=== PATIENT | male | born 1980 | race African-American/Black ===

== ENCOUNTER 2016-08-06 20:59 | Emergency (ER) | payer MEDICARE, MEDICAID ==
[2016-08-06] MEDS ORDERED: Al Hydrox/Mg Hydrox/Simet LIQ* 30 ML UDC PO ONE (22:16)
[2016-08-06] MEDS ORDERED: Omeprazole CAP* 20 MG PO ONE (22:16)
[2016-08-06 22:48] LABS: Hematocrit 42 % (42-52); Hemoglobin 13.5 g/dl (14.0-18.0); Mean Corpuscular HGB Conc 32 g/dl (31-36); Mean Corpuscular Hemoglobin 27 pg (27-31); Mean Corpuscular Volume 85 fL (80-94); Mean Platelet Volume 8 um3 (7.4-10.4); Red Blood Count 4.97 10^6/ul (4.0-5.4); Red Cell Distribution Width 13 % (10.5-15); White Blood Count 5.5 10^3/ul (3.5-10.8)
--- NOTE | 2016-08-06 22:54 | RAD ---
INDICATION: Cough. COMPARISON: Comparison is made with a prior study from May 31, 2016. TECHNIQUE: Dual-energy PA and lateral views of the chest were obtained. FINDINGS: The heart is within normal limits in size. Mediastinal and hilar contours appear within normal limits. The lungs are clear. No pleural effusion is present. IMPRESSION: NO EVIDENCE FOR ACTIVE CARDIOPULMONARY DISEASE.
[2016-08-06 23:03] LABS: Albumin 4.1 g/dL (3.2-5.2); BUN/Creatinine Ratio 9.1 (8-20); C Reactive Protein 2.21 mg/L (< 5.00); Calcium 10.1 mg/dL (8.6-10.3); EGFR African American 96.9 (>60); EGFR Non-African American 75.3 (>60); Globulin 3.4 g/dL (2-4); Total Bilirubin 0.3 mg/dL (0.2-1.0); Total Protein 7.5 g/dL (6.4-8.9)
--- NOTE | 2016-08-06 23:43 | ED ---
Bethany Anderson Erika, scribed for Rocael Seals MD on 08/06/16 at 2212 . Respiratory - HPI Summary HPI Summary: Patient is a 36-year-old male presenting to the ED with a CC of hemoptysis. He reports that he has had cold-like symptoms for 4 days, including chills and a cough. Symptoms have been improving, but a few days ago, pt started producing a yellow sputum with red blood when he coughs. Associated symptoms include feeling generally weak and chest congestion. He also reports that he has had epigastric pain and has been vomiting. Pt denies decreased appetite. He does report loose stools with some specks of blood in them, and reports a Dx of IBS a few months ago. He had a BM today. - History of Current Complaint Chief Complaint: EDGeneral Stated Complaint: COUGHING BLOOD Time Seen by Provider: 08/06/16 21:56 Hx Obtained From: Patient Onset/Duration: Gradual Onset, Lasting Days, Still Present Timing: Constant Current Severity: Moderate Pain Intensity: 2 Character: Cough (Productive) Sputum Color: Yellow, Red (Blood) Aggravating Factor(s): Nothing Alleviating Factor(s): Nothing Associated Signs and Symptoms: URI, Chills - Allergy/Home Medications Allergies/Adverse Reactions: Allergies Allergy/AdvReac Type Severity Reaction Status Date / Time Clozapine Allergy Intermediate See Comment Verified 02/14/16 13:33 Ephedrine [From Respirol] Allergy Intermediate Blurred Verified 02/14/16 13:33 Vision Phenobarbital [From Respirol] Allergy Intermediate Blurred Verified 02/14/16 13: 33 Vision Theophylline [From Respirol] Allergy Intermediate Blurred Verified 02/14/16 13: 33 Vision Fluphenazine Allergy Mild Shakes Verified 02/14/16 13:33 [From Prolixin Decanoate] Paliperidone Allergy Mild Shakes Verified 02/14/16 13:33 [From Invega Sustenna] Polyethylene Glycol Allergy Mild Shakes Verified 02/14/16 13:33 [From Invega Sustenna] Haloperidol [From Haldol] Allergy Unknown See Comment Verified 02/14/16 13:33 Ziprasidone [From Geodon] Allergy Unknown See Comment Verified 02/14/16 13:33 PMH/Surg Hx/FS Hx/Imm Hx Endocrine/Hematology History: Reports: Hx Diabetes, Hx Anemia, Other Endocrine/ Hematological Disorders - leukopenia Denies: Hx Anticoagulant Therapy, Hx Thyroid Disease, Hx Unexplained Bleeding Cardiovascular History: Reports: Hx Hypertension Denies: Hx Aneurysm, Hx Angina, Hx Angioplasty, Hx Auto Implanted Cardiovert Defib, Hx Cardiac Arrest, Hx Cardiomegaly, Hx Congenital Heart Disease, Hx Congestive Heart Failure, Hx Coronary Artery Disease, Hx Deep Vein Thrombosis, Hx Hypercholesterolemia, Hx Hypotension, Hx Pacemaker/ICD, Hx Peripheral Vascular Disease, Hx Rheumatic Fever, Hx Syncope, Hx Valvular Heart Disease Respiratory History: Denies: Hx Asthma, Hx Chronic Bronchitis, Hx Chronic Obstructive Pulmonary Disease (COPD), Hx Cystic Fibrosis, Hx Lung Cancer, Hx Pleural Effusion, Hx Pneumonia, Hx Pulmonary Edema, Hx Pulmonary Embolism, Hx Seasonal Allergies, Hx Sleep Apnea, Other Respiratory Problems/Disorders GI History: Reports: Hx Gastroesophageal Reflux Disease, Hx Gastrointestinal Bleed, Hx Hiatal Hernia, Other GI Disorders - Constipation Denies: Hx Ulcer History: Denies: Hx Renal Disease, Other Problems/Disorders Musculoskeletal History: Reports: Hx Orthopedic Injury - Left Leg Fracture Denies: Other Musculoskeletal History Sensory History: Reports: Hx Contacts or Glasses Denies: Other Sensory Impairments Opthamlomology History: Reports: Hx Contacts or Glasses Denies: Other Sensory Impairments Neurological History: Reports: 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 Denies: Hx Dementia, Hx Developmental Delay, Hx Headaches, Hx Migraine, Hx Nerve Disease, Hx Spinal Cord Injury, Hx Transient Ischemic Attacks (TIA), Other Neuro Impairments/Disorders Psychiatric History: Reports: Hx Anxiety, Hx Oppositional [place] Disorder, Hx Depression, Hx Panic Disorder, Hx Post Traumatic Stress Disorder, Hx Inpatient Treatment, Hx Community Mental Health Tx, Hx Schizophrenia, Hx Bipolar Disorder , Hx Suicide Attempt, Hx Substance Abuse, Other Psychiatric Issues/Disorders - Hx Psychosis Denies: Hx Attention Deficit Hyperactivity Disorder, Hx Eating Disorder, Hx of Violent Episodes Against Others - Surgical History Surgery Procedure, Year, and Place: LEFT INGUINAL HERNIA Hx Anesthesia Reactions: No - Immunization History Date of Tetanus Vaccine: Up to Date Date of Influenza Vaccine: None Infectious Disease History: No Infectious Disease History: Reports: Hx Clostridium Difficile Denies: Hx Hepatitis, Hx Human Immunodeficiency Virus (HIV), Hx of Known/ Suspected MRSA, Hx Shingles, Hx Tuberculosis, Hx Known/Suspected VRE, History Other Infectious Disease, Traveled Outside the [place] in Last 30 Days - Family History Known Family History: Positive: Other - Schizophrenia, ASTHMA, CANCER - Social History Alcohol Use: None Alcohol Amount: some beers, none in the past 2 days Hx Substance Use: No Substance Use Type: Reports: None Hx Tobacco Use: No Smoking Status (MU): Never Smoked Tobacco Review of Systems Positive: Chills, Fatigue Positive: Other - chest congestion Positive: Cough - with blood Positive: Abdominal Pain - epigastric, Vomiting, Nausea, Other - loose stools - IBS - with slight blood Positive: Weakness - generalized All Other Systems Reviewed And Are Negative: Yes Physical Exam Triage Information Reviewed: Yes Vital Signs On Initial Exam: Initial Vitals Temp Pulse Resp BP Pulse Ox 98.7 F 65 20 142/89 100 08/06/16 21:07 08/06/16 21:07 08/06/16 21:07 08/06/16 21:07 08/06/16 21:07 Vital Signs Reviewed: Yes Appearance: Positive: Well-Appearing, No Pain Distress Skin: Positive: Warm, Skin Color Reflects Adequate Perfusion, Dry Head/Face: Positive: Normal Head/Face Inspection Eyes: Positive: EOMI, BHAVIK ENT: Positive: Normal ENT inspection Neck: Positive: Supple, Nontender Respiratory/Lung Sounds: Positive: Clear to Auscultation, Breath Sounds Present Cardiovascular: Positive: RRR Abdomen Description: Positive: Soft, Other: - mild epigastric tenderness Bowel Sounds: Positive: Present Musculoskeletal: Positive: Normal, Strength/ROM Intact Neurological: Positive: Normal, Sensory/Motor Intact, Alert, Oriented to Person Place, Time Psychiatric: Positive: Affect/Mood Appropriate Diagnostics - Vital Signs Vital Signs Temp Pulse Resp BP Pulse Ox 08/06/16 21:07 98.7 F 65 20 142/89 100 - Laboratory Lab Results: Lab Results 08/06/16 08/06/16 08/06/16 Range/Units 22:40 22:40 22:40 WBC 5.5 (3.5-10.8) 10^3/ul RBC 4.97 (4.0-5.4) 10^6/ul Hgb 13.5 L (14.0-18.0) g/dl Hct 42 (42-52) % MCV 85 (80-94) fL MCH 27 (27-31) pg MCHC 32 (31-36) g/dl RDW 13 (10.5-15) % Plt Count 266 (150-450) 10^3/ul MPV 8 (7.4-10.4) um3 Neut % (Auto) 58.6 (38-83) % Lymph % (Auto) 30.3 (25-47) % Lawrence % (Auto) 6.4 (1-9) % Eos % (Auto) 4.4 (0-6) % Baso % (Auto) 0.3 (0-2) % Absolute Neuts (auto) 3.2 (1.5-7.7) 10^3/ul Absolute Lymphs (auto) 1.7 (1.0-4.8) 10^3/ul Absolute Monos (auto) 0.4 (0-0.8) 10^3/ul Absolute Eos (auto) 0.2 (0-0.6) 10^3/ul Absolute Basos (auto) 0 (0-0.2) 10^3/ul Absolute Nucleated RBC 0.01 10^3/ul Nucleated RBC % 0.1 INR (Anticoag Therapy) 1.01 (0.89-1.11) APTT 22.4 L (26.0-36.3) seconds Sodium 137 (133-145) mmol/L Potassium 4.0 (3.5-5.0) mmol/L Chloride 105 (101-111) mmol/L Carbon Dioxide 28 (22-32) mmol/L Anion Gap 4 (2-11) mmol/L BUN 10 (6-24) mg/dL Creatinine 1.10 (0.67-1.17) mg/dL Est GFR ( Amer) 96.9 (>60) Est GFR (Non-Af Amer) 75.3 (>60) BUN/Creatinine Ratio 9.1 (8-20) Glucose 90 (70-100) mg/dL Calcium 10.1 (8.6-10.3) mg/dL Total Bilirubin 0.30 (0.2-1.0) mg/dL AST 16 (13-39) U/L ALT 8 (7-52) U/L Alkaline Phosphatase 34 (34-104) U/L C-Reactive Protein 2.21 (< 5.00) mg/L Total Protein 7.5 (6.4-8.9) g/dL Albumin 4.1 (3.2-5.2) g/dL Globulin 3.4 (2-4) g/dL Albumin/Globulin Ratio 1.2 (1-3) Lipase 25 (11.0-82.0) U/L Result Diagrams: 08/06/16 22:40 08/06/16 22:40 Lab Statement: Any lab studies that have been ordered have been reviewed, and results considered in the medical decision making process. - Radiology CXR Radiology Interpretation Completed By: Radiologist - IMPRESSION: NO EVIDENCE FOR ACTIVE CARDIOPULMONARY DISEASE. Re-Evaluation - Re-Evaluation First Eval Re-Evaluation Time: 23:35 Change: Improved Comment: Discussed imaging and lab results with patient. Pt states improved after Maalox. Will discharge at this time Disposition - Course Assessment/Plan: PATIENT WELL IN ED. UPPER ABD PAIN IMPROVED S/P MAALOX AND OMEPRAZOLE. NO COUGH OR EVIDENCE OF URI/HEMOPTYSIS IN ED. DISCHARGE HOME STABLE. - Diagnoses Provider Diagnoses: GERD (gastroesophageal reflux disease), Abdominal pain Discharge - Discharge Plan Condition: Stable Disposition: HOME Prescriptions: Omeprazole CAP* [Prilosec CAP* 20 MG] 20 mg PO BID #30 cap.dr Patient Education Materials: Gastroesophageal Reflux Disease (ED), Abdominal Pain (ED) Referrals: Nicki Olmstead MD [Medical Doctor] - Additional Instructions: FOLLOW UP WITH YOUR DOCTOR. START OMEPRAZOLE (ANTACID) DIRECTED. RETURN TO THE EMERGENCY DEPARTMENT FOR ANY WORSENING OF YOUR CONDITION OR QUESTIONS OR CONCERNS. The documentation as recorded by the Bethany peralta Erika accurately reflects the service I personally performed and the decisions made by me, Rocael Seals MD.
[2016-08-07 00:03] VITALS: BP 129/88
== END 2016-08-07 00:04 | disposition home or self-care (01) ==
LOC: ED 20:59
DX: K21.9 Gastro-esophageal reflux disease without esophagitis (principal); J06.9 Acute upper respiratory infection, unspecified; R10.13 Epigastric pain; R04.2 Hemoptysis; R05 Cough; R11.2 Nausea with vomiting, unspecified
CPT/HCPCS: 36415; 71020; 80053; 83690; 85025; 85610; 85730; 86140; 99283; A9270-GY

== ENCOUNTER 2016-09-06 08:28 | Emergency (ER) | payer MEDICARE, MEDICAID ==
[2016-09-06 08:54] VITALS: BP 125/85
--- NOTE | 2016-09-06 09:23 | UC ---
Cardiac HPI - HPI Summary HPI Summary: The patient comes in today for: 1. Chest pain: Onset: Last night. Palliative/provocative: Nothing makes the chest pain better. Drinking fluids makes it worse and it is worse "when I job or walking fast." Quality: Ache Region: Left anterior chest. No radiation. Severity: 8/10 but he looks more like 4/10 Time: Constant. Associated symptoms: Nausea: He states he has nausea. Dyspnea: He confesses to this. CAD risk factors: Smoke: (-), DM: (+), HTN: (+), Fm Hx: (-), Cholesterol: (? ), Cocaine: (-), Previous disease: (-) "Not walking good": He states that he may have seen a medical provider for his "poor walking" but "they may not have believed it." * - History of Current Complaint Stated Complaint: SHAKEY CHEST PAIN BS UP Hx Obtained From: Patient - Allergy/Home Medications Allergies/Adverse Reactions: Allergies Allergy/AdvReac Type Severity Reaction Status Date / Time Clozapine Allergy Intermediate See Comment Verified 02/14/16 13:33 Ephedrine [From Respirol] Allergy Intermediate Blurred Verified 02/14/16 13:33 Vision Phenobarbital [From Respirol] Allergy Intermediate Blurred Verified 02/14/16 13: 33 Vision Theophylline [From Respirol] Allergy Intermediate Blurred Verified 02/14/16 13: 33 Vision Fluphenazine Allergy Mild Shakes Verified 02/14/16 13:33 [From Prolixin Decanoate] Paliperidone Allergy Mild Shakes Verified 02/14/16 13:33 [From Invega Sustenna] Polyethylene Glycol Allergy Mild Shakes Verified 02/14/16 13:33 [From Invega Sustenna] Haloperidol [From Haldol] Allergy Unknown See Comment Verified 02/14/16 13:33 Ziprasidone [From Geodon] Allergy Unknown See Comment Verified 02/14/16 13:33 PMH/Surg Hx/FS Hx/Imm Hx Previously Healthy: No - Irritable bowel syndrome. Endocrine History Of: Reports: Diabetes Denies: Thyroid Disease, Hyperthyroidism, Hypothyroidism, Dyslipidemia Cardiovascular History Of: Reports: Hypertension Denies: Cardiac Disorders, Pacemaker/ICD, Myocardial Infarction, Congestive Heart Failure, Atrial Fibrillation, Deep Vein Thrombosis, Bleeding Disorders Respiratory History Of: Denies: COPD, Asthma, Bronchitis, Pneumonia, Pulmonary Embolism GI/ History Of: Reports: Gastroesophageal Reflux Denies: Ulcer, Gastrointestinal Bleed, Gall Bladder Disease, Kidney Stones, Diverticulitis, Renal Disease, Urosepsis Neurological History Of: Reports: 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 Denies: TIA, CVA, Dementia, Migraine Psychological History Of: Reports: Anxiety, Depression, Bipolar Disorder, Schizophrenia Denies: Post Traumatic Stress Disorder Cancer History Of: Denies: Lung Cancer, Colorectal Cancer, Breast Cancer, Prostate Cancer, Cervical Cancer Other History Of: Negative For: HIV, Hepatitis B, Hepatitis C, Anticoagulant Therapy - Surgical History Surgical History: Yes Surgery Procedure, Year, and Place: LEFT INGUINAL HERNIA - Family History Known Family History: Positive: Cardiac Disease, Hypertension, Diabetes - When asked about family HTN, DM, CAD, he states, "Yeah, something like, Other - Schizophrenia, ASTHMA, CANCER - Social History Occupation: Unemployed Alcohol Use: None Alcohol Amount: some beers, none in the past 2 days Substance Use Type: None Smoking Status (MU): Former Smoker Household Exposure Type: Cigars - Immunization History Most Recent Influenza Vaccination: Never Most Recent Tetanus Shot: Unsure Most Recent Pneumonia Vaccination: Never Review of Systems Constitutional: Negative Skin: Negative Eyes: Negative ENT: Negative Respiratory: Shortness Of Breath Cardiovascular: Chest Pain Gastrointestinal: Negative Genitourinary: Negative Motor: Negative All Other Systems Reviewed And Are Negative: Yes Physical Exam Triage Information Reviewed: Yes Completion Of Physical Exam Limited Due To: Other - Patient has history of mental health disorders, but logic seems intact. Appearance: Well-Appearing, No Pain Distress, Well-Nourished Vital Signs: Initial Vital Signs Temp 98.4 F 09/06/16 08:45 Pulse 85 09/06/16 08:45 Resp 18 09/06/16 08:45 BP 125/85 09/06/16 08:45 Pulse Ox 100 09/06/16 08:45 Vital Signs Reviewed: Yes Eyes: Positive: Conjunctiva Clear. Negative: Discharge ENT: Positive: Hearing grossly normal. Negative: Pharyngeal erythema, Nasal congestion, Nasal drainage, TM bulging, TM dull, TM red, Tonsillar swelling, Tonsillar exudate Dental: Negative: Gross Decay/Caries @, Dental Fracture @ Neck: Positive: Supple, Nontender, No Lymphadenopathy. Negative: Nuchal Rigidity Respiratory: Positive: Chest non-tender, Lungs clear, No respiratory distress, No accessory muscle use. Negative: Crackles, Wheezing Cardiovascular: Positive: RRR, No Murmur Abdomen Description: Positive: Nontender, No Organomegaly, Soft. Negative: Distended, Guarding Musculoskeletal: Positive: Strength Intact, ROM Intact, No Edema Neurological: Positive: Alert, Muscle Tone Normal Psychological: Positive: Age Appropriate Behavior, Consolable Skin: Negative: rashes, breakdown Diagnostics - Laboratory Diagnostic Studies Completed/Ordered: EKG: Rate: 74. Rhythm: sinus. Ectopy: None. Acute changes: None. - Clinical Impression Provider Diagnoses: Chest pain. HIstory of bipolar, schizophrenia. - Physician Notifications Discussed Patient Care With: Ms. Nicky Colón (physician providers all were running a code.) Time Discussed With Above Provider: 09:39 Discharge - Discharge Plan Condition: Stable Disposition: HOME Additional Instructions: Patient is going to [facility] via ambulance.
[2016-09-06] MEDS ORDERED: Aspirin Low Dose CHEW TAB* 81 MG PO ONE (09:33)
[2016-09-06] MEDS ORDERED: Nitroglycerin TAB 0.4 MG* 0.4 MG TAB SL ONE (09:33)
== END 2016-09-06 10:00 | disposition short-term general hospital (02) ==
LOC: UCEAST 08:28
DX: R07.9 Chest pain, unspecified (principal); F31.9 Bipolar disorder, unspecified; F20.9 Schizophrenia, unspecified; R94.31 Abnormal electrocardiogram [ECG] [EKG]; Z88.8 Allergy status to other drugs, medicaments and biological substances; F41.9 Anxiety disorder, unspecified; Z87.891 Personal history of nicotine dependence
CPT/HCPCS: 93005; 99213; A9270-GY; G0463

== ENCOUNTER 2016-09-06 10:15 | Emergency (ER) | payer MEDICARE, MEDICAID ==
[2016-09-06] MEDS ORDERED: Aspirin Low Dose CHEW TAB* 81 MG PO ONE (10:54)
[2016-09-06 11:07] LABS: Hematocrit 45 % (42-52); Hemoglobin 14.4 g/dl (14.0-18.0); Mean Corpuscular HGB Conc 32 g/dl (31-36); Mean Corpuscular Hemoglobin 27 pg (27-31); Mean Corpuscular Volume 86 fL (80-94); Mean Platelet Volume 9 um3 (7.4-10.4); Red Blood Count 5.26 10^6/ul (4.0-5.4); Red Cell Distribution Width 14 % (10.5-15); White Blood Count 5.5 10^3/ul (3.5-10.8)
[2016-09-06 11:15] LABS: Albumin 4.3 g/dL (3.2-5.2); BUN/Creatinine Ratio 10.1 (8-20); Calcium 9.3 mg/dL (8.6-10.3); EGFR African American 109.4 (>60); EGFR Non-African American 85.1 (>60); Globulin 3.5 g/dL (2-4); Potassium 4.4 mmol/L (3.5-5.0); Total Bilirubin 0.3 mg/dL (0.2-1.0); Total Protein 7.8 g/dL (6.4-8.9)
--- NOTE | 2016-09-06 11:39 | RAD ---
HISTORY: Chest pain COMPARISONS: August 06, 2016 VIEWS:1: Single frontal portable view of the chest at 11:10 AM FINDINGS: LINES AND TUBES: None. CARDIOMEDIASTINAL SILHOUETTE: The cardiomediastinal silhouette is normal for portable technique. PLEURA: The costophrenic angles are sharp. No pleural abnormalities are noted. LUNG PARENCHYMA: The lungs are clear. ABDOMEN: The upper abdomen is clear. There is no subphrenic gas. BONES AND SOFT TISSUES: No bone or soft tissue abnormalities are noted. IMPRESSION: NO ACTIVE CARDIOPULMONARY DISEASE.
--- NOTE | 2016-09-06 13:13 | ED ---
Jerry Anderson Benjamin, scribed for Samantha Dinero MD on 09/06/16 at 1221 . HPI Chest Pain - HPI Summary HPI Summary: 36yo male c/o chest pain and shakiness since all throughout yesterday and also today. Hx of HTN, DM, schizoaffective. No fhx of CAD. Pt also reports slight ALLISON on the left side. - History of Current Complaint Chief Complaint: EDChestPainROMI Time Seen by Provider: 09/06/16 11:21 Hx Obtained From: Patient Onset/Duration: Started Days Ago - 1 day ago Timing: Constant Initial Severity: Moderate Current Severity: Moderate Pain Intensity: 5 Pain Scale Used: 0-10 Numeric Chest Pain Location: Diffuse Chest Pain Radiates: No Character: Other: - ALLISON; shakiness - Additional Pertinent History Primary Care Physician: JN - Allergy/Home Medications Allergies/Adverse Reactions: Allergies Allergy/AdvReac Type Severity Reaction Status Date / Time Clozapine Allergy Intermediate See Comment Verified 02/14/16 13:33 Ephedrine [From Respirol] Allergy Intermediate Blurred Verified 02/14/16 13:33 Vision Phenobarbital [From Respirol] Allergy Intermediate Blurred Verified 02/14/16 13: 33 Vision Theophylline [From Respirol] Allergy Intermediate Blurred Verified 02/14/16 13: 33 Vision Fluphenazine Allergy Mild Shakes Verified 02/14/16 13:33 [From Prolixin Decanoate] Paliperidone Allergy Mild Shakes Verified 02/14/16 13:33 [From Invega Sustenna] Polyethylene Glycol Allergy Mild Shakes Verified 02/14/16 13:33 [From Invega Sustenna] Haloperidol [From Haldol] Allergy Unknown See Comment Verified 02/14/16 13:33 Ziprasidone [From Geodon] Allergy Unknown See Comment Verified 02/14/16 13:33 PMH/Surg Hx/FS Hx/Imm Hx Endocrine/Hematology History: Reports: Hx Diabetes, Hx Anemia, Other Endocrine/ Hematological Disorders - leukopenia Denies: Hx Anticoagulant Therapy, Hx Thyroid Disease, Hx Unexplained Bleeding Cardiovascular History: Reports: Hx Hypertension Denies: Hx Aneurysm, Hx Angina, Hx Angioplasty, Hx Auto Implanted Cardiovert Defib, Hx Cardiac Arrest, Hx Cardiomegaly, Hx Congenital Heart Disease, Hx Congestive Heart Failure, Hx Coronary Artery Disease, Hx Deep Vein Thrombosis, Hx Hypercholesterolemia, Hx Hypotension, Hx Myocardial Infarction, Hx Pacemaker/ ICD, Hx Peripheral Vascular Disease, Hx Rheumatic Fever, Hx Syncope, Hx Valvular Heart Disease Respiratory History: Denies: Hx Asthma, Hx Chronic Bronchitis, Hx Chronic Obstructive Pulmonary Disease (COPD), Hx Cystic Fibrosis, Hx Lung Cancer, Hx Pleural Effusion, Hx Pneumonia, Hx Pulmonary Edema, Hx Pulmonary Embolism, Hx Seasonal Allergies, Hx Sleep Apnea, Other Respiratory Problems/Disorders GI History: Reports: Hx Gastroesophageal Reflux Disease, Hx Hiatal Hernia, Other GI Disorders - Constipation Denies: Hx Gall Bladder Disease, Hx Gastrointestinal Bleed, Hx Ulcer, Hx Urosepsis History: Denies: Hx Kidney Stones, Hx Renal Disease, Other Problems/Disorders Musculoskeletal History: Reports: Hx Orthopedic Injury - Left Leg Fracture Denies: Other Musculoskeletal History Sensory History: Reports: Hx Contacts or Glasses Denies: Other Sensory Impairments Opthamlomology History: Reports: Hx Contacts or Glasses Denies: Other Sensory Impairments Neurological History: Reports: 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 Denies: Hx Dementia, Hx Developmental Delay, Hx Headaches, Hx Migraine, Hx Nerve Disease, Hx Spinal Cord Injury, Hx Transient Ischemic Attacks (TIA), Other Neuro Impairments/Disorders Psychiatric History: Reports: Hx Anxiety, Hx Oppositional [place] Disorder, Hx Depression, Hx Panic Disorder, Hx Post Traumatic Stress Disorder, Hx Inpatient Treatment, Hx Community Mental Health Tx, Hx Schizophrenia, Hx Bipolar Disorder , Hx Suicide Attempt, Hx Substance Abuse, Other Psychiatric Issues/Disorders - Hx Psychosis Denies: Hx Attention Deficit Hyperactivity Disorder, Hx Eating Disorder, Hx of Violent Episodes Against Others - Surgical History Surgery Procedure, Year, and Place: LEFT INGUINAL HERNIA Hx Anesthesia Reactions: No - Immunization History Date of Tetanus Vaccine: Up to Date Date of Influenza Vaccine: None Infectious Disease History: No Infectious Disease History: Reports: Hx Clostridium Difficile Denies: Hx Hepatitis, Hx Human Immunodeficiency Virus (HIV), Hx of Known/ Suspected MRSA, Hx Shingles, Hx Tuberculosis, Hx Known/Suspected VRE, History Other Infectious Disease, Traveled Outside the [place] in Last 30 Days - Family History Known Family History: Positive: Cardiac Disease, Hypertension, Diabetes - When asked about family HTN, DM, CAD, he states, "Yeah, something like, Other - Schizophrenia, ASTHMA, CANCER - Social History Alcohol Use: None Alcohol Amount: some beers, none in the past 2 days Hx Substance Use: No Substance Use Type: Reports: None Hx Tobacco Use: No Smoking Status (MU): Former Smoker Review of Systems ENT: Negative Negative: Dental Pain, Sore Throat, Ear Ache Cardiovascular: Negative Negative: Palpitations, Chest Pain Respiratory: Negative Negative: Shortness Of Breath, Cough Gastrointestinal: Negative Negative: Abdominal Pain, Vomiting, Diarrhea Genitourinary: Negative Negative: see HPI, burning, dysuria, incontinence Musculoskeletal: Negative Negative: Arthralgia, Myalgia, Decreased ROM Skin: Negative Negative: Rash, Bruising Neurological: Negative Negative: Headache, Weakness, Paresthesia Psychological: Normal Negative: Anxious, Depressed All Other Systems Reviewed And Are Negative: Yes Physical Exam Triage Information Reviewed: Yes Vital Signs On Initial Exam: Initial Vitals Temp Pulse Resp BP Pulse Ox 97.6 F 66 16 120/83 97 09/06/16 10:34 09/06/16 10:34 09/06/16 10:34 09/06/16 10:34 09/06/16 10:34 Vital Signs Reviewed: Yes Appearance: Positive: Well-Appearing, No Pain Distress, Well-Nourished Skin: Positive: Warm, Skin Color Reflects Adequate Perfusion, Dry Head/Face: Positive: Normal Head/Face Inspection Eyes: Positive: EOMI, BHAVIK ENT: Positive: Hearing grossly normal, Pharynx normal, TMs normal Neck: Positive: Supple, Nontender Respiratory/Lung Sounds: Positive: Clear to Auscultation, Breath Sounds Present Cardiovascular: Positive: RRR Abdomen Description: Positive: Nontender, No Organomegaly, Soft Bowel Sounds: Positive: Present Musculoskeletal: Positive: Normal, Strength/ROM Intact. Negative: Pain @ Neurological: Positive: Sensory/Motor Intact, Alert, Oriented to Person Place, Time, CN Intact II-III Psychiatric: Positive: Affect/Mood Appropriate - Yue Coma Scale Coma Scale Total: 15 Diagnostics - Vital Signs Vital Signs Temp Pulse Resp BP Pulse Ox 09/06/16 10:34 97.6 F 66 16 120/83 97 - Laboratory Lab Results: Lab Results 09/06/16 09/06/16 Range/Units 09:43 09:43 WBC 5.5 (3.5-10.8) 10^3/ul RBC 5.26 (4.0-5.4) 10^6/ul Hgb 14.4 (14.0-18.0) g/dl Hct 45 (42-52) % MCV 86 (80-94) fL MCH 27 (27-31) pg MCHC 32 (31-36) g/dl RDW 14 (10.5-15) % Plt Count 206 (150-450) 10^3/ul MPV 9 (7.4-10.4) um3 Neut % (Auto) 45.9 (38-83) % Lymph % (Auto) 37.4 (25-47) % Sharp % (Auto) 6.9 (1-9) % Eos % (Auto) 9.1 H (0-6) % Baso % (Auto) 0.7 (0-2) % Absolute Neuts (auto) 2.5 (1.5-7.7) 10^3/ul Absolute Lymphs (auto) 2.0 (1.0-4.8) 10^3/ul Absolute Monos (auto) 0.4 (0-0.8) 10^3/ul Absolute Eos (auto) 0.5 (0-0.6) 10^3/ul Absolute Basos (auto) 0 (0-0.2) 10^3/ul Absolute Nucleated RBC 0 10^3/ul Nucleated RBC % 0.1 Sodium 136 (133-145) mmol/L Potassium 4.4 (3.5-5.0) mmol/L Chloride 103 (101-111) mmol/L Carbon Dioxide 27 (22-32) mmol/L Anion Gap 6 (2-11) mmol/L BUN 10 (6-24) mg/dL Creatinine 0.99 (0.67-1.17) mg/dL Est GFR ( Amer) 109.4 (>60) Est GFR (Non-Af Amer) 85.1 (>60) BUN/Creatinine Ratio 10.1 (8-20) Glucose 107 H (70-100) mg/dL Calcium 9.3 (8.6-10.3) mg/dL Total Bilirubin 0.30 (0.2-1.0) mg/dL AST 19 (13-39) U/L ALT 9 (7-52) U/L Alkaline Phosphatase 40 (34-104) U/L Troponin I Pending Total Protein 7.8 (6.4-8.9) g/dL Albumin 4.3 (3.2-5.2) g/dL Globulin 3.5 (2-4) g/dL Albumin/Globulin Ratio 1.2 (1-3) Result Diagrams: 09/06/16 09:43 09/06/16 09:43 Lab Statement: Any lab studies that have been ordered have been reviewed, and results considered in the medical decision making process. Chest Pain Course/Dx - Course Course Of Treatment: 36 yo male who comes in with complaint of stuffed up nose and chest pain since yesterday. labs, cxr and trop ekg normal - Diagnoses Provider Diagnoses: Chest pain, atypical Discharge - Discharge Plan Condition: Stable Disposition: HOME The documentation as recorded by the Jerry peralta Benjamin accurately reflects the service I personally performed and the decisions made by me, Samantha Dinero MD.
[2016-09-06 13:34] VITALS: BP 128/78
[2016-09-06] MEDS ORDERED: Ibuprofen TAB* 600 MG PO ONE (13:55)
== END 2016-09-06 13:33 | disposition home or self-care (01) ==
LOC: ED 10:15
DX: R07.89 Other chest pain (principal); Z86.79 Personal history of other diseases of the circulatory system; Z87.891 Personal history of nicotine dependence; F31.9 Bipolar disorder, unspecified; F20.9 Schizophrenia, unspecified; R94.31 Abnormal electrocardiogram [ECG] [EKG]; Z88.8 Allergy status to other drugs, medicaments and biological substances; F41.9 Anxiety disorder, unspecified
CPT/HCPCS: 36415; 71010; 80053; 84484; 85025; 93005; 99213; 99284; A9270-GY; G0463

== ENCOUNTER 2016-09-29 12:12 | Emergency (ER) | payer MEDICARE, MEDICAID ==
[2016-09-29 13:10] VITALS: BP 122/78
--- NOTE | 2016-09-29 14:56 | UC ---
UC General HPI - HPI Summary HPI Summary: PT FEELS OVERALL WEAK AND FATIGUED FOR OVER A MONTH. REPORTS HE GOES TO BED ABOUT 5AM BECAUSE HE IS UP WATCHING TV. ONLY SLEEPS FOR A FEW HOURS A NIGHT. DOES NOT EAT MEALS REGULARLY AND DOES NOT FOLLOW ANY KIND OF DIABETIC DIET. IS CONCERNED ABOUT HIS OVERALL MALAISE. NO FEVER. NO NAUSEA. ATE FRUIT LOOPS THIS MORNING FOR BREAKFAST. POC GLUCOSE TODAY 75. - History of Current Complaint Chief Complaint: UCGeneralIllness Stated Complaint: WEAKNESS Time Seen by Provider: 09/29/16 14:45 Hx Obtained From: Patient Onset/Duration: Gradual Onset, Lasting Weeks, Still Present Timing: Constant Onset Severity: Moderate Current Severity: Moderate Pain Intensity: 0 Associated Signs & Symptoms: Positive: Recent Medication Changes - STARTED ZYPREXA A FEW WEEKS AGO, Weakness. Negative: Abdominal Pain, Cough, Chest Pain , Fever, Headache, Nausea, Palpitations, SOB - Allergy/Home Medications Allergies/Adverse Reactions: Allergies Allergy/AdvReac Type Severity Reaction Status Date / Time Clozapine Allergy Intermediate See Comment Verified 02/14/16 13:33 Ephedrine [From Respirol] Allergy Intermediate Blurred Verified 02/14/16 13:33 Vision Phenobarbital [From Respirol] Allergy Intermediate Blurred Verified 02/14/16 13: 33 Vision Theophylline [From Respirol] Allergy Intermediate Blurred Verified 02/14/16 13: 33 Vision Fluphenazine Allergy Mild Shakes Verified 02/14/16 13:33 [From Prolixin Decanoate] Paliperidone Allergy Mild Shakes Verified 02/14/16 13:33 [From Invega Sustenna] Polyethylene Glycol Allergy Mild Shakes Verified 02/14/16 13:33 [From Invega Sustenna] Haloperidol [From Haldol] Allergy Unknown See Comment Verified 02/14/16 13:33 Ziprasidone [From Geodon] Allergy Unknown See Comment Verified 02/14/16 13:33 PMH/Surg Hx/FS Hx/Imm Hx Endocrine History Of: Reports: Diabetes Denies: Thyroid Disease, Hyperthyroidism, Hypothyroidism, Dyslipidemia Cardiovascular History Of: Reports: Hypertension Denies: Cardiac Disorders, Pacemaker/ICD, Myocardial Infarction, Congestive Heart Failure, Atrial Fibrillation, Deep Vein Thrombosis, Bleeding Disorders Respiratory History Of: Denies: COPD, Asthma, Bronchitis, Pneumonia, Pulmonary Embolism GI/ History Of: Reports: Gastroesophageal Reflux Denies: Ulcer, Gastrointestinal Bleed, Gall Bladder Disease, Kidney Stones, Diverticulitis, Renal Disease, Urosepsis Neurological History Of: Reports: 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 Denies: TIA, CVA, Dementia, Migraine Psychological History Of: Reports: Anxiety, Depression, Bipolar Disorder, Schizophrenia Denies: Post Traumatic Stress Disorder Cancer History Of: Denies: Lung Cancer, Colorectal Cancer, Breast Cancer, Prostate Cancer, Cervical Cancer Other History Of: Negative For: HIV, Hepatitis B, Hepatitis C, Anticoagulant Therapy - Surgical History Surgical History: Yes Surgery Procedure, Year, and Place: LEFT INGUINAL HERNIA - Family History Known Family History: Positive: Cardiac Disease, Hypertension, Diabetes - When asked about family HTN, DM, CAD, he states, "Yeah, something like, Other - Schizophrenia, ASTHMA, CANCER - Social History Alcohol Use: None Alcohol Amount: some beers, none in the past 2 days Substance Use Type: None Smoking Status (MU): Former Smoker Household Exposure Type: Cigars - Immunization History Most Recent Influenza Vaccination: Never Most Recent Tetanus Shot: Unsure Most Recent Pneumonia Vaccination: Never Review of Systems Constitutional: Fatigue, Other - MALAISE, WEKNESS ENT: Negative Respiratory: Negative Cardiovascular: Negative Gastrointestinal: Negative Neurological: Weakness All Other Systems Reviewed And Are Negative: Yes Physical Exam Triage Information Reviewed: Yes Appearance: Well-Appearing, No Pain Distress, Well-Nourished Vital Signs: Initial Vital Signs Temp 98.2 F 09/29/16 13:06 Pulse 64 09/29/16 13:06 Resp 16 09/29/16 13:06 BP 122/78 09/29/16 13:06 Pulse Ox 100 09/29/16 13:06 Vital Signs Reviewed: Yes Eyes: Positive: Conjunctiva Clear ENT: Positive: Hearing grossly normal Neck: Positive: Supple Respiratory Exam: Normal Cardiovascular Exam: Normal Abdomen Description: Positive: Nontender, Soft Musculoskeletal: Positive: No Edema Neurological: Positive: Alert Psychological: Positive: Age Appropriate Behavior Skin: Negative: rashes Diagnostics - Laboratory Diagnostic Studies Completed/Ordered: POC GLUCOSE 75 Course/Dx - Differential Dx - Multi-Symptom Provider Diagnoses: OVERALL MALAISE - Physician Notifications Discussed Patient Care With: DR. WEAVER Time Discussed With Above Provider: 15:15 Instructed by Provider To: MD Will See In ED - [place] [facility] [facility] [place] Discharge - Discharge Plan Condition: Stable Disposition: [facility] Referrals: Nicki Olmstead MD [Primary Care Provider] -
== END 2016-09-29 15:43 | disposition short-term general hospital (02) ==
LOC: UCEAST 12:12
DX: R53.81 Other malaise (principal); Z88.8 Allergy status to other drugs, medicaments and biological substances; E11.9 Type 2 diabetes mellitus without complications; Z87.891 Personal history of nicotine dependence
CPT/HCPCS: 99213; G0463

== ENCOUNTER 2016-09-29 16:01 | Emergency (ER) | payer MEDICARE, MEDICAID ==
[2016-09-29] MEDS ORDERED: NS 0.9% 1000 ML* 1,000 ML IV SCH (16:30)
[2016-09-29] MEDS: NS 0.9% 1000 ML* 2,000 ML IV ONE ×2 (17:23→18:30)
[2016-09-29 17:52] LABS: Hematocrit 42 % (42-52); Hemoglobin 13.5 g/dl (14.0-18.0); Mean Corpuscular HGB Conc 32 g/dl (31-36); Mean Corpuscular Hemoglobin 27 pg (27-31); Mean Corpuscular Volume 85 fL (80-94); Mean Platelet Volume 8 um3 (7.4-10.4); Red Blood Count 4.95 10^6/ul (4.0-5.4); Red Cell Distribution Width 14 % (10.5-15); White Blood Count 4.9 10^3/ul (3.5-10.8)
[2016-09-29 18:07] LABS: BUN/Creatinine Ratio 9.3 (8-20); C Reactive Protein 1.47 mg/L (< 5.00); Calcium 9.4 mg/dL (8.6-10.3); EGFR African American 98.9 (>60); EGFR Non-African American 76.9 (>60); Globulin 3.5 g/dL (2-4); Magnesium 1.9 mg/dL (1.9-2.7); Potassium 3.6 mmol/L (3.5-5.0); Total Bilirubin 0.7 mg/dL (0.2-1.0); Total Protein 7.5 g/dL (6.4-8.9)
[2016-09-29 18:25] LABS: Lithium 0.9 mmol/L (0.6-1.2)
[2016-09-29 18:35] LABS: TSH (Thyroid Stimulating Horm) 1.29 mcIU/mL (0.34-5.60)
--- NOTE | 2016-09-29 19:38 | ED ---
Cosme Anderson Billy, scribed for Rocael Seals MD on 09/29/16 at 1652 . Complex/Multi-Sys Presentation - HPI Summary HPI Summary: Patient is a 36 year-old male coming to [facility] from [facility] [place] of feelings that his heart is "squeezing, like it's working overtime" since yesterday. Nothing makes his symptoms better or worse. Denies any recent changes in medication. - History Of Current Complaint Chief Complaint: EDGeneral Time Seen by Provider: 09/29/16 16:22 Hx Obtained From: Patient Onset/Duration: Gradual Onset, Lasting Days, Still Present Timing: Intermittent, Lasting: Severity Currently: Moderate Severity Initially: Moderate Aggravating Factor(s): none Alleviating Factor(s): none - Allergies/Home Medications Allergies/Adverse Reactions: Allergies Allergy/AdvReac Type Severity Reaction Status Date / Time Clozapine Allergy Intermediate See Comment Verified 02/14/16 13:33 Ephedrine [From Respirol] Allergy Intermediate Blurred Verified 02/14/16 13:33 Vision Phenobarbital [From Respirol] Allergy Intermediate Blurred Verified 02/14/16 13: 33 Vision Theophylline [From Respirol] Allergy Intermediate Blurred Verified 02/14/16 13: 33 Vision Fluphenazine Allergy Mild Shakes Verified 02/14/16 13:33 [From Prolixin Decanoate] Paliperidone Allergy Mild Shakes Verified 02/14/16 13:33 [From Invega Sustenna] Polyethylene Glycol Allergy Mild Shakes Verified 02/14/16 13:33 [From Invega Sustenna] Haloperidol [From Haldol] Allergy Unknown See Comment Verified 02/14/16 13:33 Ziprasidone [From Geodon] Allergy Unknown See Comment Verified 02/14/16 13:33 PMH/Surg Hx/FS Hx/Imm Hx Endocrine/Hematology History: Reports: Hx Diabetes, Hx Anemia, Other Endocrine/ Hematological Disorders - leukopenia Denies: Hx Anticoagulant Therapy, Hx Thyroid Disease, Hx Unexplained Bleeding Cardiovascular History: Reports: Hx Hypertension Denies: Hx Aneurysm, Hx Angina, Hx Angioplasty, Hx Auto Implanted Cardiovert Defib, Hx Cardiac Arrest, Hx Cardiomegaly, Hx Congenital Heart Disease, Hx Congestive Heart Failure, Hx Coronary Artery Disease, Hx Deep Vein Thrombosis, Hx Hypercholesterolemia, Hx Hypotension, Hx Myocardial Infarction, Hx Pacemaker/ ICD, Hx Peripheral Vascular Disease, Hx Rheumatic Fever, Hx Syncope, Hx Valvular Heart Disease Respiratory History: Denies: Hx Asthma, Hx Chronic Bronchitis, Hx Chronic Obstructive Pulmonary Disease (COPD), Hx Cystic Fibrosis, Hx Lung Cancer, Hx Pleural Effusion, Hx Pneumonia, Hx Pulmonary Edema, Hx Pulmonary Embolism, Hx Seasonal Allergies, Hx Sleep Apnea, Other Respiratory Problems/Disorders GI History: Reports: Hx Gastroesophageal Reflux Disease, Hx Hiatal Hernia, Other GI Disorders - Constipation Denies: Hx Gall Bladder Disease, Hx Gastrointestinal Bleed, Hx Ulcer, Hx Urosepsis History: Denies: Hx Kidney Stones, Hx Renal Disease, Other Problems/Disorders Musculoskeletal History: Reports: Hx Orthopedic Injury - Left Leg Fracture Denies: Other Musculoskeletal History Sensory History: Reports: Hx Contacts or Glasses Denies: Other Sensory Impairments Opthamlomology History: Reports: Hx Contacts or Glasses Denies: Other Sensory Impairments Neurological History: Reports: 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 Denies: Hx Dementia, Hx Developmental Delay, Hx Headaches, Hx Migraine, Hx Nerve Disease, Hx Spinal Cord Injury, Hx Transient Ischemic Attacks (TIA), Other Neuro Impairments/Disorders Psychiatric History: Reports: Hx Anxiety, Hx Oppositional [place] Disorder, Hx Depression, Hx Panic Disorder, Hx Post Traumatic Stress Disorder, Hx Inpatient Treatment, Hx Community Mental Health Tx, Hx Schizophrenia, Hx Bipolar Disorder , Hx Suicide Attempt, Hx Substance Abuse, Other Psychiatric Issues/Disorders - Hx Psychosis Denies: Hx Attention Deficit Hyperactivity Disorder, Hx Eating Disorder, Hx of Violent Episodes Against Others - Surgical History Surgery Procedure, Year, and Place: LEFT INGUINAL HERNIA Hx Anesthesia Reactions: No - Immunization History Date of Tetanus Vaccine: Up to Date Date of Influenza Vaccine: None Infectious Disease History: Reports: Hx Clostridium Difficile Denies: Hx Hepatitis, Hx Human Immunodeficiency Virus (HIV), Hx of Known/ Suspected MRSA, Hx Shingles, Hx Tuberculosis, Hx Known/Suspected VRE, History Other Infectious Disease, Traveled Outside the [place] in Last 30 Days - Family History Known Family History: Positive: Cardiac Disease, Hypertension, Diabetes - When asked about family HTN, DM, CAD, he states, "Yeah, something like, Other - Schizophrenia, ASTHMA, CANCER - Social History Alcohol Use: None Alcohol Amount: some beers, none in the past 2 days Hx Substance Use: No Substance Use Type: Reports: None Hx Tobacco Use: No Smoking Status (MU): Former Smoker Review of Systems Negative: Fever Positive: Other - "heart squeezing" All Other Systems Reviewed And Are Negative: Yes Physical Exam Triage Information Reviewed: Yes Vital Signs On Initial Exam: Initial Vital Signs Temp 98.2 F 09/29/16 16:31 Pulse 64 09/29/16 16:31 Resp 18 09/29/16 16:31 BP 130/75 09/29/16 16:31 Pulse Ox 100 09/29/16 16:31 Vital Signs Reviewed: Yes Appearance: Positive: Well-Appearing, No Pain Distress Skin: Positive: Warm, Skin Color Reflects Adequate Perfusion, Dry Head/Face: Positive: Normal Head/Face Inspection Eyes: Positive: EOMI, BHAVIK Neck: Positive: Supple, Nontender Respiratory/Lung Sounds: Positive: Clear to Auscultation, Breath Sounds Present Cardiovascular: Positive: RRR Abdomen Description: Positive: Nontender, Soft Bowel Sounds: Positive: Present Musculoskeletal: Positive: Normal, Strength/ROM Intact Neurological: Positive: Normal, Sensory/Motor Intact, Alert, Oriented to Person Place, Time Psychiatric: Positive: Affect/Mood Appropriate Diagnostics - Vital Signs Vital Signs Temp Pulse Resp BP Pulse Ox 09/29/16 17:59 64 16 124/76 100 09/29/16 16:31 98.2 F 64 18 130/75 100 - Laboratory Lab Results: Lab Results 09/29/16 09/29/16 09/29/16 Range/Units 17:35 17:35 17:35 WBC 4.9 (3.5-10.8) 10^3/ul RBC 4.95 (4.0-5.4) 10^6/ul Hgb 13.5 L (14.0-18.0) g/dl Hct 42 (42-52) % MCV 85 (80-94) fL MCH 27 (27-31) pg MCHC 32 (31-36) g/dl RDW 14 (10.5-15) % Plt Count 249 (150-450) 10^3/ul MPV 8 (7.4-10.4) um3 Neut % (Auto) 58.4 (38-83) % Lymph % (Auto) 28.1 (25-47) % [place] % (Auto) 7.0 (1-9) % Eos % (Auto) 6.1 H (0-6) % Baso % (Auto) 0.4 (0-2) % Absolute Neuts (auto) 2.8 (1.5-7.7) 10^3/ul Absolute Lymphs (auto) 1.4 (1.0-4.8) 10^3/ul Absolute Monos (auto) 0.3 (0-0.8) 10^3/ul Absolute Eos (auto) 0.3 (0-0.6) 10^3/ul Absolute Basos (auto) 0 (0-0.2) 10^3/ul Absolute Nucleated RBC 0.02 10^3/ul Nucleated RBC % 0.4 INR (Anticoag Therapy) 1.11 (0.89-1.11) APTT 32.3 (26.0-36.3) seconds Sodium 135 (133-145) mmol/L Potassium 3.6 (3.5-5.0) mmol/L Chloride 105 (101-111) mmol/L Carbon Dioxide 27 (22-32) mmol/L Anion Gap 3 (2-11) mmol/L BUN 10 (6-24) mg/dL Creatinine 1.08 (0.67-1.17) mg/dL Est GFR ( Amer) 98.9 (>60) Est GFR (Non-Af Amer) 76.9 (>60) BUN/Creatinine Ratio 9.3 (8-20) Glucose 101 H (70-100) mg/dL Calcium 9.4 (8.6-10.3) mg/dL Magnesium 1.9 (1.9-2.7) mg/dL Total Bilirubin 0.70 (0.2-1.0) mg/dL AST 17 (13-39) U/L ALT 10 (7-52) U/L Alkaline Phosphatase 41 (34-104) U/L Troponin I 0.00 (<0.04) ng/mL C-Reactive Protein 1.47 (< 5.00) mg/L Total Protein 7.5 (6.4-8.9) g/dL Albumin 4.0 (3.2-5.2) g/dL Globulin 3.5 (2-4) g/dL Albumin/Globulin Ratio 1.1 (1-3) Lipase 19 (11.0-82.0) U/L TSH 1.29 (0.34-5.60) mcIU/mL Valproic Acid 47.0 L (50-100) mcg/mL [place] 0.90 (0.6-1.2) mmol/L Result Diagrams: 09/29/16 17:35 09/29/16 17:35 Lab Statement: Any lab studies that have been ordered have been reviewed, and results considered in the medical decision making process. - EKG 1925 EKG Interpretation: sinus bradycardia 59 bpm, normal ST segment, no ectopy EKG Comparison: No Significant Change - Compared to 09/06/16 Complex Multi-Symp Course/Dx Assessment/Plan: WELL IN ED. DISCHARGE HOME STABLE. - Diagnoses Provider Diagnoses: Chest pain Discharge - Discharge Plan Condition: Stable Disposition: HOME Patient Education Materials: Chest Pain (ED) Referrals: Nicki Olmstead MD [Primary Care Provider] - Additional Instructions: FOLLOW UP WITH YOUR DOCTOR. RETURN TO THE EMERGENCY DEPARTMENT FOR ANY WORSENING OF YOUR CONDITION OR QUESTIONS OR CONCERNS. The documentation as recorded by the Cosme peralta Billy accurately reflects the service I personally performed and the decisions made by me, Rocael Seals MD.
[2016-09-29 19:53] VITALS: BP 132/69
== END 2016-09-29 19:52 | disposition home or self-care (01) ==
LOC: ED 16:01
DX: R07.9 Chest pain, unspecified (principal); I10 Essential (primary) hypertension; K21.9 Gastro-esophageal reflux disease without esophagitis; F31.9 Bipolar disorder, unspecified; F20.9 Schizophrenia, unspecified; Z87.891 Personal history of nicotine dependence
CPT/HCPCS: 36415; 80053; 80164; 80178; 83690; 83735; 84443; 84484; 85025; 85610; 85730; 86140; 93005; 96360; 99282

== ENCOUNTER 2016-10-25 10:59 | Emergency (ER) | payer MEDICARE, MEDICAID ==
[2016-10-25 11:34] LABS: Hematocrit 42 % (42-52); Hemoglobin 13.6 g/dl (14.0-18.0); Mean Corpuscular HGB Conc 32 g/dl (31-36); Mean Corpuscular Hemoglobin 27 pg (27-31); Mean Corpuscular Volume 85 fL (80-94); Mean Platelet Volume 8 um3 (7.4-10.4); Red Blood Count 4.97 10^6/ul (4.0-5.4); Red Cell Distribution Width 14 % (10.5-15); White Blood Count 4.9 10^3/ul (3.5-10.8)
[2016-10-25 11:51] LABS: ALT 8 U/L (7-52); AST 17 U/L (13-39); Albumin 4.2 g/dL (3.2-5.2); Alkaline Phosphatase 48 U/L (34-104); Anion Gap 5 mmol/L (2-11); BUN/Creatinine Ratio 10.2 (8-20); Blood Urea Nitrogen 13 mg/dL (6-24); CO2 Carbon Dioxide 26 mmol/L (22-32); Calcium 9.6 mg/dL (8.6-10.3); Chloride 105 mmol/L (101-111); EGFR African American 81.3 (>60); EGFR Non-African American 63.2 (>60); Globulin 3.4 g/dL (2-4); Glucose 84 mg/dL (70-100); Potassium 3.7 mmol/L (3.5-5.0); Sodium 136 mmol/L (133-145); Total Protein 7.6 g/dL (6.4-8.9)
[2016-10-25 12:06] LABS: Acetaminophen < 15 mcg/mL; Alcohol < 10 mg/dL (<10); Salicylate < 2.50 mg/dL (<30)
[2016-10-25 12:15] LABS: TSH (Thyroid Stimulating Horm) 1.56 mcIU/mL (0.34-5.60)
[2016-10-25 12:17] LABS: Urine Bacteria Absent (Absent); Urine Bilirubin Negative (Negative); Urine Glucose Negative (Negative); Urine Nitrite Negative (Negative)
[2016-10-25 12:29] LABS: Benzodiazepine Urine Screen None Detected (None Detect)
[2016-10-25 13:25] VITALS: BP 113/74
--- NOTE | 2016-10-25 18:58 | ED ---
Malinda Anderson Matthew, scribed for Pato Azar MD on 10/25/16 at 1159 . Altered Mental Status - HPI Summary HPI Summary: A 36 y/o male presents to the ED with hallucinations. The patient states that he 's unable to walk, because "[he] can only walk on one side of the floor and not the other." No SI or depression. - History Of Current Complaint Chief Complaint: EDMentalHealth Stated Complaint: WEAKNESS Time Seen by Provider: 10/25/16 11:22 Hx Obtained From: Patient Onset/Duration: Still Present Timing: Constant Severity Initially: Mild Severity Currently: Mild Aggravating Factor(s): Unknown Alleviating Factor(s): Unknown Associated Signs And Symptoms: Positive: Negative - Allergies/Home Medications Allergies/Adverse Reactions: Allergies Allergy/AdvReac Type Severity Reaction Status Date / Time Clozapine Allergy Intermediate See Comment Verified 02/14/16 13:33 Ephedrine [From Respirol] Allergy Intermediate Blurred Verified 02/14/16 13:33 Vision Phenobarbital [From Respirol] Allergy Intermediate Blurred Verified 02/14/16 13: 33 Vision Theophylline [From Respirol] Allergy Intermediate Blurred Verified 02/14/16 13: 33 Vision Fluphenazine Allergy Mild Shakes Verified 02/14/16 13:33 [From Prolixin Decanoate] Paliperidone Allergy Mild Shakes Verified 02/14/16 13:33 [From Invega Sustenna] Polyethylene Glycol Allergy Mild Shakes Verified 02/14/16 13:33 [From Invega Sustenna] Haloperidol [From Haldol] Allergy Unknown See Comment Verified 02/14/16 13:33 Ziprasidone [From Geodon] Allergy Unknown See Comment Verified 02/14/16 13:33 PMH/Surg Hx/FS Hx/Imm Hx Endocrine/Hematology History: Reports: Hx Diabetes, Hx Anemia, Other Endocrine/ Hematological Disorders - leukopenia Denies: Hx Anticoagulant Therapy, Hx Thyroid Disease, Hx Unexplained Bleeding Cardiovascular History: Reports: Hx Hypertension Denies: Hx Aneurysm, Hx Angina, Hx Angioplasty, Hx Auto Implanted Cardiovert Defib, Hx Cardiac Arrest, Hx Cardiomegaly, Hx Congenital Heart Disease, Hx Congestive Heart Failure, Hx Coronary Artery Disease, Hx Deep Vein Thrombosis, Hx Hypercholesterolemia, Hx Hypotension, Hx Myocardial Infarction, Hx Pacemaker/ ICD, Hx Peripheral Vascular Disease, Hx Rheumatic Fever, Hx Syncope, Hx Valvular Heart Disease Respiratory History: Denies: Hx Asthma, Hx Chronic Bronchitis, Hx Chronic Obstructive Pulmonary Disease (COPD), Hx Cystic Fibrosis, Hx Lung Cancer, Hx Pleural Effusion, Hx Pneumonia, Hx Pulmonary Edema, Hx Pulmonary Embolism, Hx Seasonal Allergies, Hx Sleep Apnea, Other Respiratory Problems/Disorders GI History: Reports: Hx Gastroesophageal Reflux Disease, Hx Hiatal Hernia, Other GI Disorders - Constipation Denies: Hx Gall Bladder Disease, Hx Gastrointestinal Bleed, Hx Ulcer, Hx Urosepsis History: Denies: Hx Kidney Stones, Hx Renal Disease, Other Problems/Disorders Musculoskeletal History: Reports: Hx Orthopedic Injury - Left Leg Fracture Denies: Other Musculoskeletal History Sensory History: Reports: Hx Contacts or Glasses Denies: Other Sensory Impairments Opthamlomology History: Reports: Hx Contacts or Glasses Denies: Other Sensory Impairments Neurological History: Reports: 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 Denies: Hx Dementia, Hx Developmental Delay, Hx Headaches, Hx Migraine, Hx Nerve Disease, Hx Spinal Cord Injury, Hx Transient Ischemic Attacks (TIA), Other Neuro Impairments/Disorders Psychiatric History: Reports: Hx Anxiety, Hx Oppositional [place] Disorder, Hx Depression, Hx Panic Disorder, Hx Post Traumatic Stress Disorder, Hx Inpatient Treatment, Hx Community Mental Health Tx, Hx Schizophrenia, Hx Bipolar Disorder , Hx Suicide Attempt, Hx Substance Abuse, Other Psychiatric Issues/Disorders - Hx Psychosis Denies: Hx Attention Deficit Hyperactivity Disorder, Hx Eating Disorder, Hx of Violent Episodes Against Others - Surgical History Surgery Procedure, Year, and Place: LEFT INGUINAL HERNIA Hx Anesthesia Reactions: No - Immunization History Date of Tetanus Vaccine: Up to Date Date of Influenza Vaccine: None Infectious Disease History: No Infectious Disease History: Reports: Hx Clostridium Difficile Denies: Hx Hepatitis, Hx Human Immunodeficiency Virus (HIV), Hx of Known/ Suspected MRSA, Hx Shingles, Hx Tuberculosis, Hx Known/Suspected VRE, History Other Infectious Disease, Traveled Outside the [place] in Last 30 Days - Family History Known Family History: Positive: Cardiac Disease, Hypertension, Diabetes - When asked about family HTN, DM, CAD, he states, "Yeah, something like, Other - Schizophrenia, ASTHMA, CANCER - Social History Alcohol Use: None Alcohol Amount: some beers, none in the past 2 days Hx Substance Use: No Substance Use Type: Reports: None Hx Tobacco Use: No Smoking Status (MU): Former Smoker Review of Systems Constitutional: Negative Eyes: Negative ENT: Negative Cardiovascular: Negative Respiratory: Negative Gastrointestinal: Negative Genitourinary: Negative Musculoskeletal: Negative Skin: Negative Neurological: Negative Psychological: Other - Hallucinations All Other Systems Reviewed And Are Negative: Yes Physical Exam - Summary Physical Exam Summary: VITAL SIGNS: Reviewed. GENERAL: Patient is a well developed and nourished male who is lying comfortable in the stretcher. Patient is not in any acute respiratory distress. HEAD AND FACE: No signs of trauma. No ecchymosis, hematomas or skull depressions. No sinus tenderness. EYES: PERRLA, EOMI x 2, No injected conjunctiva, no nystagmus. EARS: Hearing grossly intact. Ear canals and tympanic membranes are within normal limits. MOUTH: Oropharynx within normal limits. NECK: Supple, trachea is midline, no adenopathy, no JVD, no carotid bruit, no c- spine tenderness, neck with full ROM. CHEST: Symmetric, no tenderness at palpation LUNGS: Clear to auscultation bilaterally. No wheezing or crackles. CVS: Regular rate and rhythm, S1 and S2 present, no murmurs or gallops appreciated. ABDOMEN: Soft, non-tender. No signs of distention. No rebound no guarding, and no masses palpated. Bowel sounds are normal. EXTREMITIES: FROM in all major joints, no edema, no cyanosis or clubbing. NEURO: Alert and oriented x 3. No acute neurological deficits. Speech is normal and follows commands. SKIN: Dry and warm PSYCH: denies any suicidal thoughts or plan. No homicidal thoughts or plan. No signs of psychosis or pressure speech. No tangential speech. Positive visual hallucinations. Triage Information Reviewed: Yes Vital Signs On Initial Exam: Initial Vitals Temp Pulse Resp BP Pulse Ox 98.1 F 81 18 120/77 98 10/25/16 11:17 10/25/16 11:17 10/25/16 11:17 10/25/16 11:17 10/25/16 11:17 Vital Signs Reviewed: Yes - [place] Coma Scale Coma Scale Total: 15 Diagnostics - Vital Signs Vital Signs Temp Pulse Resp BP Pulse Ox 10/25/16 11:17 98.1 F 81 18 120/77 98 - Laboratory Lab Results: Lab Results 10/25/16 10/25/16 10/25/16 Range/Units 11:25 11:25 12:00 WBC 4.9 (3.5-10.8) 10^3/ul RBC 4.97 (4.0-5.4) 10^6/ul Hgb 13.6 L (14.0-18.0) g/dl Hct 42 (42-52) % MCV 85 (80-94) fL MCH 27 (27-31) pg MCHC 32 (31-36) g/dl RDW 14 (10.5-15) % Plt Count 243 (150-450) 10^3/ul MPV 8 (7.4-10.4) um3 Neut % (Auto) 56.7 (38-83) % Lymph % (Auto) 32.6 (25-47) % [place] % (Auto) 5.5 (1-9) % Eos % (Auto) 4.6 (0-6) % Baso % (Auto) 0.6 (0-2) % Absolute Neuts (auto) 2.8 (1.5-7.7) 10^3/ul Absolute Lymphs (auto) 1.6 (1.0-4.8) 10^3/ul Absolute Monos (auto) 0.3 (0-0.8) 10^3/ul Absolute Eos (auto) 0.2 (0-0.6) 10^3/ul Absolute Basos (auto) 0 (0-0.2) 10^3/ul Absolute Nucleated RBC 0.01 10^3/ul Nucleated RBC % 0.2 Sodium 136 (133-145) mmol/L Potassium 3.7 (3.5-5.0) mmol/L Chloride 105 (101-111) mmol/L Carbon Dioxide 26 (22-32) mmol/L Anion Gap 5 (2-11) mmol/L BUN 13 (6-24) mg/dL Creatinine 1.28 H (0.67-1.17) mg/dL Est GFR ( Amer) 81.3 (>60) Est GFR (Non-Af Amer) 63.2 (>60) BUN/Creatinine Ratio 10.2 (8-20) Glucose 84 (70-100) mg/dL Calcium 9.6 (8.6-10.3) mg/dL Total Bilirubin 0.40 (0.2-1.0) mg/dL AST 17 (13-39) U/L ALT 8 (7-52) U/L Alkaline Phosphatase 48 (34-104) U/L Total Protein 7.6 (6.4-8.9) g/dL Albumin 4.2 (3.2-5.2) g/dL Globulin 3.4 (2-4) g/dL Albumin/Globulin Ratio 1.2 (1-3) TSH 1.56 (0.34-5.60) mcIU/mL Urine Color Yellow Urine Appearance Cloudy Urine pH 8.0 (5-9) Ur Specific [place] 1.029 (1.010-1.030) Urine Protein 1+(30 mg/dl) H (Negative) Urine Ketones Trace H (Negative) Urine Blood Negative (Negative) Urine Nitrate Negative (Negative) Urine Bilirubin Negative (Negative) Urine Urobilinogen Negative (Negative) Ur Leukocyte Esterase Trace H (Negative) Urine WBC (Auto) Trace(0-5/hpf) (Absent) Urine RBC (Auto) Absent (Absent) Ur Squamous Epith Cells Present H (Absent) Urine Bacteria Absent (Absent) Urine Glucose Negative (Negative) Urine Ascorbic Acid * H (Negative) Salicylates < 2.50 (<30) mg/dL Urine Opiates Screen (None Detect) Acetaminophen < 15 mcg/mL Ur Barbiturates Screen (None Detect) Ur Phencyclidine Scrn (None Detect) Ur Amphetamines Screen (None Detect) U Benzodiazepines Scrn (None Detect) Urine Cocaine Screen (None Detect) U Cannabinoids Screen (None Detect) Serum Alcohol < 10 (<10) mg/dL 10/25/16 Range/Units 12:00 WBC (3.5-10.8) 10^3/ul RBC (4.0-5.4) 10^6/ul Hgb (14.0-18.0) g/dl Hct (42-52) % MCV (80-94) fL MCH (27-31) pg MCHC (31-36) g/dl RDW (10.5-15) % Plt Count (150-450) 10^3/ul MPV (7.4-10.4) um3 Neut % (Auto) (38-83) % Lymph % (Auto) (25-47) % [place] % (Auto) (1-9) % Eos % (Auto) (0-6) % Baso % (Auto) (0-2) % Absolute Neuts (auto) (1.5-7.7) 10^3/ul Absolute Lymphs (auto) (1.0-4.8) 10^3/ul Absolute Monos (auto) (0-0.8) 10^3/ul Absolute Eos (auto) (0-0.6) 10^3/ul Absolute Basos (auto) (0-0.2) 10^3/ul Absolute Nucleated RBC 10^3/ul Nucleated RBC % Sodium (133-145) mmol/L Potassium (3.5-5.0) mmol/L Chloride (101-111) mmol/L Carbon Dioxide (22-32) mmol/L Anion Gap (2-11) mmol/L BUN (6-24) mg/dL Creatinine (0.67-1.17) mg/dL Est GFR ( Amer) (>60) Est GFR (Non-Af Amer) (>60) BUN/Creatinine Ratio (8-20) Glucose (70-100) mg/dL Calcium (8.6-10.3) mg/dL Total Bilirubin (0.2-1.0) mg/dL AST (13-39) U/L ALT (7-52) U/L Alkaline Phosphatase (34-104) U/L Total Protein (6.4-8.9) g/dL Albumin (3.2-5.2) g/dL Globulin (2-4) g/dL Albumin/Globulin Ratio (1-3) TSH (0.34-5.60) mcIU/mL Urine Color Urine Appearance Urine pH (5-9) Ur Specific [place] (1.010-1.030) Urine Protein (Negative) Urine Ketones (Negative) Urine Blood (Negative) Urine Nitrate (Negative) Urine Bilirubin (Negative) Urine Urobilinogen (Negative) Ur Leukocyte Esterase (Negative) Urine WBC (Auto) (Absent) Urine RBC (Auto) (Absent) Ur Squamous Epith Cells (Absent) Urine Bacteria (Absent) Urine Glucose (Negative) Urine Ascorbic Acid (Negative) Salicylates (<30) mg/dL Urine Opiates Screen None detected (None Detect) Acetaminophen mcg/mL Ur Barbiturates Screen None detected (None Detect) Ur Phencyclidine Scrn None detected (None Detect) Ur Amphetamines Screen None detected (None Detect) U Benzodiazepines Scrn None detected (None Detect) Urine Cocaine Screen None detected (None Detect) U Cannabinoids Screen None detected (None Detect) Serum Alcohol (<10) mg/dL Result Diagrams: 10/25/16 11:25 10/25/16 11:25 Lab Statement: Any lab studies that have been ordered have been reviewed, and results considered in the medical decision making process. Altered Mental Statu Course/Dx - Course Assessment/Plan: A 36 y/o male presents to the ED with hallucinations. The patient states that he's unable to walk, because "[he] can only walk on one side of the floor and not the other." No SI or depression. All blood work WNL. He is medically cleared. He is awaiting for a MHE. Patient is hemodynamically stable and A+O x 3. Dr. Barriga evaluated the patient and he recommends to discharge the patient with f/u with MH as an outpatient. - Diagnoses Differential Diagnosis/HQI/PQRI: Other - Depression, Hallucinations, anxiety Discharge Diagnoses: Psychosis Discharge - Discharge Plan Condition: Stable Disposition: HOME Referrals: Nicki Olmstead MD [Primary Care Provider] - The documentation as recorded by the Malinda peralta Matthew accurately reflects the service I personally performed and the decisions made by , Pato Azar MD.
== END 2016-10-25 17:14 | disposition home or self-care (01) ==
LOC: ED 10:59
DX: F29 Unspecified psychosis not due to a substance or known physiological condition (principal); Z87.891 Personal history of nicotine dependence; E11.9 Type 2 diabetes mellitus without complications; F41.9 Anxiety disorder, unspecified; F32.9 Major depressive disorder, single episode, unspecified
CPT/HCPCS: 36415; 80053; 80307; 80320; 80329; 81003; 81015; 84443; 85025; 87086; 99283; G0480

== ENCOUNTER → 2016-11-10 01:05 | Emergency (ER) | payer MEDICARE, MEDICAID ==
[~2016-11-10 01:05] MED LIST: Aspirin Low Dose CHEW TAB* 81 MG PO ONE
[2016-11-10 02:44] LABS: Hematocrit 41 % (42-52); Hemoglobin 13.2 g/dl (14.0-18.0); Mean Corpuscular HGB Conc 32 g/dl (31-36); Mean Corpuscular Hemoglobin 27 pg (27-31); Mean Corpuscular Volume 86 fL (80-94); Mean Platelet Volume 8 um3 (7.4-10.4); Red Blood Count 4.84 10^6/ul (4.0-5.4); Red Cell Distribution Width 14 % (10.5-15); White Blood Count 6.6 10^3/ul (3.5-10.8)
[2016-11-10 02:58] LABS: Albumin 4.1 g/dL (3.2-5.2); Calcium 9.5 mg/dL (8.6-10.3); EGFR African American 108.1 (>60); EGFR Non-African American 84.1 (>60); Globulin 3.3 g/dL (2-4); Potassium 3.5 mmol/L (3.5-5.0); Total Bilirubin 0.8 mg/dL (0.2-1.0); Total Protein 7.4 g/dL (6.4-8.9)
--- NOTE | 2016-11-10 03:12 | ED ---
Jefferson Anderson Michael, scribed for Samantha Dinero MD on 11/10/16 at 0150 . Complex/Multi-Sys Presentation - HPI Summary HPI Summary: 36 y/o male was BIBA to the ED complaining of a blood glucose of over 400 starting today. At the ED, the pt's blood glucose level was nml. He also presents with CP that started today. The pt describes the pain as cramping and rates the pain a 9 out of 10. The PMHx is significant for sz, schizophrenia, and DM. - History Of Current Complaint Chief Complaint: EDGeneral Time Seen by Provider: 11/10/16 01:07 Hx Obtained From: Patient, EMS, Medical Records Onset/Duration: Sudden Onset, Lasting Hours Timing: Constant Severity Currently: Mild Severity Initially: Mild Location: Pain At: - cramping chest pain Associated Signs And Symptoms: Positive: Chest Pain, Other - elevated blood glucose - Allergies/Home Medications Allergies/Adverse Reactions: Allergies Allergy/AdvReac Type Severity Reaction Status Date / Time Clozapine Allergy Intermediate See Comment Verified 11/10/16 01:21 Ephedrine [From Respirol] Allergy Intermediate Blurred Verified 11/10/16 01:21 Vision Phenobarbital [From Respirol] Allergy Intermediate Blurred Verified 11/10/16 01: 21 Vision Theophylline [From Respirol] Allergy Intermediate Blurred Verified 11/10/16 01: 21 Vision Fluphenazine Allergy Mild Shakes Verified 11/10/16 01:21 [From Prolixin Decanoate] Paliperidone Allergy Mild Shakes Verified 11/10/16 01:21 [From Invega Sustenna] Polyethylene Glycol Allergy Mild Shakes Verified 11/10/16 01:21 [From Invega Sustenna] Haloperidol [From Haldol] Allergy Unknown See Comment Verified 11/10/16 01:21 Ziprasidone [From Geodon] Allergy Unknown See Comment Verified 11/10/16 01:21 PMH/Surg Hx/FS Hx/Imm Hx Endocrine/Hematology History: Reports: Hx Diabetes, Hx Anemia, Other Endocrine/ Hematological Disorders - leukopenia Denies: Hx Anticoagulant Therapy, Hx Thyroid Disease, Hx Unexplained Bleeding Cardiovascular History: Reports: Hx Hypertension Denies: Hx Aneurysm, Hx Angina, Hx Angioplasty, Hx Auto Implanted Cardiovert Defib, Hx Cardiac Arrest, Hx Cardiomegaly, Hx Congenital Heart Disease, Hx Congestive Heart Failure, Hx Coronary Artery Disease, Hx Deep Vein Thrombosis, Hx Hypercholesterolemia, Hx Hypotension, Hx Myocardial Infarction, Hx Pacemaker/ ICD, Hx Peripheral Vascular Disease, Hx Rheumatic Fever, Hx Syncope, Hx Valvular Heart Disease Respiratory History: Denies: Hx Asthma, Hx Chronic Bronchitis, Hx Chronic Obstructive Pulmonary Disease (COPD), Hx Cystic Fibrosis, Hx Lung Cancer, Hx Pleural Effusion, Hx Pneumonia, Hx Pulmonary Edema, Hx Pulmonary Embolism, Hx Seasonal Allergies, Hx Sleep Apnea, Other Respiratory Problems/Disorders GI History: Reports: Hx Gastroesophageal Reflux Disease, Hx Hiatal Hernia, Other GI Disorders - Constipation Denies: Hx Gall Bladder Disease, Hx Gastrointestinal Bleed, Hx Ulcer, Hx Urosepsis History: Denies: Hx Kidney Stones, Hx Renal Disease, Other Problems/Disorders Musculoskeletal History: Reports: Hx Orthopedic Injury - Left Leg Fracture Denies: Other Musculoskeletal History Sensory History: Reports: Hx Contacts or Glasses Denies: Other Sensory Impairments Opthamlomology History: Reports: Hx Contacts or Glasses Denies: Other Sensory Impairments Neurological History: Reports: 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 Denies: Hx Dementia, Hx Developmental Delay, Hx Headaches, Hx Migraine, Hx Nerve Disease, Hx Spinal Cord Injury, Hx Transient Ischemic Attacks (TIA), Other Neuro Impairments/Disorders Psychiatric History: Reports: Hx Anxiety, Hx Oppositional [place] Disorder, Hx Depression, Hx Panic Disorder, Hx Post Traumatic Stress Disorder, Hx Inpatient Treatment, Hx Community Mental Health Tx, Hx Schizophrenia, Hx Bipolar Disorder , Hx Suicide Attempt, Hx Substance Abuse, Other Psychiatric Issues/Disorders - Hx Psychosis Denies: Hx Attention Deficit Hyperactivity Disorder, Hx Eating Disorder, Hx of Violent Episodes Against Others - Surgical History Surgery Procedure, Year, and Place: LEFT INGUINAL HERNIA Hx Anesthesia Reactions: No - Immunization History Date of Tetanus Vaccine: Up to Date Date of Influenza Vaccine: None Infectious Disease History: No Infectious Disease History: Reports: Hx Clostridium Difficile Denies: Hx Hepatitis, Hx Human Immunodeficiency Virus (HIV), Hx of Known/ Suspected MRSA, Hx Shingles, Hx Tuberculosis, Hx Known/Suspected VRE, History Other Infectious Disease, Traveled Outside the [place] in Last 30 Days - Family History Known Family History: Positive: Cardiac Disease, Hypertension, Diabetes - When asked about family HTN, DM, CAD, he states, "Yeah, something like, Other - Schizophrenia, ASTHMA, CANCER - Social History Occupation: Disabled Lives: Long Term Alcohol Use: None Alcohol Amount: some beers, none in the past 2 days Hx Substance Use: No Substance Use Type: Reports: None Hx Tobacco Use: No Smoking Status (MU): Former Smoker Review of Systems Negative: Fever Positive: Chest Pain All Other Systems Reviewed And Are Negative: Yes Physical Exam Vital Signs On Initial Exam: Initial Vitals Temp Pulse Resp BP Pulse Ox 99.1 F 61 14 124/77 100 11/10/16 01:16 11/10/16 01:16 11/10/16 01:16 11/10/16 01:16 11/10/16 01:16 - [place] Coma Scale Coma Scale Total: 15 Diagnostics - Vital Signs Vital Signs Temp Pulse Resp BP Pulse Ox 11/10/16 01:16 99.1 F 61 14 124/77 100 - Laboratory Result Diagrams: 11/10/16 02:30 11/10/16 02:30 Lab Statement: Any lab studies that have been ordered have been reviewed, and results considered in the medical decision making process. - Radiology CXR Xray Interpretation: No Acute Changes Radiology Interpretation Completed By: ED Physician - EKG EK EKG Rhythm: Sinus Rhythm - [address] Segment: Normal Ectopy: None Complex Multi-Symp Course/Dx - Diagnoses Provider Diagnoses: Chest pain Discharge - Discharge Plan Condition: Stable Disposition: HOME Patient Education Materials: Chest Pain (ED) Referrals: Nicki Olmstead MD [Primary Care Provider] - Additional Instructions: Please follow up with Dr. Olmstead within the next 2-3 days. Please return to the ED if your symptoms worsen. The documentation as recorded by the Jefferson peralta Michael accurately reflects the service I personally performed and the decisions made by me, Samantha Dinero MD.
[2016-11-10 07:27] VITALS: BP 119/74
--- NOTE | 2016-11-10 08:16 | RAD ---
INDICATION: Chest pain COMPARISON: September 06, 2016 TECHNIQUE: An AP portable view obtained at 0205 hours is submitted. FINDINGS: Bones/Soft Tissues: There are no acute bony findings. Cardiomediastinal: The cardiomediastinal silhouette is normal. Lungs: There are no infiltrates. Pleura: There are no pleural effusions. Other: None IMPRESSION: NEGATIVE EXAMINATION.
== END | disposition home or self-care (01) ==
LOC: ED 01:05
DX: R07.9 Chest pain, unspecified (principal); Z87.891 Personal history of nicotine dependence
CPT/HCPCS: 36415; 71010; 80053; 84484; 85025; 93005; 99283; A9270-GY

== ENCOUNTER 2016-11-24 18:08 | Emergency (ER) | payer MEDICARE, MEDICAID ==
[2016-11-24 19:27] LABS: Hematocrit 42 % (42-52); Hemoglobin 13.3 g/dl (14.0-18.0); Mean Corpuscular HGB Conc 32 g/dl (31-36); Mean Corpuscular Hemoglobin 27 pg (27-31); Mean Corpuscular Volume 86 fL (80-94); Mean Platelet Volume 8 um3 (7.4-10.4); Red Cell Distribution Width 14 % (10.5-15); White Blood Count 6.9 10^3/ul (3.5-10.8)
[2016-11-24 19:30] LABS: Urine Bilirubin Negative (Negative); Urine Glucose Negative (Negative); Urine Nitrite Negative (Negative)
[2016-11-24 19:40] LABS: ALT 9 U/L (7-52); AST 14 U/L (13-39); Albumin 4.2 g/dL (3.2-5.2); Alkaline Phosphatase 46 U/L (34-104); Anion Gap 6 mmol/L (2-11); BUN/Creatinine Ratio 13.9 (8-20); Blood Urea Nitrogen 14 mg/dL (6-24); CO2 Carbon Dioxide 26 mmol/L (22-32); Calcium 9.5 mg/dL (8.6-10.3); Chloride 103 mmol/L (101-111); EGFR African American 106.9 (>60); EGFR Non-African American 83.1 (>60); Globulin 3.5 g/dL (2-4); Glucose 102 mg/dL (70-100); Sodium 135 mmol/L (133-145); Total Protein 7.7 g/dL (6.4-8.9)
[2016-11-24 19:49] LABS: Benzodiazepine Urine Screen None Detected (None Detect)
[2016-11-24 19:56] LABS: Acetaminophen < 15 mcg/mL; Alcohol < 10 mg/dL (<10); Salicylate < 2.50 mg/dL (<30)
[2016-11-25 03:00] VITALS: BP 121/77
--- NOTE | 2016-11-25 14:45 | ED ---
Kilo Anderson Rebecca, scribed for Jose Antonio James MD on 11/24/16 at 1857 . Psychiatric Complaint - HPI Summary HPI Summary: Pt is a 36 y/o M who presents to ED c/o moderate, worsening stress and depression. Sx have been gradually worsening for 1 week and have constant since onset. States that he "said some things, but I didn't mean it, I was just upset and frustrated." Sx aggravated by recent stress and alleviated by nothing. Denies any other symptoms including fever. Reports that he no longer wants to reside at his Mental Health residence, that other residents make him feel more stressed. - History Of Current Complaint Chief Complaint: EDMentalHealth Time Seen by Provider: 11/24/16 18:49 Hx Obtained From: Patient Onset/Duration: Gradual Onset, Lasting Weeks - 1 week, Still Present Timing: Constant Severity Initially: Moderate Severity Currently: Moderate Character: Depressed Aggravating Factor(s): Recent Stress Alleviating Factor(s): Nothing Associated Signs And Symptoms: Positive: Negative Related History: Positive For: Prior Psychiatric Issues - Allergies/Home Medications Allergies/Adverse Reactions: Allergies Allergy/AdvReac Type Severity Reaction Status Date / Time Clozapine Allergy Intermediate See Comment Verified 11/24/16 18:21 Ephedrine [From Respirol] Allergy Intermediate Blurred Verified 11/24/16 18:21 Vision Phenobarbital [From Respirol] Allergy Intermediate Blurred Verified 11/24/16 18: 21 Vision Theophylline [From Respirol] Allergy Intermediate Blurred Verified 11/24/16 18: 21 Vision Fluphenazine Allergy Mild Shakes Verified 11/24/16 18:21 [From Prolixin Decanoate] Paliperidone Allergy Mild Shakes Verified 11/24/16 18:21 [From Invega Sustenna] Polyethylene Glycol Allergy Mild Shakes Verified 11/24/16 18:21 [From Invega Sustenna] Haloperidol [From Haldol] Allergy Unknown See Comment Verified 11/24/16 18:21 Ziprasidone [From Geodon] Allergy Unknown See Comment Verified 11/24/16 18:21 PMH/Surg Hx/FS Hx/Imm Hx Endocrine/Hematology History: Reports: Hx Diabetes, Hx Anemia, Other Endocrine/ Hematological Disorders - leukopenia Denies: Hx Anticoagulant Therapy, Hx Thyroid Disease, Hx Unexplained Bleeding Cardiovascular History: Reports: Hx Hypertension, Other Cardiovascular Problems/ Disorders - IDDM/LEUOKOPENIA Denies: Hx Aneurysm, Hx Angina, Hx Angioplasty, Hx Auto Implanted Cardiovert Defib, Hx Cardiac Arrest, Hx Cardiomegaly, Hx Congenital Heart Disease, Hx Congestive Heart Failure, Hx Coronary Artery Disease, Hx Deep Vein Thrombosis, Hx Hypercholesterolemia, Hx Hypotension, Hx Myocardial Infarction, Hx Pacemaker/ ICD, Hx Peripheral Vascular Disease, Hx Rheumatic Fever, Hx Syncope, Hx Valvular Heart Disease Respiratory History: Denies: Hx Asthma, Hx Chronic Bronchitis, Hx Chronic Obstructive Pulmonary Disease (COPD), Hx Cystic Fibrosis, Hx Lung Cancer, Hx Pleural Effusion, Hx Pneumonia, Hx Pulmonary Edema, Hx Pulmonary Embolism, Hx Seasonal Allergies, Hx Sleep Apnea, Other Respiratory Problems/Disorders GI History: Reports: Hx Gastroesophageal Reflux Disease, Hx Hiatal Hernia, Other GI Disorders - Constipation Denies: Hx Gall Bladder Disease, Hx Gastrointestinal Bleed, Hx Ulcer, Hx Urosepsis History: Denies: Hx Kidney Stones, Hx Renal Disease, Other Problems/Disorders Musculoskeletal History: Reports: Hx Orthopedic Injury - Left Leg Fracture Denies: Other Musculoskeletal History Sensory History: Reports: Hx Contacts or Glasses Denies: Other Sensory Impairments Opthamlomology History: Reports: Hx Contacts or Glasses Denies: Other Sensory Impairments Neurological History: Reports: 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 Denies: Hx Dementia, Hx Developmental Delay, Hx Headaches, Hx Migraine, Hx Nerve Disease, Hx Spinal Cord Injury, Hx Transient Ischemic Attacks (TIA), Other Neuro Impairments/Disorders Psychiatric History: Reports: Hx Anxiety, Hx Oppositional [place] Disorder, Hx Depression, Hx Panic Disorder, Hx Post Traumatic Stress Disorder, Hx Inpatient Treatment, Hx Community Mental Health Tx, Hx Schizophrenia, Hx Bipolar Disorder , Hx Suicide Attempt, Hx Substance Abuse, Other Psychiatric Issues/Disorders - Hx Psychosis Denies: Hx Attention Deficit Hyperactivity Disorder, Hx Eating Disorder, Hx of Violent Episodes Against Others - Surgical History Surgery Procedure, Year, and Place: LEFT INGUINAL HERNIA Hx Anesthesia Reactions: No - Immunization History Date of Tetanus Vaccine: Up to Date Date of Influenza Vaccine: None Infectious Disease History: No Infectious Disease History: Reports: Hx Clostridium Difficile Denies: Hx Hepatitis, Hx Human Immunodeficiency Virus (HIV), Hx of Known/ Suspected MRSA, Hx Shingles, Hx Tuberculosis, Hx Known/Suspected VRE, History Other Infectious Disease, Traveled Outside the [place] in Last 30 Days - Family History Known Family History: Positive: Cardiac Disease, Hypertension, Diabetes - When asked about family HTN, DM, CAD, he states, "Yeah, something like, Other - Schizophrenia, ASTHMA, CANCER - Social History Alcohol Use: None Alcohol Amount: some beers, none in the past 2 days Hx Substance Use: No Substance Use Type: Reports: None Hx Tobacco Use: No Smoking Status (MU): Former Smoker Review of Systems Negative: Fever Positive: Depressed, Other - Stressed All Other Systems Reviewed And Are Negative: Yes Physical Exam Triage Information Reviewed: Yes Vital Signs On Initial Exam: Initial Vitals Temp Pulse Resp BP Pulse Ox 97.7 F 75 20 127/77 100 11/24/16 18:14 11/24/16 18:14 11/24/16 18:14 11/24/16 18:14 11/24/16 18:14 Vital Signs Reviewed: Yes Appearance: Positive: Well-Appearing, No Pain Distress Skin: Positive: Warm, Skin Color Reflects Adequate Perfusion, Dry Eyes: Positive: Normal ENT: Positive: Normal ENT inspection Neck: Positive: Supple, Nontender Respiratory/Lung Sounds: Positive: Clear to Auscultation, Breath Sounds Present Cardiovascular: Positive: RRR Abdomen Description: Positive: Nontender, Soft Bowel Sounds: Positive: Present Musculoskeletal: Positive: Normal Neurological: Positive: Normal Diagnostics - Vital Signs Vital Signs Temp Pulse Resp BP Pulse Ox 11/24/16 18:14 97.7 F 75 20 127/77 100 - Laboratory Lab Results: Lab Results 11/24/16 11/24/16 11/24/16 Range/Units 19:15 19:15 19:19 WBC 6.9 (3.5-10.8) 10^3/ul RBC 4.90 (4.0-5.4) 10^6/ul Hgb 13.3 L (14.0-18.0) g/dl Hct 42 (42-52) % MCV 86 (80-94) fL MCH 27 (27-31) pg MCHC 32 (31-36) g/dl RDW 14 (10.5-15) % Plt Count 217 (150-450) 10^3/ul MPV 8 (7.4-10.4) um3 Neut % (Auto) 66.7 (38-83) % Lymph % (Auto) 24.7 L (25-47) % [place] % (Auto) 4.2 (1-9) % Eos % (Auto) 3.7 (0-6) % Baso % (Auto) 0.7 (0-2) % Absolute Neuts (auto) 4.6 (1.5-7.7) 10^3/ul Absolute Lymphs (auto) 1.7 (1.0-4.8) 10^3/ul Absolute Monos (auto) 0.3 (0-0.8) 10^3/ul Absolute Eos (auto) 0.3 (0-0.6) 10^3/ul Absolute Basos (auto) 0 (0-0.2) 10^3/ul Absolute Nucleated RBC 0.02 10^3/ul Nucleated RBC % 0.2 Sodium 135 (133-145) mmol/L Potassium 4.0 (3.5-5.0) mmol/L Chloride 103 (101-111) mmol/L Carbon Dioxide 26 (22-32) mmol/L Anion Gap 6 (2-11) mmol/L BUN 14 (6-24) mg/dL Creatinine 1.01 (0.67-1.17) mg/dL Est GFR ( Amer) 106.9 (>60) Est GFR (Non-Af Amer) 83.1 (>60) BUN/Creatinine Ratio 13.9 (8-20) Glucose 102 H (70-100) mg/dL Calcium 9.5 (8.6-10.3) mg/dL Total Bilirubin 0.40 (0.2-1.0) mg/dL AST 14 (13-39) U/L ALT 9 (7-52) U/L Alkaline Phosphatase 46 (34-104) U/L Total Protein 7.7 (6.4-8.9) g/dL Albumin 4.2 (3.2-5.2) g/dL Globulin 3.5 (2-4) g/dL Albumin/Globulin Ratio 1.2 (1-3) TSH 2.00 (0.34-5.60) mcIU/mL Urine Color Yellow Urine Appearance Clear Urine pH 6.0 (5-9) Ur Specific [place] 1.021 (1.010-1.030) Urine Protein Negative (Negative) Urine Ketones Negative (Negative) Urine Blood Negative (Negative) Urine Nitrate Negative (Negative) Urine Bilirubin Negative (Negative) Urine Urobilinogen Negative (Negative) Ur Leukocyte Esterase Negative (Negative) Urine Glucose Negative (Negative) Urine Ascorbic Acid * H (Negative) Salicylates < 2.50 (<30) mg/dL Urine Opiates Screen (None Detect) Acetaminophen < 15 mcg/mL Ur Barbiturates Screen (None Detect) Ur Phencyclidine Scrn (None Detect) Ur Amphetamines Screen (None Detect) U Benzodiazepines Scrn (None Detect) Urine Cocaine Screen (None Detect) U Cannabinoids Screen (None Detect) Serum Alcohol < 10 (<10) mg/dL 11/24/16 Range/Units 19:19 WBC (3.5-10.8) 10^3/ul RBC (4.0-5.4) 10^6/ul Hgb (14.0-18.0) g/dl Hct (42-52) % MCV (80-94) fL MCH (27-31) pg MCHC (31-36) g/dl RDW (10.5-15) % Plt Count (150-450) 10^3/ul MPV (7.4-10.4) um3 Neut % (Auto) (38-83) % Lymph % (Auto) (25-47) % [place] % (Auto) (1-9) % Eos % (Auto) (0-6) % Baso % (Auto) (0-2) % Absolute Neuts (auto) (1.5-7.7) 10^3/ul Absolute Lymphs (auto) (1.0-4.8) 10^3/ul Absolute Monos (auto) (0-0.8) 10^3/ul Absolute Eos (auto) (0-0.6) 10^3/ul Absolute Basos (auto) (0-0.2) 10^3/ul Absolute Nucleated RBC 10^3/ul Nucleated RBC % Sodium (133-145) mmol/L Potassium (3.5-5.0) mmol/L Chloride (101-111) mmol/L Carbon Dioxide (22-32) mmol/L Anion Gap (2-11) mmol/L BUN (6-24) mg/dL Creatinine (0.67-1.17) mg/dL Est GFR ( Amer) (>60) Est GFR (Non-Af Amer) (>60) BUN/Creatinine Ratio (8-20) Glucose (70-100) mg/dL Calcium (8.6-10.3) mg/dL Total Bilirubin (0.2-1.0) mg/dL AST (13-39) U/L ALT (7-52) U/L Alkaline Phosphatase (34-104) U/L Total Protein (6.4-8.9) g/dL Albumin (3.2-5.2) g/dL Globulin (2-4) g/dL Albumin/Globulin Ratio (1-3) TSH (0.34-5.60) mcIU/mL Urine Color Urine Appearance Urine pH (5-9) Ur Specific [place] (1.010-1.030) Urine Protein (Negative) Urine Ketones (Negative) Urine Blood (Negative) Urine Nitrate (Negative) Urine Bilirubin (Negative) Urine Urobilinogen (Negative) Ur Leukocyte Esterase (Negative) Urine Glucose (Negative) Urine Ascorbic Acid (Negative) Salicylates (<30) mg/dL Urine Opiates Screen None detected (None Detect) Acetaminophen mcg/mL Ur Barbiturates Screen None detected (None Detect) Ur Phencyclidine Scrn None detected (None Detect) Ur Amphetamines Screen Presumptive positive H (None Detect) U Benzodiazepines Scrn None detected (None Detect) Urine Cocaine Screen None detected (None Detect) U Cannabinoids Screen None detected (None Detect) Serum Alcohol (<10) mg/dL Result Diagrams: 11/24/16 19:15 11/24/16 19:15 Lab Statement: Any lab studies that have been ordered have been reviewed, and results considered in the medical decision making process. Course/Dx - Course Assessment/Plan: Pt is a 36 y/o M who presents to ED c/o worsening depression and stress for 1 week, reporting he no longer wants to reside at his mental Health inpatient facility. Pt will be signed out, pending dispo, awaiting MHE results. - Differential Dx/Clinical Impression Provider Diagnosis: Psychosis - Physician Notifications Discussed Care Of Patient With: Dr. Sanchez at change of shift Discharge - Discharge Plan Condition: Good Disposition: OTHER Discharge Disposition Comment: Signed out, pending dispo, awaiting MHE Referrals: Nicki Olmstead MD [Primary Care Provider] - Additional Instructions: Per completion of a mental health evaluation, you are cleared for release and do not require inpatient psychiatric hospitalization at this time. Please go to nearest emergency room or call 911 if safety concerns arise or condition worsens. Important Phone Numbers: [facility] ph:[phone] Suicide Prevention and Crisis Services ph:[phone] [place] [facility]eline ph:[phone] ([phone]) [facility] ph:[phone] Alcoholics Anonymous ph:[phone] [facility] ph: ph:[phone] [facility] Police ph:[phone] The documentation as recorded by the Kilo peralta Rebecca accurately reflects the service I personally performed and the decisions made by me, Jose Antonio James MD.
== END 2016-11-25 03:08 ==
LOC: ED 18:08
DX: F32.9 Major depressive disorder, single episode, unspecified (principal); Z87.891 Personal history of nicotine dependence; F29 Unspecified psychosis not due to a substance or known physiological condition
CPT/HCPCS: 36415; 80053; 80307; 80320; 80329; 81003; 84443; 85025; 99284; G0480

== ENCOUNTER 2016-12-09 18:07 | Emergency (ER) | payer MEDICARE, MEDICAID ==
[2016-12-09 20:04] LABS: Hematocrit 44 % (42-52); Mean Corpuscular HGB Conc 32 g/dl (31-36); Mean Corpuscular Hemoglobin 27 pg (27-31); Mean Corpuscular Volume 86 fL (80-94); Mean Platelet Volume 8 um3 (7.4-10.4); Red Blood Count 5.14 10^6/ul (4.0-5.4); Red Cell Distribution Width 14 % (10.5-15); White Blood Count 6.3 10^3/ul (3.5-10.8)
--- NOTE | 2016-12-09 20:07 | ED ---
Cierra Anderson SooYoung, scribed for Manoj Sanchez MD on 12/09/16 at 1942 . Neurological HPI - HPI Summary HPI Summary: A 36 y/o M presents to ED with c/o experiencing a strong bodily "jerk" at approx 1700. Pert PMHx: sz. Pt states this felt unlike when he typically has a sz which usually causes him to pass out and fall. In ED, pt says he still feels uneasy. - History of Current Complaint Chief Complaint: EDGeneral Stated Complaint: SYNCOPE Time Seen by Provider: 12/09/16 19:33 Hx Obtained From: Patient Onset/Duration: Sudden Onset, Resolved Pain Intensity: 0 Pain Scale Used: 0-10 Numeric - Additional Pertinent History Primary Care Physician: JN - Allergy/Home Medications Allergies/Adverse Reactions: Allergies Allergy/AdvReac Type Severity Reaction Status Date / Time Clozapine Allergy Intermediate See Comment Verified 12/09/16 18:14 Ephedrine [From Respirol] Allergy Intermediate Blurred Verified 12/09/16 18:14 Vision Phenobarbital [From Respirol] Allergy Intermediate Blurred Verified 12/09/16 18: 14 Vision Theophylline [From Respirol] Allergy Intermediate Blurred Verified 12/09/16 18: 14 Vision Fluphenazine Allergy Mild Shakes Verified 12/09/16 18:14 [From Prolixin Decanoate] Paliperidone Allergy Mild Shakes Verified 12/09/16 18:14 [From Invega Sustenna] Polyethylene Glycol Allergy Mild Shakes Verified 12/09/16 18:14 [From Invega Sustenna] Haloperidol [From Haldol] Allergy Unknown See Comment Verified 12/09/16 18:14 Ziprasidone [From Geodon] Allergy Unknown See Comment Verified 12/09/16 18:14 PMH/Surg Hx/FS Hx/Imm Hx Previously Healthy: No Endocrine/Hematology History: Reports: Hx Diabetes, Hx Anemia, Other Endocrine/ Hematological Disorders - leukopenia Denies: Hx Anticoagulant Therapy, Hx Thyroid Disease, Hx Unexplained Bleeding Cardiovascular History: Reports: Hx Hypertension, Other Cardiovascular Problems/ Disorders - IDDM/LEUOKOPENIA Denies: Hx Aneurysm, Hx Angina, Hx Angioplasty, Hx Auto Implanted Cardiovert Defib, Hx Cardiac Arrest, Hx Cardiomegaly, Hx Congenital Heart Disease, Hx Congestive Heart Failure, Hx Coronary Artery Disease, Hx Deep Vein Thrombosis, Hx Hypercholesterolemia, Hx Hypotension, Hx Myocardial Infarction, Hx Pacemaker/ ICD, Hx Peripheral Vascular Disease, Hx Rheumatic Fever, Hx Syncope, Hx Valvular Heart Disease Respiratory History: Denies: Hx Asthma, Hx Chronic Bronchitis, Hx Chronic Obstructive Pulmonary Disease (COPD), Hx Cystic Fibrosis, Hx Lung Cancer, Hx Pleural Effusion, Hx Pneumonia, Hx Pulmonary Edema, Hx Pulmonary Embolism, Hx Seasonal Allergies, Hx Sleep Apnea, Other Respiratory Problems/Disorders GI History: Reports: Hx Gastroesophageal Reflux Disease, Hx Hiatal Hernia, Other GI Disorders - Constipation Denies: Hx Gall Bladder Disease, Hx Gastrointestinal Bleed, Hx Ulcer, Hx Urosepsis History: Denies: Hx Kidney Stones, Hx Renal Disease, Other Problems/Disorders Musculoskeletal History: Reports: Hx Orthopedic Injury - Left Leg Fracture Denies: Other Musculoskeletal History Sensory History: Reports: Hx Contacts or Glasses Denies: Other Sensory Impairments Opthamlomology History: Reports: Hx Contacts or Glasses Denies: Other Sensory Impairments Neurological History: Reports: 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 Denies: Hx Dementia, Hx Developmental Delay, Hx Headaches, Hx Migraine, Hx Nerve Disease, Hx Spinal Cord Injury, Hx Transient Ischemic Attacks (TIA), Other Neuro Impairments/Disorders Psychiatric History: Reports: Hx Anxiety, Hx Oppositional Person Disorder, Hx Depression, Hx Panic Disorder, Hx Post Traumatic Stress Disorder, Hx Inpatient Treatment, Hx Community Mental Health Tx, Hx Schizophrenia, Hx Bipolar Disorder , Hx Suicide Attempt, Hx Substance Abuse, Other Psychiatric Issues/Disorders - Hx Psychosis Denies: Hx Attention Deficit Hyperactivity Disorder, Hx Eating Disorder, Hx of Violent Episodes Against Others - Surgical History Surgery Procedure, Year, and Place: LEFT INGUINAL HERNIA Hx Anesthesia Reactions: No - Immunization History Date of Tetanus Vaccine: Up to Date Date of Influenza Vaccine: None Infectious Disease History: No Infectious Disease History: Reports: Hx Clostridium Difficile Denies: Hx Hepatitis, Hx Human Immunodeficiency Virus (HIV), Hx of Known/ Suspected MRSA, Hx Shingles, Hx Tuberculosis, Hx Known/Suspected VRE, History Other Infectious Disease, Traveled Outside the [place] in Last 30 Days - Family History Known Family History: Positive: Cardiac Disease, Hypertension, Diabetes - When asked about family HTN, DM, CAD, he states, "Yeah, something like, Other - Schizophrenia, ASTHMA, CANCER - Social History Occupation: Disabled Lives: With Family Alcohol Use: Rare Alcohol Amount: some beers, none in the past 2 days Hx Substance Use: No Substance Use Type: Reports: None Hx Tobacco Use: Yes Smoking Status (MU): Former Smoker Review of Systems Negative: Fever Neurological: Other - pos: body "jerk" All Other Systems Reviewed And Are Negative: Yes Physical Exam Triage Information Reviewed: Yes Vital Signs On Initial Exam: Initial Vitals Temp Pulse Resp BP Pulse Ox 97.4 F 74 18 127/74 100 12/09/16 18:14 12/09/16 18:14 12/09/16 18:14 12/09/16 18:14 12/09/16 18:14 Vital Signs Reviewed: Yes Appearance: Positive: Well-Appearing, No Pain Distress Skin: Positive: Warm Head/Face: Positive: Normal Head/Face Inspection Eyes: Positive: BHAVIK ENT: Positive: Hearing grossly normal Neck: Positive: Supple Respiratory/Lung Sounds: Positive: Breath Sounds Present Cardiovascular: Positive: RRR Abdomen Description: Positive: Nontender, Soft Bowel Sounds: Positive: Present Musculoskeletal: Positive: Strength/ROM Intact Neurological: Positive: Sensory/Motor Intact, Alert, Oriented to Person Place, Time, Normal Gait Psychiatric: Positive: Affect/Mood Appropriate - Yue Coma Scale Coma Scale Total: 15 Diagnostics - Vital Signs Vital Signs Temp Pulse Resp BP Pulse Ox 12/09/16 18:14 97.4 F 74 18 127/74 100 - Laboratory Lab Results: Lab Results 12/09/16 Range/Units 19:55 WBC 6.3 (3.5-10.8) 10^3/ul RBC 5.14 (4.0-5.4) 10^6/ul Hgb 14.0 (14.0-18.0) g/dl Hct 44 (42-52) % MCV 86 (80-94) fL MCH 27 (27-31) pg MCHC 32 (31-36) g/dl RDW 14 (10.5-15) % Plt Count 246 (150-450) 10^3/ul MPV 8 (7.4-10.4) um3 Neut % (Auto) 60.4 (38-83) % Lymph % (Auto) 30.0 (25-47) % [place] % (Auto) 4.7 (1-9) % Eos % (Auto) 4.4 (0-6) % Baso % (Auto) 0.5 (0-2) % Absolute Neuts (auto) 3.8 (1.5-7.7) 10^3/ul Absolute Lymphs (auto) 1.9 (1.0-4.8) 10^3/ul Absolute Monos (auto) 0.3 (0-0.8) 10^3/ul Absolute Eos (auto) 0.3 (0-0.6) 10^3/ul Absolute Basos (auto) 0 (0-0.2) 10^3/ul Absolute Nucleated RBC 0.03 10^3/ul Nucleated RBC % 0.4 Result Diagrams: 12/09/16 19:55 12/09/16 19:55 Lab Statement: Any lab studies that have been ordered have been reviewed, and results considered in the medical decision making process. Re-Evaluation - Re-Evaluation First Eval Change: Improved - results d/w pt Course/Dx - Diagnoses Provider Diagnoses: Muscle spasm Discharge - Discharge Plan Condition: Stable Disposition: HOME Patient Education Materials: Muscle Spasm (ED) Referrals: Nicki Olmstead MD [Primary Care Provider] - 7 Days Additional Instructions: Continue your current medications as prescribed. Follow up with your primary care physician this week. The documentation as recorded by the Cierra peralta SooYoung accurately reflects the service I personally performed and the decisions made by , Manoj Sanchez MD.
[2016-12-09 20:18] LABS: Albumin 4.2 g/dL (3.2-5.2); BUN/Creatinine Ratio 7.5 (8-20); Calcium 9.7 mg/dL (8.6-10.3); EGFR African American 101.1 (>60); EGFR Non-African American 78.6 (>60); Globulin 3.6 g/dL (2-4); Potassium 3.6 mmol/L (3.5-5.0); Total Bilirubin 0.8 mg/dL (0.2-1.0); Total Protein 7.8 g/dL (6.4-8.9)
[2016-12-09 20:41] VITALS: BP 119/76
== END 2016-12-09 20:37 | disposition home or self-care (01) ==
LOC: ED 18:07
DX: M62.838 Other muscle spasm (principal); G40.909 Epilepsy, unspecified, not intractable, without status epilepticus; Z87.891 Personal history of nicotine dependence; E11.9 Type 2 diabetes mellitus without complications; I10 Essential (primary) hypertension; D72.819 Decreased white blood cell count, unspecified; Z88.8 Allergy status to other drugs, medicaments and biological substances
CPT/HCPCS: 36415; 80053; 85025; 99282

== ENCOUNTER → 2017-01-10 16:42 | Emergency (ER) | payer MEDICARE, MEDICAID ==
[2017-01-10 17:49] LABS: Hematocrit 42 % (42-52); Hemoglobin 13.8 g/dl (14.0-18.0); Mean Corpuscular HGB Conc 33 g/dl (31-36); Mean Corpuscular Hemoglobin 28 pg (27-31); Mean Corpuscular Volume 85 fL (80-94); Mean Platelet Volume 8 um3 (7.4-10.4); Red Blood Count 4.94 10^6/ul (4.0-5.4); Red Cell Distribution Width 13 % (10.5-15); White Blood Count 6.1 10^3/ul (3.5-10.8)
[2017-01-10 18:01] LABS: ALT 12 U/L (7-52); AST 16 U/L (13-39); Albumin 4.2 g/dL (3.2-5.2); Alkaline Phosphatase 47 U/L (34-104); Anion Gap 6 mmol/L (2-11); BUN/Creatinine Ratio 8.6 (8-20); Blood Urea Nitrogen 8 mg/dL (6-24); CO2 Carbon Dioxide 25 mmol/L (22-32); Calcium 9.4 mg/dL (8.6-10.3); Chloride 103 mmol/L (101-111); EGFR African American 117.6 (>60); EGFR Non-African American 91.4 (>60); Globulin 3.2 g/dL (2-4); Glucose 89 mg/dL (70-100); Potassium 3.6 mmol/L (3.5-5.0); Sodium 134 mmol/L (133-145); Total Protein 7.4 g/dL (6.4-8.9)
[2017-01-10 18:02] LABS: Benzodiazepine Urine Screen None Detected (None Detect)
[2017-01-10 18:05] LABS: Urine Bilirubin Negative (Negative); Urine Glucose Negative (Negative); Urine Nitrite Negative (Negative)
[2017-01-10 18:22] LABS: Acetaminophen < 15 mcg/mL; Alcohol < 10 mg/dL (<10); Salicylate < 2.50 mg/dL (<30)
[2017-01-10 18:32] LABS: TSH (Thyroid Stimulating Horm) 1.16 mcIU/mL (0.34-5.60)
[2017-01-10 19:26] VITALS: BP 135/87
--- NOTE | 2017-01-10 21:51 | ED ---
Haley Anderson Alfonso, scribed for Jose Antonio James MD on 01/10/17 at 1750 . Psychiatric Complaint - HPI Summary HPI Summary: This patient is a 36 year old male BIBA from [place] for paranoid thoughts and manic behavior since this morning. He states [place] is "not taking situation seriously enough because they dont care." He also states if they did not have the psych drugs I dont know what I would do, I was taking a lot of cold showers earlier," "I am worried about what people are thinking about me," "they are targeting me," and "new medications are not going to solve the problems." Sx aggravated and alleviated by nothing. He denies insomnia. - History Of Current Complaint Chief Complaint: [facility] Time Seen by Provider: 01/10/17 17:08 Hx Obtained From: Patient Onset/Duration: Sudden Onset, Lasting Hours - This morning, Still Present Timing: Constant Severity Initially: Moderate Severity Currently: Moderate Character: Manic - Mildly Aggravating Factor(s): Nothing Alleviating Factor(s): Nothing Associated Signs And Symptoms: Positive: Paranoid Behavior. Negative: Sleep Disturbance - Negative insomnia Related History: Positive For: Prior Psychiatric Issues - Allergies/Home Medications Allergies/Adverse Reactions: Allergies Allergy/AdvReac Type Severity Reaction Status Date / Time Clozapine Allergy Intermediate See Comment Verified 12/09/16 18:14 Ephedrine [From Respirol] Allergy Intermediate Blurred Verified 12/09/16 18:14 Vision Phenobarbital [From Respirol] Allergy Intermediate Blurred Verified 12/09/16 18: 14 Vision Theophylline [From Respirol] Allergy Intermediate Blurred Verified 12/09/16 18: 14 Vision Fluphenazine Allergy Mild Shakes Verified 12/09/16 18:14 [From Prolixin Decanoate] Paliperidone Allergy Mild Shakes Verified 12/09/16 18:14 [From Invega Sustenna] Polyethylene Glycol Allergy Mild Shakes Verified 12/09/16 18:14 [From Invega Sustenna] Haloperidol [From Haldol] Allergy Unknown See Comment Verified 12/09/16 18:14 Ziprasidone [From Geodon] Allergy Unknown See Comment Verified 12/09/16 18:14 Home Medications: Home Medications Cariprazine HCl [Vraylar] 1.5 mg PO DAILY 01/10/17 [History Confirmed 01/10/17] Cariprazine HCl [Vraylar] 3 mg PO DAILY 01/10/17 [History Confirmed 01/10/17] Divalproex ER TAB(*) [Depakote ER TAB(*)] 500 mg PO DAILY 01/10/17 [History Confirmed 01/10/17] Metformin ER (NF) [Glucophage ER 750 MG TAB (NF)] 750 mg PO BID 01/10/17 [ History Confirmed 01/10/17] PMH/Surg Hx/FS Hx/Imm Hx Endocrine/Hematology History: Reports: Hx Diabetes, Hx Anemia, Other Endocrine/ Hematological Disorders - leukopenia Denies: Hx Anticoagulant Therapy, Hx Thyroid Disease, Hx Unexplained Bleeding Cardiovascular History: Reports: Hx Hypertension, Other Cardiovascular Problems/ Disorders - IDDM/LEUOKOPENIA Denies: Hx Aneurysm, Hx Angina, Hx Angioplasty, Hx Auto Implanted Cardiovert Defib, Hx Cardiac Arrest, Hx Cardiomegaly, Hx Congenital Heart Disease, Hx Congestive Heart Failure, Hx Coronary Artery Disease, Hx Deep Vein Thrombosis, Hx Hypercholesterolemia, Hx Hypotension, Hx Myocardial Infarction, Hx Pacemaker/ ICD, Hx Peripheral Vascular Disease, Hx Rheumatic Fever, Hx Syncope, Hx Valvular Heart Disease Respiratory History: Denies: Hx Asthma, Hx Chronic Bronchitis, Hx Chronic Obstructive Pulmonary Disease (COPD), Hx Cystic Fibrosis, Hx Lung Cancer, Hx Pleural Effusion, Hx Pneumonia, Hx Pulmonary Edema, Hx Pulmonary Embolism, Hx Seasonal Allergies, Hx Sleep Apnea, Other Respiratory Problems/Disorders GI History: Reports: Hx Gastroesophageal Reflux Disease, Hx Hiatal Hernia, Other GI Disorders - Constipation Denies: Hx Gall Bladder Disease, Hx Gastrointestinal Bleed, Hx Ulcer, Hx Urosepsis History: Denies: Hx Kidney Stones, Hx Renal Disease, Other Problems/Disorders Musculoskeletal History: Reports: Hx Orthopedic Injury - Left Leg Fracture Denies: Other Musculoskeletal History Sensory History: Reports: Hx Contacts or Glasses Denies: Other Sensory Impairments Opthamlomology History: Reports: Hx Contacts or Glasses Denies: Other Sensory Impairments Neurological History: Reports: 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 Denies: Hx Dementia, Hx Developmental Delay, Hx Headaches, Hx Migraine, Hx Nerve Disease, Hx Spinal Cord Injury, Hx Transient Ischemic Attacks (TIA), Other Neuro Impairments/Disorders Psychiatric History: Reports: Hx Anxiety, Hx Oppositional [place] Disorder, Hx Depression, Hx Panic Disorder, Hx Post Traumatic Stress Disorder, Hx Inpatient Treatment, Hx [facility] Tx, Hx Schizophrenia, Hx Bipolar Disorder , Hx Suicide Attempt, Hx Substance Abuse, Other Psychiatric Issues/Disorders - Hx Psychosis Denies: Hx Attention Deficit Hyperactivity Disorder, Hx Eating Disorder, Hx of Violent Episodes Against Others - Surgical History Surgery Procedure, Year, and Place: LEFT INGUINAL HERNIA Hx Anesthesia Reactions: No - Immunization History Date of Tetanus Vaccine: Up to Date Date of Influenza Vaccine: None Infectious Disease History: No Infectious Disease History: Reports: Hx Clostridium Difficile Denies: Hx Hepatitis, Hx Human Immunodeficiency Virus (HIV), Hx of Known/ Suspected MRSA, Hx Shingles, Hx Tuberculosis, Hx Known/Suspected VRE, History Other Infectious Disease, Traveled Outside the [place] in Last 30 Days - Family History Known Family History: Positive: Cardiac Disease, Hypertension, Diabetes - When asked about family HTN, DM, CAD, he states, "Yeah, something like, Other - Schizophrenia, ASTHMA, CANCER - Social History Alcohol Use: Rare Alcohol Amount: some beers, none in the past 2 days Hx Substance Use: No Substance Use Type: Reports: None Hx Tobacco Use: Yes Smoking Status (MU): Former Smoker Review of Systems Negative: Fever Neurological: Other - Negative insomnia Psychological: Other - Positive paranoid thoughts and manic behavior All Other Systems Reviewed And Are Negative: Yes Physical Exam Triage Information Reviewed: Yes Vital Signs On Initial Exam: Initial Vitals Temp Pulse Resp BP Pulse Ox 98.0 F 64 18 124/89 100 01/10/17 16:52 01/10/17 16:52 01/10/17 16:52 01/10/17 16:52 01/10/17 16:52 Vital Signs Reviewed: Yes Appearance: Positive: Well-Appearing, No Pain Distress Skin: Positive: Warm, Skin Color Reflects Adequate Perfusion, Dry Head/Face: Positive: Normal Head/Face Inspection Eyes: Positive: Normal ENT: Positive: Normal ENT inspection Neck: Positive: Supple, Nontender Respiratory/Lung Sounds: Positive: Clear to Auscultation, Breath Sounds Present Cardiovascular: Positive: RRR Abdomen Description: Positive: Nontender, Soft Bowel Sounds: Positive: Present Musculoskeletal: Positive: Normal Neurological: Positive: Normal, Sensory/Motor Intact, Alert, Oriented to Person Place, Time, CN Intact II-III Psychiatric: Positive: Other - Mildly manic Diagnostics - Vital Signs Vital Signs Temp Pulse Resp BP Pulse Ox 01/10/17 16:57 97.8 F 72 18 124/89 100 01/10/17 16:52 98.0 F 64 18 124/89 100 - Laboratory Lab Results: Lab Results 01/10/17 01/10/17 01/10/17 Range/Units 17:23 17:23 17:23 WBC 6.1 (3.5-10.8) 10^3/ul RBC 4.94 (4.0-5.4) 10^6/ul Hgb 13.8 L (14.0-18.0) g/dl Hct 42 (42-52) % MCV 85 (80-94) fL MCH 28 (27-31) pg MCHC 33 (31-36) g/dl RDW 13 (10.5-15) % Plt Count 244 (150-450) 10^3/ul MPV 8 (7.4-10.4) um3 Neut % (Auto) 66.8 (38-83) % Lymph % (Auto) 26.5 (25-47) % [place] % (Auto) 3.8 (1-9) % Eos % (Auto) 2.4 (0-6) % Baso % (Auto) 0.5 (0-2) % Absolute Neuts (auto) 4.1 (1.5-7.7) 10^3/ul Absolute Lymphs (auto) 1.6 (1.0-4.8) 10^3/ul Absolute Monos (auto) 0.2 (0-0.8) 10^3/ul Absolute Eos (auto) 0.1 (0-0.6) 10^3/ul Absolute Basos (auto) 0 (0-0.2) 10^3/ul Absolute Nucleated RBC 0.01 10^3/ul Nucleated RBC % 0.1 Sodium 134 (133-145) mmol/L Potassium 3.6 (3.5-5.0) mmol/L Chloride 103 (101-111) mmol/L Carbon Dioxide 25 (22-32) mmol/L Anion Gap 6 (2-11) mmol/L BUN 8 (6-24) mg/dL Creatinine 0.93 (0.67-1.17) mg/dL Est GFR ( Amer) 117.6 (>60) Est GFR (Non-Af Amer) 91.4 (>60) BUN/Creatinine Ratio 8.6 (8-20) Glucose 89 (70-100) mg/dL Calcium 9.4 (8.6-10.3) mg/dL Total Bilirubin 0.80 (0.2-1.0) mg/dL AST 16 (13-39) U/L ALT 12 (7-52) U/L Alkaline Phosphatase 47 (34-104) U/L Total Protein 7.4 (6.4-8.9) g/dL Albumin 4.2 (3.2-5.2) g/dL Globulin 3.2 (2-4) g/dL Albumin/Globulin Ratio 1.3 (1-3) TSH 1.16 (0.34-5.60) mcIU/mL Urine Color Straw Urine Appearance Clear Urine pH 5.0 (5-9) Ur Specific [place] 1.006 L (1.010-1.030) Urine Protein Negative (Negative) Urine Ketones Trace H (Negative) Urine Blood Negative (Negative) Urine Nitrate Negative (Negative) Urine Bilirubin Negative (Negative) Urine Urobilinogen Negative (Negative) Ur Leukocyte Esterase Negative (Negative) Urine Glucose Negative (Negative) Salicylates < 2.50 (<30) mg/dL Urine Opiates Screen (None Detect) Acetaminophen < 15 mcg/mL Ur Barbiturates Screen (None Detect) Ur Phencyclidine Scrn (None Detect) Ur Amphetamines Screen (None Detect) U Benzodiazepines Scrn (None Detect) Urine Cocaine Screen (None Detect) U Cannabinoids Screen (None Detect) Serum Alcohol < 10 (<10) mg/dL 01/10/17 Range/Units 17:23 WBC (3.5-10.8) 10^3/ul RBC (4.0-5.4) 10^6/ul Hgb (14.0-18.0) g/dl Hct (42-52) % MCV (80-94) fL MCH (27-31) pg MCHC (31-36) g/dl RDW (10.5-15) % Plt Count (150-450) 10^3/ul MPV (7.4-10.4) um3 Neut % (Auto) (38-83) % Lymph % (Auto) (25-47) % [place] % (Auto) (1-9) % Eos % (Auto) (0-6) % Baso % (Auto) (0-2) % Absolute Neuts (auto) (1.5-7.7) 10^3/ul Absolute Lymphs (auto) (1.0-4.8) 10^3/ul Absolute Monos (auto) (0-0.8) 10^3/ul Absolute Eos (auto) (0-0.6) 10^3/ul Absolute Basos (auto) (0-0.2) 10^3/ul Absolute Nucleated RBC 10^3/ul Nucleated RBC % Sodium (133-145) mmol/L Potassium (3.5-5.0) mmol/L Chloride (101-111) mmol/L Carbon Dioxide (22-32) mmol/L Anion Gap (2-11) mmol/L BUN (6-24) mg/dL Creatinine (0.67-1.17) mg/dL Est GFR ( Amer) (>60) Est GFR (Non-Af Amer) (>60) BUN/Creatinine Ratio (8-20) Glucose (70-100) mg/dL Calcium (8.6-10.3) mg/dL Total Bilirubin (0.2-1.0) mg/dL AST (13-39) U/L ALT (7-52) U/L Alkaline Phosphatase (34-104) U/L Total Protein (6.4-8.9) g/dL Albumin (3.2-5.2) g/dL Globulin (2-4) g/dL Albumin/Globulin Ratio (1-3) TSH (0.34-5.60) mcIU/mL Urine Color Urine Appearance Urine pH (5-9) Ur Specific [place] (1.010-1.030) Urine Protein (Negative) Urine Ketones (Negative) Urine Blood (Negative) Urine Nitrate (Negative) Urine Bilirubin (Negative) Urine Urobilinogen (Negative) Ur Leukocyte Esterase (Negative) Urine Glucose (Negative) Salicylates (<30) mg/dL Urine Opiates Screen None detected (None Detect) Acetaminophen mcg/mL Ur Barbiturates Screen None detected (None Detect) Ur Phencyclidine Scrn None detected (None Detect) Ur Amphetamines Screen None detected (None Detect) U Benzodiazepines Scrn None detected (None Detect) Urine Cocaine Screen None detected (None Detect) U Cannabinoids Screen None detected (None Detect) Serum Alcohol (<10) mg/dL Result Diagrams: 01/10/17 17:23 01/10/17 17:23 Lab Statement: Any lab studies that have been ordered have been reviewed, and results considered in the medical decision making process. Course/Dx - Course Course Of Treatment: Rickey came in a bit more mainc than usual and delusional but certainly not abnormal for him. He is not far off his baseline and underwent MHE and they felt he was safe to be D/C'd. - Differential Dx/Clinical Impression Provider Diagnosis: Psychosis Discharge - Discharge Plan Condition: Stable Disposition: HOME Patient Education Materials: Mood Disorders (ED) Referrals: Nicki Olmstead MD [Primary Care Provider] - The documentation as recorded by the Haley peralta Alfonso accurately reflects the service I personally performed and the decisions made by me, Jose Antonio James MD.
== END | disposition home or self-care (01) ==
LOC: ED 16:42
DX: F29 Unspecified psychosis not due to a substance or known physiological condition (principal)
CPT/HCPCS: 36415; 80053; 80307; 80320; 80329; 81003; 84443; 85025; 99283; G0480

== ENCOUNTER 2017-01-22 20:39 | Emergency (ER) | payer MEDICARE, MEDICAID ==
[2017-01-22 21:10] LABS: Hematocrit 41 % (42-52); Hemoglobin 13.1 g/dl (14.0-18.0); Mean Corpuscular HGB Conc 32 g/dl (31-36); Mean Corpuscular Hemoglobin 28 pg (27-31); Mean Corpuscular Volume 86 fL (80-94); Mean Platelet Volume 8 um3 (7.4-10.4); Red Blood Count 4.73 10^6/ul (4.0-5.4); Red Cell Distribution Width 13 % (10.5-15); White Blood Count 6.3 10^3/ul (3.5-10.8)
[2017-01-22 21:21] LABS: BUN/Creatinine Ratio 5.2 (8-20); Calcium 9.4 mg/dL (8.6-10.3); EGFR African American 111.4 (>60); EGFR Non-African American 86.6 (>60)
[2017-01-22] MEDS ORDERED: Potassium Chlor TAB* 20 MEQ TAB.ER PO ONE (21:23)
[2017-01-22 21:40] VITALS: BP 99/64
--- NOTE | 2017-02-06 06:46 | ED ---
Lizy Anderson Thomas, scribed for Manoj Sanchez MD on 01/22/17 at 2120 . HPI Cardiac - HPI Summary HPI Summary: This patient is a 37 y/o M BIBA c/o palpitations that began this AM. He additionally c/o shaking. 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 The pt states that he "tried to take meds earlier, but it didn't work". Per EMS, the pt has had similar visits by ambulance in the past and they are quite familiar with him. The pt was [place] [facility] two weeks ago, when he was "a bit more manic than usual, but evaluated and discharged" by Dr. Jose Antonio James. PMHx: anxiety, GERD, NIDDM, schizoaffective disorder, depression. PSHx: hernia surgery, leg surgery. - History of Current Complaint Stated Complaint: RACING HEART Time Seen by Provider: 01/22/17 20:46 Hx Obtained From: Patient, EMS Onset/Duration: Started Hours Ago - this AM, Still Present Timing: Constant Associated Signs and Symptoms: Positive: Weakness - per EMS, resolved in the ED , Palpitations - onset this AM, Other: - POS: tachycardia (per EMS, resolved in the ED), shaking. - Additional Pertinent History Primary Care Physician: [id number] - Allergy/Home Medications Allergies/Adverse Reactions: Allergies Allergy/AdvReac Type Severity Reaction Status Date / Time Clozapine Allergy Intermediate See Comment Verified 01/22/17 20:52 Ephedrine [From Respirol] Allergy Intermediate Blurred Verified 01/22/17 20:52 Vision Phenobarbital [From Respirol] Allergy Intermediate Blurred Verified 01/22/17 20: 52 Vision Theophylline [From Respirol] Allergy Intermediate Blurred Verified 01/22/17 20: 52 Vision Fluphenazine Allergy Mild Shakes Verified 01/22/17 20:52 [From Prolixin Decanoate] Paliperidone Allergy Mild Shakes Verified 01/22/17 20:52 [From Invega Sustenna] Polyethylene Glycol Allergy Mild Shakes Verified 01/22/17 20:52 [From Invega Sustenna] Haloperidol [From Haldol] Allergy Unknown See Comment Verified 01/22/17 20:52 Ziprasidone [From Geodon] Allergy Unknown See Comment Verified 01/22/17 20:52 PMH/Surg Hx/FS Hx/Imm Hx Previously Healthy: No Endocrine/Hematology History: Reports: Hx Diabetes, Hx Anemia, Other Endocrine/ Hematological Disorders - leukopenia Denies: Hx Anticoagulant Therapy, Hx Thyroid Disease, Hx Unexplained Bleeding Cardiovascular History: Reports: Hx Hypertension, Other Cardiovascular Problems/ Disorders - IDDM/LEUOKOPENIA Denies: Hx Aneurysm, Hx Angina, Hx Angioplasty, Hx Auto Implanted Cardiovert Defib, Hx Cardiac Arrest, Hx Cardiomegaly, Hx Congenital Heart Disease, Hx Congestive Heart Failure, Hx Coronary Artery Disease, Hx Deep Vein Thrombosis, Hx Hypercholesterolemia, Hx Hypotension, Hx Myocardial Infarction, Hx Pacemaker/ ICD, Hx Peripheral Vascular Disease, Hx Rheumatic Fever, Hx Syncope, Hx Valvular Heart Disease Respiratory History: Denies: Hx Asthma, Hx Chronic Bronchitis, Hx Chronic Obstructive Pulmonary Disease (COPD), Hx Cystic Fibrosis, Hx Lung Cancer, Hx Pleural Effusion, Hx Pneumonia, Hx Pulmonary Edema, Hx Pulmonary Embolism, Hx Seasonal Allergies, Hx Sleep Apnea, Other Respiratory Problems/Disorders GI History: Reports: Hx Gastroesophageal Reflux Disease, Hx Hiatal Hernia, Other GI Disorders - Constipation Denies: Hx Gall Bladder Disease, Hx Gastrointestinal Bleed, Hx Ulcer, Hx Urosepsis History: Denies: Hx Kidney Stones, Hx Renal Disease, Other Problems/Disorders Musculoskeletal History: Reports: Hx Orthopedic Injury - Left Leg Fracture Denies: Other Musculoskeletal History Sensory History: Reports: Hx Contacts or Glasses Denies: Other Sensory Impairments Opthamlomology History: Reports: Hx Contacts or Glasses Denies: Other Sensory Impairments Neurological History: Reports: 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 Denies: Hx Dementia, Hx Developmental Delay, Hx Headaches, Hx Migraine, Hx Nerve Disease, Hx Spinal Cord Injury, Hx Transient Ischemic Attacks (TIA), Other Neuro Impairments/Disorders Psychiatric History: Reports: Hx Anxiety, Hx Oppositional [place] Disorder, Hx Depression, Hx Panic Disorder, Hx Post Traumatic Stress Disorder, Hx Inpatient Treatment, Hx [facility] Tx, Hx Schizophrenia, Hx Bipolar Disorder , Hx Suicide Attempt, Hx Substance Abuse, Other Psychiatric Issues/Disorders - Hx Psychosis Denies: Hx Attention Deficit Hyperactivity Disorder, Hx Eating Disorder, Hx of Violent Episodes Against Others - Surgical History Surgery Procedure, Year, and Place: LEFT INGUINAL HERNIA Hx Anesthesia Reactions: No - Immunization History Date of Tetanus Vaccine: Up to Date Date of Influenza Vaccine: None Infectious Disease History: Reports: Hx Clostridium Difficile Denies: Hx Hepatitis, Hx Human Immunodeficiency Virus (HIV), Hx of Known/ Suspected MRSA, Hx Shingles, Hx Tuberculosis, Hx Known/Suspected VRE, History Other Infectious Disease - Family History Known Family History: Positive: Cardiac Disease, Hypertension, Diabetes - When asked about family HTN, DM, CAD, he states, "Yeah, something like, Other - Schizophrenia, ASTHMA, CANCER - Social History Alcohol Use: Rare Alcohol Amount: some beers, none in the past 2 days Hx Substance Use: No Substance Use Type: Reports: None Hx Tobacco Use: Yes Smoking Status (MU): Former Smoker Review of Systems Constitutional: Negative Negative: Fever Eyes: Negative ENT: Negative Positive: Palpitations - onset this AM, Other - POS: tachycardia BENEFITS COORDINATOR per EMS, resolved in the ED Respiratory: Negative Gastrointestinal: Negative Genitourinary: Negative Musculoskeletal: Negative Skin: Negative Neurological: Other - POS: "shaking" Positive: Weakness - BENEFITS COORDINATOR, resolved in the ED Psychological: Normal All Other Systems Reviewed And Are Negative: Yes Physical Exam Triage Information Reviewed: Yes Vital Signs On Initial Exam: Initial Vitals Temp Pulse Resp BP Pulse Ox 99.3 F 93 18 137/90 98 01/22/17 20:48 01/22/17 20:48 01/22/17 20:48 01/22/17 20:48 01/22/17 20:48 Vital Signs Reviewed: Yes Appearance: Positive: Well-Appearing, No Pain Distress Skin: Positive: Warm Head/Face: Positive: Normal Head/Face Inspection Eyes: Positive: BHAVIK ENT: Positive: Hearing grossly normal Neck: Positive: Supple, Nontender Respiratory/Lung Sounds: Positive: Breath Sounds Present Cardiovascular: Positive: RRR Abdomen Description: Positive: Nontender, Soft Bowel Sounds: Positive: Present Musculoskeletal: Positive: Strength/ROM Intact Neurological: Positive: Alert, Oriented to Person Place, Time Diagnostics - Vital Signs Vital Signs Temp Pulse Resp BP Pulse Ox 01/22/17 21:30 81 21 99/64 96 01/22/17 21:00 86 22 123/76 95 01/22/17 20:50 89 98 01/22/17 20:49 137/90 01/22/17 20:48 99.3 F 93 18 137/90 98 - Laboratory Lab Results: Lab Results 01/22/17 01/22/17 Range/Units 21:00 21:00 WBC 6.3 (3.5-10.8) 10^3/ul RBC 4.73 (4.0-5.4) 10^6/ul Hgb 13.1 L (14.0-18.0) g/dl Hct 41 L (42-52) % MCV 86 (80-94) fL MCH 28 (27-31) pg MCHC 32 (31-36) g/dl RDW 13 (10.5-15) % Plt Count 241 (150-450) 10^3/ul MPV 8 (7.4-10.4) um3 Neut % (Auto) 57.2 (38-83) % Lymph % (Auto) 31.2 (25-47) % [place] % (Auto) 5.0 (1-9) % Eos % (Auto) 6.2 H (0-6) % Baso % (Auto) 0.4 (0-2) % Absolute Neuts (auto) 3.6 (1.5-7.7) 10^3/ul Absolute Lymphs (auto) 2.0 (1.0-4.8) 10^3/ul Absolute Monos (auto) 0.3 (0-0.8) 10^3/ul Absolute Eos (auto) 0.4 (0-0.6) 10^3/ul Absolute Basos (auto) 0 (0-0.2) 10^3/ul Absolute Nucleated RBC 0.01 10^3/ul Nucleated RBC % 0.1 Sodium 134 (133-145) mmol/L Potassium 3.0 L (3.5-5.0) mmol/L Chloride 104 (101-111) mmol/L Carbon Dioxide 25 (22-32) mmol/L Anion Gap 5 (2-11) mmol/L BUN 5 L (6-24) mg/dL Creatinine 0.97 (0.67-1.17) mg/dL Est GFR ( Amer) 111.4 (>60) Est GFR (Non-Af Amer) 86.6 (>60) BUN/Creatinine Ratio 5.2 L (8-20) Glucose 104 H (70-100) mg/dL Calcium 9.4 (8.6-10.3) mg/dL Result Diagrams: 01/22/17 21:00 01/22/17 21:00 Lab Statement: Any lab studies that have been ordered have been reviewed, and results considered in the medical decision making process. - EKG 20:51 Cardiac Rate: NL - 87 BPM EKG Interpretation: Sinus Rhythm. Non-specific T-wave abnormalities. Re-Evaluation - Re-Evaluation First Eval Re-Evaluation Time: 21:30 Change: Improved Disposition - Diagnoses Provider Diagnoses: Palpitations Discharge - Discharge Plan Condition: Stable Disposition: HOME Patient Education Materials: Palpitations (ED) Referrals: Nicki Olmstead MD [Primary Care Provider] - 3 Days The documentation as recorded by the Lizy peralta Thomas accurately reflects the service I personally performed and the decisions made by Daniel peterson David, MD.
== END 2017-01-22 21:39 | disposition home or self-care (01) ==
LOC: ED 20:39
DX: R00.2 Palpitations (principal); R53.1 Weakness; E11.9 Type 2 diabetes mellitus without complications; I10 Essential (primary) hypertension; K21.9 Gastro-esophageal reflux disease without esophagitis; R56.9 Unspecified convulsions; F41.9 Anxiety disorder, unspecified; F32.9 Major depressive disorder, single episode, unspecified; Z88.8 Allergy status to other drugs, medicaments and biological substances; Z87.891 Personal history of nicotine dependence
CPT/HCPCS: 36415; 80048; 85025; 93005; 99283; A9270-GY

== ENCOUNTER 2017-01-26 11:31 | Emergency (ER) | payer MEDICARE, MEDICAID ==
[2017-01-26 13:49] LABS: Hematocrit 43 % (42-52); Hemoglobin 13.5 g/dl (14.0-18.0); Mean Corpuscular HGB Conc 31 g/dl (31-36); Mean Corpuscular Hemoglobin 27 pg (27-31); Mean Corpuscular Volume 87 fL (80-94); Mean Platelet Volume 8 um3 (7.4-10.4); Red Blood Count 4.95 10^6/ul (4.0-5.4); Red Cell Distribution Width 13 % (10.5-15)
[2017-01-26 14:09] LABS: Albumin 4.5 g/dL (3.2-5.2); BUN/Creatinine Ratio 6.1 (8-20); EGFR African American 92.5 (>60); EGFR Non-African American 71.9 (>60); Globulin 3.4 g/dL (2-4); Potassium 3.7 mmol/L (3.5-5.0); Total Bilirubin 0.6 mg/dL (0.2-1.0); Total Protein 7.9 g/dL (6.4-8.9)
[2017-01-26 15:51] VITALS: BP 118/70
[2017-01-26] MEDS ORDERED: Divalproex ER TAB(*) 500 MG ONE (16:08)
--- NOTE | 2017-02-18 09:32 | ED ---
Seizure - HPI Summary HPI Summary: pt had a seizure last night, here for lac on tongue, fell at PMD office today. He denies any other symptoms. He has a psych history. He states nothing he knows of had triggered his seizure. Tongue laceration is not bleeding. He states he was confused after the seizure, but this is his baseline. He is seen often for similar complaints. He was seen at his primary office today. He denies ALLISON, dizziness, chest pain or SOB. - History Of Current Complaint Chief Complaint: EDLacSutureRecheck Time Seen by Provider: 01/26/17 11:49 Hx Obtained From: Patient Onset/Duration: Sudden Onset Severity Of Seizure: Self-Limited Location Of Seizure: All Extremities Character: Partial (Specify) Aggravating Factor(s): Nothing Alleviating Factor(s): Spontaneous Resolution Associated Signs And Symptoms: Negative - Risk Factors SAH Risk Factors: Negative Meningitis Risk Factors: Negative SDH Risk Factor: Negative - Allergies/Home Medications Allergies/Adverse Reactions: Allergies Allergy/AdvReac Type Severity Reaction Status Date / Time Clozapine Allergy Intermediate See Comment Verified 01/22/17 20:52 Ephedrine [From Respirol] Allergy Intermediate Blurred Verified 01/22/17 20:52 Vision Phenobarbital [From Respirol] Allergy Intermediate Blurred Verified 01/22/17 20: 52 Vision Theophylline [From Respirol] Allergy Intermediate Blurred Verified 01/22/17 20: 52 Vision Fluphenazine Allergy Mild Shakes Verified 01/22/17 20:52 [From Prolixin Decanoate] Paliperidone Allergy Mild Shakes Verified 01/22/17 20:52 [From Invega Sustenna] Polyethylene Glycol Allergy Mild Shakes Verified 01/22/17 20:52 [From Invega Sustenna] Haloperidol [From Haldol] Allergy Unknown See Comment Verified 01/22/17 20:52 Ziprasidone [From Geodon] Allergy Unknown See Comment Verified 01/22/17 20:52 Home Medications: Home Medications Saccharomyces Boulardii(NF) [Florastor(NF)] 250 mg PO BID 01/26/17 [History Confirmed 02/14/17] PMH/Surg Hx/FS Hx/Imm Hx Previously Healthy: No Endocrine/Hematology History: Reports: Hx Diabetes, Hx Anemia, Other Endocrine/ Hematological Disorders - leukopenia Denies: Hx Anticoagulant Therapy, Hx Thyroid Disease, Hx Unexplained Bleeding Cardiovascular History: Reports: Hx Hypertension, Other Cardiovascular Problems/ Disorders - IDDM/LEUOKOPENIA Denies: Hx Aneurysm, Hx Angina, Hx Angioplasty, Hx Auto Implanted Cardiovert Defib, Hx Cardiac Arrest, Hx Cardiomegaly, Hx Congenital Heart Disease, Hx Congestive Heart Failure, Hx Coronary Artery Disease, Hx Deep Vein Thrombosis, Hx Hypercholesterolemia, Hx Hypotension, Hx Myocardial Infarction, Hx Pacemaker/ ICD, Hx Peripheral Vascular Disease, Hx Rheumatic Fever, Hx Syncope, Hx Valvular Heart Disease Respiratory History: Denies: Hx Asthma, Hx Chronic Bronchitis, Hx Chronic Obstructive Pulmonary Disease (COPD), Hx Cystic Fibrosis, Hx Lung Cancer, Hx Pleural Effusion, Hx Pneumonia, Hx Pulmonary Edema, Hx Pulmonary Embolism, Hx Seasonal Allergies, Hx Sleep Apnea, Other Respiratory Problems/Disorders GI History: Reports: Hx Gastroesophageal Reflux Disease, Hx Hiatal Hernia, Other GI Disorders - Constipation Denies: Hx Gall Bladder Disease, Hx Gastrointestinal Bleed, Hx Ulcer, Hx Urosepsis History: Denies: Hx Kidney Stones, Hx Renal Disease, Other Problems/Disorders Musculoskeletal History: Reports: Hx Orthopedic Injury - Left Leg Fracture Denies: Other Musculoskeletal History Sensory History: Reports: Hx Contacts or Glasses Denies: Other Sensory Impairments Opthamlomology History: Reports: Hx Contacts or Glasses Denies: Other Sensory Impairments Neurological History: Reports: 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 Denies: Hx Dementia, Hx Developmental Delay, Hx Headaches, Hx Migraine, Hx Nerve Disease, Hx Spinal Cord Injury, Hx Transient Ischemic Attacks (TIA), Other Neuro Impairments/Disorders Psychiatric History: Reports: Hx Anxiety, Hx Oppositional [place] Disorder, Hx Depression, Hx Panic Disorder, Hx Post Traumatic Stress Disorder, Hx Inpatient Treatment, Hx Community Mental Health Tx, Hx Schizophrenia, Hx Bipolar Disorder , Hx Suicide Attempt, Hx Substance Abuse, Other Psychiatric Issues/Disorders - Hx Psychosis Denies: Hx Attention Deficit Hyperactivity Disorder, Hx Eating Disorder, Hx of Violent Episodes Against Others - Surgical History Surgery Procedure, Year, and Place: LEFT INGUINAL HERNIA Hx Anesthesia Reactions: No - Immunization History Date of Tetanus Vaccine: Up to Date Date of Influenza Vaccine: None Hx Pertussis Vaccination: No Immunizations Up to Date: Unable to Obtain/Confirm Infectious Disease History: No Infectious Disease History: Reports: Hx Clostridium Difficile Denies: Hx Hepatitis, Hx Human Immunodeficiency Virus (HIV), Hx of Known/ Suspected MRSA, Hx Shingles, Hx Tuberculosis, Hx Known/Suspected VRE, History Other Infectious Disease, Traveled Outside the [place] in Last 30 Days - Family History Known Family History: Positive: Cardiac Disease, Hypertension, Diabetes - When asked about family HTN, DM, CAD, he states, "Yeah, something like, Other - Schizophrenia, ASTHMA, CANCER - Social History Occupation: Unemployed Lives: With Family Alcohol Use: Rare Alcohol Amount: some beers, none in the past 2 days Hx Substance Use: No Substance Use Type: Reports: None Hx Tobacco Use: Yes Smoking Status (MU): Former Smoker Review of Systems Constitutional: Negative Eyes: Negative Cardiovascular: Negative Respiratory: Negative Positive: no symptoms reported, see HPI Musculoskeletal: Negative Positive: Other - .5cm laceration to the tongue without bleeding All Other Systems Reviewed And Are Negative: Yes Physical Exam Triage Information Reviewed: Yes Vital Signs On Initial Exam: Initial Vitals Temp Pulse Resp BP Pulse Ox 98.6 F 88 20 121/81 99 01/26/17 11:33 01/26/17 11:33 01/26/17 11:33 01/26/17 11:33 01/26/17 11:33 Vital Signs Reviewed: Yes Appearance: Positive: Well-Appearing, Well-Nourished Skin: Positive: Warm, Skin Color Reflects Adequate Perfusion Head/Face: Positive: Normal Head/Face Inspection Eyes: Positive: EOMI, BHAVIK, Conjunctiva Clear Neck: Positive: Supple, No Lymphadenopathy Respiratory/Lung Sounds: Positive: Clear to Auscultation, Breath Sounds Present Cardiovascular: Positive: Normal, RRR Musculoskeletal: Positive: Normal, Strength/ROM Intact Neurological: Positive: Sensory/Motor Intact, Alert, Oriented to Person Place, Time, Speech Normal Psychiatric: Positive: Normal - Yue Coma Scale Coma Scale Total: 15 Diagnostics - Vital Signs Vital Signs Temp Pulse Resp BP Pulse Ox 01/26/17 15:00 72 19 118/70 98 01/26/17 14:30 71 20 120/61 99 01/26/17 14:00 67 18 116/63 99 01/26/17 13:30 19 113/68 01/26/17 13:00 75 23 120/73 97 01/26/17 12:30 76 18 103/59 100 01/26/17 12:02 115/73 01/26/17 12:00 75 17 99 01/26/17 11:59 97.9 F 80 20 115/73 95 01/26/17 11:33 98.6 F 88 20 121/81 99 - Laboratory Lab Results: Lab Results 01/26/17 01/26/17 Range/Units 13:35 13:35 WBC 8.0 (3.5-10.8) 10^3/ul RBC 4.95 (4.0-5.4) 10^6/ul Hgb 13.5 L (14.0-18.0) g/dl Hct 43 (42-52) % MCV 87 (80-94) fL MCH 27 (27-31) pg MCHC 31 (31-36) g/dl RDW 13 (10.5-15) % Plt Count 261 (150-450) 10^3/ul MPV 8 (7.4-10.4) um3 Neut % (Auto) 78.1 (38-83) % Lymph % (Auto) 14.3 L (25-47) % [place] % (Auto) 4.3 (1-9) % Eos % (Auto) 2.8 (0-6) % Baso % (Auto) 0.5 (0-2) % Absolute Neuts (auto) 6.2 (1.5-7.7) 10^3/ul Absolute Lymphs (auto) 1.1 (1.0-4.8) 10^3/ul Absolute Monos (auto) 0.3 (0-0.8) 10^3/ul Absolute Eos (auto) 0.2 (0-0.6) 10^3/ul Absolute Basos (auto) 0 (0-0.2) 10^3/ul Absolute Nucleated RBC 0.02 10^3/ul Nucleated RBC % 0.3 Sodium 135 (133-145) mmol/L Potassium 3.7 (3.5-5.0) mmol/L Chloride 102 (101-111) mmol/L Carbon Dioxide 28 (22-32) mmol/L Anion Gap 5 (2-11) mmol/L BUN 7 (6-24) mg/dL Creatinine 1.14 (0.67-1.17) mg/dL Est GFR ( Amer) 92.5 (>60) Est GFR (Non-Af Amer) 71.9 (>60) BUN/Creatinine Ratio 6.1 L (8-20) Glucose 98 (70-100) mg/dL Calcium 10.0 (8.6-10.3) mg/dL Magnesium 2.0 (1.9-2.7) mg/dL Total Bilirubin 0.60 (0.2-1.0) mg/dL AST 16 (13-39) U/L ALT 11 (7-52) U/L Alkaline Phosphatase 52 (34-104) U/L Total Protein 7.9 (6.4-8.9) g/dL Albumin 4.5 (3.2-5.2) g/dL Globulin 3.4 (2-4) g/dL Albumin/Globulin Ratio 1.3 (1-3) Valproic Acid 29.0 L (50-100) mcg/mL Result Diagrams: 01/26/17 13:35 01/26/17 13:35 Lab Statement: Any lab studies that have been ordered have been reviewed, and results considered in the medical decision making process. Course/Dx - Course Course Of Treatment: Labs drawn. Depakote level is low. Patient made aware. He continues to state he feels like a seizure is about to happen, so he would like to stay. staff forester state this his is baseline and what he will normally say to try to stay in the hospital. He is encouraged to return if he feels any worsening symptoms, but is stable to be discharge. laceration does not need repair d/t size. - Diagnoses Differential Diagnosis/HQI/PQRI: Positive: Metabolic Disorder, Known Seizure Disorder Provider Diagnoses: Seizure Discharge - Discharge Plan Condition: Stable Disposition: HOME Referrals: Nicki Olmstead MD [Primary Care Provider] - Additional Instructions: Return to the ED for any worsening symptoms Your depakote is low, follow up with your PCP
== END 2017-01-26 15:51 | disposition home or self-care (01) ==
LOC: ED 11:31
DX: R56.9 Unspecified convulsions (principal); E11.9 Type 2 diabetes mellitus without complications; Z86.79 Personal history of other diseases of the circulatory system; Z87.891 Personal history of nicotine dependence
CPT/HCPCS: 36415; 80053; 80164; 83735; 85025; 99282; A9270-GY

== ENCOUNTER 2017-02-14 14:04 | Emergency (ER) | payer MEDICARE, MEDICAID ==
[2017-02-14 15:00] VITALS: BP 120/70
--- NOTE | 2017-02-14 15:00 | ED ---
Complex/Multi-Sys Presentation - HPI Summary HPI Summary: Pt sent here by team for leg weakness. He denies SI/HI and report does not indicate that he has any SI/HI. He reports leg weakness today unusual from any other leg weakness he's ever had. Also reports he feels a tick jumping on the tip of his tongue - reports as he's talking, "I can't even talk normal". He feels these are side effects from his medications which were changed about a week ago. Requesting daily ativan to reduce drug side effects. Reports his psychiatrist retired and he follows with Ailyn (?) at this time. Denies nausea, vomiting, diarrhea, fever, chills. He does feel he's been "sick" this past week (possibly URI from his descriptions). Denies ALLISON, chest pain, difficulty breathing, ab pain at this time. Charge nurse confirms pt reports same story to her. - History Of Current Complaint Chief Complaint: EDMentalHealth Time Seen by Provider: 02/14/17 14:25 Hx Obtained From: Patient - Allergies/Home Medications Allergies/Adverse Reactions: Allergies Allergy/AdvReac Type Severity Reaction Status Date / Time Clozapine Allergy Intermediate See Comment Verified 01/22/17 20:52 Ephedrine [From Respirol] Allergy Intermediate Blurred Verified 01/22/17 20:52 Vision Phenobarbital [From Respirol] Allergy Intermediate Blurred Verified 01/22/17 20: 52 Vision Theophylline [From Respirol] Allergy Intermediate Blurred Verified 01/22/17 20: 52 Vision Fluphenazine Allergy Mild Shakes Verified 01/22/17 20:52 [From Prolixin Decanoate] Paliperidone Allergy Mild Shakes Verified 01/22/17 20:52 [From Invega Sustenna] Polyethylene Glycol Allergy Mild Shakes Verified 01/22/17 20:52 [From Invega Sustenna] Haloperidol [From Haldol] Allergy Unknown See Comment Verified 01/22/17 20:52 Ziprasidone [From Geodon] Allergy Unknown See Comment Verified 01/22/17 20:52 PMH/Surg Hx/FS Hx/Imm Hx Previously Healthy: Yes Endocrine/Hematology History: Reports: Hx Diabetes, Hx Anemia, Other Endocrine/ Hematological Disorders - leukopenia Denies: Hx Anticoagulant Therapy, Hx Thyroid Disease, Hx Unexplained Bleeding Cardiovascular History: Reports: Hx Hypertension, Other Cardiovascular Problems/ Disorders - IDDM/LEUOKOPENIA Denies: Hx Aneurysm, Hx Angina, Hx Angioplasty, Hx Auto Implanted Cardiovert Defib, Hx Cardiac Arrest, Hx Cardiomegaly, Hx Congenital Heart Disease, Hx Congestive Heart Failure, Hx Coronary Artery Disease, Hx Deep Vein Thrombosis, Hx Hypercholesterolemia, Hx Hypotension, Hx Myocardial Infarction, Hx Pacemaker/ ICD, Hx Peripheral Vascular Disease, Hx Rheumatic Fever, Hx Syncope, Hx Valvular Heart Disease Respiratory History: Denies: Hx Asthma, Hx Chronic Bronchitis, Hx Chronic Obstructive Pulmonary Disease (COPD), Hx Cystic Fibrosis, Hx Lung Cancer, Hx Pleural Effusion, Hx Pneumonia, Hx Pulmonary Edema, Hx Pulmonary Embolism, Hx Seasonal Allergies, Hx Sleep Apnea, Other Respiratory Problems/Disorders GI History: Reports: Hx Gastroesophageal Reflux Disease, Hx Hiatal Hernia, Other GI Disorders - Constipation Denies: Hx Gall Bladder Disease, Hx Gastrointestinal Bleed, Hx Ulcer, Hx Urosepsis History: Denies: Hx Kidney Stones, Hx Renal Disease, Other Problems/Disorders Musculoskeletal History: Reports: Hx Orthopedic Injury - Left Leg Fracture Denies: Other Musculoskeletal History Sensory History: Reports: Hx Contacts or Glasses Denies: Other Sensory Impairments Opthamlomology History: Reports: Hx Contacts or Glasses Denies: Other Sensory Impairments Neurological History: Reports: 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 Denies: Hx Dementia, Hx Developmental Delay, Hx Headaches, Hx Migraine, Hx Nerve Disease, Hx Spinal Cord Injury, Hx Transient Ischemic Attacks (TIA), Other Neuro Impairments/Disorders Psychiatric History: Reports: Hx Anxiety, Hx Oppositional [place] Disorder, Hx Depression, Hx Panic Disorder, Hx Post Traumatic Stress Disorder, Hx Inpatient Treatment, Hx Community Mental Health Tx, Hx Schizophrenia, Hx Bipolar Disorder , Hx Suicide Attempt, Hx Substance Abuse, Other Psychiatric Issues/Disorders - Hx Psychosis Denies: Hx Attention Deficit Hyperactivity Disorder, Hx Eating Disorder, Hx of Violent Episodes Against Others - Surgical History Surgery Procedure, Year, and Place: LEFT INGUINAL HERNIA Hx Anesthesia Reactions: No - Immunization History Date of Tetanus Vaccine: Up to Date Date of Influenza Vaccine: None Infectious Disease History: Reports: Hx Clostridium Difficile Denies: Hx Hepatitis, Hx Human Immunodeficiency Virus (HIV), Hx of Known/ Suspected MRSA, Hx Shingles, Hx Tuberculosis, Hx Known/Suspected VRE, History Other Infectious Disease, Traveled Outside the [place] in Last 30 Days - Family History Known Family History: Positive: Cardiac Disease, Hypertension, Diabetes - When asked about family HTN, DM, CAD, he states, "Yeah, something like, Other - Schizophrenia, ASTHMA, CANCER - Social History Lives: Assisted Living Alcohol Use: Rare Alcohol Amount: some beers, none in the past 2 days Hx Substance Use: No Substance Use Type: Reports: None Hx Tobacco Use: Yes Smoking Status (MU): Former Smoker Review of Systems Constitutional: Negative Negative: Fever, Chills Negative: Chest Pain Negative: Shortness Of Breath Negative: Abdominal Pain, Vomiting, Diarrhea, Nausea Positive: no symptoms reported. Negative: dysuria, discharge, frequency Musculoskeletal: Other - see HPI Skin: Negative Negative: Rash, Bruising Neurological: Other - see HPI Positive: Weakness - see HPI. Negative: Paresthesia, Numbness Psychological: Other - see HPI - denies SI/HI All Other Systems Reviewed And Are Negative: Yes Physical Exam Triage Information Reviewed: Yes Vital Signs Reviewed: Yes Appearance: Positive: Well-Appearing, No Pain Distress, Well-Nourished Skin: Positive: Warm, Dry Eyes: Positive: Normal, EOMI, BHAVIK, Conjunctiva Clear. Negative: Conjunctiva Inflammed, Discharge ENT: Positive: Hearing grossly normal, Pharynx normal. Negative: Nasal congestion, Nasal drainage Neck: Positive: Supple, Nontender, No Lymphadenopathy Respiratory/Lung Sounds: Positive: Clear to Auscultation, Breath Sounds Present. Negative: Rales, Rhonchi, Wheezes Cardiovascular: Positive: Normal, RRR Abdomen Description: Positive: Nontender, No Organomegaly, Soft Bowel Sounds: Positive: Present Musculoskeletal: Positive: Strength/ROM Intact - pt presents w/ weakness when focused exam is performed however when he is asked to move into different positions w/ intention of listenting to chest, etc he moves well and with full strength Neurological: Positive: Sensory/Motor Intact, Alert, Oriented to Person Place, Time, CN Intact II-III Psychiatric: Positive: Anxious - verbally expresses concern about medication side effects but physically he is resting on stretcher, speaking well and denies SI/HI Diagnostics - Laboratory Result Diagrams: 02/14/17 15:18 02/14/17 15:18 Lab Statement: Any lab studies that have been ordered have been reviewed, and results considered in the medical decision making process. Complex Multi-Symp Course/Dx Course Of Treatment: Called Ailyn Sow for info about current medications. Pt's CMP reveals mildly lowered potassium and sodium. Pt ate which most likely replaced these however mag is low - will replace with PO supplement as this could contribute to leg sx (if they are true vs. anxiety induced). [place] is WNL. Still waiting to hear from Ailyn Sow, [employer], re: pt's meds as he's still requesting ativan. Depakote level is low - he is taking this for mood, not seizues, so okay that he's low. UPDATE: Spoke w/ Ailyn Sow NP. Feels pt may be triggered recently by loss of psychiatrist and recen URI. Does not feel ativan is a good medication for this pt however he's done well in the past with thorazine - ordered and pt is agreeable to taking this - would like standing order - will relay in d/c summary. Explained ativan is not healthy for him and he agrees. Encouraged him that he will be seeing Dr. Boston soon (per Ailyn). He is also free to see SANJUANA Sosa, tomorrow for f/u from today (per Ailyn) . Explained his electrolytes were a little low and commended him on eating which he hadn't done all day. Also validated that his URI can be exacerbating feelings of weakness - advised to try supportive care such as fluids, rest, hot tea with honey, cough drops if he has throat irritation, cough. Pt agrees w/ plan. Discussed w/ team who will complete evaluation and provide mental health d/c instructions as well. - Diagnoses Provider Diagnoses: Anxiety, URI, acute - Physician Notifications Discussed Care Of Patient With: MARY LOU Discharge - Discharge Plan Condition: Stable Disposition: HOME Patient Education Materials: Upper Respiratory Infection (ED), Anxiety (ED) Referrals: Nicki Olmstead MD [Primary Care Provider] - Additional Instructions: Your URI is viral in nature - you may try the following to aid in comfort and healing: Saline nasal spray Throat gargle 2 x day with 8 ounces of warm water + 1/4 teaspoon of salt Drink 60+ ounces of water daily but not too much water Sleep 8+ hours per night Avoid Dairy and sugar Hot herbal/decaf tea with lemon & honey for cough and sore throat Chicken broth May try Vicks vapor rub for chest congestion Cough drops as needed for cough Consider taking Vitamin C 1,000mg every day during illness You were given thorazine for anxiety and medication side effects today. You may discuss if this medication is appropriate as standing order or if something else would be more appropriate. You may follow-up with nurse Ian, tomorrow. You will also be seeing Dr. Boston soon. Please follow-up as directed by Mental Health.
[2017-02-14 15:14] LABS: Benzodiazepine Urine Screen None Detected (None Detect)
[2017-02-14 15:30] LABS: Hematocrit 41 % (42-52); Hemoglobin 13.3 g/dl (14.0-18.0); Mean Corpuscular HGB Conc 32 g/dl (31-36); Mean Corpuscular Hemoglobin 28 pg (27-31); Mean Corpuscular Volume 86 fL (80-94); Mean Platelet Volume 8 um3 (7.4-10.4); Red Cell Distribution Width 13 % (10.5-15); White Blood Count 6.7 10^3/ul (3.5-10.8)
[2017-02-14 15:45] LABS: ALT 7 U/L (7-52); AST 14 U/L (13-39); Albumin 4.1 g/dL (3.2-5.2); Alkaline Phosphatase 47 U/L (34-104); Anion Gap 6 mmol/L (2-11); BUN/Creatinine Ratio 9.2 (8-20); Blood Urea Nitrogen 9 mg/dL (6-24); CO2 Carbon Dioxide 25 mmol/L (22-32); Calcium 9.3 mg/dL (8.6-10.3); Chloride 101 mmol/L (101-111); EGFR African American 110.1 (>60); EGFR Non-African American 85.6 (>60); Globulin 3.2 g/dL (2-4); Glucose 76 mg/dL (70-100); Magnesium 1.7 mg/dL (1.9-2.7); Potassium 3.4 mmol/L (3.5-5.0); Sodium 132 mmol/L (133-145); Total Protein 7.3 g/dL (6.4-8.9)
[2017-02-14 16:03] LABS: Acetaminophen < 15 mcg/mL; Alcohol < 10 mg/dL (<10); Salicylate < 2.50 mg/dL (<30)
[2017-02-14] MEDS ORDERED: chlorproMAZINE TAB* 50 MG PO ONE (17:26)
[2017-02-14 17:43] LABS: Lithium 1.01 mmol/L (0.6-1.2)
[2017-02-15] MEDS ORDERED: Magnesium Oxide TAB* 400 MG PO ONE (16:53)
== END 2017-02-14 19:20 | disposition home or self-care (01) ==
LOC: ED 14:04
DX: J06.9 Acute upper respiratory infection, unspecified (principal); F41.9 Anxiety disorder, unspecified; R53.1 Weakness; Z87.891 Personal history of nicotine dependence
CPT/HCPCS: 36415; 80053; 80164; 80178; 80307; 80320; 80329; 83735; 84443; 85025; 99283; A9270-GY; G0480

== ENCOUNTER 2017-02-24 10:36 | Emergency (ER) | payer MEDICARE, MEDICAID ==
[2017-02-24] MEDS ORDERED: NS 0.9% 1000 ML* 1,000 ML IV ONE (10:50)
[2017-02-24 11:33] LABS: Hematocrit 41 % (42-52); Hemoglobin 13.1 g/dl (14.0-18.0); Mean Corpuscular HGB Conc 32 g/dl (31-36); Mean Corpuscular Hemoglobin 28 pg (27-31); Mean Corpuscular Volume 88 fL (80-94); Mean Platelet Volume 8 um3 (7.4-10.4); Red Blood Count 4.71 10^6/ul (4.0-5.4); Red Cell Distribution Width 14 % (10.5-15); White Blood Count 5.2 10^3/ul (3.5-10.8)
[2017-02-24 11:50] LABS: ALT 8 U/L (7-52); AST 14 U/L (13-39); Albumin 4.3 g/dL (3.2-5.2); Alkaline Phosphatase 50 U/L (34-104); Anion Gap 5 mmol/L (2-11); BUN/Creatinine Ratio 7.8 (8-20); Blood Urea Nitrogen 8 mg/dL (6-24); C Reactive Protein 1.62 mg/L (< 5.00); CO2 Carbon Dioxide 28 mmol/L (22-32); Calcium 9.7 mg/dL (8.6-10.3); Chloride 102 mmol/L (101-111); EGFR African American 105.1 (>60); EGFR Non-African American 81.7 (>60); Globulin 3.3 g/dL (2-4); Glucose 103 mg/dL (70-100); Magnesium 1.8 mg/dL (1.9-2.7); Potassium 3.6 mmol/L (3.5-5.0); Sodium 135 mmol/L (133-145); Total Protein 7.6 g/dL (6.4-8.9)
[2017-02-24 12:03] LABS: Lithium 1.05 mmol/L (0.6-1.2)
[2017-02-24 12:12] LABS: TSH (Thyroid Stimulating Horm) 1.24 mcIU/mL (0.34-5.60)
[2017-02-24] MEDS ORDERED: Magnesium Oxide TAB* 400 MG PO ONE (12:12)
[2017-02-24 12:36] LABS: Urine Bilirubin Negative (Negative); Urine Glucose Negative (Negative); Urine Nitrite Negative (Negative)
[2017-02-24 12:50] LABS: Benzodiazepine Urine Screen None Detected (None Detect)
--- NOTE | 2017-02-24 12:57 | RAD ---
Indication: Dizziness. Single frontal view of the chest performed at 1135 hours was reviewed. Comparison is made with previous exam dated November 10, 2016. No mediastinal shift is noted. Heart is of normal size and configuration. Lung rob appear clear. IMPRESSION: NO ACTIVE CARDIOPULMONARY DISEASE IS NOTED.
[2017-02-24 13:01] LABS: Alcohol < 10 mg/dL (<10)
[2017-02-24 13:14] VITALS: BP 118/83
--- NOTE | 2017-02-24 17:33 | ED ---
I, Silvano Medel, scribed for Pato Azar MD on 02/24/17 at 1050 . Throat Pain/Nasal Congestion - HPI Summary HPI Summary: The pt is a 37 y/o M presenting to the ED c/o a nonspecific tongue complaint ( there is something on my tongue) with unclear onset. He is an inpatient at [facility] and he states that he is on [place] and Zyprexa. The patient states that he was a patient at [facility] two weeks ago with low magnesium and low electrolytes, but they never gave me anything for that. He also states that the staff at [facility] is concerned that I cant stand up in the dining room. Pt additionally c/o dizziness. I do not observe any tremors, weakness, confusion, dysarthria, ataxia, myoclonus, or seizures. PMHx: DM, anemia, HTN, seizures, anxiety, depression, panic disorder, PTSD, inpatient psychiatric treatment, schizophrenia, bipolar disorder, suicide attempts, substance abuse. PSHx: L inguinal hernia. SHx: rare alcohol, no illicit drugs, former smoker. - History of Current Complaint Chief Complaint: EDGeneral Hx Obtained From: Patient, Medical Records Associated Signs And Symptoms: Negative: Hoarseness Cough: None Related History: Other (Noted In Comments) - Patient has an unspecified complaint about this tonuge with unclear onset - Allergies/Home Medications Allergies/Adverse Reactions: Allergies Allergy/AdvReac Type Severity Reaction Status Date / Time Clozapine Allergy Intermediate See Comment Verified 01/22/17 20:52 Ephedrine [From Respirol] Allergy Intermediate Blurred Verified 01/22/17 20:52 Vision Phenobarbital [From Respirol] Allergy Intermediate Blurred Verified 01/22/17 20: 52 Vision Theophylline [From Respirol] Allergy Intermediate Blurred Verified 01/22/17 20: 52 Vision Fluphenazine Allergy Mild Shakes Verified 01/22/17 20:52 [From Prolixin Decanoate] Paliperidone Allergy Mild Shakes Verified 01/22/17 20:52 [From Invega Sustenna] Polyethylene Glycol Allergy Mild Shakes Verified 01/22/17 20:52 [From Invega Sustenna] Haloperidol [From Haldol] Allergy Unknown See Comment Verified 01/22/17 20:52 Ziprasidone [From Geodon] Allergy Unknown See Comment Verified 07/10/17 20:52 PMH/Surg Hx/FS Hx/Imm Hx Previously Healthy: No Endocrine/Hematology History: Reports: Hx Diabetes, Hx Anemia, Other Endocrine/ Hematological Disorders - leukopenia Denies: Hx Anticoagulant Therapy, Hx Thyroid Disease, Hx Unexplained Bleeding Cardiovascular History: Reports: Hx Hypertension, Other Cardiovascular Problems/ Disorders - IDDM/LEUOKOPENIA Denies: Hx Aneurysm, Hx Angina, Hx Angioplasty, Hx Auto Implanted Cardiovert Defib, Hx Cardiac Arrest, Hx Cardiomegaly, Hx Congenital Heart Disease, Hx Congestive Heart Failure, Hx Coronary Artery Disease, Hx Deep Vein Thrombosis, Hx Hypercholesterolemia, Hx Hypotension, Hx Myocardial Infarction, Hx Pacemaker/ ICD, Hx Peripheral Vascular Disease, Hx Rheumatic Fever, Hx Syncope, Hx Valvular Heart Disease Respiratory History: Denies: Hx Asthma, Hx Chronic Bronchitis, Hx Chronic Obstructive Pulmonary Disease (COPD), Hx Cystic Fibrosis, Hx Lung Cancer, Hx Pleural Effusion, Hx Pneumonia, Hx Pulmonary Edema, Hx Pulmonary Embolism, Hx Seasonal Allergies, Hx Sleep Apnea, Other Respiratory Problems/Disorders GI History: Reports: Hx Gastroesophageal Reflux Disease, Hx Hiatal Hernia, Other GI Disorders - Constipation Denies: Hx Gall Bladder Disease, Hx Gastrointestinal Bleed, Hx Ulcer, Hx Urosepsis History: Denies: Hx Kidney Stones, Hx Renal Disease, Other Problems/Disorders Musculoskeletal History: Reports: Hx Orthopedic Injury - Left Leg Fracture Denies: Other Musculoskeletal History Sensory History: Reports: Hx Contacts or Glasses Denies: Other Sensory Impairments Opthamlomology History: Reports: Hx Contacts or Glasses Denies: Other Sensory Impairments Neurological History: Reports: 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 Denies: Hx Dementia, Hx Developmental Delay, Hx Headaches, Hx Migraine, Hx Nerve Disease, Hx Spinal Cord Injury, Hx Transient Ischemic Attacks (TIA), Other Neuro Impairments/Disorders Psychiatric History: Reports: Hx Anxiety, Hx Oppositional [place] Disorder, Hx Depression, Hx Panic Disorder, Hx Post Traumatic Stress Disorder, Hx Inpatient Treatment, Hx Community Mental Health Tx, Hx Schizophrenia, Hx Bipolar Disorder , Hx Suicide Attempt, Hx Substance Abuse, Other Psychiatric Issues/Disorders - Hx Psychosis Denies: Hx Attention Deficit Hyperactivity Disorder, Hx Eating Disorder, Hx of Violent Episodes Against Others - Surgical History Surgery Procedure, Year, and Place: LEFT INGUINAL HERNIA Hx Anesthesia Reactions: No - Immunization History Date of Tetanus Vaccine: Up to Date Date of Influenza Vaccine: None Infectious Disease History: Reports: Hx Clostridium Difficile Denies: Hx Hepatitis, Hx Human Immunodeficiency Virus (HIV), Hx of Known/ Suspected MRSA, Hx Shingles, Hx Tuberculosis, Hx Known/Suspected VRE, History Other Infectious Disease - Family History Known Family History: Positive: Cardiac Disease, Hypertension, Diabetes - When asked about family HTN, DM, CAD, he states, "Yeah, something like, Other - Schizophrenia, ASTHMA, CANCER - Social History Alcohol Use: Rare Alcohol Amount: some beers, none in the past 2 days Hx Substance Use: No Substance Use Type: Reports: None Hx Tobacco Use: Yes Smoking Status (MU): Former Smoker Review of Systems Constitutional: Negative Negative: Fever Positive: Other - POS: unspecified tongue complaint ("there is something on my tongue) with unclear onset Neurological: Other - POS: dizziness All Other Systems Reviewed And Are Negative: Yes Physical Exam - Summary Physical Exam Summary: VITAL SIGNS: Reviewed. GENERAL: ~Patient is a well-developed and nourished male who is lying comfortable in the stretcher. ~Patient is not in any acute respiratory distress. HEAD AND FACE: No signs of trauma. ~No ecchymosis, hematomas or skull depressions. No sinus tenderness. EYES: PERRLA, EOMI x 2, No injected conjunctiva, no nystagmus. EARS: Hearing grossly intact. Ear canals and tympanic membranes are within normal limits. MOUTH: Oropharynx within normal limits. NECK: Supple, trachea is midline, no adenopathy, no JVD, no carotid bruit, no c- spine tenderness, neck with full ROM. CHEST: Symmetric, no tenderness at palpation LUNGS: Clear to auscultation bilaterally. No wheezing or crackles. CVS: Regular rate and rhythm, S1 and S2 present, no murmurs or gallops appreciated. ABDOMEN: Soft, non-tender. No signs of distention. No rebound no guarding, and no masses palpated. Bowel sounds are normal. EXTREMITIES: FROM in all major joints, no edema, no cyanosis or clubbing. NEURO: Alert and oriented x 3. No acute neurological deficits. Speech is normal and follows commands. SKIN: Dry and warm Triage Information Reviewed: Yes Vital Signs On Initial Exam: Initial Vitals BP 122/72 02/24/17 10:42 Vital Signs Reviewed: Yes Diagnostics - Vital Signs Vital Signs Temp Pulse Resp BP Pulse Ox 02/24/17 13:14 98.8 F 69 16 118/83 08/12/17 12:30 57 20 118/83 100 02/24/17 12:00 51 18 120/76 97 02/24/17 11:30 57 13 120/81 100 02/24/17 11:00 58 12 121/77 99 02/24/17 10:45 97.8 F 66 16 122/72 100 02/24/17 10:43 62 14 100 02/24/17 10:42 122/72 - Laboratory Lab Results: Lab Results 02/24/17 02/24/17 02/24/17 Range/Units 11:20 11:20 11:20 WBC 5.2 (3.5-10.8) 10^3/ul RBC 4.71 (4.0-5.4) 10^6/ul Hgb 13.1 L (14.0-18.0) g/dl Hct 41 L (42-52) % MCV 88 (80-94) fL MCH 28 (27-31) pg MCHC 32 (31-36) g/dl RDW 14 (10.5-15) % Plt Count 228 (150-450) 10^3/ul MPV 8 (7.4-10.4) um3 Neut % (Auto) 62.3 (38-83) % Lymph % (Auto) 26.0 (25-47) % [place] % (Auto) 5.1 (1-9) % Eos % (Auto) 6.1 H (0-6) % Baso % (Auto) 0.5 (0-2) % Absolute Neuts (auto) 3.2 (1.5-7.7) 10^3/ul Absolute Lymphs (auto) 1.4 (1.0-4.8) 10^3/ul Absolute Monos (auto) 0.3 (0-0.8) 10^3/ul Absolute Eos (auto) 0.3 (0-0.6) 10^3/ul Absolute Basos (auto) 0 (0-0.2) 10^3/ul Absolute Nucleated RBC 0.01 10^3/ul Nucleated RBC % 0.2 Sodium 135 (133-145) mmol/L Potassium 3.6 (3.5-5.0) mmol/L Chloride 102 (101-111) mmol/L Carbon Dioxide 28 (22-32) mmol/L Anion Gap 5 (2-11) mmol/L BUN 8 (6-24) mg/dL Creatinine 1.02 (0.67-1.17) mg/dL Est GFR ( Amer) 105.1 (>60) Est GFR (Non-Af Amer) 81.7 (>60) BUN/Creatinine Ratio 7.8 L (8-20) Glucose 103 H (70-100) mg/dL Lactic Acid 0.8 (0.5-2.0) mmol/L Calcium 9.7 (8.6-10.3) mg/dL Magnesium 1.8 L (1.9-2.7) mg/dL Total Bilirubin 0.70 (0.2-1.0) mg/dL AST 14 (13-39) U/L ALT 8 (7-52) U/L Alkaline Phosphatase 50 (34-104) U/L Troponin I 0.00 (<0.04) ng/mL C-Reactive Protein 1.62 (< 5.00) mg/L B-Natriuretic Peptide ( - 100) pg/mL Total Protein 7.6 (6.4-8.9) g/dL Albumin 4.3 (3.2-5.2) g/dL Globulin 3.3 (2-4) g/dL Albumin/Globulin Ratio 1.3 (1-3) TSH 1.24 (0.34-5.60) mcIU/mL Urine Color Urine Appearance Urine pH (5-9) Ur Specific [place] (1.010-1.030) Urine Protein (Negative) Urine Ketones (Negative) Urine Blood (Negative) Urine Nitrate (Negative) Urine Bilirubin (Negative) Urine Urobilinogen (Negative) Ur Leukocyte Esterase (Negative) Urine Glucose (Negative) Urine Opiates Screen (None Detect) Ur Barbiturates Screen (None Detect) Ur Phencyclidine Scrn (None Detect) Ur Amphetamines Screen (None Detect) U Benzodiazepines Scrn (None Detect) [place] 1.05 (0.6-1.2) mmol/L Urine Cocaine Screen (None Detect) U Cannabinoids Screen (None Detect) Serum Alcohol < 10 (<10) mg/dL 02/24/17 02/24/17 02/24/17 Range/Units 11:20 12:20 12:20 WBC (3.5-10.8) 10^3/ul RBC (4.0-5.4) 10^6/ul Hgb (14.0-18.0) g/dl Hct (42-52) % MCV (80-94) fL MCH (27-31) pg MCHC (31-36) g/dl RDW (10.5-15) % Plt Count (150-450) 10^3/ul MPV (7.4-10.4) um3 Neut % (Auto) (38-83) % Lymph % (Auto) (25-47) % [place] % (Auto) (1-9) % Eos % (Auto) (0-6) % Baso % (Auto) (0-2) % Absolute Neuts (auto) (1.5-7.7) 10^3/ul Absolute Lymphs (auto) (1.0-4.8) 10^3/ul Absolute Monos (auto) (0-0.8) 10^3/ul Absolute Eos (auto) (0-0.6) 10^3/ul Absolute Basos (auto) (0-0.2) 10^3/ul Absolute Nucleated RBC 10^3/ul Nucleated RBC % Sodium (133-145) mmol/L Potassium (3.5-5.0) mmol/L Chloride (101-111) mmol/L Carbon Dioxide (22-32) mmol/L Anion Gap (2-11) mmol/L BUN (6-24) mg/dL Creatinine (0.67-1.17) mg/dL Est GFR ( Amer) (>60) Est GFR (Non-Af Amer) (>60) BUN/Creatinine Ratio (8-20) Glucose (70-100) mg/dL Lactic Acid (0.5-2.0) mmol/L Calcium (8.6-10.3) mg/dL Magnesium (1.9-2.7) mg/dL Total Bilirubin (0.2-1.0) mg/dL AST (13-39) U/L ALT (7-52) U/L Alkaline Phosphatase (34-104) U/L Troponin I (<0.04) ng/mL C-Reactive Protein (< 5.00) mg/L B-Natriuretic Peptide 18 ( - 100) pg/mL Total Protein (6.4-8.9) g/dL Albumin (3.2-5.2) g/dL Globulin (2-4) g/dL Albumin/Globulin Ratio (1-3) TSH (0.34-5.60) mcIU/mL Urine Color Straw Urine Appearance Clear Urine pH 6.0 (5-9) Ur Specific [place] 1.002 L (1.010-1.030) Urine Protein Negative (Negative) Urine Ketones Negative (Negative) Urine Blood Negative (Negative) Urine Nitrate Negative (Negative) Urine Bilirubin Negative (Negative) Urine Urobilinogen Negative (Negative) Ur Leukocyte Esterase Negative (Negative) Urine Glucose Negative (Negative) Urine Opiates Screen None detected (None Detect) Ur Barbiturates Screen None detected (None Detect) Ur Phencyclidine Scrn None detected (None Detect) Ur Amphetamines Screen None detected (None Detect) U Benzodiazepines Scrn None detected (None Detect) [place] (0.6-1.2) mmol/L Urine Cocaine Screen None detected (None Detect) U Cannabinoids Screen None detected (None Detect) Serum Alcohol (<10) mg/dL Result Diagrams: 02/24/17 11:20 02/24/17 11:20 Lab Statement: Any lab studies that have been ordered have been reviewed, and results considered in the medical decision making process. - EKG 10:54 Cardiac Rate: Bradycardia - 56 BPM EKG Interpretation: Sinus bradycardia with no ST elevations. EENT Course/Dx - Course Assessment/Plan: The pt is a 37 y/o M presenting to the ED c/o a nonspecific tongue complaint (there is something on my tongue) with unclear onset. He is an inpatient at [facility] and he states that he is on [place] and Zyprexa. The patient states that he was a patient at [facility] two weeks ago with low magnesium and low electrolytes, but they never gave me anything for that. He also states that the staff at [facility] is concerned that I cant stand up in the dining room. Pt additionally c/o dizziness. I do not observe any tremors , weakness, confusion, dysarthria, ataxia, myoclonus, or seizures. PMHx: DM, anemia, HTN, seizures, anxiety, depression, panic disorder, PTSD, inpatient psychiatric treatment, schizophrenia, bipolar disorder, suicide attempts, substance abuse. PSHx: L inguinal hernia. SHx: rare alcohol, no illicit drugs, former smoker. Test results are without significant abnormality except a slight chronic anemia, Glucose 103, magnesium 1.8, [place] 1.05. UA is negative for UTI and urine toxicology is negative. The patient was hydrated and his symptoms resolved. He is alert and oriented x3 and hemodynamically stable. - Diagnoses Provider Diagnoses: Dizziness, Hypomagnesemia Discharge - Discharge Plan Condition: Stable Disposition: HOME Patient Education Materials: Dizziness (ED) Referrals: Nicki Olmstead MD [Primary Care Provider] - 3 Days The documentation as recorded by the Lizy peralta Thomas accurately reflects the service I personally performed and the decisions made by , Pato Azar MD.
== END 2017-02-24 13:14 | disposition home or self-care (01) ==
LOC: ED 10:36
DX: R42 Dizziness and giddiness (principal); E83.42 Hypomagnesemia; E11.9 Type 2 diabetes mellitus without complications; I10 Essential (primary) hypertension; D72.819 Decreased white blood cell count, unspecified; J44.9 Chronic obstructive pulmonary disease, unspecified; K21.9 Gastro-esophageal reflux disease without esophagitis; Z88.8 Allergy status to other drugs, medicaments and biological substances; R00.1 Bradycardia, unspecified; F43.10 Post-traumatic stress disorder, unspecified; F20.9 Schizophrenia, unspecified; Z87.891 Personal history of nicotine dependence
CPT/HCPCS: 36415; 71010; 80053; 80178; 80307; 80320; 81003; 83605; 83735; 83880; 84443; 84484; 85025; 86140; 93005; 99282; G0480

== ENCOUNTER 2017-03-06 10:12 | Observation (INO) | payer MEDICARE, MEDICAID ==
[2017-03-06] MEDS ORDERED: NS 0.9% 1000 ML* 1,000 ML IV ONE (11:11)
[2017-03-06 12:50] LABS: Hematocrit 44 % (42-52); Hemoglobin 14.1 g/dl (14.0-18.0); Mean Corpuscular HGB Conc 32 g/dl (31-36); Mean Corpuscular Hemoglobin 28 pg (27-31); Mean Corpuscular Volume 86 fL (80-94); Mean Platelet Volume 8 um3 (7.4-10.4); Red Blood Count 5.06 10^6/ul (4.0-5.4); Red Cell Distribution Width 15 % (10.5-15); White Blood Count 5.2 10^3/ul (3.5-10.8)
[2017-03-06 13:13] LABS: ALT 9 U/L (7-52); AST 14 U/L (13-39); Albumin 4.7 g/dL (3.2-5.2); Alkaline Phosphatase 52 U/L (34-104); Anion Gap 4 mmol/L (2-11); BUN/Creatinine Ratio 5.3 (8-20); Blood Urea Nitrogen 6 mg/dL (6-24); CO2 Carbon Dioxide 28 mmol/L (22-32); Calcium 10.2 mg/dL (8.6-10.3); Chloride 106 mmol/L (101-111); EGFR African American 93.4 (>60); EGFR Non-African American 72.6 (>60); Globulin 3.6 g/dL (2-4); Potassium 3.6 mmol/L (3.5-5.0); Sodium 138 mmol/L (133-145); Total Protein 8.3 g/dL (6.4-8.9)
[2017-03-06 13:16] LABS: Glucose 28 mg/dL (70-100)
[2017-03-06] MEDS ORDERED: Dextrose 50% Syringe 50 ML* 25 GM/50 ML SYRINGE IV PUSH ONE (13:16)
[2017-03-06] MEDS ORDERED: Dextrose 50% Syringe 50 ML* 25 GM/50 ML SYRINGE ONE (13:17)
[2017-03-06 13:25] LABS: Acetaminophen < 15 mcg/mL; Alcohol < 10 mg/dL (<10); Lithium 1.19 mmol/L (0.6-1.2); Salicylate < 2.50 mg/dL (<30)
[2017-03-06 13:32] LABS: TSH (Thyroid Stimulating Horm) 1.49 mcIU/mL (0.34-5.60)
--- NOTE | 2017-03-06 13:44 | ED ---
Kilo Anderson Rebecca, scribed for Pato Hopkins MD on 03/06/17 at 1111 . Complex/Multi-Sys Presentation - HPI Summary HPI Summary: Pt is a 37 y/o M BIBA from [facility] who presents to ED c /o generalized weakness. This morning, he was trying to go downstairs but was unable to due to bilateral LE weakness. Pt additionally reports his BG was elevated this morning. Sx aggravated and and alleviated by nothing. Denies sore throat, cough, rhinorrhea, abd pain, N/V and any urinary symptoms. Pt reports that he has not been eating recently. PMHx seizures, schizoaffective disorder and DM. Confirms medication compliance. - History Of Current Complaint Chief Complaint: EDWeakness Time Seen by Provider: 03/06/17 10:47 Hx Obtained From: Patient Onset/Duration: Still Present Severity Currently: None Location: Negative Aggravating Factor(s): Nothing Alleviating Factor(s): Nothing Associated Signs And Symptoms: Positive: Weakness - Generalized. Negative: Cough, Nausea, Vomiting, Abdominal Pain - Allergies/Home Medications Allergies/Adverse Reactions: Allergies Allergy/AdvReac Type Severity Reaction Status Date / Time Clozapine Allergy Intermediate See Comment Verified 01/22/17 20:52 Ephedrine [From Respirol] Allergy Intermediate Blurred Verified 01/22/17 20:52 Vision Phenobarbital [From Respirol] Allergy Intermediate Blurred Verified 01/22/17 20: 52 Vision Theophylline [From Respirol] Allergy Intermediate Blurred Verified 01/22/17 20: 52 Vision Fluphenazine Allergy Mild Shakes Verified 01/22/17 20:52 [From Prolixin Decanoate] Paliperidone Allergy Mild Shakes Verified 01/22/17 20:52 [From Invega Sustenna] Polyethylene Glycol Allergy Mild Shakes Verified 01/22/17 20:52 [From Invega Sustenna] Haloperidol [From Haldol] Allergy Unknown See Comment Verified 01/22/17 20:52 Ziprasidone [From Geodon] Allergy Unknown See Comment Verified 01/22/17 20:52 PMH/Surg Hx/FS Hx/Imm Hx Endocrine/Hematology History: Reports: Hx Diabetes, Hx Anemia, Other Endocrine/ Hematological Disorders - leukopenia Denies: Hx Anticoagulant Therapy, Hx Thyroid Disease, Hx Unexplained Bleeding Cardiovascular History: Reports: Hx Hypertension, Other Cardiovascular Problems/ Disorders - IDDM/LEUOKOPENIA Denies: Hx Aneurysm, Hx Angina, Hx Angioplasty, Hx Auto Implanted Cardiovert Defib, Hx Cardiac Arrest, Hx Cardiomegaly, Hx Congenital Heart Disease, Hx Congestive Heart Failure, Hx Coronary Artery Disease, Hx Deep Vein Thrombosis, Hx Hypercholesterolemia, Hx Hypotension, Hx Myocardial Infarction, Hx Pacemaker/ ICD, Hx Peripheral Vascular Disease, Hx Rheumatic Fever, Hx Syncope, Hx Valvular Heart Disease Respiratory History: Denies: Hx Asthma, Hx Chronic Bronchitis, Hx Chronic Obstructive Pulmonary Disease (COPD), Hx Cystic Fibrosis, Hx Lung Cancer, Hx Pleural Effusion, Hx Pneumonia, Hx Pulmonary Edema, Hx Pulmonary Embolism, Hx Seasonal Allergies, Hx Sleep Apnea, Other Respiratory Problems/Disorders GI History: Reports: Hx Gastroesophageal Reflux Disease, Hx Hiatal Hernia, Other GI Disorders - Constipation Denies: Hx Gall Bladder Disease, Hx Gastrointestinal Bleed, Hx Ulcer, Hx Urosepsis History: Denies: Hx Kidney Stones, Hx Renal Disease, Other Problems/Disorders Musculoskeletal History: Reports: Hx Orthopedic Injury - Left Leg Fracture Denies: Other Musculoskeletal History Sensory History: Reports: Hx Contacts or Glasses Denies: Other Sensory Impairments Opthamlomology History: Reports: Hx Contacts or Glasses Denies: Other Sensory Impairments Neurological History: Reports: 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 Denies: Hx Dementia, Hx Developmental Delay, Hx Headaches, Hx Migraine, Hx Nerve Disease, Hx Spinal Cord Injury, Hx Transient Ischemic Attacks (TIA), Other Neuro Impairments/Disorders Psychiatric History: Reports: Hx Anxiety, Hx Oppositional [place] Disorder, Hx Depression, Hx Panic Disorder, Hx Post Traumatic Stress Disorder, Hx Inpatient Treatment, Hx Community Mental Health Tx, Hx Schizophrenia, Hx Bipolar Disorder , Hx Suicide Attempt, Hx Substance Abuse, Other Psychiatric Issues/Disorders - Hx Psychosis Denies: Hx Attention Deficit Hyperactivity Disorder, Hx Eating Disorder, Hx of Violent Episodes Against Others - Surgical History Surgery Procedure, Year, and Place: LEFT INGUINAL HERNIA Hx Anesthesia Reactions: No - Immunization History Date of Tetanus Vaccine: Up to Date Date of Influenza Vaccine: None Infectious Disease History: No Infectious Disease History: Reports: Hx Clostridium Difficile Denies: Hx Hepatitis, Hx Human Immunodeficiency Virus (HIV), Hx of Known/ Suspected MRSA, Hx Shingles, Hx Tuberculosis, Hx Known/Suspected VRE, History Other Infectious Disease, Traveled Outside the [place] in Last 30 Days - Family History Known Family History: Positive: Cardiac Disease, Hypertension, Diabetes - When asked about family HTN, DM, CAD, he states, "Yeah, something like, Other - Schizophrenia, ASTHMA, CANCER - Social History Alcohol Use: Rare Alcohol Amount: some beers, none in the past 2 days Hx Substance Use: No Substance Use Type: Reports: None Hx Tobacco Use: Yes Smoking Status (MU): Former Smoker Review of Systems Positive: Other - Elevated BG this morning Negative: Sore Throat, Nasal Discharge Negative: Cough Negative: Abdominal Pain, Vomiting, Nausea Positive: Weakness - Generalizes weakness All Other Systems Reviewed And Are Negative: Yes Physical Exam Triage Information Reviewed: Yes Vital Signs On Initial Exam: Initial Vitals Temp Pulse Resp BP Pulse Ox 98.1 F 72 18 104/63 97 03/06/17 10:41 03/06/17 10:41 03/06/17 10:41 03/06/17 10:41 03/06/17 10:41 Vital Signs Reviewed: Yes Appearance: Positive: Well-Appearing, No Pain Distress Skin: Positive: Warm Head/Face: Positive: Normal Head/Face Inspection ENT: Positive: Normal ENT inspection Neck: Positive: Supple, Nontender Respiratory/Lung Sounds: Positive: Clear to Auscultation, Breath Sounds Present Cardiovascular: Positive: RRR. Negative: Murmur Abdomen Description: Positive: Nontender Musculoskeletal: Positive: Strength/ROM Intact. Negative: Edema Left, Edema Right Neurological: Positive: Sensory/Motor Intact, Alert, Oriented to Person Place, Time, CN Intact II-III Psychiatric: Positive: Normal Diagnostics - Vital Signs Vital Signs Temp Pulse Resp BP Pulse Ox 03/06/17 10:41 98.1 F 72 18 104/63 97 - Laboratory Result Diagrams: 03/06/17 12:30 03/06/17 12:30 Lab Statement: Any lab studies that have been ordered have been reviewed, and results considered in the medical decision making process. - EKG 1116 Cardiac Rate: NL - 65 bpm EKG Rhythm: Sinus Rhythm EKG Interpretation: No STEMI Complex Multi-Symp Course/Dx Course Of Treatment: 37 yr old male with underlying mental health issue. he is on Metformin ER. His BS reportedly was high earlier and here it is very low. he will stay OBV with hospitalists. - Diagnoses Provider Diagnoses: Hypoglycemia, Weakness - Physician Notifications Discussed Care Of Patient With: Delmis Dos Santos Time Discussed With Above Provider: 13:38 Instructed by Provider To: Other - Accepts pt for admission. Discharge - Discharge Plan Condition: Good Disposition: ADMITTED TO [facility] The documentation as recorded by the Kilo peralta Rebecca accurately reflects the service I personally performed and the decisions made by me, Pato Hopkins MD.
[2017-03-06] MEDS ORDERED: Ondansetron INJ* 2 MG/ML VIAL IV PRN (14:38)
[2017-03-06] MEDS ORDERED: Dextrose 50% Syringe 50 ML* 25 GM/50 ML SYRINGE IV PUSH PRN (14:38)
[2017-03-06] MEDS ORDERED: Acetaminophen TAB* 325 MG PO PRN (14:38)
[2017-03-06] MEDS: Insulin LISPRO* 1 UNITS UNIT SUBCUT SCH (17:10)
[2017-03-06] MEDS: Metoprolol Tartrate TAB* 25 MG PO SCH (20:40)
[2017-03-06] MEDS: Amantadine CAP* 100 MG PO SCH (20:40)
[2017-03-06] MEDS ORDERED: CARIPRAZINE HCL 3 MG PO SCH (21:00)
[2017-03-06] MEDS ORDERED: Lithium Carbonate TAB* 300 MG PO SCH (21:00)
[2017-03-06] MEDS ORDERED: OLANzapine TAB* 10 MG PO SCH (21:00)
--- NOTE | 2017-03-06 21:58 | HP ---
CC: Dr. Olmstead * HISTORY AND PHYSICAL: DATE OF ADMISSION: 03/06/17 PRIMARY CARE PROVIDER: Dr. Olmstead. ATTENDING PHYSICIAN WHILE IN THE HOSPITAL: Delmis Perez MD * (report dictated by Kye Barber NP). CHIEF COMPLAINT: Weakness. HISTORY OF PRESENT ILLNESS: Mr. Mcbride is a 37-year-old male patient who has a history of seizures, history of psychotic disorder, PE, anemia, diabetes, and schizophrenia who comes into the ER today stating that yesterday, he did not really eat much and then today he felt weak, did not want to get up, he was just tired. He was at [facility] and he requested he come to the hospital to be evaluated him. He denies any suicidal thoughts. He says he has been taking his meds as prescribed. He took his metformin yesterday. He says he has not been having any chest pain or shortness of breath. He denied having any abdominal pain. He said that he has been feeling well with the exception of today and yesterday, just was really weak and tired. He denied feeling sweaty, denied feeling nauseous. He denied any confusion. He came in to the ER, was evaluated. It was found that his blood pressure via the lab was 28. This was corrected. He is eating and his sugar is now at 140; but because of the hypoglycemia, we were asked to evaluate for admission. PAST MEDICAL HISTORY: Significant for: 1. Seizures. 2. Chronic psychotic disorder. 3. Schizophrenia. 4. Diabetes. 5. History of PE. 6. Anemia. PAST SURGICAL HISTORY: 1. He has had a hernia repair. 2. Left lower extremity surgery. HOME MEDICATIONS: According to the list that was provided include: 1. Florastor 250 mg p.o. b.i.d. 2. Protonix 40 mg daily. 3. Zyprexa 10 mg in the morning, 20 mg at bedtime. 4. Multivitamin 1 tablet daily. 5. Lopressor 25 mg p.o. b.i.d. 6. Metformin 750 mg p.o. b.i.d. 7. [place] 900 mg at bedtime. 8. Depakote 500 mg p.o. q.p.m. 9. Vraylar 3 mg p.o. daily. 10. Amantadine 100 mg p.o. b.i.d. ALLERGIES TO MEDICATIONS: Include GEODON, HALDOL, INVEGA, PROLIXIN, RISPERDAL, THEOPHYLLINE, PHENOBARBITAL, CLOZAPINE. FAMILY HISTORY: Father had a history of AIDS. Mother's history was reviewed. The patient states she is healthy. To his knowledge, there are no medical problems. SOCIAL HISTORY: He does not smoke. He does not drink. His surrogate decision maker is his mother. He lives at care home at [facility]. REVIEW OF SYSTEMS: There is no documented fever. He denied having any significant weight changes. There was no double vision. He denies having any ear discharge. There is no rhinorrhea. No sore throat. No thyroid enlargement. Denied having any chest pain. There was no orthopnea. No nocturnal dyspnea. There is no abdominal pain. There is no nausea. No vomiting. No dysuria. No frequency. There was no seizure. He denied any loss of consciousness. No pruritus and no skin ulcerations. Review of 14 systems completed, all others negative. PHYSICAL EXAMINATION GENERAL: At this time, Mr. Mcbride is a 37-year-old male patient. He is sitting in the ER stretcher. He does not appear to be in any acute distress. VITAL SIGNS: Blood pressure 125/75 with a pulse of 72, respirations 18, O2 sat 98%, and his temperature was 98.1. HEENT: Head is atraumatic and normocephalic. Eyes: EOMs are intact. Sclerae anicteric and not pale. Throat: Oral mucosa appears to be moist. No oropharyngeal erythema. NECK: Supple. LUNGS: Clear to auscultation. No wheezes, rales, or rhonchi. HEART: Sounds S1, S2. Regular rate and rhythm. No murmurs, rubs, or gallops. ABDOMEN: Soft, flat, nontender. Bowel sounds present. EXTREMITIES: Pulses were 2+ throughout. He is able to move all 4 extremities with 5/5 strength. NEUROLOGIC: He is awake. He is alert. He is oriented x3. Tongue midline. Storage Worker were equal. No gross focal deficits. SKIN: Intact. LABORATORY DATA/DIAGNOSTIC STUDIES: Labs revealed a WBC of 5.2, RBC of 5.06, hemoglobin 14.1, hematocrit of 44, and platelet count of 264. The sodium was 128, potassium 3.6, chloride of 106, bicarb 28, BUN 6, creatinine 1.13, glucose of 28, repeat glucose was 144. Calcium 10.2, total bili of 0.6, AST 14, ALT 9, alk phos 52. Albumin 4.7. TSH of 1.49. Toxicology was negative. He did have a EKG obtained today as well, which revealed a normal sinus rhythm, rate of 65, normal axis. No ST elevations or T-wave inversions. It was reviewed to the previous EKG, appears to be similar. Old medical records reviewed. ASSESSMENT AND PLAN: Mr. Mcbride is a 37-year-old male patient with multiple psychiatric problems coming in to the ER today with complaints of weakness and just not feeling well. After further evaluation, it was noted that his sugars here in the ED was 28. We were asked to evaluate and consult for admission. He will be admitted under observation status for: 1. Hypoglycemia. Etiology is unclear. Metformin has a low chance of causing this, 1% to 5%. I did look at his other meds. I do not see any active culprits. My plan is just checking insulin level and C-peptide type, keep him overnight. We will allow him to eat. We will check his fingersticks a.c. We will give him insulin as needed. Then, I would consider discharge perhaps on a lower dose of metformin on 500 mg b.i.d. or continue his home dose. He does state that he did not eat yesterday, which certainly may have contributed to his hypoglycemia and we will continue to follow. 2. Seizures. Continue his meds as prescribed and seizure precautions. 3. History of psychiatric disorder with his schizophrenia. Continue meds as prescribed. 4. History of pulmonary embolism. I did order subcu heparin for prophylactic prevention. 5. History of anemia. H and H, stable, follow. 6. Diabetes. Again, lispro sliding scale. We will follow his blood glucose levels closely. 7. DVT prophylaxis, placed on heparin subcu. 8. Code status, he is a full code. 9. Fluids, electrolytes, nutrition. Again, consistent carb diet. TIME SPENT: Time spent on the admission 60 minutes with greater than half the time spent [id number] with the patient obtaining my history and physical, other half time spent going over the plan of care with the patient and implementing the plan of care. I did discuss the plan of care with my attending, Dr. Perez; she is in agreement. KYE BARBER NP [id number]/[facility] #: [id number] MIREYA
[2017-03-06] MEDS: Heparin VIAL(*) 5000 UNITS/ML VIAL (FIVE THOUSAND) SUBCUT SCH (22:23)
[2017-03-07] MEDS: Heparin VIAL(*) 5000 UNITS/ML VIAL (FIVE THOUSAND) SUBCUT SCH ×2 (05:36→15:04)
[2017-03-07 05:43] LABS: Hematocrit 43 % (42-52); Hemoglobin 13.7 g/dl (14.0-18.0); Mean Corpuscular HGB Conc 32 g/dl (31-36); Mean Corpuscular Hemoglobin 27 pg (27-31); Mean Corpuscular Volume 86 fL (80-94); Mean Platelet Volume 8 um3 (7.4-10.4); Red Blood Count 4.99 10^6/ul (4.0-5.4); Red Cell Distribution Width 14 % (10.5-15); White Blood Count 6.2 10^3/ul (3.5-10.8)
[2017-03-07 05:57] LABS: BUN/Creatinine Ratio 6.3 (8-20); Calcium 9.6 mg/dL (8.6-10.3); EGFR African American 114.1 (>60); EGFR Non-African American 88.7 (>60); Potassium 4.2 mmol/L (3.5-5.0)
[2017-03-07] MEDS: Insulin LISPRO* 1 UNITS UNIT SUBCUT SCH ×2 (07:33→11:47)
[2017-03-07 08:58] VITALS: BP 114/76
[2017-03-07] MEDS ORDERED: OLANzapine TAB* 5 MG PO SCH (09:00)
[2017-03-07] MEDS ORDERED: Divalproex ER TAB(*) 500 MG PO SCH (09:00)
[2017-03-07] MEDS ORDERED: Omeprazole CAP* 20 MG PO SCH (09:00)
[2017-03-07] MEDS: Amantadine CAP* 100 MG PO SCH (10:11)
[2017-03-07] MEDS: Metoprolol Tartrate TAB* 25 MG PO SCH (10:12)
--- NOTE | 2017-03-07 12:09 | DCNOTE ---
Patient seen this morning, feeling better. Ambulated around the unit with nurse. Says he has had no changes in his Metformin dosing for years. Complaints about the facility he is in. On exam, RRR, s1 and s2 present, no m/g/r, CTA B/L, no w/r/r, abd soft, NTND, no LE edema Unclear cause of hypoglycemia, can be caused by Metformin but rare. Will decrease Metformin dose from BID to daily. Patient instructed to check sugars BID for the next week and to drink juice if he has hypoglycemia.
--- NOTE | 2017-03-08 06:32 | DS ---
DISCHARGE SUMMARY: DATE OF ADMISSION: 03/06/17 DATE OF DISCHARGE: 03/07/17 PRIMARY CARE PHYSICIAN: Dr. Olmstead. PRIMARY DISCHARGE DIAGNOSIS: Hypoglycemia. SECONDARY DIAGNOSES: 1. Seizure disorder. 2. Chronic psychotic disorder. 3. Schizophrenia. 4. Diabetes. 5. History of pulmonary embolism. 6. Anemia. STUDIES DURING HOSPITALIZATION: No imaging. DISCHARGE MEDICATION REGIMEN: 1. Metformin 750 mg by mouth daily. 2. Multivitamin 1 tablet by mouth daily. 3. [place] 900 mg by mouth at bedtime. 4. Metoprolol tartrate 25 mg by mouth 2 times daily. 5. Protonix 40 mg by mouth daily. 6. Saccharomyces 250 mg by mouth 2 times daily. 7. Amantadine 100 mg by mouth 2 times daily. 8. Olanzapine 10 mg by mouth every morning, 20 mg by mouth at bedtime. 9. Cariprazine 3 mg by mouth at bedtime. 10. Depakote 500 mg by mouth daily. HISTORY OF PRESENT ILLNESS AND HOSPITAL SUMMARY: Please see the full history and physical by Kye Barber NP for full details. Briefly, Mr. Mcbride is a 37- year- old male with a past medical history as above, who presented to the hospital with fatigue, weakness, decreased p.o. intake. In the emergency room, the patient was found to have a low blood glucose of 28. This responded to p.o. intake and increased to 144. The patient was monitored throughout the rest of the day and the following day with no further episodes of hypoglycemia. The etiology of the hypoglycemia is unclear as the patient is only on metformin as an outpatient. There are some rare cases of metformin causing hypoglycemia. A C- peptide and insulin level were ordered, are pending at the time of discharge. The patient had no recurrent symptoms throughout the hospitalization and he will be discharged on a lower dose of metformin 750 mg daily instead of twice daily. He was instructed to check his blood sugars twice a day for the next week and if he feels any fatigue or recurrent symptoms as he did before to urgently check his sugar and drink some juice if his sugar is low. He should follow up with Dr. Olmstead as an outpatient. TIME SPENT: Total time spent on this discharge 35 minutes. This is a summary of the the hospitalization. Please see the full medical record for further details. [id number]/[facility] #: [id number] [facility]
[2017-03-08 11:54] LABS: C-Peptide ng/ml 1.4 ng/mL (1.1 - 4.4)
== END 2017-03-07 15:40 | disposition home or self-care (01) ==
LOC: ED 10:12 → MED 14:28
PROVIDERS: ADMIT Internal Medicine; ATTEND Hospitalist
DX: E11.649 Type 2 diabetes mellitus with hypoglycemia without coma (principal); Z79.84 Long term (current) use of oral hypoglycemic drugs; G40.909 Epilepsy, unspecified, not intractable, without status epilepticus; F29 Unspecified psychosis not due to a substance or known physiological condition; F20.9 Schizophrenia, unspecified; Z86.711 Personal history of pulmonary embolism; D64.9 Anemia, unspecified; Z79.899 Other long term (current) drug therapy; Z88.1 Allergy status to other antibiotic agents; Z88.8 Allergy status to other drugs, medicaments and biological substances; R53.1 Weakness; Z87.891 Personal history of nicotine dependence
CPT/HCPCS: 36415; 80048; 80053; 80164; 80178; 80320; 80329; 83525; 84443; 84681; 85025; 93005; 96372; 96374; 99283; A9270-GY; G0378; G0480; J1644

== ENCOUNTER 2017-03-19 16:24 | Emergency (ER) | payer MEDICARE, MEDICAID ==
[2017-03-19 17:07] LABS: Hematocrit 40 % (42-52); Hemoglobin 12.8 g/dl (14.0-18.0); Mean Corpuscular HGB Conc 32 g/dl (31-36); Mean Corpuscular Hemoglobin 28 pg (27-31); Mean Corpuscular Volume 86 fL (80-94); Mean Platelet Volume 8 um3 (7.4-10.4); Red Blood Count 4.62 10^6/ul (4.0-5.4); Red Cell Distribution Width 14 % (10.5-15); White Blood Count 6.4 10^3/ul (3.5-10.8)
[2017-03-19 17:24] LABS: ALT 9 U/L (7-52); AST 12 U/L (13-39); Albumin 3.9 g/dL (3.2-5.2); Alkaline Phosphatase 47 U/L (34-104); Anion Gap 5 mmol/L (2-11); BUN/Creatinine Ratio 10.3 (8-20); Blood Urea Nitrogen 10 mg/dL (6-24); CO2 Carbon Dioxide 28 mmol/L (22-32); Chloride 104 mmol/L (101-111); EGFR African American 111.4 (>60); EGFR Non-African American 86.6 (>60); Glucose 90 mg/dL (70-100); Potassium 3.8 mmol/L (3.5-5.0); Sodium 137 mmol/L (133-145); Total Protein 6.9 g/dL (6.4-8.9)
[2017-03-19 18:06] LABS: Acetaminophen < 15 mcg/mL; Alcohol < 10 mg/dL (<10); Lithium 0.61 mmol/L (0.6-1.2); Salicylate < 2.50 mg/dL (<30)
[2017-03-19 18:16] LABS: TSH (Thyroid Stimulating Horm) 1.13 mcIU/mL (0.34-5.60)
[2017-03-19 19:49] LABS: Urine Bacteria Absent (Absent); Urine Bilirubin Negative (Negative); Urine Glucose Negative (Negative); Urine Nitrite Negative (Negative)
[2017-03-19 20:09] LABS: Benzodiazepine Urine Screen None Detected (None Detect)
[2017-03-19 20:28] VITALS: BP 96/60
--- NOTE | 2017-03-19 21:20 | ED ---
Alicia Anderson Emily, scribed for Jose Antonio James MD on 03/19/17 at 1704 . Psychiatric Complaint - HPI Summary HPI Summary: This patient is a 37 year old M BIBA to [facility] with a chief complaint of weakness since yesterday. Patient states that he feels like hes going to fall down. The patient rates the pain 0/10 in severity. Symptoms aggravated by nothing. Symptoms alleviated by nothing. Patient reports fluctuating blood sugar , and eerie feeling in all extremities (mostly upper LE). Patient denies changes in appetite and thirst. PMHx of schizophrenia. Patient medically cleared for [facility] at 1920. - History Of Current Complaint Time Seen by Provider: 03/19/17 16:30 Hx Obtained From: Patient Onset/Duration: Sudden Onset, Lasting Days, Still Present Timing: Constant Severity Initially: Mild Severity Currently: Mild Aggravating Factor(s): Nothing Alleviating Factor(s): Nothing - Allergies/Home Medications Allergies/Adverse Reactions: Allergies Allergy/AdvReac Type Severity Reaction Status Date / Time Clozapine Allergy Intermediate See Comment Verified 01/22/17 20:52 Ephedrine [From Respirol] Allergy Intermediate Blurred Verified 01/22/17 20:52 Vision Phenobarbital [From Respirol] Allergy Intermediate Blurred Verified 01/22/17 20: 52 Vision Theophylline [From Respirol] Allergy Intermediate Blurred Verified 01/22/17 20: 52 Vision Fluphenazine Allergy Mild Shakes Verified 01/22/17 20:52 [From Prolixin Decanoate] Paliperidone Allergy Mild Shakes Verified 01/22/17 20:52 [From Invega Sustenna] Polyethylene Glycol Allergy Mild Shakes Verified 01/22/17 20:52 [From Invega Sustenna] Haloperidol [From Haldol] Allergy Unknown See Comment Verified 01/22/17 20:52 Ziprasidone [From Geodon] Allergy Unknown See Comment Verified 01/22/17 20:52 PMH/Surg Hx/FS Hx/Imm Hx Endocrine/Hematology History: Reports: Hx Diabetes, Hx Anemia, Other Endocrine/ Hematological Disorders - leukopenia Denies: Hx Anticoagulant Therapy, Hx Thyroid Disease, Hx Unexplained Bleeding Cardiovascular History: Reports: Hx Hypertension, Other Cardiovascular Problems/ Disorders - IDDM/LEUOKOPENIA Denies: Hx Aneurysm, Hx Angina, Hx Angioplasty, Hx Auto Implanted Cardiovert Defib, Hx Cardiac Arrest, Hx Cardiomegaly, Hx Congenital Heart Disease, Hx Congestive Heart Failure, Hx Coronary Artery Disease, Hx Deep Vein Thrombosis, Hx Hypercholesterolemia, Hx Hypotension, Hx Myocardial Infarction, Hx Pacemaker/ ICD, Hx Peripheral Vascular Disease, Hx Rheumatic Fever, Hx Syncope, Hx Valvular Heart Disease Respiratory History: Denies: Hx Asthma, Hx Chronic Bronchitis, Hx Chronic Obstructive Pulmonary Disease (COPD), Hx Cystic Fibrosis, Hx Lung Cancer, Hx Pleural Effusion, Hx Pneumonia, Hx Pulmonary Edema, Hx Pulmonary Embolism, Hx Seasonal Allergies, Hx Sleep Apnea, Other Respiratory Problems/Disorders GI History: Reports: Hx Gastroesophageal Reflux Disease, Hx Hiatal Hernia, Other GI Disorders - Constipation Denies: Hx Gall Bladder Disease, Hx Gastrointestinal Bleed, Hx Ulcer, Hx Urosepsis History: Denies: Hx Kidney Stones, Hx Renal Disease, Other Problems/Disorders Musculoskeletal History: Reports: Hx Orthopedic Injury - Left Leg Fracture Denies: Other Musculoskeletal History Sensory History: Denies: Hx Contacts or Glasses, Hx Hearing Aid, Other Sensory Impairments Opthamlomology History: Denies: Hx Contacts or Glasses, Other Sensory Impairments Neurological History: Reports: 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 Denies: Hx Dementia, Hx Developmental Delay, Hx Headaches, Hx Migraine, Hx Nerve Disease, Hx Spinal Cord Injury, Hx Transient Ischemic Attacks (TIA), Other Neuro Impairments/Disorders Psychiatric History: Reports: Hx Anxiety, Hx Oppositional [place] Disorder, Hx Depression, Hx Panic Disorder, Hx Post Traumatic Stress Disorder, Hx Inpatient Treatment, Hx Community Mental Health Tx, Hx Schizophrenia, Hx Bipolar Disorder , Hx Suicide Attempt, Hx Substance Abuse, Other Psychiatric Issues/Disorders - Hx Psychosis Denies: Hx Attention Deficit Hyperactivity Disorder, Hx Eating Disorder, Hx of Violent Episodes Against Others - Surgical History Surgery Procedure, Year, and Place: LEFT INGUINAL HERNIA Hx Anesthesia Reactions: No - Immunization History Date of Tetanus Vaccine: Up to Date Date of Influenza Vaccine: None Infectious Disease History: Reports: Hx Clostridium Difficile Denies: Hx Hepatitis, Hx Human Immunodeficiency Virus (HIV), Hx of Known/ Suspected MRSA, Hx Shingles, Hx Tuberculosis, Hx Known/Suspected VRE, History Other Infectious Disease - Family History Known Family History: Positive: Cardiac Disease, Hypertension, Diabetes - When asked about family HTN, DM, CAD, he states, "Yeah, something like, Other - Schizophrenia, ASTHMA, CANCER - Social History Alcohol Use: None Alcohol Amount: some beers, none in the past 2 days Hx Substance Use: No Substance Use Type: Reports: None Hx Tobacco Use: Yes Smoking Status (MU): Former Smoker Review of Systems Positive: Other - Fluctuating blood sugar Positive: Other - Negative changes in appetite or thirst. Positive: Other - "Eerie feeling" in all extremities (mostly upper LE) Positive: Weakness All Other Systems Reviewed And Are Negative: Yes Physical Exam Triage Information Reviewed: Yes Vital Signs On Initial Exam: Initial Vitals Temp Pulse Resp BP Pulse Ox 98.4 F 62 14 121/85 100 03/19/17 16:49 03/19/17 16:49 03/19/17 16:49 03/19/17 16:49 03/19/17 16:49 Vital Signs Reviewed: Yes Appearance: Positive: Well-Appearing, No Pain Distress Skin: Positive: Warm, Skin Color Reflects Adequate Perfusion, Dry Head/Face: Positive: Normal Head/Face Inspection Eyes: Positive: Normal ENT: Positive: Normal ENT inspection Neck: Positive: Supple, Nontender Respiratory/Lung Sounds: Positive: Clear to Auscultation, Breath Sounds Present Cardiovascular: Positive: RRR Abdomen Description: Positive: Nontender, Soft Bowel Sounds: Positive: Present Musculoskeletal: Positive: Normal Neurological: Positive: Normal, Sensory/Motor Intact, Alert, Oriented to Person Place, Time, CN Intact II-III Psychiatric: Positive: Affect/Mood Appropriate Diagnostics - Vital Signs Vital Signs Temp Pulse Resp BP Pulse Ox 03/19/17 20:00 73 96/60 99 03/19/17 19:30 68 118/84 100 03/19/17 19:00 119/77 03/19/17 18:30 123/80 03/19/17 18:01 87 100 03/19/17 18:00 84 152/129 98 03/19/17 17:30 62 148/122 99 03/19/17 17:00 72 100 03/19/17 16:51 63 100 03/19/17 16:50 121/85 03/19/17 16:49 98.4 F 62 14 121/85 100 - Laboratory Lab Results: Lab Results 03/19/17 03/19/17 03/19/17 Range/Units 16:57 16:57 19:31 WBC 6.4 (3.5-10.8) 10^3/ul RBC 4.62 (4.0-5.4) 10^6/ul Hgb 12.8 L (14.0-18.0) g/dl Hct 40 L (42-52) % MCV 86 (80-94) fL MCH 28 (27-31) pg MCHC 32 (31-36) g/dl RDW 14 (10.5-15) % Plt Count 282 (150-450) 10^3/ul MPV 8 (7.4-10.4) um3 Neut % (Auto) 55.6 (38-83) % Lymph % (Auto) 33.7 (25-47) % [place] % (Auto) 6.1 (1-9) % Eos % (Auto) 3.9 (0-6) % Baso % (Auto) 0.7 (0-2) % Absolute Neuts (auto) 3.6 (1.5-7.7) 10^3/ul Absolute Lymphs (auto) 2.2 (1.0-4.8) 10^3/ul Absolute Monos (auto) 0.4 (0-0.8) 10^3/ul Absolute Eos (auto) 0.2 (0-0.6) 10^3/ul Absolute Basos (auto) 0 (0-0.2) 10^3/ul Absolute Nucleated RBC 0.01 10^3/ul Nucleated RBC % 0.2 Sodium 137 (133-145) mmol/L Potassium 3.8 (3.5-5.0) mmol/L Chloride 104 (101-111) mmol/L Carbon Dioxide 28 (22-32) mmol/L Anion Gap 5 (2-11) mmol/L BUN 10 (6-24) mg/dL Creatinine 0.97 (0.67-1.17) mg/dL Est GFR ( Amer) 111.4 (>60) Est GFR (Non-Af Amer) 86.6 (>60) BUN/Creatinine Ratio 10.3 (8-20) Glucose 90 (70-100) mg/dL Calcium 9.0 (8.6-10.3) mg/dL Total Bilirubin 0.50 (0.2-1.0) mg/dL AST 12 L (13-39) U/L ALT 9 (7-52) U/L Alkaline Phosphatase 47 (34-104) U/L Total Protein 6.9 (6.4-8.9) g/dL Albumin 3.9 (3.2-5.2) g/dL Globulin 3.0 (2-4) g/dL Albumin/Globulin Ratio 1.3 (1-3) TSH 1.13 (0.34-5.60) mcIU/mL Urine Color Urine Appearance Urine pH (5-9) Ur Specific [place] (1.010-1.030) Urine Protein (Negative) Urine Ketones (Negative) Urine Blood (Negative) Urine Nitrate (Negative) Urine Bilirubin (Negative) Urine Urobilinogen (Negative) Ur Leukocyte Esterase (Negative) Urine WBC (Auto) (Absent) Urine RBC (Auto) (Absent) Ur Squamous Epith Cells (Absent) Urine Bacteria (Absent) Urine Glucose (Negative) Urine Ascorbic Acid (Negative) Salicylates < 2.50 (<30) mg/dL Urine Opiates Screen None detected (None Detect) Acetaminophen < 15 mcg/mL Ur Barbiturates Screen None detected (None Detect) Ur Phencyclidine Scrn None detected (None Detect) Ur Amphetamines Screen None detected (None Detect) U Benzodiazepines Scrn None detected (None Detect) [place] 0.61 (0.6-1.2) mmol/L Urine Cocaine Screen None detected (None Detect) U Cannabinoids Screen None detected (None Detect) Serum Alcohol < 10 (<10) mg/dL 03/19/17 Range/Units 19:31 WBC (3.5-10.8) 10^3/ul RBC (4.0-5.4) 10^6/ul Hgb (14.0-18.0) g/dl Hct (42-52) % MCV (80-94) fL MCH (27-31) pg MCHC (31-36) g/dl RDW (10.5-15) % Plt Count (150-450) 10^3/ul MPV (7.4-10.4) um3 Neut % (Auto) (38-83) % Lymph % (Auto) (25-47) % [place] % (Auto) (1-9) % Eos % (Auto) (0-6) % Baso % (Auto) (0-2) % Absolute Neuts (auto) (1.5-7.7) 10^3/ul Absolute Lymphs (auto) (1.0-4.8) 10^3/ul Absolute Monos (auto) (0-0.8) 10^3/ul Absolute Eos (auto) (0-0.6) 10^3/ul Absolute Basos (auto) (0-0.2) 10^3/ul Absolute Nucleated RBC 10^3/ul Nucleated RBC % Sodium (133-145) mmol/L Potassium (3.5-5.0) mmol/L Chloride (101-111) mmol/L Carbon Dioxide (22-32) mmol/L Anion Gap (2-11) mmol/L BUN (6-24) mg/dL Creatinine (0.67-1.17) mg/dL Est GFR ( Amer) (>60) Est GFR (Non-Af Amer) (>60) BUN/Creatinine Ratio (8-20) Glucose (70-100) mg/dL Calcium (8.6-10.3) mg/dL Total Bilirubin (0.2-1.0) mg/dL AST (13-39) U/L ALT (7-52) U/L Alkaline Phosphatase (34-104) U/L Total Protein (6.4-8.9) g/dL Albumin (3.2-5.2) g/dL Globulin (2-4) g/dL Albumin/Globulin Ratio (1-3) TSH (0.34-5.60) mcIU/mL Urine Color Yellow Urine Appearance Clear Urine pH 7.0 (5-9) Ur Specific [place] 1.015 (1.010-1.030) Urine Protein Negative (Negative) Urine Ketones Negative (Negative) Urine Blood Negative (Negative) Urine Nitrate Negative (Negative) Urine Bilirubin Negative (Negative) Urine Urobilinogen Negative (Negative) Ur Leukocyte Esterase Trace H (Negative) Urine WBC (Auto) Trace(0-5/hpf) (Absent) Urine RBC (Auto) Absent (Absent) Ur Squamous Epith Cells Present H (Absent) Urine Bacteria Absent (Absent) Urine Glucose Negative (Negative) Urine Ascorbic Acid * H (Negative) Salicylates (<30) mg/dL Urine Opiates Screen (None Detect) Acetaminophen mcg/mL Ur Barbiturates Screen (None Detect) Ur Phencyclidine Scrn (None Detect) Ur Amphetamines Screen (None Detect) U Benzodiazepines Scrn (None Detect) [place] (0.6-1.2) mmol/L Urine Cocaine Screen (None Detect) U Cannabinoids Screen (None Detect) Serum Alcohol (<10) mg/dL Result Diagrams: 03/19/17 16:57 03/19/17 16:57 Lab Statement: Any lab studies that have been ordered have been reviewed, and results considered in the medical decision making process. Course/Dx - Course Course Of Treatment: Rickey was medically cleared and seen by the [facility]. They felt that he was safe to go home and he was D/C'd. - Differential Dx/Clinical Impression Provider Diagnosis: Chronic psychosis Discharge - Discharge Plan Condition: Stable Disposition: HOME Referrals: [facility] [Outside] - As Soon As Possible (Please schedule an appointment as soon as possible with your therapist to talk about what is bothering you. Please schedule an appointment with your psychiatrist.) Nicki Olmstead MD [Primary Care Provider] - () The documentation as recorded by the Alicia peralta Emily accurately reflects the service I personally performed and the decisions made by me, Jose Antonio James MD.
== END 2017-03-19 20:33 | disposition home or self-care (01) ==
LOC: ED 16:24
DX: R53.1 Weakness (principal); F29 Unspecified psychosis not due to a substance or known physiological condition; Z87.891 Personal history of nicotine dependence
CPT/HCPCS: 36415; 80053; 80178; 80307; 80320; 80329; 81003; 81015; 84443; 85025; 87077; 87086; 87186; 99284; G0480

== ENCOUNTER 2017-03-26 16:03 | Emergency (ER) | payer MEDICARE, MEDICAID ==
[2017-03-26 16:33] LABS: Hematocrit 41 % (42-52); Hemoglobin 13.1 g/dl (14.0-18.0); Mean Corpuscular HGB Conc 32 g/dl (31-36); Mean Corpuscular Hemoglobin 28 pg (27-31); Mean Corpuscular Volume 86 fL (80-94); Mean Platelet Volume 7 um3 (7.4-10.4); Red Blood Count 4.76 10^6/ul (4.0-5.4); Red Cell Distribution Width 14 % (10.5-15); White Blood Count 7.6 10^3/ul (3.5-10.8)
[2017-03-26 16:54] LABS: ALT 9 U/L (7-52); AST 14 U/L (13-39); Albumin 4.2 g/dL (3.2-5.2); Alkaline Phosphatase 44 U/L (34-104); Anion Gap 8 mmol/L (2-11); BUN/Creatinine Ratio 8.6 (8-20); Blood Urea Nitrogen 10 mg/dL (6-24); CO2 Carbon Dioxide 22 mmol/L (22-32); Chloride 104 mmol/L (101-111); EGFR African American 90.6 (>60); EGFR Non-African American 70.5 (>60); Globulin 3.2 g/dL (2-4); Glucose 89 mg/dL (70-100); Sodium 134 mmol/L (133-145); Total Protein 7.4 g/dL (6.4-8.9)
--- NOTE | 2017-03-26 17:07 | ED ---
Complex/Multi-Sys Presentation - HPI Summary HPI Summary: Pt here w/ multiple complaints. Concerned about blurred vision, "jumping tongue " and LE weakness - has had this for a while now. New complaint of diarrhea since taking anbx - has not been tested for c. diff. He's unsure of why he's taking anbx but knows his PCP rx'd it. Admits to auditory and visual hallucinations but reports he's had these for years - unchanged as of late. Denies SI/HI. Mostly concerned with leg sx. He takes zyprexa, depakote, lithium , vraylar, symmetrel 100mg BID - levels checked 03/06 and WNL or low. Also reports he's lost weight and has a reduced appetite - no weight recorded for comparison. - History Of Current Complaint Chief Complaint: EDGeneral Time Seen by Provider: 03/26/17 16:14 Hx Obtained From: Patient - Allergies/Home Medications Allergies/Adverse Reactions: Allergies Allergy/AdvReac Type Severity Reaction Status Date / Time Clozapine Allergy Intermediate See Comment Verified 01/22/17 20:52 Ephedrine [From Respirol] Allergy Intermediate Blurred Verified 01/22/17 20:52 Vision Phenobarbital [From Respirol] Allergy Intermediate Blurred Verified 01/22/17 20: 52 Vision Theophylline [From Respirol] Allergy Intermediate Blurred Verified 01/22/17 20: 52 Vision Fluphenazine Allergy Mild Shakes Verified 01/22/17 20:52 [From Prolixin Decanoate] Paliperidone Allergy Mild Shakes Verified 01/22/17 20:52 [From Invega Sustenna] Polyethylene Glycol Allergy Mild Shakes Verified 01/22/17 20:52 [From Invega Sustenna] Haloperidol [From Haldol] Allergy Unknown See Comment Verified 01/22/17 20:52 Ziprasidone [From Geodon] Allergy Unknown See Comment Verified 01/22/17 20:52 Home Medications: Home Medications Magnesium Oxide TAB* [MagOx 400 TAB*] 400 mg PO QAM 03/26/17 [History Confirmed 03/26/17] PMH/Surg Hx/FS Hx/Imm Hx Previously Healthy: Yes Endocrine/Hematology History: Reports: Hx Diabetes, Hx Anemia, Other Endocrine/ Hematological Disorders - leukopenia Denies: Hx Anticoagulant Therapy, Hx Thyroid Disease, Hx Unexplained Bleeding Cardiovascular History: Reports: Hx Hypertension, Other Cardiovascular Problems/ Disorders - IDDM/LEUOKOPENIA Denies: Hx Aneurysm, Hx Angina, Hx Angioplasty, Hx Auto Implanted Cardiovert Defib, Hx Cardiac Arrest, Hx Cardiomegaly, Hx Congenital Heart Disease, Hx Congestive Heart Failure, Hx Coronary Artery Disease, Hx Deep Vein Thrombosis, Hx Hypercholesterolemia, Hx Hypotension, Hx Myocardial Infarction, Hx Pacemaker/ ICD, Hx Peripheral Vascular Disease, Hx Rheumatic Fever, Hx Syncope, Hx Valvular Heart Disease Respiratory History: Denies: Hx Asthma, Hx Chronic Bronchitis, Hx Chronic Obstructive Pulmonary Disease (COPD), Hx Cystic Fibrosis, Hx Lung Cancer, Hx Pleural Effusion, Hx Pneumonia, Hx Pulmonary Edema, Hx Pulmonary Embolism, Hx Seasonal Allergies, Hx Sleep Apnea, Other Respiratory Problems/Disorders GI History: Reports: Hx Gastroesophageal Reflux Disease, Hx Hiatal Hernia, Other GI Disorders - Constipation Denies: Hx Gall Bladder Disease, Hx Gastrointestinal Bleed, Hx Ulcer, Hx Urosepsis History: Denies: Hx Kidney Stones, Hx Renal Disease, Other Problems/Disorders Musculoskeletal History: Reports: Hx Orthopedic Injury - Left Leg Fracture Denies: Other Musculoskeletal History Sensory History: Denies: Hx Contacts or Glasses, Hx Hearing Aid, Other Sensory Impairments Opthamlomology History: Denies: Hx Contacts or Glasses, Other Sensory Impairments Neurological History: Reports: 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 Denies: Hx Dementia, Hx Developmental Delay, Hx Headaches, Hx Migraine, Hx Nerve Disease, Hx Spinal Cord Injury, Hx Transient Ischemic Attacks (TIA), Other Neuro Impairments/Disorders Psychiatric History: Reports: Hx Anxiety, Hx Oppositional [place] Disorder, Hx Depression, Hx Panic Disorder, Hx Post Traumatic Stress Disorder, Hx Inpatient Treatment, Hx Community Mental Health Tx, Hx Schizophrenia, Hx Bipolar Disorder , Hx Suicide Attempt, Hx Substance Abuse, Other Psychiatric Issues/Disorders - Hx Psychosis Denies: Hx Attention Deficit Hyperactivity Disorder, Hx Eating Disorder, Hx of Violent Episodes Against Others - Surgical History Surgery Procedure, Year, and Place: LEFT INGUINAL HERNIA Hx Anesthesia Reactions: No - Immunization History Date of Tetanus Vaccine: Up to Date Date of Influenza Vaccine: None Infectious Disease History: No Infectious Disease History: Reports: Hx Clostridium Difficile Denies: Hx Hepatitis, Hx Human Immunodeficiency Virus (HIV), Hx of Known/ Suspected MRSA, Hx Shingles, Hx Tuberculosis, Hx Known/Suspected VRE, History Other Infectious Disease, Traveled Outside the [place] in Last 30 Days - Family History Known Family History: Positive: Cardiac Disease, Hypertension, Diabetes - When asked about family HTN, DM, CAD, he states, "Yeah, something like, Other - Schizophrenia, ASTHMA, CANCER - Social History Lives: [place] Alcohol Use: None Alcohol Amount: last ETOH 4 years ago Hx Substance Use: No Substance Use Type: Reports: None Hx Tobacco Use: Yes Smoking Status (MU): Never Smoked Tobacco Review of Systems Constitutional: Negative Negative: Fever, Chills, Fatigue Positive: Blurred Vision - see HPI. Negative: Photophobia, Diplopia, Drainage, Erythema ENT: Negative Negative: Dental Pain, Sore Throat, Ear Ache, Nasal Discharge Cardiovascular: Negative Negative: Palpitations, Chest Pain Respiratory: Negative Negative: Shortness Of Breath, Cough Gastrointestinal: Other - see HPI Positive: Diarrhea. Negative: Abdominal Pain, Vomiting, Nausea Negative: burning, dysuria, discharge, frequency, flank pain Musculoskeletal: Other - see HPI Negative: Arthralgia, Myalgia Skin: Negative Positive: Weakness - LE's, Paresthesia - LE's. Negative: Headache, Numbness, Syncope, Slurred Speech Psychological: Other - see HPI All Other Systems Reviewed And Are Negative: Yes Physical Exam Triage Information Reviewed: Yes Vital Signs On Initial Exam: Initial Vitals Temp Pulse Resp BP Pulse Ox 98.6 F 68 18 122/80 99 03/26/17 16:12 03/26/17 16:12 03/26/17 16:12 03/26/17 16:12 03/26/17 16:12 Vital Signs Reviewed: Yes Appearance: Positive: Well-Appearing, No Pain Distress, Well-Nourished - pleasant, cooperative, answers questions Skin: Positive: Warm, Dry - no signs of wounds Head/Face: Positive: Normal Head/Face Inspection Eyes: Positive: Normal, EOMI, BHAVIK, Conjunctiva Clear ENT: Positive: Normal ENT inspection, Hearing grossly normal, Pharynx normal Neck: Positive: Supple Respiratory/Lung Sounds: Positive: Clear to Auscultation, Breath Sounds Present Cardiovascular: Positive: Normal, RRR, Pulses are Symmetrical in both Upper and Lower Extremities Abdomen Description: Positive: Nontender, No Organomegaly, Soft Bowel Sounds: Positive: Present Musculoskeletal: Positive: Normal, Strength/ROM Intact. Negative: Pain @ Neurological: Positive: Normal, Sensory/Motor Intact - LE's w/ active FROM and strength 5/5 w/ all movements of joints; reflexes presents and equal B/L; admits to feeling sensation of gross touch and equal B/L; spinous pp and paraspinal mm are NTTP; he is able to stand, Alert, Oriented to Person Place, Time, CN Intact II-III Psychiatric: Positive: Other - pleasant, appears present although laughs at times, no kulwinder visual hallucinations observed; denies SI/HI - Yue Coma Scale Coma Scale Total: 15 Diagnostics - Vital Signs Vital Signs Temp Pulse Resp BP Pulse Ox 03/26/17 16:12 98.6 F 68 18 122/80 99 - Laboratory Lab Results: Lab Results 03/26/17 03/26/17 Range/Units 16:21 16:21 WBC 7.6 (3.5-10.8) 10^3/ul RBC 4.76 (4.0-5.4) 10^6/ul Hgb 13.1 L (14.0-18.0) g/dl Hct 41 L (42-52) % MCV 86 (80-94) fL MCH 28 (27-31) pg MCHC 32 (31-36) g/dl RDW 14 (10.5-15) % Plt Count 280 (150-450) 10^3/ul MPV 7 L (7.4-10.4) um3 Neut % (Auto) 70.6 (38-83) % Lymph % (Auto) 21.6 L (25-47) % [place] % (Auto) 4.5 (1-9) % Eos % (Auto) 2.6 (0-6) % Baso % (Auto) 0.7 (0-2) % Absolute Neuts (auto) 5.4 (1.5-7.7) 10^3/ul Absolute Lymphs (auto) 1.6 (1.0-4.8) 10^3/ul Absolute Monos (auto) 0.3 (0-0.8) 10^3/ul Absolute Eos (auto) 0.2 (0-0.6) 10^3/ul Absolute Basos (auto) 0.1 (0-0.2) 10^3/ul Absolute Nucleated RBC 0 10^3/ul Nucleated RBC % 0 Sodium 134 (133-145) mmol/L Potassium 4.0 (3.5-5.0) mmol/L Chloride 104 (101-111) mmol/L Carbon Dioxide 22 (22-32) mmol/L Anion Gap 8 (2-11) mmol/L BUN 10 (6-24) mg/dL Creatinine 1.16 (0.67-1.17) mg/dL Est GFR ( Amer) 90.6 (>60) Est GFR (Non-Af Amer) 70.5 (>60) BUN/Creatinine Ratio 8.6 (8-20) Glucose 89 (70-100) mg/dL Calcium 10.0 (8.6-10.3) mg/dL Magnesium Pending Total Bilirubin 0.70 (0.2-1.0) mg/dL AST 14 (13-39) U/L ALT 9 (7-52) U/L Alkaline Phosphatase 44 (34-104) U/L Total Protein 7.4 (6.4-8.9) g/dL Albumin 4.2 (3.2-5.2) g/dL Globulin 3.2 (2-4) g/dL Albumin/Globulin Ratio 1.3 (1-3) TSH Pending Salicylates Pending Acetaminophen Pending [place] Pending Serum Alcohol Pending Result Diagrams: 03/26/17 16:21 03/26/17 16:21 Lab Statement: Any lab studies that have been ordered have been reviewed, and results considered in the medical decision making process. Complex Multi-Symp Course/Dx Course Of Treatment: Pt presents w/ repeat complaints - LE weakness, "jumping tongue" and blurred vision. Suspect these may be side effects from medications or part of his baseline psychosis. He may benefit from an increase in symmetrel - will defer to rx'er to see if this is safe and/or warranted. He may also benefit from an eye exam as he has diabetes, vision appears to be grossly intact here today. C. Diff test for stool was ordered as he reports anbx use as of late. If unable to perform here today, will recommend outpt testing. No mental health eval necessary as he has baseline psychiatric issues w/o change and no SI/HI. Will also recommend weight with each visit as he's complaining of weight loss however no previous for comparison. He does not have lab values to indicate poor nutrution but recommend f/u w/ PCP as he does have diabetes. - Diagnoses Provider Diagnoses: Diarrhea, Complaints of weakness of lower extremity, Change in vision Discharge - Discharge Plan Condition: Stable Disposition: HOME Patient Education Materials: Weakness (ED), Blurred Vision (ED), Acute Diarrhea (ED) Referrals: Nicki Olmstead MD [Primary Care Provider] - Additional Instructions: Suspect your lower extremity weakness, jumping tongue and blurred vision may be side effects from medications or part of your baseline psychosis. You may benefit from an increase in symmetrel - will defer to rx'er to see if this is safe and/or warranted. You may also benefit from an eye exam as you have diabetes. Will also check for C. Diff intestinal infection through your stool as you have been taking antibiotics which can trigger this. If you are unable to perform here today, you may provide sample and have testing done through your PCP's office. In regards to your reported weight loss, we have no previous weights for comparison however took a baseline weight today. Please follow-up with your PCP for better assessment of this issue. It is important that you continue to stay hydrated with water, gatorade, broth, etc and try to eat what you can - this may be easier in the form of smoothies, etc until your appetite returns. *if you develop fever, chills, chest pain, shortness of breath, abdominal pain, prolonged weakness, return to ED
[2017-03-26 17:17] LABS: Acetaminophen < 15 mcg/mL; Alcohol < 10 mg/dL (<10); Salicylate < 2.50 mg/dL (<30)
[2017-03-26 17:18] LABS: TSH (Thyroid Stimulating Horm) 1.31 mcIU/mL (0.34-5.60)
[2017-03-26 17:21] LABS: Magnesium 1.7 mg/dL (1.9-2.7)
[2017-03-26 18:17] LABS: Lithium 0.77 mmol/L (0.6-1.2)
[2017-03-26 19:06] LABS: Urine Bacteria Absent (Absent); Urine Bilirubin Negative (Negative); Urine Glucose Negative (Negative); Urine Nitrite Negative (Negative)
[2017-03-26 19:23] LABS: Benzodiazepine Urine Screen None Detected (None Detect)
--- NOTE | 2017-03-26 19:54 | RAD ---
INDICATION: Chronic intermittent back pain. Reported lower extremity weakness. COMPARISON: CT abdomen pelvis August 31, 2014 TECHNIQUE: Noncontrast axial source images was performed from the thoracolumbar junction to the sacrum. Coronal and and sagittal reformatted images were generated. FINDINGS: Vertebrae: There is no fracture or acute focal bony lesion. Alignment: The lumbar vertebrae are normally aligned. Central Canal: There are no significant CT abnormalities of the central canal or foramina. MR imaging is a more sensitive method to evaluate the canal and foramina. Intervertebral disc spaces: The disc spaces are maintained. Soft tissues: The paravertebral soft tissues are normal. Other: None IMPRESSION: NEGATIVE EXAMINATION.
[2017-03-26 21:49] VITALS: BP 124/79
== END 2017-03-26 22:04 | disposition home or self-care (01) ==
LOC: ED 16:03
DX: R19.7 Diarrhea, unspecified (principal); H53.8 Other visual disturbances; R53.1 Weakness; E11.9 Type 2 diabetes mellitus without complications
CPT/HCPCS: 36415; 72131; 80053; 80164; 80178; 80307; 80320; 80329; 81003; 81015; 83735; 84443; 85025; 86703; 99283; G0480

== ENCOUNTER 2017-05-03 02:49 | Emergency (ER) | payer MEDICARE, MEDICAID ==
[2017-05-03 05:11] LABS: Hematocrit 41 % (42-52); Hemoglobin 13.1 g/dl (14.0-18.0); Mean Corpuscular HGB Conc 33 g/dl (31-36); Mean Corpuscular Hemoglobin 28 pg (27-31); Mean Corpuscular Volume 85 fL (80-94); Mean Platelet Volume 7 um3 (7.4-10.4); Red Blood Count 4.77 10^6/ul (4.0-5.4); Red Cell Distribution Width 13 % (10.5-15); White Blood Count 4.6 10^3/ul (3.5-10.8)
[2017-05-03 05:12] LABS: Albumin 4.2 g/dL (3.2-5.2); BUN/Creatinine Ratio 12.6 (8-20); Calcium 9.1 mg/dL (8.6-10.3); EGFR African American 114.1 (>60); EGFR Non-African American 88.7 (>60); Globulin 3.1 g/dL (2-4); Magnesium 1.7 mg/dL (1.9-2.7); Potassium 3.7 mmol/L (3.5-5.0); Total Bilirubin 0.3 mg/dL (0.2-1.0); Total Protein 7.3 g/dL (6.4-8.9)
[2017-05-03] MEDS ORDERED: Diazepam TAB(*) 5 MG PO ONE (07:08)
[2017-05-03] MEDS ORDERED: Methocarbamol TAB* 500 MG PO ONE (07:08)
--- NOTE | 2017-05-03 08:04 | ED ---
Lizy Anderson Thomas, scribed for Mejia Felix MD on 05/03/17 at 0658 . HPI Chest Pain - HPI Summary HPI Summary: The pt is a 37 y/o M presenting to the ED c/o L-sided CP that began yesterday. The pain has improved since he came in to the ED. The pain is constant. The pain is aggravated by nothing and is alleviated by nothing. The patient has treated the pain with nothing [employer]. His current pain is similar to previous episodes of chest pain that had negative workups. Pt denies any other symptoms at this time. His CP has been evaluated by Dr. Moore and Dr. Olmstead, who attributed his chronic chest pains to his potassium and magnesium levels. He is a diabetic. - History of Current Complaint Chief Complaint: EDChestWallPain Hx Obtained From: Patient Onset/Duration: Started Days Ago - onset of pain yesterday, Still Present Timing: Constant Initial Severity: Moderate Current Severity: Moderate Chest Pain Location: Discrete at: - L-sided Chest Pain Radiates: No Aggravating Factor(s): Nothing Alleviating Factor(s): Nothing Associated Signs and Symptoms: Positive: Chest Pain Related History: Similar Episode/Dx as: - previous episodes of chest pain - Additional Pertinent History Primary Care Physician: [id number] - Allergy/Home Medications Allergies/Adverse Reactions: Allergies Allergy/AdvReac Type Severity Reaction Status Date / Time Clozapine Allergy Intermediate See Comment Verified 01/22/17 20:52 Ephedrine [From Respirol] Allergy Intermediate Blurred Verified 01/22/17 20:52 Vision Phenobarbital [From Respirol] Allergy Intermediate Blurred Verified 01/22/17 20: 52 Vision Theophylline [From Respirol] Allergy Intermediate Blurred Verified 01/22/17 20: 52 Vision Fluphenazine Allergy Mild Shakes Verified 01/22/17 20:52 [From Prolixin Decanoate] Paliperidone Allergy Mild Shakes Verified 01/22/17 20:52 [From Invega Sustenna] Polyethylene Glycol Allergy Mild Shakes Verified 01/22/17 20:52 [From Invega Sustenna] Haloperidol [From Haldol] Allergy Unknown See Comment Verified 01/22/17 20:52 Ziprasidone [From Geodon] Allergy Unknown See Comment Verified 01/22/17 20:52 PMH/Surg Hx/FS Hx/Imm Hx Previously Healthy: No Endocrine/Hematology History: Reports: Hx Diabetes, Hx Anemia, Other Endocrine/ Hematological Disorders - leukopenia Denies: Hx Anticoagulant Therapy, Hx Thyroid Disease, Hx Unexplained Bleeding Cardiovascular History: Reports: Hx Hypertension, Other Cardiovascular Problems/ Disorders - IDDM/LEUOKOPENIA Denies: Hx Aneurysm, Hx Angina, Hx Angioplasty, Hx Auto Implanted Cardiovert Defib, Hx Cardiac Arrest, Hx Cardiomegaly, Hx Congenital Heart Disease, Hx Congestive Heart Failure, Hx Coronary Artery Disease, Hx Deep Vein Thrombosis, Hx Hypercholesterolemia, Hx Hypotension, Hx Myocardial Infarction, Hx Pacemaker/ ICD, Hx Peripheral Vascular Disease, Hx Rheumatic Fever, Hx Syncope, Hx Valvular Heart Disease Respiratory History: Denies: Hx Asthma, Hx Chronic Bronchitis, Hx Chronic Obstructive Pulmonary Disease (COPD), Hx Cystic Fibrosis, Hx Lung Cancer, Hx Pleural Effusion, Hx Pneumonia, Hx Pulmonary Edema, Hx Pulmonary Embolism, Hx Seasonal Allergies, Hx Sleep Apnea, Other Respiratory Problems/Disorders GI History: Reports: Hx Gastroesophageal Reflux Disease, Hx Hiatal Hernia, Other GI Disorders - Constipation Denies: Hx Gall Bladder Disease, Hx Gastrointestinal Bleed, Hx Ulcer, Hx Urosepsis History: Denies: Hx Kidney Stones, Hx Renal Disease, Other Problems/Disorders Musculoskeletal History: Reports: Hx Orthopedic Injury - Left Leg Fracture Denies: Other Musculoskeletal History Sensory History: Denies: Hx Contacts or Glasses, Hx Hearing Aid, Other Sensory Impairments Opthamlomology History: Denies: Hx Contacts or Glasses, Other Sensory Impairments Neurological History: Reports: 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 Denies: Hx Dementia, Hx Developmental Delay, Hx Headaches, Hx Migraine, Hx Nerve Disease, Hx Spinal Cord Injury, Hx Transient Ischemic Attacks (TIA), Other Neuro Impairments/Disorders Psychiatric History: Reports: Hx Anxiety, Hx Oppositional [place] Disorder, Hx Depression, Hx Panic Disorder, Hx Post Traumatic Stress Disorder, Hx Inpatient Treatment, Hx Community Mental Health Tx, Hx Schizophrenia, Hx Bipolar Disorder , Hx Suicide Attempt, Hx Substance Abuse, Other Psychiatric Issues/Disorders - Hx Psychosis Denies: Hx Attention Deficit Hyperactivity Disorder, Hx Eating Disorder, Hx of Violent Episodes Against Others - Surgical History Surgery Procedure, Year, and Place: LEFT INGUINAL HERNIA Hx Anesthesia Reactions: No - Immunization History Date of Tetanus Vaccine: Up to Date Date of Influenza Vaccine: None Infectious Disease History: Reports: Hx Clostridium Difficile Denies: Hx Hepatitis, Hx Human Immunodeficiency Virus (HIV), Hx of Known/ Suspected MRSA, Hx Shingles, Hx Tuberculosis, Hx Known/Suspected VRE, History Other Infectious Disease, Traveled Outside the [place] in Last 30 Days - Family History Known Family History: Positive: Cardiac Disease, Hypertension, Diabetes - When asked about family HTN, DM, CAD, he states, "Yeah, something like, Other - Schizophrenia, ASTHMA, CANCER - Social History Alcohol Use: None Alcohol Amount: last ETOH 4 years ago Hx Substance Use: No Substance Use Type: Reports: None Hx Tobacco Use: Yes Smoking Status (MU): Never Smoked Tobacco Review of Systems Negative: Fever Positive: Chest Pain All Other Systems Reviewed And Are Negative: Yes Physical Exam - Summary Physical Exam Summary: Appearance: Well-appearing, Well-nourished Skin: Warm Eyes: Normal ENT: Normal Neck: Supple, nontender Respiratory: Clear to auscultation bilaterally. He has good dorsalis pedis and radial pulses bilaterally. Cardiovascular: RRR Abdomen: Soft, nontender Bowel: Present Musculoskeletal: Normal, Strength/ROM Intact Neurological: Normal, Alert, Oriented to Person Psychiatric: Normal Triage Information Reviewed: Yes Vital Signs On Initial Exam: Initial Vitals Pulse BP Pulse Ox 64 115/81 100 05/03/17 03:05 05/03/17 03:05 05/03/17 03:05 Vital Signs Reviewed: Yes Diagnostics - Vital Signs Vital Signs Pulse Resp BP Pulse Ox 05/03/17 06:30 65 22 104/72 100 05/03/17 06:08 56 15 100 05/03/17 06:07 105/69 05/03/17 06:00 57 105/74 100 05/03/17 05:00 59 109/81 100 05/03/17 04:30 61 117/75 100 05/03/17 04:00 65 106/71 100 05/03/17 03:30 64 110/76 100 05/03/17 03:05 64 115/81 100 - Laboratory Lab Statement: Any lab studies that have been ordered have been reviewed, and results considered in the medical decision making process. - EKG 03:05 Cardiac Rate: NL - 66 BPM EKG Rhythm: Sinus Rhythm Chest Pain Course/Dx - Course Course Of Treatment: feels better after meds, instructed to fu with pmd, agrees and understnads dc instructoins - Diagnoses Provider Diagnoses: Chest pain Discharge - Discharge Plan Condition: Improved Disposition: HOME Patient Education Materials: Chest Pain (ED) Additional Instructions: PLEASE MAKE AN APPOINTMENT FIRST THING IN THE MORNING TO BE SEEN BY YOUR PMD WITHIN 1 WEEK PLEASE RETURN TO THE EMERGENCY ROOM IF YOU HAVE ANY WORSENING OR CONCERNING SYMPTOMS The documentation as recorded by the Lizy peralta Thomas accurately reflects the service I personally performed and the decisions made by me, Mejia Felix MD.
[2017-05-03 08:48] VITALS: BP 105/75
== END 2017-05-03 08:25 | disposition home or self-care (01) ==
LOC: ED 02:49
DX: R05 Cough (principal); Z53.21 Procedure and treatment not carried out due to patient leaving prior to being seen by health care provider
CPT/HCPCS: 36415; 80053; 83605; 83735; 84484; 85025; 85610; 85730

== ENCOUNTER 2017-06-05 03:31 | Emergency (ER) | payer MEDICARE, MEDICAID ==
[2017-06-05] MEDS ORDERED: LORazepam INJ* 2 MG/ML 1 ML VIAL IV ONE (04:38)
[2017-06-05] MEDS ORDERED: NS 0.9% 1000 ML* 1,000 ML IV ONE (04:38)
[2017-06-05 05:16] LABS: Urine Bilirubin Negative (Negative); Urine Glucose Negative (Negative); Urine Nitrite Negative (Negative)
[2017-06-05 05:47] LABS: Hematocrit 37 % (42-52); Hemoglobin 11.9 g/dl (14.0-18.0); Mean Corpuscular HGB Conc 32 g/dl (31-36); Mean Corpuscular Hemoglobin 27 pg (27-31); Mean Corpuscular Volume 83 fL (80-94); Mean Platelet Volume 7 um3 (7.4-10.4); Red Blood Count 4.44 10^6/ul (4.0-5.4); Red Cell Distribution Width 13 % (10.5-15); White Blood Count 6.5 10^3/ul (3.5-10.8)
[2017-06-05 06:02] LABS: ALT 13 U/L (7-52); AST 28 U/L (13-39); Albumin 3.6 g/dL (3.2-5.2); Alkaline Phosphatase 49 U/L (34-104); BUN/Creatinine Ratio 15.5 (8-20); Blood Urea Nitrogen 11 mg/dL (6-24); CO2 Carbon Dioxide 24 mmol/L (22-32); Calcium 9.1 mg/dL (8.6-10.3); Creatine Kinase 1460 U/L (10-223); EGFR African American 159.7 (>60); EGFR Non-African American 124.2 (>60); Globulin 2.9 g/dL (2-4); Glucose 107 mg/dL (70-100); Lithium < 0.10 mmol/L (0.6-1.2); Magnesium 1.7 mg/dL (1.9-2.7); Potassium 4.1 mmol/L (3.5-5.0); Sodium 142 mmol/L (133-145); Total Protein 6.5 g/dL (6.4-8.9); Valproic Acid < 13.0 mcg/mL (50-100)
[2017-06-05] MEDS ORDERED: Divalproex DR TAB(*) 500 MG PO ONE (06:16)
--- NOTE | 2017-06-05 06:25 | ED ---
Lizy Anderson Thomas, scribed for Marianna Belle MD on 06/05/17 at 0512 . Upper Extremity Pain - HPI Summary HPI Summary: The pt is a 37 y/o M BIBA from [facility] with muscle spasms in his hands. These muscle spasms lasted until the ambulance dropped him off at [facility] ED, when they spontaneously relieved. Pt denies any pains. PSHx significant for anxiety. - History of Current Complaint Chief Complaint: EDGeneral Stated Complaint: MUSCLE TREMORS Time Seen by Provider: 06/05/17 04:23 Hx Obtained From: Patient Onset/Duration: Started Hours Ago, Resolved Timing: Constant Severity Initially: Moderate Severity Currently: None Pain Location: Other: - No pain Aggravating Factor(s): Nothing Alleviating Factor(s): Other - Sponteanous resolution Associated Signs & Symptoms: Positive: Other - "Muscle spasms" in hands; NEGATIVE: pain - Allergies/Home Medications Allergies/Adverse Reactions: Allergies Allergy/AdvReac Type Severity Reaction Status Date / Time Clozapine Allergy Intermediate See Comment Verified 01/22/17 20:52 Ephedrine [From Respirol] Allergy Intermediate Blurred Verified 01/22/17 20:52 Vision Phenobarbital [From Respirol] Allergy Intermediate Blurred Verified 01/22/17 20: 52 Vision Theophylline [From Respirol] Allergy Intermediate Blurred Verified 01/22/17 20: 52 Vision Fluphenazine Allergy Mild Shakes Verified 01/22/17 20:52 [From Prolixin Decanoate] Paliperidone Allergy Mild Shakes Verified 01/22/17 20:52 [From Invega Sustenna] Polyethylene Glycol Allergy Mild Shakes Verified 01/22/17 20:52 [From Invega Sustenna] Haloperidol [From Haldol] Allergy Unknown See Comment Verified 01/22/17 20:52 Ziprasidone [From Geodon] Allergy Unknown See Comment Verified 01/22/17 20:52 PMH/Surg Hx/FS Hx/Imm Hx Previously Healthy: No Endocrine/Hematology History: Reports: Hx Diabetes, Hx Anemia, Other Endocrine/ Hematological Disorders - leukopenia Denies: Hx Anticoagulant Therapy, Hx Thyroid Disease, Hx Unexplained Bleeding Cardiovascular History: Reports: Hx Hypertension, Other Cardiovascular Problems/ Disorders - IDDM/LEUOKOPENIA Denies: Hx Aneurysm, Hx Angina, Hx Angioplasty, Hx Auto Implanted Cardiovert Defib, Hx Cardiac Arrest, Hx Cardiomegaly, Hx Congenital Heart Disease, Hx Congestive Heart Failure, Hx Coronary Artery Disease, Hx Deep Vein Thrombosis, Hx Hypercholesterolemia, Hx Hypotension, Hx Myocardial Infarction, Hx Pacemaker/ ICD, Hx Peripheral Vascular Disease, Hx Rheumatic Fever, Hx Syncope, Hx Valvular Heart Disease Respiratory History: Denies: Hx Asthma, Hx Chronic Bronchitis, Hx Chronic Obstructive Pulmonary Disease (COPD), Hx Cystic Fibrosis, Hx Lung Cancer, Hx Pleural Effusion, Hx Pneumonia, Hx Pulmonary Edema, Hx Pulmonary Embolism, Hx Seasonal Allergies, Hx Sleep Apnea, Other Respiratory Problems/Disorders GI History: Reports: Hx Gastroesophageal Reflux Disease, Hx Hiatal Hernia, Other GI Disorders - Constipation Denies: Hx Gall Bladder Disease, Hx Gastrointestinal Bleed, Hx Ulcer, Hx Urosepsis History: Denies: Hx Kidney Stones, Hx Renal Disease, Other Problems/Disorders Musculoskeletal History: Reports: Hx Orthopedic Injury - Left Leg Fracture Denies: Other Musculoskeletal History Sensory History: Denies: Hx Contacts or Glasses, Hx Hearing Aid, Other Sensory Impairments Opthamlomology History: Denies: Hx Contacts or Glasses, Other Sensory Impairments Neurological History: Reports: 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 Denies: Hx Dementia, Hx Developmental Delay, Hx Headaches, Hx Migraine, Hx Nerve Disease, Hx Spinal Cord Injury, Hx Transient Ischemic Attacks (TIA), Other Neuro Impairments/Disorders Psychiatric History: Reports: Hx Anxiety, Hx Oppositional [place] Disorder, Hx Depression, Hx Panic Disorder, Hx Post Traumatic Stress Disorder, Hx Inpatient Treatment, Hx Community Mental Health Tx, Hx Schizophrenia, Hx Bipolar Disorder , Hx Suicide Attempt, Hx Substance Abuse, Other Psychiatric Issues/Disorders - Hx Psychosis Denies: Hx Attention Deficit Hyperactivity Disorder, Hx Eating Disorder, Hx of Violent Episodes Against Others - Surgical History Surgery Procedure, Year, and Place: LEFT INGUINAL HERNIA Hx Anesthesia Reactions: No - Immunization History Date of Tetanus Vaccine: Up to Date Date of Influenza Vaccine: None Infectious Disease History: No Infectious Disease History: Reports: Hx Clostridium Difficile Denies: Hx Hepatitis, Hx Human Immunodeficiency Virus (HIV), Hx of Known/ Suspected MRSA, Hx Shingles, Hx Tuberculosis, Hx Known/Suspected VRE, History Other Infectious Disease, Traveled Outside the [place] in Last 30 Days - Family History Known Family History: Positive: Cardiac Disease, Hypertension, Diabetes - When asked about family HTN, DM, CAD, he states, "Yeah, something like, Other - Schizophrenia, ASTHMA, CANCER - Social History Alcohol Use: None Alcohol Amount: last ETOH 4 years ago Hx Substance Use: No Substance Use Type: Reports: None Hx Tobacco Use: Yes Smoking Status (MU): Never Smoked Tobacco Review of Systems Negative: Fever Positive: Other - "Muscle spasms" in hands; NEGATIVE: any pain All Other Systems Reviewed And Are Negative: Yes Physical Exam - Summary Physical Exam Summary: VITAL SIGNS: Reviewed. GENERAL: Patient is a well-developed and nourished male who is lying comfortable in the stretcher. Patient is not in any acute respiratory distress. HEAD AND FACE: No signs of trauma. ~No ecchymosis, hematomas or skull depressions. No sinus tenderness. EYES: PERRLA, EOMI x 2, No injected conjunctiva, no nystagmus. EARS: Hearing grossly intact. Ear canals and tympanic membranes are within normal limits. MOUTH: Oropharynx within normal limits. NECK: Supple, trachea is midline, no adenopathy, no JVD, no carotid bruit, no c- spine tenderness, neck with full ROM. CHEST: Symmetric, no tenderness at palpation LUNGS: Clear to auscultation bilaterally. No wheezing or crackles. CVS: Regular rate and rhythm, S1 and S2 present, no murmurs or gallops appreciated. ABDOMEN: Soft, non-tender. No signs of distention. No rebound no guarding, and no masses palpated. Bowel sounds are normal. EXTREMITIES: FROM in all major joints, no edema, no cyanosis or clubbing. NEURO: Alert and oriented x 3. No acute neurological deficits. Speech is normal and follows commands. SKIN: Dry and warm Triage Information Reviewed: Yes Vital Signs On Initial Exam: Initial Vitals Temp Pulse Resp BP Pulse Ox 98.8 F 85 18 121/82 98 06/05/17 03:35 06/05/17 03:35 06/05/17 03:35 06/05/17 03:35 06/05/17 03:35 Vital Signs Reviewed: Yes - [place] Coma Scale Coma Scale Total: 15 Diagnostics - Vital Signs Vital Signs Temp Pulse Resp BP Pulse Ox 06/05/17 03:35 98.8 F 85 18 121/82 98 - Laboratory Result Diagrams: 06/05/17 05:35 06/05/17 05:35 Lab Statement: Any lab studies that have been ordered have been reviewed, and results considered in the medical decision making process. Course/Dx - Course Assessment/Plan: The pt is a 37 y/o M BIBA from [facility] with muscle spasms in his hands. These muscle spasms lasted until the ambulance dropped him off at [facility] ED, when they spontaneously relieved. Pt denies any pains. PSHx significant for anxiety. The patients CPK is mildly elevated. The patient was given a liter of IV fluid in the ED. The patients Depakote level was subtherapeutic. He was given a loading dose in the emergency department. The patient will be discharged. The patient was strongly advised to take his medication and follow up with his private medical doctor in two days to check his CPK levels. His Depakote was increased to 1000 mg per day from 500 mg per day. He was advised to increase his fluid intake. - Diagnoses Provider Diagnoses: Rhabdomyolysis, mild, Questionable seizues, Medication non-compliance Discharge - Discharge Plan Condition: Stable Disposition: HOME Patient Education Materials: Rhabdomyolysis (ED), Recurrent Seizures in Adults (ED) Referrals: Nicki Olmstead MD [Primary Care Provider] - 2 Days Additional Instructions: Follow up with your private medical doctor in two days. I strongly advise you to take your medication, especially Depakote, as directed. Increase your Depakote to 1000mg per day. Increase your fluid intake. The documentation as recorded by the Lizy peralta Thomas accurately reflects the service I personally performed and the decisions made by me, Marianna Belle MD.
[2017-06-05 06:47] VITALS: BP 137/89
[2017-06-05 07:01] LABS: Anion Gap 6 mmol/L (2-11); Chloride 112 mmol/L (101-111)
== END 2017-06-05 06:46 | disposition home or self-care (01) ==
LOC: ED 03:31
DX: M62.82 Rhabdomyolysis (principal); Z91.14 Patient's other noncompliance with medication regimen
CPT/HCPCS: 36415; 80053; 80164; 80178; 81003; 82550; 83605; 83735; 85025; A9270-GY; J2060

== ENCOUNTER 2017-06-13 15:36 | Emergency (ER) | payer MEDICARE, MEDICAID ==
[2017-06-13 16:31] LABS: Hematocrit 37 % (42-52); Hemoglobin 12.1 g/dl (14.0-18.0); Mean Corpuscular HGB Conc 33 g/dl (31-36); Mean Corpuscular Hemoglobin 27 pg (27-31); Mean Corpuscular Volume 83 fL (80-94); Mean Platelet Volume 7 um3 (7.4-10.4); Red Blood Count 4.45 10^6/ul (4.0-5.4); Red Cell Distribution Width 13 % (10.5-15); White Blood Count 4.6 10^3/ul (3.5-10.8)
--- NOTE | 2017-06-13 16:48 | RAD ---
INDICATION: Chest pain COMPARISON: February 24, 2017 TECHNIQUE: PA and lateral dual-energy views were obtained. FINDINGS: Bones/Soft Tissues: There are no acute bony findings. Cardiomediastinal: The cardiomediastinal silhouette is normal. Lungs: There are no infiltrates. Pleura: There are no pleural effusions. Other: None IMPRESSION: NO ACTIVE DISEASE.
[2017-06-13 16:55] LABS: Albumin 3.8 g/dL (3.2-5.2); BUN/Creatinine Ratio 14.6 (8-20); Calcium 8.6 mg/dL (8.6-10.3); EGFR African American 135.2 (>60); EGFR Non-African American 105.1 (>60); Potassium 4.5 mmol/L (3.5-5.0); Total Bilirubin 0.3 mg/dL (0.2-1.0); Total Protein 6.8 g/dL (6.4-8.9)
[2017-06-13 17:11] VITALS: BP 112/81
--- NOTE | 2017-06-13 17:20 | ED ---
Kirill Anderson Nilda, scribed for Samantha Dinero MD on 06/13/17 at 1708 . HPI Chest Pain - HPI Summary HPI Summary: This patient is a 37 year old M presenting to [facility] with a chief complaint of constant diffuse CP since yesterday noon that is still present. Symptoms aggravated and alleviated by nothing. Patient reports cough and nasal congestion. No PMHx ME. - History of Current Complaint Chief Complaint: EDChestPainROMI Time Seen by Provider: 06/13/17 15:40 Hx Obtained From: Patient Onset/Duration: Started Days Ago, Still Present Time of Onset: 12:00 - yesterday Timing: Constant Pain Intensity: 0 Pain Scale Used: 0-10 Numeric Chest Pain Location: Diffuse Chest Pain Radiates: No Aggravating Factor(s): Nothing Alleviating Factor(s): Nothing Associated Signs and Symptoms: Positive: Other: - cough and nasal congestion - Additional Pertinent History Primary Care Physician: JN - Allergy/Home Medications Allergies/Adverse Reactions: Allergies Allergy/AdvReac Type Severity Reaction Status Date / Time Clozapine Allergy Intermediate See Comment Verified 06/13/17 15:45 Ephedrine [From Respirol] Allergy Intermediate Blurred Verified 06/13/17 15:45 Vision Phenobarbital [From Respirol] Allergy Intermediate Blurred Verified 06/13/17 15: 45 Vision Theophylline [From Respirol] Allergy Intermediate Blurred Verified 06/13/17 15: 45 Vision Fluphenazine Allergy Mild Shakes Verified 06/13/17 15:45 [From Prolixin Decanoate] Paliperidone Allergy Mild Shakes Verified 06/13/17 15:45 [From Invega Sustenna] Polyethylene Glycol Allergy Mild Shakes Verified 06/13/17 15:45 [From Invega Sustenna] Haloperidol [From Haldol] Allergy Unknown See Comment Verified 06/13/17 15:45 Ziprasidone [From Geodon] Allergy Unknown See Comment Verified 06/13/17 15:45 PMH/Surg Hx/FS Hx/Imm Hx Endocrine/Hematology History: Reports: Hx Diabetes, Hx Anemia, Other Endocrine/ Hematological Disorders - leukopenia Denies: Hx Anticoagulant Therapy, Hx Thyroid Disease, Hx Unexplained Bleeding Cardiovascular History: Reports: Hx Hypertension, Other Cardiovascular Problems/ Disorders - IDDM/LEUOKOPENIA / SEIZURES Denies: Hx Aneurysm, Hx Angina, Hx Angioplasty, Hx Auto Implanted Cardiovert Defib, Hx Cardiac Arrest, Hx Cardiomegaly, Hx Congenital Heart Disease, Hx Congestive Heart Failure, Hx Coronary Artery Disease, Hx Deep Vein Thrombosis, Hx Hypercholesterolemia, Hx Hypotension, Hx Myocardial Infarction, Hx Pacemaker/ ICD, Hx Peripheral Vascular Disease, Hx Rheumatic Fever, Hx Syncope, Hx Valvular Heart Disease Respiratory History: Denies: Hx Asthma, Hx Chronic Bronchitis, Hx Chronic Obstructive Pulmonary Disease (COPD), Hx Cystic Fibrosis, Hx Lung Cancer, Hx Pleural Effusion, Hx Pneumonia, Hx Pulmonary Edema, Hx Pulmonary Embolism, Hx Seasonal Allergies, Hx Sleep Apnea, Other Respiratory Problems/Disorders GI History: Reports: Hx Gastroesophageal Reflux Disease, Hx Hiatal Hernia, Other GI Disorders - Constipation Denies: Hx Gall Bladder Disease, Hx Gastrointestinal Bleed, Hx Ulcer, Hx Urosepsis History: Denies: Hx Kidney Stones, Hx Renal Disease, Other Problems/Disorders Musculoskeletal History: Reports: Hx Orthopedic Injury - Left Leg Fracture Denies: Other Musculoskeletal History Sensory History: Denies: Hx Contacts or Glasses, Hx Hearing Aid, Other Sensory Impairments Opthamlomology History: Denies: Hx Contacts or Glasses, Other Sensory Impairments Neurological History: Reports: 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 Denies: Hx Dementia, Hx Developmental Delay, Hx Headaches, Hx Migraine, Hx Nerve Disease, Hx Spinal Cord Injury, Hx Transient Ischemic Attacks (TIA), Other Neuro Impairments/Disorders Psychiatric History: Reports: Hx Anxiety, Hx Oppositional [place] Disorder, Hx Depression, Hx Panic Disorder, Hx Post Traumatic Stress Disorder, Hx Inpatient Treatment, Hx Community Mental Health Tx, Hx Schizophrenia, Hx Bipolar Disorder , Hx Suicide Attempt, Hx Substance Abuse, Other Psychiatric Issues/Disorders - Hx Psychosis Denies: Hx Attention Deficit Hyperactivity Disorder, Hx Eating Disorder, Hx of Violent Episodes Against Others - Surgical History Surgery Procedure, Year, and Place: LEFT INGUINAL HERNIA Hx Anesthesia Reactions: No - Immunization History Date of Tetanus Vaccine: Up to Date Date of Influenza Vaccine: None Infectious Disease History: No Infectious Disease History: Reports: Hx Clostridium Difficile Denies: Hx Hepatitis, Hx Human Immunodeficiency Virus (HIV), Hx of Known/ Suspected MRSA, Hx Shingles, Hx Tuberculosis, Hx Known/Suspected VRE, History Other Infectious Disease, Traveled Outside the [place] in Last 30 Days - Family History Known Family History: Positive: Cardiac Disease, Hypertension, Diabetes - When asked about family HTN, DM, CAD, he states, "Yeah, something like, Other - Schizophrenia, ASTHMA, CANCER - Social History Lives: Assisted Living - [place] Alcohol Use: None Alcohol Amount: last ETOH 4 years ago Hx Substance Use: No Substance Use Type: Reports: None Hx Tobacco Use: Yes Smoking Status (MU): Never Smoked Tobacco Review of Systems Positive: Other - nasal congestion Positive: Chest Pain Positive: Cough All Other Systems Reviewed And Are Negative: Yes Physical Exam - Summary Physical Exam Summary: General: Well appearing, no pain distress Skin: Warm, Skin Color Reflects Adequate Perfusion, Dry Eyes: EOMI, BHAVIK ENT: Pharynx normal, TMs normal Neck: Supple, nontender Respiratory: CTA, breath sounds present, no rhonchi, no wheezes, no rales Cardiovascular: RRR, no murmur, no rub, no gallop Abdomen: Soft, nontender, Non-distended, no guarding, no rebound Bowel: Present Musculoskeletal: GONZALO, No edema Neuro: Sensory/motor intact, A&Ox3, CN intact 2-12 Psych: Affect/mood appropriate Triage Information Reviewed: Yes Vital Signs On Initial Exam: Initial Vitals Temp Pulse Resp BP Pulse Ox 98.6 F 75 18 115/67 99 06/13/17 15:38 06/13/17 15:38 06/13/17 15:38 06/13/17 15:38 06/13/17 15:38 Vital Signs Reviewed: Yes - [place] Coma Scale Coma Scale Total: 15 Diagnostics - Vital Signs Vital Signs Temp Pulse Resp BP Pulse Ox 06/13/17 16:35 74 15 99 06/13/17 16:34 118/77 06/13/17 15:48 76 06/13/17 15:38 98.6 F 75 18 115/67 99 - Laboratory Lab Results: Lab Results 06/13/17 06/13/17 Range/Units 16:19 16:19 WBC 4.6 (3.5-10.8) 10^3/ul RBC 4.45 (4.0-5.4) 10^6/ul Hgb 12.1 L (14.0-18.0) g/dl Hct 37 L (42-52) % MCV 83 (80-94) fL MCH 27 (27-31) pg MCHC 33 (31-36) g/dl RDW 13 (10.5-15) % Plt Count 221 (150-450) 10^3/ul MPV 7 L (7.4-10.4) um3 Neut % (Auto) 49.1 (38-83) % Lymph % (Auto) 34.5 (25-47) % Hardy % (Auto) 7.0 (1-9) % Eos % (Auto) 8.3 H (0-6) % Baso % (Auto) 1.1 (0-2) % Absolute Neuts (auto) 2.2 (1.5-7.7) 10^3/ul Absolute Lymphs (auto) 1.6 (1.0-4.8) 10^3/ul Absolute Monos (auto) 0.3 (0-0.8) 10^3/ul Absolute Eos (auto) 0.4 (0-0.6) 10^3/ul Absolute Basos (auto) 0.1 (0-0.2) 10^3/ul Absolute Nucleated RBC 0.01 10^3/ul Nucleated RBC % 0.3 Sodium 138 (133-145) mmol/L Potassium 4.5 (3.5-5.0) mmol/L Chloride 106 (101-111) mmol/L Carbon Dioxide 29 (22-32) mmol/L Anion Gap 3 (2-11) mmol/L BUN 12 (6-24) mg/dL Creatinine 0.82 (0.67-1.17) mg/dL Est GFR ( Amer) 135.2 (>60) Est GFR (Non-Af Amer) 105.1 (>60) BUN/Creatinine Ratio 14.6 (8-20) Glucose 79 (70-100) mg/dL Calcium 8.6 (8.6-10.3) mg/dL Total Bilirubin 0.30 (0.2-1.0) mg/dL AST 15 (13-39) U/L ALT 9 (7-52) U/L Alkaline Phosphatase 43 (34-104) U/L Troponin I 0.00 (<0.04) ng/mL Total Protein 6.8 (6.4-8.9) g/dL Albumin 3.8 (3.2-5.2) g/dL Globulin 3.0 (2-4) g/dL Albumin/Globulin Ratio 1.3 (1-3) Result Diagrams: 06/13/17 16:19 06/13/17 16:19 Lab Statement: Any lab studies that have been ordered have been reviewed, and results considered in the medical decision making process. - Radiology CXR Radiology Interpretation Completed By: Radiologist - CXR reveals NAD. ED physician has reviewed this radiology report and agrees. - EKG 1559 Cardiac Rate: NL EKG Rhythm: Sinus Rhythm - [address] Segment: Normal Ectopy: None EKG Interpretation: no STEMI Chest Pain Course/Dx - Course Assessment/Plan: An EKG reveals NSR, 76 bpm, no ectopy, nl ST, no STEMI. CXR reveals NAD. ED physician has reviewed this radiology report and agrees. No change in pain for pt since it started yesteday normal ekg, neg trop neg cxr ok to go home - Diagnoses Provider Diagnoses: Chest pain Discharge - Discharge Plan Condition: Stable Disposition: HOME Patient Education Materials: Chest Pain (ED) Referrals: Nicki Olmstead MD [Primary Care Provider] - 3 Days Additional Instructions: RETURN TO THE EMERGENCY DEPARTMENT FOR CHANGING OR WORSENING SYMPTOMS. The documentation as recorded by the Kirill peralta Nilda accurately reflects the service I personally performed and the decisions made by , Samantha Dinero MD.
== END 2017-06-13 17:30 | disposition home or self-care (01) ==
LOC: ED 15:36
DX: R05 Cough (principal); R07.9 Chest pain, unspecified; R09.81 Nasal congestion; Z86.79 Personal history of other diseases of the circulatory system; E11.9 Type 2 diabetes mellitus without complications
CPT/HCPCS: 36415; 71010; 80053; 84484; 85025; 93005; 99283

== ENCOUNTER 2017-08-07 08:15 | Emergency (ER) | payer MEDICARE, MEDICAID ==
[2017-08-07] MEDS ORDERED: NS 0.9% 1000 ML* 2,000 ML IV ONE (08:34)
[2017-08-07 08:51] LABS: ABS Basophils 0 10^3/ul (0-0.2); ABS Eosinophils 0.2 10^3/ul (0-0.6); ABS Lymphocytes 1.7 10^3/ul (1.0-4.8); ABS Monocytes 0.2 10^3/ul (0-0.8); ABS Neutrophils 2.1 10^3/ul (1.5-7.7); ABS Nucleated RBC 0 10^3/ul; Eosinophil % 4.6 % (0-6); Hematocrit 38 % (42-52); Hemoglobin 12.4 g/dl (14.0-18.0); Lymphocyte % 40.2 % (25-47); Mean Corpuscular HGB Conc 33 g/dl (31-36); Mean Corpuscular Hemoglobin 27 pg (27-31); Mean Corpuscular Volume 82 fL (80-94); Mean Platelet Volume 7 um3 (7.4-10.4); Nucleated Red Blood Cells % 0.2; Platelet Count 238 10^3/ul (150-450); Red Blood Count 4.59 10^6/ul (4.0-5.4); Red Cell Distribution Width 13 % (10.5-15); White Blood Count 4.3 10^3/ul (3.5-10.8)
[2017-08-07 09:07] LABS: EGFR Non-African American 89.8 (>60)
--- NOTE | 2017-08-07 09:19 | RAD ---
HISTORY: Weakness COMPARISONS: June 13, 2017 VIEWS: 4: Frontal dual-energy and lateral views of the chest. FINDINGS: CARDIOMEDIASTINAL SILHOUETTE: The cardiomediastinal silhouette is normal. TASHA: The tasha are normal. PLEURA: The costophrenic angles are sharp. No pleural abnormalities are noted. LUNG PARENCHYMA: The lungs are clear. ABDOMEN: The upper abdomen is clear. There is no subphrenic gas. BONES AND SOFT TISSUES: No bone or soft tissue abnormalities are noted. OTHER: None. IMPRESSION: NO ACTIVE CARDIOPULMONARY DISEASE.
[2017-08-07 09:22] LABS: Urine Appearance Clear; Urine Blood Negative (Negative); Urine Color Yellow; Urine Ketones Negative (Negative); Urine Protein Negative (Negative); Urine Specific Gravity 1.023 (1.010-1.030); Urine Urobilinogen Negative (Negative)
[2017-08-07] MEDS ORDERED: Potassium Chlor TAB* 20 MEQ TAB.ER PO ONE (09:34)
[2017-08-07] MEDS ORDERED: Magnesium Oxide TAB* 400 MG PO ONE (11:19)
[2017-08-07 11:56] VITALS: BP 132/80
--- NOTE | 2017-08-08 08:00 | ED ---
Edmund Anderson Angela, scribed for Pato Azar MD on 08/07/17 at 0849 . Neurological HPI - HPI Summary HPI Summary: This pt is a 37 y/o male presenting to [facility] c/o weakness and "twitching" upon waking up this morning. Pt reports that when he woke up he crawled to the floor as he was feeling weak. Pt additionally notes dry mouth and urinary frequency. Per EMS, pt's blood glucose was 117. PMHx: diabetes. Pt currently takes metformin. - History of Current Complaint Chief Complaint: EDSeizure Stated Complaint: POSSIBLE DIABETIC ISSUE Time Seen by Provider: 08/07/17 08:23 Hx Obtained From: Patient Onset/Duration: Started hours ago, Still Present Timing: Sudden Onset Onset Severity: Moderate Current Severity: Moderate Pain Intensity: 0 Character: Weak, Other: - "twitching," dry mouth, urinary frequency Aggravating: Nothing Alleviating: Other Associated Signs and Symptoms: Positive: Weakness - Additional Pertinent History Primary Care Physician: [id number] - Allergy/Home Medications Allergies/Adverse Reactions: Allergies Allergy/AdvReac Type Severity Reaction Status Date / Time Clozapine Allergy Intermediate See Comment Verified 06/13/17 15:45 Ephedrine [From Respirol] Allergy Intermediate Blurred Verified 06/13/17 15:45 Vision Phenobarbital [From Respirol] Allergy Intermediate Blurred Verified 06/13/17 15: 45 Vision Theophylline [From Respirol] Allergy Intermediate Blurred Verified 06/13/17 15: 45 Vision Fluphenazine Allergy Mild Shakes Verified 06/13/17 15:45 [From Prolixin Decanoate] Paliperidone Allergy Mild Shakes Verified 06/13/17 15:45 [From Invega Sustenna] Polyethylene Glycol Allergy Mild Shakes Verified 06/13/17 15:45 [From Invega Sustenna] Haloperidol [From Haldol] Allergy Unknown See Comment Verified 06/13/17 15:45 Ziprasidone [From Geodon] Allergy Unknown See Comment Verified 06/13/17 15:45 PMH/Surg Hx/FS Hx/Imm Hx Endocrine/Hematology History: Reports: Hx Diabetes, Hx Anemia, Other Endocrine/ Hematological Disorders - leukopenia Denies: Hx Anticoagulant Therapy, Hx Thyroid Disease, Hx Unexplained Bleeding Cardiovascular History: Reports: Hx Hypertension, Other Cardiovascular Problems/ Disorders - IDDM/LEUOKOPENIA / SEIZURES Denies: Hx Aneurysm, Hx Angina, Hx Angioplasty, Hx Auto Implanted Cardiovert Defib, Hx Cardiac Arrest, Hx Cardiomegaly, Hx Congenital Heart Disease, Hx Congestive Heart Failure, Hx Coronary Artery Disease, Hx Deep Vein Thrombosis, Hx Hypercholesterolemia, Hx Hypotension, Hx Myocardial Infarction, Hx Pacemaker/ ICD, Hx Peripheral Vascular Disease, Hx Rheumatic Fever, Hx Syncope, Hx Valvular Heart Disease Respiratory History: Denies: Hx Asthma, Hx Chronic Bronchitis, Hx Chronic Obstructive Pulmonary Disease (COPD), Hx Cystic Fibrosis, Hx Lung Cancer, Hx Pleural Effusion, Hx Pneumonia, Hx Pulmonary Edema, Hx Pulmonary Embolism, Hx Seasonal Allergies, Hx Sleep Apnea, Other Respiratory Problems/Disorders GI History: Reports: Hx Gastroesophageal Reflux Disease, Hx Hiatal Hernia, Other GI Disorders - Constipation Denies: Hx Gall Bladder Disease, Hx Gastrointestinal Bleed, Hx Ulcer, Hx Urosepsis History: Denies: Hx Kidney Stones, Hx Renal Disease, Other Problems/Disorders Musculoskeletal History: Reports: Hx Orthopedic Injury - Left Leg Fracture Denies: Other Musculoskeletal History Sensory History: Denies: Hx Contacts or Glasses, Hx Hearing Aid, Other Sensory Impairments Opthamlomology History: Denies: Hx Contacts or Glasses, Other Sensory Impairments Neurological History: Reports: 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, Other Neuro Impairments/Disorders - MENTAL ILLNESS/SCHIZOPHRENIA Denies: Hx Dementia, Hx Developmental Delay, Hx Headaches, Hx Migraine, Hx Nerve Disease, Hx Spinal Cord Injury, Hx Transient Ischemic Attacks (TIA) Psychiatric History: Reports: Hx Anxiety, Hx Oppositional [place] Disorder, Hx Depression, Hx Panic Disorder, Hx Post Traumatic Stress Disorder, Hx Inpatient Treatment, Hx Community Mental Health Tx, Hx Schizophrenia, Hx Bipolar Disorder , Hx Suicide Attempt, Hx Substance Abuse, Other Psychiatric Issues/Disorders - Hx Psychosis Denies: Hx Attention Deficit Hyperactivity Disorder, Hx Eating Disorder, Hx of Violent Episodes Against Others - Surgical History Surgery Procedure, Year, and Place: LEFT INGUINAL HERNIA Hx Anesthesia Reactions: No - Immunization History Date of Tetanus Vaccine: Up to Date Date of Influenza Vaccine: None Infectious Disease History: No Infectious Disease History: Reports: Hx Clostridium Difficile Denies: Hx Hepatitis, Hx Human Immunodeficiency Virus (HIV), Hx of Known/ Suspected MRSA, Hx Shingles, Hx Tuberculosis, Hx Known/Suspected VRE, History Other Infectious Disease, Traveled Outside the [place] in Last 30 Days - Family History Known Family History: Positive: Cardiac Disease, Hypertension, Diabetes - When asked about family HTN, DM, CAD, he states, "Yeah, something like, Other - Schizophrenia, ASTHMA, CANCER - Social History Alcohol Use: None Alcohol Amount: last ETOH 4 years ago Hx Substance Use: No Substance Use Type: Reports: None Hx Tobacco Use: Yes Smoking Status (MU): Never Smoked Tobacco Review of Systems Negative: Fever, Chills ENT: Other - dry mouth Positive: frequency - urinary Neurological: Other - "twitching" Positive: Weakness All Other Systems Reviewed And Are Negative: Yes Physical Exam - Summary Physical Exam Summary: VITAL SIGNS: Reviewed. GENERAL: Patient is a well-developed and nourished male who is lying comfortable in the stretcher. Patient is not in any acute respiratory distress. HEAD AND FACE: No signs of trauma. No ecchymosis, hematomas or skull depressions. No sinus tenderness. EYES: PERRLA, EOMI x 2, No injected conjunctiva, no nystagmus. EARS: Hearing grossly intact. Ear canals and tympanic membranes are within normal limits. MOUTH: Oropharynx within normal limits. Dry oral mucosa. NECK: Supple, trachea is midline, no adenopathy, no JVD, no carotid bruit, no c- spine tenderness, neck with full ROM. CHEST: Symmetric, no tenderness at palpation LUNGS: Clear to auscultation bilaterally. No wheezing or crackles. CVS: Regular rate and rhythm, S1 and S2 present, no murmurs or gallops appreciated. ABDOMEN: Soft, non-tender. No signs of distention. No rebound no guarding, and no masses palpated. Bowel sounds are normal. EXTREMITIES: FROM in all major joints, no edema, no cyanosis or clubbing. NEURO: Alert and oriented x 3. No acute neurological deficits. Speech is normal and follows commands. SKIN: Dry and warm Triage Information Reviewed: Yes Vital Signs On Initial Exam: Initial Vitals Temp Pulse Resp BP Pulse Ox 98.5 F 73 18 122/83 99 08/07/17 08:24 08/07/17 08:24 08/07/17 08:24 08/07/17 08:24 08/07/17 08:24 Vital Signs Reviewed: Yes Diagnostics - Vital Signs Vital Signs Temp Pulse Resp BP Pulse Ox 08/07/17 08:24 98.5 F 73 18 122/83 99 - Laboratory Lab Results: Lab Results 08/07/17 08/07/17 08/07/17 Range/Units 08:42 08:42 08:49 WBC 4.3 (3.5-10.8) 10^3/ul RBC 4.59 (4.0-5.4) 10^6/ul Hgb 12.4 L (14.0-18.0) g/dl Hct 38 L (42-52) % MCV 82 (80-94) fL MCH 27 (27-31) pg MCHC 33 (31-36) g/dl RDW 13 (10.5-15) % Plt Count 238 (150-450) 10^3/ul MPV 7 L (7.4-10.4) um3 Neut % (Auto) 49.0 (38-83) % Lymph % (Auto) 40.2 (25-47) % Phillips % (Auto) 5.5 (1-9) % Eos % (Auto) 4.6 (0-6) % Baso % (Auto) 0.7 (0-2) % Absolute Neuts (auto) 2.1 (1.5-7.7) 10^3/ul Absolute Lymphs (auto) 1.7 (1.0-4.8) 10^3/ul Absolute Monos (auto) 0.2 (0-0.8) 10^3/ul Absolute Eos (auto) 0.2 (0-0.6) 10^3/ul Absolute Basos (auto) 0 (0-0.2) 10^3/ul Absolute Nucleated RBC 0 10^3/ul Nucleated RBC % 0.2 VBG pH 7.46 H (7.33-7.43) VBG pCO2 37 L (41-51) mmHg VBG pO2 64 H (35-45) mmHg VBG HCO3 26.8 (24-28) mmol/L VBG O2 Saturation 95.7 H (70-80) % VBG Base Excess 2.5 (0-4) Sodium 143 (133-145) mmol/L Potassium 3.4 L (3.5-5.0) mmol/L Chloride 111 (101-111) mmol/L Carbon Dioxide 27 (22-32) mmol/L Anion Gap 5 (2-11) mmol/L BUN 10 (6-24) mg/dL Creatinine 0.94 (0.67-1.17) mg/dL Est GFR ( Amer) 115.5 (>60) Est GFR (Non-Af Amer) 89.8 (>60) BUN/Creatinine Ratio 10.6 (8-20) Glucose 124 H (70-100) mg/dL Calcium 9.6 (8.6-10.3) mg/dL Magnesium 1.8 L (1.9-2.7) mg/dL Total Bilirubin 0.40 (0.2-1.0) mg/dL AST 13 (13-39) U/L ALT 9 (7-52) U/L Alkaline Phosphatase 57 (34-104) U/L Total Creatine Kinase 234 H (10-223) U/L C-Reactive Protein 3.34 (< 5.00) mg/L Total Protein 7.1 (6.4-8.9) g/dL Albumin 4.0 (3.2-5.2) g/dL Globulin 3.1 (2-4) g/dL Albumin/Globulin Ratio 1.3 (1-3) Urine Color Urine Appearance Urine pH (5-9) Ur Specific [place] (1.010-1.030) Urine Protein (Negative) Urine Ketones (Negative) Urine Blood (Negative) Urine Nitrate (Negative) Urine Bilirubin (Negative) Urine Urobilinogen (Negative) Ur Leukocyte Esterase (Negative) Urine Glucose (Negative) Urine Ascorbic Acid (Negative) Serum Alcohol < 10 (<10) mg/dL 08/07/17 Range/Units 09:00 WBC (3.5-10.8) 10^3/ul RBC (4.0-5.4) 10^6/ul Hgb (14.0-18.0) g/dl Hct (42-52) % MCV (80-94) fL MCH (27-31) pg MCHC (31-36) g/dl RDW (10.5-15) % Plt Count (150-450) 10^3/ul MPV (7.4-10.4) um3 Neut % (Auto) (38-83) % Lymph % (Auto) (25-47) % Phillips % (Auto) (1-9) % Eos % (Auto) (0-6) % Baso % (Auto) (0-2) % Absolute Neuts (auto) (1.5-7.7) 10^3/ul Absolute Lymphs (auto) (1.0-4.8) 10^3/ul Absolute Monos (auto) (0-0.8) 10^3/ul Absolute Eos (auto) (0-0.6) 10^3/ul Absolute Basos (auto) (0-0.2) 10^3/ul Absolute Nucleated RBC 10^3/ul Nucleated RBC % VBG pH (7.33-7.43) VBG pCO2 (41-51) mmHg VBG pO2 (35-45) mmHg VBG HCO3 (24-28) mmol/L VBG O2 Saturation (70-80) % VBG Base Excess (0-4) Sodium (133-145) mmol/L Potassium (3.5-5.0) mmol/L Chloride (101-111) mmol/L Carbon Dioxide (22-32) mmol/L Anion Gap (2-11) mmol/L BUN (6-24) mg/dL Creatinine (0.67-1.17) mg/dL Est GFR ( Amer) (>60) Est GFR (Non-Af Amer) (>60) BUN/Creatinine Ratio (8-20) Glucose (70-100) mg/dL Calcium (8.6-10.3) mg/dL Magnesium (1.9-2.7) mg/dL Total Bilirubin (0.2-1.0) mg/dL AST (13-39) U/L ALT (7-52) U/L Alkaline Phosphatase (34-104) U/L Total Creatine Kinase (10-223) U/L C-Reactive Protein (< 5.00) mg/L Total Protein (6.4-8.9) g/dL Albumin (3.2-5.2) g/dL Globulin (2-4) g/dL Albumin/Globulin Ratio (1-3) Urine Color Yellow Urine Appearance Clear Urine pH 5.0 (5-9) Ur Specific [place] 1.023 (1.010-1.030) Urine Protein Negative (Negative) Urine Ketones Negative (Negative) Urine Blood Negative (Negative) Urine Nitrate Negative (Negative) Urine Bilirubin Negative (Negative) Urine Urobilinogen Negative (Negative) Ur Leukocyte Esterase Negative (Negative) Urine Glucose Negative (Negative) Urine Ascorbic Acid * H (Negative) Serum Alcohol (<10) mg/dL Result Diagrams: 08/07/17 08:42 08/07/17 08:42 Lab Statement: Any lab studies that have been ordered have been reviewed, and results considered in the medical decision making process. - Radiology Chest XR Xray Interpretation: No Acute Changes - IMPRESSION: No active cardiopulmonary disease. Dr. Azar has reviewed this radiology report. Radiology Interpretation Completed By: Radiologist - EKG 08:44 Cardiac Rate: NL EKG Rhythm: Sinus Rhythm - at 63 bpm EKG Interpretation: No ST elevation Re-Evaluation - Re-Evaluation First Eval Re-Evaluation Time: 11:34 Comment: I reviewed lab and XR results with the pt. Course/Dx - Course Course Of Treatment: This pt is a 37 y/o male presenting to [facility] c/o weakness and "twitching" upon waking up this morning. Pt reports that when he woke up he crawled to the floor as he was feeling weak. Pt additionally notes dry mouth and urinary frequency. Per EMS, pt's blood glucose was 117. PMHx: diabetes. Pt currently takes metformin. Test results without any significant abnormalities except for chronic anemia, potassium of 3.4, magnesium of 1.8. Urinalysis is negative. Serum alcohol is negative. The pt was hydrated and reports he is feeling better. At this point the pt is eating and drinking without any nausea or vomiting. He is ambulating in the ER without any difficulties. I do not believe the pt had a seizure today since he only had tremors in his hands. Therefore, since he is feeling better, pt will be discharged to home with follow up from his PCP. Pt is hemodynamically stable, alert and oriented x3. - Differential Dx Differential Diagnoses Neuro: Positive: Dysrhythmia, Hypoglycemia, Seizure Disorder - Diagnoses Provider Diagnoses: Weakness, Hypokalemia Discharge - Discharge Plan Condition: Stable Disposition: HOME Patient Education Materials: Weakness (ED) Referrals: Nicki Olmstead MD [Primary Care Provider] - Additional Instructions: Please follow up with your primary care provider. RETURN TO THE ED FOR ANY WORSENING SYMPTOMS. The documentation as recorded by the Edmund peralta Angela accurately reflects the service I personally performed and the decisions made by me, Pato Azar MD.
== END 2017-08-07 11:53 | disposition home or self-care (01) ==
LOC: ED 08:15
DX: R53.1 Weakness (principal); E87.6 Hypokalemia; Z86.79 Personal history of other diseases of the circulatory system
CPT/HCPCS: 36415; 71046; 80053; 80320; 81003; 82550; 82803; 83735; 85025; 86140; 87077; 87086; 87186; 93005; 96360; 99283; A9270-GY; G0480

== ENCOUNTER 2017-08-07 12:49 | Emergency (ER) | payer MEDICARE, MEDICAID ==
[2017-08-07] MEDS ORDERED: hydrOXYzine HCL TAB* 25 MG PO ONE (16:52)
--- NOTE | 2017-08-07 17:57 | ED ---
Psychiatric Complaint - HPI Summary HPI Summary: Pt presents today with palpitations and anxiety. Pt just discharged from this ED today. Pt states while in the waiting room to go home he became anxious and felt as if his heart was racing. - History Of Current Complaint Chief Complaint: EDPsychosocial Time Seen by Provider: 08/07/17 16:28 Hx Obtained From: Patient Onset/Duration: Sudden Onset Timing: Seconds Severity Initially: Moderate Severity Currently: None Character: Anxious Aggravating Factor(s): Nothing Alleviating Factor(s): Nothing Associated Signs And Symptoms: Positive: Negative Related History: Positive For: Prior Psychiatric Issues Has Suicidal: Denies: Thoughts Has Homicidal: Denies: Thoughts - Allergies/Home Medications Allergies/Adverse Reactions: Allergies Allergy/AdvReac Type Severity Reaction Status Date / Time Clozapine Allergy Intermediate See Comment Verified 06/13/17 15:45 Ephedrine [From Respirol] Allergy Intermediate Blurred Verified 06/13/17 15:45 Vision Phenobarbital [From Respirol] Allergy Intermediate Blurred Verified 06/13/17 15: 45 Vision Theophylline [From Respirol] Allergy Intermediate Blurred Verified 06/13/17 15: 45 Vision Fluphenazine Allergy Mild Shakes Verified 06/13/17 15:45 [From Prolixin Decanoate] Paliperidone Allergy Mild Shakes Verified 06/13/17 15:45 [From Invega Sustenna] Polyethylene Glycol Allergy Mild Shakes Verified 06/13/17 15:45 [From Invega Sustenna] Haloperidol [From Haldol] Allergy Unknown See Comment Verified 06/13/17 15:45 Ziprasidone [From Geodon] Allergy Unknown See Comment Verified 06/13/17 15:45 PMH/Surg Hx/FS Hx/Imm Hx Endocrine/Hematology History: Reports: Hx Diabetes, Hx Anemia, Other Endocrine/ Hematological Disorders - leukopenia Denies: Hx Anticoagulant Therapy, Hx Thyroid Disease, Hx Unexplained Bleeding Cardiovascular History: Reports: Hx Hypertension, Other Cardiovascular Problems/ Disorders - IDDM/LEUOKOPENIA / SEIZURES Denies: Hx Aneurysm, Hx Angina, Hx Angioplasty, Hx Auto Implanted Cardiovert Defib, Hx Cardiac Arrest, Hx Cardiomegaly, Hx Congenital Heart Disease, Hx Congestive Heart Failure, Hx Coronary Artery Disease, Hx Deep Vein Thrombosis, Hx Hypercholesterolemia, Hx Hypotension, Hx Myocardial Infarction, Hx Pacemaker/ ICD, Hx Peripheral Vascular Disease, Hx Rheumatic Fever, Hx Syncope, Hx Valvular Heart Disease Respiratory History: Denies: Hx Asthma, Hx Chronic Bronchitis, Hx Chronic Obstructive Pulmonary Disease (COPD), Hx Cystic Fibrosis, Hx Lung Cancer, Hx Pleural Effusion, Hx Pneumonia, Hx Pulmonary Edema, Hx Pulmonary Embolism, Hx Seasonal Allergies, Hx Sleep Apnea, Other Respiratory Problems/Disorders GI History: Reports: Hx Gastroesophageal Reflux Disease, Hx Hiatal Hernia, Other GI Disorders - Constipation Denies: Hx Gall Bladder Disease, Hx Gastrointestinal Bleed, Hx Ulcer, Hx Urosepsis History: Denies: Hx Kidney Stones, Hx Renal Disease, Other Problems/Disorders Musculoskeletal History: Reports: Hx Orthopedic Injury - Left Leg Fracture Denies: Other Musculoskeletal History Sensory History: Denies: Hx Contacts or Glasses, Hx Hearing Aid, Other Sensory Impairments Opthamlomology History: Denies: Hx Contacts or Glasses, Other Sensory Impairments Neurological History: Reports: 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, Other Neuro Impairments/Disorders - MENTAL ILLNESS/SCHIZOPHRENIA Denies: Hx Dementia, Hx Developmental Delay, Hx Headaches, Hx Migraine, Hx Nerve Disease, Hx Spinal Cord Injury, Hx Transient Ischemic Attacks (TIA) Psychiatric History: Reports: Hx Anxiety, Hx Oppositional [place] Disorder, Hx Depression, Hx Panic Disorder, Hx Post Traumatic Stress Disorder, Hx Inpatient Treatment, Hx Community Mental Health Tx, Hx Schizophrenia, Hx Bipolar Disorder , Hx Suicide Attempt, Hx Substance Abuse, Other Psychiatric Issues/Disorders - Hx Psychosis Denies: Hx Attention Deficit Hyperactivity Disorder, Hx Eating Disorder, Hx of Violent Episodes Against Others - Surgical History Surgery Procedure, Year, and Place: LEFT INGUINAL HERNIA Hx Anesthesia Reactions: No - Immunization History Date of Tetanus Vaccine: Up to Date Date of Influenza Vaccine: None Infectious Disease History: No Infectious Disease History: Reports: Hx Clostridium Difficile Denies: Hx Hepatitis, Hx Human Immunodeficiency Virus (HIV), Hx of Known/ Suspected MRSA, Hx Shingles, Hx Tuberculosis, Hx Known/Suspected VRE, History Other Infectious Disease, Traveled Outside the [place] in Last 30 Days - Family History Known Family History: Positive: Cardiac Disease, Hypertension, Diabetes - When asked about family HTN, DM, CAD, he states, "Yeah, something like, Other - Schizophrenia, ASTHMA, CANCER - Social History Alcohol Use: None Alcohol Amount: last ETOH 4 years ago Hx Substance Use: No Substance Use Type: Reports: Other Substance Use Comment - Amount & Last Used: in the past Amphetamine Barbituats Hx Tobacco Use: Yes Smoking Status (MU): Never Smoked Tobacco Review of Systems Constitutional: Negative Positive: Palpitations Respiratory: Negative Gastrointestinal: Negative Genitourinary: Negative Skin: Negative Positive: Anxious All Other Systems Reviewed And Are Negative: Yes Physical Exam Triage Information Reviewed: Yes Vital Signs On Initial Exam: Initial Vitals Temp Pulse Resp BP Pulse Ox 36.7 C 88 26 144/82 100 08/07/17 12:54 08/07/17 12:54 08/07/17 12:54 08/07/17 12:54 08/07/17 12:54 Vital Signs Reviewed: Yes Appearance: Positive: Well-Appearing Skin: Positive: Warm, Skin Color Reflects Adequate Perfusion, Dry Head/Face: Positive: Normal Head/Face Inspection Eyes: Positive: Normal ENT: Positive: Normal ENT inspection Neck: Positive: Supple, No Lymphadenopathy Respiratory/Lung Sounds: Positive: Clear to Auscultation, Breath Sounds Present Cardiovascular: Positive: Normal, RRR, Pulses are Symmetrical in both Upper and Lower Extremities Abdomen Description: Positive: Nontender Neurological: Positive: Normal, Sensory/Motor Intact, Alert, Oriented to Person Place, Time Psychiatric: Positive: Normal Diagnostics - Vital Signs Vital Signs Temp Pulse Resp BP Pulse Ox 08/07/17 14:50 36.3 C 69 18 129/81 100 08/07/17 12:54 36.7 C 88 26 144/82 100 - Laboratory Lab Statement: Any lab studies that have been ordered have been reviewed, and results considered in the medical decision making process. Re-Evaluation - Re-Evaluation t Re-Evaluation Time: 17:54 Comment: Pt resting comfortably in bed; pt with no acute distress. pt anxiety resolved. Course/Dx - Differential Dx/Clinical Impression Differential Diagnosis/HQI/PQRI: Positive: Anxiety, Bipolar Disorder, Depression , Schizophrenia Provider Diagnosis: Anxiety Discharge - Discharge Plan Condition: Improved Disposition: HOME Prescriptions: hydrOXYzine HCL TAB* [Atarax 25 MG TAB*] 25 mg PO QID PRN #7 tab PRN Reason: Anxiety Patient Education Materials: Anxiety (ED) Referrals: Nicki Olmstead MD [Primary Care Provider] - 2 Days Additional Instructions: Please take all of your medications as prescribed. Please return if symptoms worsen or return.
[2017-08-07 18:47] VITALS: BP 136/81
== END 2017-08-07 18:38 | disposition home or self-care (01) ==
LOC: ED 12:49
DX: F41.9 Anxiety disorder, unspecified (principal); R00.2 Palpitations
CPT/HCPCS: 99282; A9270-GY

== ENCOUNTER 2017-11-27 23:47 | Emergency (ER) | payer MEDICARE, MEDICAID ==
--- OUTSIDE RECORDS SUMMARY | 2017-11-28 00:16 | XMS REPORT ---
:1980 External Reference #:[id number] Author Organization [facility] Address [address] [place] [address] Phone [phone] Care Team Providers Name Role Phone Nicki Olmstead MD Primary Care Physician Unavailable Payers Type Date Identification Numbers Payment Provider Subscriber Medicare Primary Effective: Policy Number: Medicare Rickey Mcbride 2000 [id number] PayID: [id number] [address] [place] [address] [employer] Part B Effective: 2008 Policy Number: [id number] Medicaid Rickey Mcbride Group Name: 1 1 [address] PayID: [id number] [place] [address] Problems Date Description Provider Status Onset: 09/04/2017 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 Scott MD Active disorder Onset: 05/30/2017 Schizoaffective disorder Brenda Scott MD Active Onset: 05/30/2017 Epilepsy Brenda Scott MD Active Onset: 05/04/2017 Malaise and fatigue Brenda Scott MD Active Onset: 05/04/2017 Seizure Brenda Scott MD Active Family History Date Family Member(s) Problem(s) Comments General Cancer Father HIV Social History Type Date Description Comments ETOH Use Rarely Consumed Alcoholic Beverages Smoking Patient is a former smoker Allergies, Adverse Reactions, Alerts Date Description Reaction Status Severity Comments 04/30/2013 Clozaril active 04/30/2013 Geodon active Medications Medication Date Status Form Strength Qnty SIG Indications Ordering Provider Lamotrigine 10/30 Active Tablets 25mg 256ta 1 by mouth G40.909 bs every night MD Sonia x1 week then 1 twice a day x1 week then 1 in am and 2 in pm x1 week then as instructed to 4 2x/day Vimpat 05/30 Active Tablets 100mg 120ta 2 tabs by G40.909 bs mouth twice MD Sonia a day Metformin HCL ER Active Tablets ER 750mg 1 tab daily Unknown /0000 24HR Metoprolol Active Tablets 25mg 1 tab 2x Unknown Tartrate /0000 daily Risperdal Consta Active Suspension 50mg intramuscul Unknown / Rec ar q2 weeks Zyprexa Zydis Active Tablets 10mg po qam Unknown / Dispers Magnesium Active Tablets 400mg 1 by mouth Unknown /0000 every day Multi-Vitamin Active Tablets 1 by mouth Unknown /0000 every day Protonix Active Solution 40mg 1 by mouth Unknown / Rec every day Trihexyphenidyl Active Tablets 2mg 1 tab at Unknown HCL /0000 bedtime Risperdal Active Tablets 4mg one tablety Unknown 0000 at bedtime Melatonin Active Capsules 5mg 1 tablets Unknown /0000 at bed time Potassium Active Tablets ER 10Meq 1 by mouth Unknown Chloride ER /0000 every day Dicyclomine HCL Active Tablets 20mg 1-2 times Unknown /0000 daily as needed Hydroxyzine HCL Active Tablets 50mg 1-2 tablets Unknown /0000 4 times daily as needed for itching Omeprazole Hx Capsules DR 20mg Unknown / - 05/03 Zolpidem Hx Tablets 10mg Unknown Tartrate / - 05/03 Risperidone Hx Tablets 4mg Unknown / - 05/03 Benztropine Hx Tablets 1mg Unknown Mesylate / - 05/03 Divalproex Hx Tablets ER 500mg Unknown Sodium ER /0000 24HR - 05/03 Buspirone HCL Hx Tablets 30mg Unknown / - 05/03 Florastor Hx Capsules 250mg one capsule Unknown /0000 by mouth - morning and 09/03 KCL In Hx Solution 10-5-0.45 Unknown Dextrose-Nacl /0000 Meq/L-%-% - 09/03 Vistaril Hx Capsules 100mg one by Unknown /0000 mouth three - times a day 09/03 as needed /2018 anxiety Vital Signs Date Vital Result Comment 10/30/2017 Height 70.5 inches 5'10.50" Weight 216.50 lb Heart Rate 82 /min BP Systolic 150 mmHg BP Diastolic 90 mmHg BMI (Body Mass Index) 30.6 kg/m2 09/04/2017 Height 70.5 inches 5'10.50" Weight 214.25 lb BP Systolic 120 mmHg BP Diastolic 78 mmHg BMI (Body Mass Index) 30.3 kg/m2 05/30/2017 Height 70.5 inches 5'10.50" Heart Rate 80 /min BP Systolic Sitting 122 mmHg BP Diastolic Sitting 88 mmHg 05/04/2017 Height 70.5 inches 5'10.50" Weight 183.12 lb Heart Rate 78 /min BP Systolic 108 mmHg BP Diastolic 76 mmHg BMI (Body Mass Index) 25.9 kg/m2 04/30/2013 Heart Rate 80 /min BP Systolic Sitting 120 mmHg BP Diastolic Sitting 70 mmHg Respiratory Rate 18 /min Results Test Date Test Result H/L Range Note Laboratory test finding 05/08/2017 Creatine Kinase(CK) 208 U/L 10-223 Vitamin D 1,25 And 05/08/2017 Vitamin D Total 25(Oh) 30.5 ng/mL 20-50 Vitamin D,2 Vitamin D, 1,25 Dihydroxy 28 pg/mL 18-64 1 CBC Auto Diff 09/05/2013 White Blood Count 4.9 10^3/uL 4.8-10.8 Red Blood Count 4.69 10^6/uL 4.0-5.4 Hemoglobin 12.8 g/dL Low 14.0-18.0 Hematocrit 40 % Low 42-52 Mean Corpuscular Volume 85 fL 80-94 Mean Corpuscular Hemoglobin 27 pg 27-31 Mean Corpuscular HGB Conc 32 g/dL 31-36 Red Cell Distribution Width 14 % 10.5-15 Platelet Count 169 10^3/uL 150-450 Mean Platelet Volume 8 um3 7.4-10.4 Abs Neutrophils 2.5 10^3/uL 1.5-7.7 Abs Lymphocytes 1.8 10^3/uL 1.0-4.8 Abs Monocytes 0.3 10^3/uL 0-0.8 Abs Eosinophils 0.2 10^3/uL 0-0.6 Abs Basophils 0 10^3/uL 0-0.2 Abs Nucleated RBC 0.01 10^3/uL Granulocyte % 51.1 % 38-83 Lymphocyte % 37.8 % 25-47 Monocyte % 6.9 % 1-9 Eosinophil % 3.6 % 0-6 Basophil % 0.6 % 0-2 Nucleated Red Blood Cells % 0.2 Comp Metabolic Panel 09/05/2013 Sodium 137 mmol/L 133-145 Potassium 4.1 mmol/L 3.7-5.6 Chloride 104 mmol/L 101-111 Co2 Carbon Dioxide 27 mmol/L 22-32 Anion Gap 6 mmol/L 2-11 Glucose 118 mg/dL High 70-100 Blood Urea Nitrogen 11 mg/dL 6-24 Creatinine 1.23 mg/dL High 0.67-1.17 BUN/Creatinine Ratio 8.9 8-20 Calcium 9.3 mg/dL 8.6-10.3 Total Protein 7.2 g/dL 6.4-8.9 Albumin 4.0 g/dL 3.2-5.2 Globulin 3.2 g/dL 2-4 Albumin/Globulin Ratio 1.3 1-3 Total Bilirubin 0.30 mg/dL 0.2-1.0 Alkaline Phosphatase 35 U/L 34-104 Alt 48 U/L 7-52 Ast 37 U/L 13-39 Egfr Non- 67.4 >60 Egfr 86.6 >60 2 1 ADDITIONAL INFORMATION This test was developed and its performance characteristics determined by [facility] in a manner consistent with CLIA requirements. This test has not been cleared or approved by the U.S. Food and Drug Administration. Test Performed by: [facility] [address], [place] [address] 2 Because ethnic data is not always readily available, this report includes an eGFR for both -Americans and non- Americans. The National Kidney Disease Education Program (NKDEP) does not endorse the use of the MDRD equation for patients that are not between the ages of 18 and 70, are , have extremes of body size, muscle mass, or nutritional status, or are non- or non-. According to the National Kidney Foundation, irrespective of diagnosis, the stage of the disease is based on the level of kidney function: Stage Description GFR(mL/min/1.73 m(2)) 1 Kidney damage with normal or decreased GFR 90 2 Kidney damage with mild decrease in GFR 60-89 3 Moderate decrease in GFR 30-59 4 Severe decrease in GFR 15-29 5 Kidney failure <15 (or dialysis) Procedures Date CPT Code Description Status 05/08/2017 95724 EEG Recording Awake & Drowsy Completed 10/14/2015 15069 Holter Monitor Review (24 hr)dr banks & talat Completed only 10/31/2012 37913 EEG Recording Awake & Drowsy Completed 08/29/2012 10596 EEG Recording Awake & Drowsy Completed Encounters Type Date Location Provider CPT E/M Dx Office Visit 09/04/2017 [facility] [address] G40.909 2:00p F25.9 F51.05 Office Visit 05/30/2017 9:00a [facility] [address] G40.909 F25.9 Office Visit 05/04/2017 3:00p [facility] [address] R56.9 R53.1 Office Visit 03/07/2017 4:[facility]p [facility], [place] [address] E16.2 Hospitalists F20.9 E11.9 F29 Office Visit 03/06/2017 3:02p [facility], Corwin Barber 30837 E16.2 Hospitalists N.P. E11.8 F20.9 Office Visit 04/30/2013 1:45p [facility] Reed Campo, 81393 333.2 Services Of Isidro Bryant 790.5 Office Visit 08/30/2012 1:59p [facility], Dayne German 23161 345.10 Hospitalists Annette 780.97 Office Visit 08/29/2012 3:22p [facility] Teresa Hernandez, 77833 345.90 Services Of Shuttle Filler M.D. Office Visit 08/28/2012 12:28p [facility], [place] [address] 780.97 Hospitalists 345.10 Office Visit 08/28/2012 3:21p [facility] Reed Campo, 39082 345.90 Services Of Shuttle Filler M.D. Office Visit 10/19/2009 1:30a [facility],pc Real Arambula D.O. 55126 977.9 Hospitalists 415.19 285.9 296.80 Office Visit 10/18/2009 12:45a [facility],pc Real Arambula D.O. 22404 977.9 Hospitalists 415.19 285.9 296.80 Office Visit 10/17/2009 12:15a [facility],pc Real Arambula D.O. 65870 977.9 Hospitalists 780.97 785.0 285.9 Office Visit 10/16/2009 1:15a [facility],pc Real Arambula D.O. 94010 780.97 Hospitalists 780.09 785.0 276.1 Office Visit 10/16/2009 1:00a [facility],pc Delmis Dos Santos, 45910 977.9 Hospitalists M.D. Office Visit 10/15/2009 1:15a [facility],pc Dayne German, 16252 415.19 Hospitalists M.D. 285.9 Office Visit 10/14/2009 1:15a [facility],pc Dayne German 96852 415.19 Hospitalists M.D. 285.9 Office Visit 10/13/2009 1:15a [facility],pc Dayne German 94083 415.19 Hospitalists M.DWallace 298.9 280.9 Office Visit 10/12/2009 1:15a [facility] Dayne German 29136 415.19 Hospitalists M.D. 285.9 Office Visit 10/11/2009 1:00a [facility],pc Tao Sorto M.D. 82563 285.9 Hospitalists 415.19 280.9 Office Visit 10/10/2009 1:15a [facility], Dayne Abdieljohn paul, 15842 415.19 Hospitalists Annette 285.9 Office Visit 10/09/2009 12:45a [facility], Dayne Abdieljohn paul, 08691 415.19 Hospitalists Annette 285.9 Office Visit 10/08/2009 12:30a [facility] Lilibeth Nam, 27085 415.19 Ass, Hospitalists Annette 578.9 280.9 Plan of Care Future Appointment(s):12/17/2017 2:30 pm [facility] - Brenda Scott MDG40.909 Epilepsy, unsp, not intractable, without status epilepticusNew Medication:Lamotrigine 25 mgFollow up:: as scheduledRecommendations:Start lamotrigine as follows: Lamictal Dose Escalation Schedule (if NOT taking Depakote) Lamictal 25 mg tablets Lamictal 100 mg tablets Week AM PM AM PM 1 (10/31) 0 tab 1 tab 0 0 2 (11/07) 1 tab 1 tab 0 0 3 ( 11/14) 1 tab 2 tab 0 0 4 (11/21) 2 tab 2 tab 0 0 5 (11/28) 2 tab 3 tab 0 0 6 (12/05) 3 tab 3 tab 0 0 7 () 3 tab 4 tab0 0 8 (12/19) 4 tab 4 tab 0 0 9 (12/26) 0 0 1 tab 1.5 tab 10 (01/02) 0 0 1.5 tab 1.5 tab 11 (01/09) 0 0 1.5 tab 2 tab 12 () 0 0 2 tab 2 tab Call for any side effects or questions youhave about your medications. Serious side effects include: rash, fever, mouth sores, or swollen glands. Call your provider right away if you develop these symptoms. If you get a rash within the first 2months of staring lamotrigine (Lamictal), do not take any further doses of lamotrigine (Lamictal) until you have talked to your provider. Continue taking all of your other medications as directed. Do not suddenly stop taking your medications on your own. Call your provider to discuss all medication changes. Generic: lamotrigine Continue Vimpat until I see you next time. If you get a lot of side effects like blurred vision, unsteadiness on your feet, dizziness then call me and we can decrease the dose a little of Vimpat SCHEDULE YOUR MRI AND GO!!!F25.9 Schizoaffective disorder, unspecified
[2017-11-28] MEDS ORDERED: Benzonatate CAP* 100 MG PO ONE (00:20)
[2017-11-28 00:50] LABS: Hematocrit 29 % (42-52); Hemoglobin 9.7 g/dl (14.0-18.0); Mean Corpuscular HGB Conc 33 g/dl (31-36); Mean Corpuscular Hemoglobin 27 pg (27-31); Mean Corpuscular Volume 80 fL (80-94); Mean Platelet Volume 6.8 um3 (7.4-10.4); Platelet Count 308 10^3/ul (150-450); Red Blood Count 3.64 10^6/ul (4.0-5.4); Red Cell Distribution Width 14 % (10.5-15); White Blood Count 13.8 10^3/ul (3.5-10.8)
[2017-11-28 00:58] LABS: EGFR Non-African American 89.8 (>60)
[2017-11-28 01:22] LABS: Monocytes % 6 % (0-7)
[2017-11-28] MEDS ORDERED: A lbuterol Hfa (PREPAK) 1 MDI - ED TAKE HOME DISPENSING ONLY INHH ONE (01:27)
[2017-11-28] MEDS ORDERED: Azithromycin TAB* 250 MG PO ONE (01:27)
--- NOTE | 2017-11-28 01:27 | ED ---
Respiratory - HPI Summary HPI Summary: 37-year-old male presents with cough for the past 2 days. He is smoker. Denies any history of COPD or asthma. He states he has some chest pain when he coughs. He admits shortness breath and a cough. he denies any bowel pain. He has vomited a couple times due to cough. He denies any pain with urination. He denies any recent fevers. He denies any headache. He is a past medical history of seizures. He admits to occasional headache. He denies any neck stiffness. He has had a normal appetite. is requesting lab work due to history of low magnesium and potassium. - History of Current Complaint Chief Complaint: EDUpperRespComplaint Stated Complaint: COUGH Time Seen by Provider: 11/27/17 23:53 Pain Intensity: 1 - Allergy/Home Medications Allergies/Adverse Reactions: Allergies Allergy/AdvReac Type Severity Reaction Status Date / Time clozapine Allergy See Comment Verified 11/27/17 23:55 ephedrine Allergy Blurred Verified 11/27/17 23:54 Vision haloperidol [From Haldol] Allergy See Comment Verified 11/27/17 23:54 ziprasidone [From Geodon] Allergy See Comment Verified 11/27/17 23:54 PMH/Surg Hx/FS Hx/Imm Hx Endocrine/Hematology History: Reports: Hx Diabetes, Hx Anemia, Other Endocrine/ Hematological Disorders - leukopenia Denies: Hx Anticoagulant Therapy, Hx Thyroid Disease, Hx Unexplained Bleeding Cardiovascular History: Reports: Hx Hypertension, Other Cardiovascular Problems/ Disorders - IDDM/LEUOKOPENIA / SEIZURES Denies: Hx Aneurysm, Hx Angina, Hx Angioplasty, Hx Auto Implanted Cardiovert Defib, Hx Cardiac Arrest, Hx Cardiomegaly, Hx Congenital Heart Disease, Hx Congestive Heart Failure, Hx Coronary Artery Disease, Hx Deep Vein Thrombosis, Hx Hypercholesterolemia, Hx Hypotension, Hx Myocardial Infarction, Hx Pacemaker/ ICD, Hx Peripheral Vascular Disease, Hx Rheumatic Fever, Hx Syncope, Hx Valvular Heart Disease Respiratory History: Denies: Hx Asthma, Hx Chronic Bronchitis, Hx Chronic Obstructive Pulmonary Disease (COPD), Hx Cystic Fibrosis, Hx Lung Cancer, Hx Pleural Effusion, Hx Pneumonia, Hx Pulmonary Edema, Hx Pulmonary Embolism, Hx Seasonal Allergies, Hx Sleep Apnea, Other Respiratory Problems/Disorders GI History: Reports: Hx Gastroesophageal Reflux Disease, Hx Hiatal Hernia, Other GI Disorders - Constipation Denies: Hx Gall Bladder Disease, Hx Gastrointestinal Bleed, Hx Ulcer, Hx Urosepsis History: Denies: Hx Kidney Stones, Hx Renal Disease, Other Problems/Disorders Musculoskeletal History: Reports: Hx Orthopedic Injury - Left Leg Fracture Denies: Other Musculoskeletal History Sensory History: Denies: Hx Contacts or Glasses, Hx Hearing Aid, Other Sensory Impairments Opthamlomology History: Denies: Hx Contacts or Glasses, Other Sensory Impairments Neurological History: Reports: 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, Other Neuro Impairments/Disorders - MENTAL ILLNESS/SCHIZOPHRENIA Denies: Hx Dementia, Hx Developmental Delay, Hx Headaches, Hx Migraine, Hx Nerve Disease, Hx Spinal Cord Injury, Hx Transient Ischemic Attacks (TIA) Psychiatric History: Reports: Hx Anxiety, Hx Oppositional Briscoe Disorder, Hx Depression, Hx Panic Disorder, Hx Post Traumatic Stress Disorder, Hx Inpatient Treatment, Hx Community Mental Health Tx, Hx Schizophrenia, Hx Bipolar Disorder , Hx Suicide Attempt, Hx Substance Abuse, Other Psychiatric Issues/Disorders - Hx Psychosis Denies: Hx Attention Deficit Hyperactivity Disorder, Hx Eating Disorder, Hx of Violent Episodes Against Others - Surgical History Surgery Procedure, Year, and Place: LEFT INGUINAL HERNIA - as a child. LEG - NO METAL PER PT Hx Anesthesia Reactions: No - Immunization History Date of Tetanus Vaccine: Up to Date Date of Influenza Vaccine: None Infectious Disease History: No Infectious Disease History: Reports: Hx Clostridium Difficile Denies: Hx Hepatitis, Hx Human Immunodeficiency Virus (HIV), Hx of Known/ Suspected MRSA, Hx Shingles, Hx Tuberculosis, Hx Known/Suspected VRE, History Other Infectious Disease, Traveled Outside the [place] in Last 30 Days - Family History Known Family History: Positive: Cardiac Disease, Hypertension, Diabetes - When asked about family HTN, DM, CAD, he states, "Yeah, something like, Other - Schizophrenia, ASTHMA, CANCER - Social History Alcohol Use: None Alcohol Amount: last ETOH 4 years ago Hx Substance Use: No Substance Use Type: Reports: None Substance Use Comment - Amount & Last Used: in the past Amphetamine Barbituats Hx Tobacco Use: Yes Smoking Status (MU): Never Smoked Tobacco Review of Systems Negative: Fever Positive: Chest Pain - with cough Positive: Shortness Of Breath - with cough, Cough Negative: Abdominal Pain All Other Systems Reviewed And Are Negative: Yes Physical Exam Triage Information Reviewed: Yes Vital Signs On Initial Exam: Initial Vitals Temp Pulse Resp BP Pulse Ox 99.1 F 104 16 108/83 96 11/27/17 23:48 11/27/17 23:48 11/27/17 23:48 11/27/17 23:48 11/27/17 23:48 Vital Signs Reviewed: Yes Appearance: Positive: Well-Appearing Skin: Positive: Warm, Dry Head/Face: Positive: Normal Head/Face Inspection Eyes: Positive: Normal, EOMI, BHAVIK, Conjunctiva Clear ENT: Positive: Normal ENT inspection, Pharynx normal, TMs normal Neck: Positive: Supple, Nontender, No Lymphadenopathy Respiratory/Lung Sounds: Positive: Clear to Auscultation, Breath Sounds Present Cardiovascular: Positive: Normal, RRR Abdomen Description: Positive: Nontender, Soft Bowel Sounds: Positive: Present Musculoskeletal: Positive: Normal Neurological: Positive: Normal Psychiatric: Positive: Normal Diagnostics - Vital Signs Vital Signs Temp Pulse Resp BP Pulse Ox 11/27/17 23:48 99.1 F 104 16 108/83 96 - Laboratory Lab Results: Lab Results 11/28/17 11/28/17 Range/Units 00:35 00:35 WBC 13.8 H (3.5-10.8) 10^3/ul RBC 3.64 L (4.0-5.4) 10^6/ul Hgb 9.7 L (14.0-18.0) g/dl Hct 29 L (42-52) % MCV 80 (80-94) fL MCH 27 (27-31) pg MCHC 33 (31-36) g/dl RDW 14 (10.5-15) % Plt Count 308 (150-450) 10^3/ul MPV 6.8 L (7.4-10.4) um3 Neut % (Auto) Not Reportable Lymph % (Auto) Not Reportable Gregory % (Auto) Not Reportable Eos % (Auto) Not Reportable Baso % (Auto) Not Reportable Absolute Neuts (auto) Not Reportable Absolute Lymphs (auto) Not Reportable Absolute Monos (auto) Not Reportable Absolute Eos (auto) Not Reportable Absolute Basos (auto) Not Reportable Absolute Nucleated RBC Not Reportable Immature Gran % 1 (0-9) % Neutrophils % 20 L (38-83) % Band Neutrophils % 1 (0-8) % Lymphocytes % 26 (25-47) % Monocytes % 6 (0-7) % Eosinophils % 47 H (0-6) % Basophils % 0 (0-2) % Nucleated RBC % Not Reportable Abs Neuts (Manual) 2.8 (1.5-7.7) 10^3/ul Abs Lymphs (Manual) 3.6 (1.0-4.8) 10^3/ul Abs Monocytes (Manual) 0.8 (0-0.8) 10^3/ul Absolute Eos (Manual) 6.5 H (0-0.6) 10^3/ul Abs Basophils (Manual) 0 (0-0.2) 10^3/ul Normal RBC Morphology Not Reportable Polychromasia 1+ Sodium 127 L (139-145) mmol/L Potassium 3.6 (3.5-5.0) mmol/L Chloride 94 L (101-111) mmol/L Carbon Dioxide 24 (22-32) mmol/L Anion Gap 9 (2-11) mmol/L BUN 9 (6-24) mg/dL Creatinine 0.94 (0.67-1.17) mg/dL Est GFR ( Amer) 115.5 (>60) Est GFR (Non-Af Amer) 89.8 (>60) BUN/Creatinine Ratio 9.6 (8-20) Glucose 115 H (70-100) mg/dL Calcium 8.6 (8.6-10.3) mg/dL Magnesium 1.7 L (1.9-2.7) mg/dL Total Bilirubin 0.50 (0.2-1.0) mg/dL AST 19 (13-39) U/L ALT 7 (7-52) U/L Alkaline Phosphatase 141 H (34-104) U/L Total Protein 8.1 (6.4-8.9) g/dL Albumin 3.5 (3.2-5.2) g/dL Globulin 4.6 H (2-4) g/dL Albumin/Globulin Ratio 0.8 L (1-3) Result Diagrams: 11/28/17 00:35 11/28/17 00:35 Lab Statement: Any lab studies that have been ordered have been reviewed, and results considered in the medical decision making process. - Radiology chest Xray Interpretation: No Acute Changes Radiology Interpretation Completed By: Radiologist Disposition - Course Course Of Treatment: 37-year-old male presents with cough for the past 2 days. He is smoker. Denies any history of COPD or asthma. He states he has some chest pain when he coughs. He admits shortness breath and a cough. he denies any bowel pain. He has vomited a couple times due to cough. He denies any pain with urination. He denies any recent fevers. He denies any headache. He is a past medical history of seizures. He admits to occasional headache. He denies any neck stiffness. He has had a normal appetite. is requesting lab work due to history of low magnesium and potassium. On exam has a dry hacking cough. Lungs clear to auscultation. Chest x-ray read by me as normal. wbc normal. Magnesium is little lowtold to take a supplement. K normal. We will presume azithromycin due to wbc. told to take tessalon and inhaler for the cough. Patient understands and agrees. - Differential Dx - Cardiopulmonary Differential Diagnoses - Cardiopulmonary: Bronchitis, Influenza, Lower Resp Infection - Diagnoses Provider Diagnoses: Bronchitis Discharge - Sign-Out/Discharge Documenting (check all that apply): Discharge/Admit/Transfer - Discharge Plan Condition: Good Disposition: HOME Prescriptions: Azithromycin TAB* [Zithromax TAB (Z-KAREN) 250 mg #6 tabs] 250 mg PO DAILY #4 tab Benzonatate CAP* [Tessalon 100 MG CAP*] 100 mg PO TID PRN #21 cap PRN Reason: Cough Patient Education Materials: Acute Bronchitis (ED) Referrals: Nicki Olmstead MD [Primary Care Provider] - Additional Instructions: Use inhaler up to two puffs every 4 hours for cough and wheezing Take tessalon three times a day for cough Take antibiotic once daily starting tomorrow for 4 days Take Tylenol or ibuprofen for pain every 6 hours Return to ED if develop any new or worsening symptoms - Billing Disposition and Condition Condition: GOOD Disposition: HOME
[2017-11-28 01:43] VITALS: BP 136/69
--- NOTE | 2017-11-28 08:53 | RAD ---
INDICATION: Cough. COMPARISON: Most recent comparison chest x-ray August 07, 2017 TECHNIQUE: PA and lateral views of the chest were obtained. FINDINGS: The heart and mediastinum are normal in size and contour. The lungs are grossly clear. There is no evidence of large pleural effusion. Visualized bones are normal for the patient's age. There is no radiographic evidence of free air beneath the diaphragm IMPRESSION: No radiographic evidence of acute cardiopulmonary disease.
== END 2017-11-28 01:42 | disposition home or self-care (01) ==
LOC: ED 23:47
DX: J40 Bronchitis, not specified as acute or chronic (principal); F17.200 Nicotine dependence, unspecified, uncomplicated; Z88.8 Allergy status to other drugs, medicaments and biological substances
CPT/HCPCS: 36415; 71046; 80053; 83735; 85025; 99282; A9270-GY

== ENCOUNTER 2017-12-10 19:44 | Emergency (ER) | payer MEDICARE, MEDICAID ==
[2017-12-10] MEDS ORDERED: Pseudoephedrine TAB* 30 MG PO ONE (20:17)
[2017-12-10] MEDS ORDERED: Ibuprofen TAB* 800 MG PO ONE (20:17)
--- NOTE | 2017-12-10 20:42 | RAD ---
HISTORY: Cough COMPARISONS: November 28, 2017 VIEWS: 1: frontal portable view of the chest at 8:27 PM FINDINGS: LINES AND TUBES: None. CARDIOMEDIASTINAL SILHOUETTE: The cardiomediastinal silhouette is normal for portable technique. PLEURA: The costophrenic angles are sharp. No pleural abnormalities are noted. LUNG PARENCHYMA: The lung volumes are low. The lungs are clear accounting for the phase of respiration. ABDOMEN: The upper abdomen is clear. There is no subphrenic gas. BONES AND SOFT TISSUES: No bone or soft tissue abnormalities are noted. IMPRESSION: LOW LUNG VOLUMES. NO ACTIVE CARDIOPULMONARY DISEASE
[2017-12-10 21:32] LABS: ABS Basophils 0.1 10^3/ul (0-0.2); ABS Lymphocytes 1.5 10^3/ul (1.0-4.8); ABS Monocytes 0.4 10^3/ul (0-0.8); ABS Neutrophils 3.1 10^3/ul (1.5-7.7); ABS Nucleated RBC 0 10^3/ul; Hematocrit 32 % (42-52); Lymphocyte % 21.2 % (25-47); Mean Corpuscular HGB Conc 32 g/dl (31-36); Mean Corpuscular Hemoglobin 26 pg (27-31); Mean Corpuscular Volume 83 fL (80-94); Mean Platelet Volume 6.7 um3 (7.4-10.4); Nucleated Red Blood Cells % 0.1; Platelet Count 372 10^3/ul (150-450); Red Blood Count 3.79 10^6/ul (4.0-5.4); Red Cell Distribution Width 15 % (10.5-15); White Blood Count 7.2 10^3/ul (3.5-10.8)
[2017-12-10 21:41] LABS: EGFR Non-African American 108.2 (>60)
[2017-12-10 21:55] VITALS: BP 125/80
--- NOTE | 2017-12-10 22:05 | ED ---
Alicia Anderson Emily, scribed for Marianna Belle MD on 12/10/17 at 2015 . Respiratory - HPI Summary HPI Summary: This patient is a 37 year old M BIBA presenting to [facility] with a chief complaint of general myalgias that began one week ago. The patient rates the pain 3/10 in severity. Symptoms aggravated by nothing. Symptoms alleviated by nothing. Patient reports nasal discharge, fever, cough, and nasal congestion. Pt reports being recently prescribed antibiotics for these symptoms. - History of Current Complaint Chief Complaint: EDUpperRespComplaint Stated Complaint: CONGESTION Time Seen by Provider: 12/10/17 20:02 Hx Obtained From: Patient Onset/Duration: Sudden Onset, Lasting Weeks, Still Present Timing: Constant Initial Severity: Mild Current Severity: Mild Pain Intensity: 3 Character: Cough (Nonproductive) Sputum Amount: None Aggravating Factor(s): Nothing Alleviating Factor(s): Nothing Associated Signs and Symptoms: Fever, Nasal Congestion - Allergy/Home Medications Allergies/Adverse Reactions: Allergies Allergy/AdvReac Type Severity Reaction Status Date / Time clozapine Allergy See Comment Verified 12/10/17 19:53 ephedrine Allergy Blurred Verified 12/10/17 19:53 Vision haloperidol [From Haldol] Allergy See Comment Verified 12/10/17 19:53 ziprasidone [From Geodon] Allergy See Comment Verified 12/10/17 19:53 PMH/Surg Hx/FS Hx/Imm Hx Previously Healthy: No Endocrine/Hematology History: Reports: Hx Diabetes, Hx Anemia, Other Endocrine/ Hematological Disorders - leukopenia Denies: Hx Anticoagulant Therapy, Hx Thyroid Disease, Hx Unexplained Bleeding Cardiovascular History: Reports: Hx Hypertension, Other Cardiovascular Problems/ Disorders - IDDM/LEUOKOPENIA / SEIZURES Denies: Hx Aneurysm, Hx Angina, Hx Angioplasty, Hx Auto Implanted Cardiovert Defib, Hx Cardiac Arrest, Hx Cardiomegaly, Hx Congenital Heart Disease, Hx Congestive Heart Failure, Hx Coronary Artery Disease, Hx Deep Vein Thrombosis, Hx Hypercholesterolemia, Hx Hypotension, Hx Myocardial Infarction, Hx Pacemaker/ ICD, Hx Peripheral Vascular Disease, Hx Rheumatic Fever, Hx Syncope, Hx Valvular Heart Disease Respiratory History: Denies: Hx Asthma, Hx Chronic Bronchitis, Hx Chronic Obstructive Pulmonary Disease (COPD), Hx Cystic Fibrosis, Hx Lung Cancer, Hx Pleural Effusion, Hx Pneumonia, Hx Pulmonary Edema, Hx Pulmonary Embolism, Hx Seasonal Allergies, Hx Sleep Apnea, Other Respiratory Problems/Disorders GI History: Reports: Hx Gastroesophageal Reflux Disease, Hx Hiatal Hernia, Other GI Disorders - Constipation Denies: Hx Gall Bladder Disease, Hx Gastrointestinal Bleed, Hx Ulcer, Hx Urosepsis History: Denies: Hx Kidney Stones, Hx Renal Disease, Other Problems/Disorders Musculoskeletal History: Reports: Hx Orthopedic Injury - Left Leg Fracture Denies: Other Musculoskeletal History Sensory History: Denies: Hx Contacts or Glasses, Hx Hearing Aid, Other Sensory Impairments Opthamlomology History: Denies: Hx Contacts or Glasses, Other Sensory Impairments Neurological History: Reports: 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, Other Neuro Impairments/Disorders - MENTAL ILLNESS/SCHIZOPHRENIA Denies: Hx Dementia, Hx Developmental Delay, Hx Headaches, Hx Migraine, Hx Nerve Disease, Hx Spinal Cord Injury, Hx Transient Ischemic Attacks (TIA) Psychiatric History: Reports: Hx Anxiety, Hx Oppositional [place] Disorder, Hx Depression, Hx Panic Disorder, Hx Post Traumatic Stress Disorder, Hx Inpatient Treatment, Hx Community Mental Health Tx, Hx Schizophrenia, Hx Bipolar Disorder , Hx Suicide Attempt, Hx Substance Abuse, Other Psychiatric Issues/Disorders - Hx Psychosis Denies: Hx Attention Deficit Hyperactivity Disorder, Hx Eating Disorder, Hx of Violent Episodes Against Others - Surgical History Surgery Procedure, Year, and Place: LEFT INGUINAL HERNIA - as a child. LEG - NO METAL PER PT Hx Anesthesia Reactions: No - Immunization History Date of Tetanus Vaccine: Up to Date Date of Influenza Vaccine: None Infectious Disease History: No Infectious Disease History: Reports: Hx Clostridium Difficile Denies: Hx Hepatitis, Hx Human Immunodeficiency Virus (HIV), Hx of Known/ Suspected MRSA, Hx Shingles, Hx Tuberculosis, Hx Known/Suspected VRE, History Other Infectious Disease, Traveled Outside the [place] in Last 30 Days - Family History Known Family History: Positive: Cardiac Disease, Hypertension, Diabetes - When asked about family HTN, DM, CAD, he states, "Yeah, something like, Other - Schizophrenia, ASTHMA, CANCER - Social History Occupation: Disabled Lives: Assisted Living Alcohol Use: None Alcohol Amount: last ETOH 4 years ago Hx Substance Use: No Substance Use Type: Reports: None Substance Use Comment - Amount & Last Used: in the past Amphetamine Barbituats Hx Tobacco Use: Yes Smoking Status (MU): Never Smoked Tobacco Review of Systems Positive: Fever Positive: Nasal Discharge, Other - Nasal congestion Positive: Cough Positive: Myalgia All Other Systems Reviewed And Are Negative: Yes Physical Exam - Summary Physical Exam Summary: VITAL SIGNS: Reviewed. GENERAL: ~Patient is a well-developed and nourished male who is lying comfortable in the stretcher. Patient is not in any acute respiratory distress. HEAD AND FACE: No signs of trauma. No ecchymosis, hematomas or skull depressions. No sinus tenderness. EYES: PERRLA, EOMI x 2, No injected conjunctiva, no nystagmus. EARS: Hearing grossly intact. Ear canals and tympanic membranes are within normal limits. NOSE: nasal discharge, congestion MOUTH: Oropharynx within normal limits. NECK: Supple, trachea is midline, no adenopathy, no JVD, no carotid bruit, no c- spine tenderness, neck with full ROM. CHEST: Symmetric, no tenderness at palpation LUNGS: Clear to auscultation bilaterally. No wheezing or crackles. CVS: Regular rate and rhythm, S1 and S2 present, no murmurs or gallops appreciated. ABDOMEN: Soft, non-tender. No signs of distention. No rebound no guarding, and no masses palpated. Bowel sounds are normal. EXTREMITIES: FROM in all major joints, no edema, no cyanosis or clubbing. NEURO: Alert and oriented x 3. No acute neurological deficits. Speech is normal and follows commands. SKIN: Dry and warm Triage Information Reviewed: Yes Vital Signs On Initial Exam: Initial Vitals Pulse Pulse Ox 91 100 12/10/17 19:49 12/10/17 19:49 Vital Signs Reviewed: Yes Diagnostics - Vital Signs Vital Signs Temp Pulse Resp BP Pulse Ox 12/10/17 19:53 20 12/10/17 19:50 99.0 F 90 18 105/78 100 12/10/17 19:49 91 100 - Laboratory Result Diagrams: 12/10/17 21:09 12/10/17 21:09 Lab Statement: Any lab studies that have been ordered have been reviewed, and results considered in the medical decision making process. - Radiology CXR Radiology Interpretation Completed By: Radiologist - CXR reveals, per radiologist, low lung volumes. No active cardiopulmonary disease. ED physician has reviewed this radiology report. Re-Evaluation - Re-Evaluation First Eval Re-Evaluation Time: 20:57 Change: Unchanged Comment: Discussed plan of care with pt Disposition - Course Course Of Treatment: This patient is a 37 year old M BIBA presenting to [facility] with a chief complaint of general myalgias that began one week ago. Patient reports nasal discharge, fever, cough, and nasal congestion. Pt reports being recently prescribed antibiotics for these symptoms. CXR reveals, per radiologist , low lung volumes. No active cardiopulmonary disease. Bloodwork obtained. Pt will be discharged home. Pt is agreeable with this plan. - Diagnoses Provider Diagnoses: Common cold, Viral syndrome Discharge - Sign-Out/Discharge Documenting (check all that apply): Discharge/Admit/Transfer - Discharge home - Discharge Plan Condition: Stable Disposition: HOME Patient Education Materials: Viral Syndrome (ED), Cold Symptoms (ED) Referrals: Nicki Olmstead MD [Primary Care Provider] - Additional Instructions: TAKE MOTRIN AND SUDAFED NEEDED. RETURN TO THE EMERGENCY DEPARTMENT FOR NEW OR WORSENING SYMPTOMS. The documentation as recorded by the Alicia peralta Emily accurately reflects the service I personally performed and the decisions made by me, Marianna Belle MD.
== END 2017-12-10 21:57 | disposition home or self-care (01) ==
LOC: ED 19:44
DX: B34.9 Viral infection, unspecified (principal); J00 Acute nasopharyngitis [common cold]; E11.9 Type 2 diabetes mellitus without complications; D72.819 Decreased white blood cell count, unspecified; F20.9 Schizophrenia, unspecified; F31.9 Bipolar disorder, unspecified; F91.3 Oppositional defiant disorder; I10 Essential (primary) hypertension
CPT/HCPCS: 36415; 71045; 80053; 85025; 99283; A9270-GY

== ENCOUNTER 2017-12-16 08:59 | Emergency (ER) | payer MEDICARE, MEDICAID ==
[2017-12-16] MEDS: NS 0.9% 1000 ML* 1,000 ML IV SCH ×2 (09:26→11:48)
[2017-12-16 09:58] LABS: Urine Appearance Cloudy; Urine Blood Negative (Negative); Urine Color Yellow; Urine Ketones Negative (Negative); Urine Protein 2+(100 mg/dL) (Negative); Urine Specific Gravity 1.024 (1.010-1.030); Urine Urobilinogen Negative (Negative)
[2017-12-16 10:27] LABS: INR 0.98 (0.77-1.02)
[2017-12-16 10:28] LABS: ABS Basophils 0 10^3/ul (0-0.2); ABS Eosinophils 1.2 10^3/ul (0-0.6); ABS Lymphocytes 1.4 10^3/ul (1.0-4.8); ABS Monocytes 0.3 10^3/ul (0-0.8); ABS Neutrophils 2.3 10^3/ul (1.5-7.7); ABS Nucleated RBC 0 10^3/ul; Eosinophil % 23.3 % (0-6); Hematocrit 33 % (42-52); Hemoglobin 10.5 g/dl (14.0-18.0); Lymphocyte % 27.1 % (25-47); Mean Corpuscular HGB Conc 32 g/dl (31-36); Mean Corpuscular Hemoglobin 27 pg (27-31); Mean Corpuscular Volume 83 fL (80-94); Mean Platelet Volume 6.9 um3 (7.4-10.4); Nucleated Red Blood Cells % 0; Platelet Count 287 10^3/ul (150-450); Red Blood Count 3.92 10^6/ul (4.0-5.4); Red Cell Distribution Width 15 % (10.5-15); White Blood Count 5.2 10^3/ul (3.5-10.8)
[2017-12-16 10:35] LABS: EGFR Non-African American 108.2 (>60)
[2017-12-16] MEDS ORDERED: NS 0.9% 1000 ML* 1,000 ML IV ONE (10:42)
[2017-12-16] MEDS ORDERED: Ondansetron ODT TAB* 4 MG PO ONE (10:42)
[2017-12-16] MEDS ORDERED: Benzonatate CAP* 100 MG PO ONE (10:46)
--- NOTE | 2017-12-16 11:09 | RAD ---
Indication: Seizure. Fell and struck head. Comparison: October 09, 2012 Technique: Noncontrast CT vertex of skull through foramen magnum. Report: The sulci, ventricles, and basal cisterns are normal for age. [place] matter white matter differentiation is preserved without evidence for edema. No intra or extra axial hemorrhage, mass, or fluid collection detected. Unremarkable visualized orbital contents. Unremarkable calvarium and skull base. Unremarkable scalp. Pansinus mucosal thickening with near complete opacification of the LEFT maxillary sinus new compared with the 2013 exam. Fluid levels at the frontal sinuses may reflect acute sinusitis. Clear mastoid air spaces. IMPRESSION: 1. No CT evidence for traumatic brain injury or acute intracranial process. 2. Pansinus mucosal disease. Fluid levels at the frontal sinuses may reflect acute sinusitis. Correlate with clinical assessment.
--- NOTE | 2017-12-16 11:13 | RAD ---
INDICATION: Seizure; fell and hit head. Laceration to LEFT eyebrow. COMPARISON: August 28, 2012 TECHNIQUE: Multidetector CT base of the skull through mandible without contrast. Multiplanar reformation. REPORT: Artifact from dental amalgam. Mild LEFT supraorbital scalp swelling and skin contour abnormality laterally suspicious for laceration. No conspicuous foreign body or loculated hematoma. Negative for edema or hematoma at the post septal orbits. The ocular globes are symmetric. The orbital and maxillary sinus margins, zygomatic arches, lamina papyracea, base of the maxilla, pterygoid plates, and nasal bones are intact. The mandible is intact. Normal temporal mandibular joint alignment. Pansinus mucosal thickening with near complete opacification of the LEFT maxillary sinus and air-fluid levels at the frontal sinuses. Clear mastoid air spaces. IMPRESSION: 1. Mild LEFT supraorbital scalp swelling and skin contour abnormality laterally suspicious for laceration. No conspicuous foreign body or loculated hematoma. 2. Negative for maxillofacial fracture. 3. Pansinus mucosal disease. Potential acute frontal sinusitis.
--- NOTE | 2017-12-16 11:17 | RAD ---
INDICATION: Seizure. Fell and struck head. COMPARISON: October 21, 2017 CT. TECHNIQUE: Multidetector CT images foramen magnum to lung apices without contrast. Multiplanar reformation. REPORT: Alveolar consolidation at the apical segment of the RIGHT upper lobe new compared with the October 21, 2017 exam suspicious for pneumonia. Negative for pneumothorax. Negative for pleural effusion within the [id number]. Bilateral cervical lymph nodes visualized within normal limits by short axis size criteria. Normal vertebral alignment accounting for exam positioning without spondylolisthesis or subluxation at any level. Negative for cervical vertebral body or posterior element fracture. Negative for paravertebral hematoma. Preserved disc spaces throughout. IMPRESSION: 1. No CT evidence for traumatic cervical spine injury. 2. Alveolar consolidation at the apical segment of the RIGHT upper lobe new compared with the October 21, 2017 exam suspicious for pneumonia. Correlate with clinical assessment.
--- NOTE | 2017-12-16 13:47 | RAD ---
Indication: Cough for 2 months. Fall today after seizure. Comparison: December 10, 2017 Technique: Upright AP 1322 hours Report: Negative for cardiomegaly. Mild prominence and ill-definition of the central pulmonary vasculature. Grossly clear lungs and pleural spaces. Negative for pneumothorax. Probable small retrocardiac hiatal hernia. No fractures evident. IMPRESSION: The constellation of findings is most suggestive of mild pulmonary vascular congestion.
[2017-12-16] MEDS ORDERED: Lidocaine 1%* 5 ML VIAL INJ ONE (14:18)
[2017-12-16] MEDS ORDERED: DOXYcycline CAP(*) 100 MG PO ONE (14:55)
[2017-12-16] MEDS ORDERED: Lacosamide TAB* 100 MG TAB PO ONE (14:57)
--- NOTE | 2017-12-16 15:36 | ED ---
Alicia Anderson Emily, scribed for Rocael Seals MD on 12/16/17 at 1004 . Complex/Multi-Sys Presentation - HPI Summary HPI Summary: This patient is a 37 year old M BIB[facility] to [facility] status post fall. Pt reports that he woke up, and had seizure like activity when getting out of bed. Pt reports he fell and hit his head while seizing. The patient rates the pain 10/10 in severity. Symptoms aggravated by nothing. Symptoms alleviated by nothing. Patient reports laceration on L eyebrow, nasal congestion, and cough. Patient denies recent stress and changes in sleep. He reports that he is not currently on medication for his seizures. Pt reports he cannot remember his last seizure before the one this morning. - History Of Current Complaint Chief Complaint: EDSeizure Time Seen by Provider: 12/16/17 09:40 Hx Obtained From: Patient Onset/Duration: Sudden Onset, Lasting Hours, Still Present Timing: Constant Severity Currently: Severe Severity Initially: Severe Aggravating Factor(s): Nothing Alleviating Factor(s): Nothing Associated Signs And Symptoms: Positive: Other - Positive laceration on R eyebrow, nasal congestion, and cough - Allergies/Home Medications Allergies/Adverse Reactions: Allergies Allergy/AdvReac Type Severity Reaction Status Date / Time clozapine Allergy See Comment Verified 12/10/17 19:53 ephedrine Allergy Blurred Verified 12/10/17 19:53 Vision haloperidol [From Haldol] Allergy See Comment Verified 12/10/17 19:53 ziprasidone [From Geodon] Allergy See Comment Verified 12/10/17 19:53 Home Medications: Home Medications Albuterol HFA INHALER* [Ventolin HFA Inhaler*] 2 puff INH Q4H PRN 12/16/17 [ History Confirmed 12/16/17] PMH/Surg Hx/FS Hx/Imm Hx Previously Healthy: No Endocrine/Hematology History: Reports: Hx Diabetes, Hx Anemia, Other Endocrine/ Hematological Disorders - leukopenia Denies: Hx Anticoagulant Therapy, Hx Thyroid Disease, Hx Unexplained Bleeding Cardiovascular History: Reports: Hx Hypertension, Other Cardiovascular Problems/ Disorders - IDDM/LEUOKOPENIA / SEIZURES Denies: Hx Aneurysm, Hx Angina, Hx Angioplasty, Hx Auto Implanted Cardiovert Defib, Hx Cardiac Arrest, Hx Cardiomegaly, Hx Congenital Heart Disease, Hx Congestive Heart Failure, Hx Coronary Artery Disease, Hx Deep Vein Thrombosis, Hx Hypercholesterolemia, Hx Hypotension, Hx Myocardial Infarction, Hx Pacemaker/ ICD, Hx Peripheral Vascular Disease, Hx Rheumatic Fever, Hx Syncope, Hx Valvular Heart Disease Respiratory History: Denies: Hx Asthma, Hx Chronic Bronchitis, Hx Chronic Obstructive Pulmonary Disease (COPD), Hx Cystic Fibrosis, Hx Lung Cancer, Hx Pleural Effusion, Hx Pneumonia, Hx Pulmonary Edema, Hx Pulmonary Embolism, Hx Seasonal Allergies, Hx Sleep Apnea, Other Respiratory Problems/Disorders GI History: Reports: Hx Gastroesophageal Reflux Disease, Hx Hiatal Hernia, Other GI Disorders - Constipation Denies: Hx Gall Bladder Disease, Hx Gastrointestinal Bleed, Hx Ulcer, Hx Urosepsis History: Denies: Hx Kidney Stones, Hx Renal Disease, Other Problems/Disorders Musculoskeletal History: Reports: Hx Orthopedic Injury - Left Leg Fracture Denies: Other Musculoskeletal History Sensory History: Denies: Hx Contacts or Glasses, Hx Hearing Aid, Other Sensory Impairments Opthamlomology History: Denies: Hx Contacts or Glasses, Other Sensory Impairments Neurological History: Reports: 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, Other Neuro Impairments/Disorders - MENTAL ILLNESS/SCHIZOPHRENIA Denies: Hx Dementia, Hx Developmental Delay, Hx Headaches, Hx Migraine, Hx Nerve Disease, Hx Spinal Cord Injury, Hx Transient Ischemic Attacks (TIA) Psychiatric History: Reports: Hx Anxiety, Hx Oppositional [place] Disorder, Hx Depression, Hx Panic Disorder, Hx Post Traumatic Stress Disorder, Hx Inpatient Treatment, Hx Community Mental Health Tx, Hx Schizophrenia, Hx Bipolar Disorder , Hx Suicide Attempt, Hx Substance Abuse, Other Psychiatric Issues/Disorders - Hx Psychosis Denies: Hx Attention Deficit Hyperactivity Disorder, Hx Eating Disorder, Hx of Violent Episodes Against Others - Surgical History Surgery Procedure, Year, and Place: LEFT INGUINAL HERNIA - as a child. LEG - NO METAL PER PT Hx Anesthesia Reactions: No - Immunization History Date of Tetanus Vaccine: Up to Date Date of Influenza Vaccine: None Infectious Disease History: No Infectious Disease History: Reports: Hx Clostridium Difficile Denies: Hx Hepatitis, Hx Human Immunodeficiency Virus (HIV), Hx of Known/ Suspected MRSA, Hx Shingles, Hx Tuberculosis, Hx Known/Suspected VRE, History Other Infectious Disease, Traveled Outside the [place] in Last 30 Days - Family History Known Family History: Positive: Cardiac Disease, Hypertension, Diabetes - When asked about family HTN, DM, CAD, he states, "Yeah, something like, Other - Schizophrenia, ASTHMA, CANCER - Social History Occupation: Disabled Lives: Long-Term Alcohol Use: None Alcohol Amount: last ETOH 4 years ago Hx Substance Use: No Substance Use Type: Reports: None Substance Use Comment - Amount & Last Used: in the past Amphetamine Barbituats Hx Tobacco Use: Yes Smoking Status (MU): Never Smoked Tobacco Review of Systems Positive: Other - Positive nasal congestion Positive: Cough Positive: Other - Positive laceration over L eyebrow Neurological: Other - Positive seizure like activity. Negative changes in sleep Psychological: Other - Negative recent stress All Other Systems Reviewed And Are Negative: Yes Physical Exam - Summary Physical Exam Summary: General: well-appearing, no pain distress Skin: warm, color reflects adequate perfusion, dry Head and Face: Upper lip is swollen. No laceration visible. Dried blood on his lips. Eyes: EOMI, BHAVIK ENT: Stuttering words occasionally. Neck: supple, nontender Respiratory: CTA, breath sounds present Cardiovascular: RRR Abdomen: soft, nontender Bowel: present Musculoskeletal: normal, strength/ROM intact Neurological: sensory/motor intact, A&O x3, No focal neurological deficit. Psychological: affect/mood appropriate Triage Information Reviewed: Yes Vital Signs On Initial Exam: Initial Vitals Temp Pulse Resp BP Pulse Ox 97.9 F 111 20 126/93 94 12/16/17 09:04 12/16/17 09:04 12/16/17 09:04 12/16/17 09:04 12/16/17 09:04 Vital Signs Reviewed: Yes Procedures - Laceration/Wound Repair 1 Location: Other - Above left eyebrow Description: Linear Anesthesia: 1.0%, [place] Length, Depth and Shape: 18 mm. Shur-clens and sterile water used Laceration/Wound Explored: clean Closure: Single Layer Suture Type: Prolene - 6.0 Number of Sutures: 6 Sterile Dressing Applied?: Yes Diagnostics - Vital Signs Vital Signs Temp Pulse Resp BP Pulse Ox 12/16/17 09:28 96 16 126/93 97 12/16/17 09:04 97.9 F 111 20 126/93 94 - Laboratory Lab Results: Lab Results 12/16/17 Range/Units 09:21 Urine Color Yellow Urine Appearance Cloudy Urine pH 6.0 (5-9) Ur Specific [place] 1.024 (1.010-1.030) Urine Protein 2+(100 mg/dl) A (Negative) Urine Ketones Negative (Negative) Urine Blood Negative (Negative) Urine Nitrate Negative (Negative) Urine Bilirubin Negative (Negative) Urine Urobilinogen Negative (Negative) Ur Leukocyte Esterase Negative (Negative) Urine WBC (Auto) Trace(0-5/hpf) (Absent) Urine RBC (Auto) 2+(6-10/hpf) A (Absent) Urine Bacteria Absent (Absent) Urine Glucose Negative (Negative) Urine Ascorbic Acid * A (Negative) Result Diagrams: 12/16/17 09:56 12/16/17 09:56 Lab Statement: Any lab studies that have been ordered have been reviewed, and results considered in the medical decision making process. - Radiology CXR Radiology Interpretation Completed By: Radiologist - CXR reveals, per radiologist, the constellation of findings is most suggestive of mild pulmonary vascular congestion. ED physician has reviewed this radiology report. - CT Brain CT CT Interpretation Completed By: Radiologist - Brain CT reveals, per radiologist , 1. No CT evidence for traumatic brain injury or acute intracranial process. 2. Pansinus mucosal disease. Fluid levels at the frontal sinuses may reflect acute sinusitis. Correlate with clinical assessment. ED physician has reviewed this radiology report. Maxillofacial CT CT Interpretation Completed By: Radiologist - Maxillofacial CT reveals, per radiologist, 1. Mild LEFT supraorbital scalp swelling and skin contour abnormality laterally suspicious for laceration. No conspicuous foreign body or loculated hematoma. 2. Negative for maxillofacial fracture. 3. Pansinus mucosal disease. Potential acute frontal sinusitis. ED physician has reviewed this radiology report. Cervical Spine CT CT Interpretation Completed By: Radiologist - Cervical spine CT reveals, per radiologist, 1. No CT evidence for traumatic cervical spine injury. 2. Alveolar consolidation at the apical segment of the RIGHT upper lobe new compared with the October 21, 2017 exam suspicious for pneumonia. Correlate with clinical assessment. ED physician has reviewed this radiology report. Complex Multi-Symp Course/Dx Course Of Treatment: DISCUSSED WITH DR SCHAEFER, NEUROLOGY. HE RECOMMENDS INCREASING THE VIMPAT FROM 200MG PO BID TO 200MG IN THE AM AND 300MG IN THE EVENING. WILL START DOXYCYCLINE FOR THE BRONCHITIS SX OF 2 WEEKS. F/U NEUROLOGY AND PMD; RETURN IF WORSE. - Diagnoses Provider Diagnoses: Bronchitis, Seizure, Facial laceration - Physician Notifications Discussed Care Of Patient With: Reed Schaefer Time Discussed With Above Provider: 13:22 Instructed by Provider To: Other - Consult with Dr. Schaefer (neurology) at 1322. He recommends increasing the patients current dose of Vimpat to 200 mg in the morning and at night. Discharge - Sign-Out/Discharge Documenting (check all that apply): Discharge/Admit/Transfer - Discharge Plan Condition: Stable Disposition: HOME Prescriptions: DOXYcycline CAP(*) [DOXYcycline 100MG CAP(*)] 100 mg PO BID #19 cap Patient Education Materials: Acute Bronchitis (ED), Care For Your Stitches (ED) , Facial Laceration (ED), Epilepsy (ED) Referrals: Nicki Olmstead MD [Primary Care Provider] - Brenda Ma MD [Medical Doctor] - Additional Instructions: FOLLOW UP WITH YOUR PRIMARY CARE DOCTOR. GET YOUR SUTURES OUT IN 5 DAYS. KEEP ANTIBIOTIC OINTMENT ON THE LACERATION. INCREASE YOUR VIMPAT FROM 200MG TWICE A DAY TO 200MG IN THE MORNING AND 300MG IN THE EVENING. YOU WERE GIVEN VIMPAT 100MG ONCE IN THE EMERGENCY DEPARTMENT SO TONIGHT, TAKE YOUR NORMAL 200MG DOSE. CALL NEUROLOGY, DR MA, TOMORROW, 12/17/17 AND ASK THEM TO CHANGE THE VIMPAT PRESCRIPTION. I SPOKE WITH THE NEUROLOGIST SMT OPERATOR, DR SCHAEFER. RETURN TO THE EMERGENCY DEPARTMENT FOR ANY WORSENING OF YOUR CONDITION OR QUESTIONS OR CONCERNS. - Billing Disposition and Condition Condition: STABLE Disposition: HOME The documentation as recorded by the Alicia peralta Emily accurately reflects the service I personally performed and the decisions made by me, Rocael Seals MD.
[2017-12-16 16:47] VITALS: BP 130/80
== END 2017-12-16 16:47 | disposition home or self-care (01) ==
LOC: ED 08:59
DX: J40 Bronchitis, not specified as acute or chronic (principal); S01.111A Laceration without foreign body of right eyelid and periocular area, initial encounter; W19.XXXA Unspecified fall, initial encounter; Y92.9 Unspecified place or not applicable; R09.81 Nasal congestion; R05 Cough; R56.9 Unspecified convulsions; I10 Essential (primary) hypertension; E11.9 Type 2 diabetes mellitus without complications
CPT/HCPCS: 36415; 70450; 70486; 71045; 72125; 80053; 80299; 80307; 80320; 80329; 80342; 81003; 81015; 82140; 82550; 83605; 83690; 83735; 83880; 84443; 85025; 85610; 85730; 86140; 87086; 96374; 99284; A9270-GY; G0480

== ENCOUNTER 2018-04-07 14:07 | Emergency (ER) | payer MEDICARE, MEDICAID ==
[2018-04-07 16:35] LABS: ABS Basophils 0 10^3/ul (0-0.2); ABS Eosinophils 0.3 10^3/ul (0-0.6); ABS Lymphocytes 1.9 10^3/ul (1.0-4.8); ABS Monocytes 0.3 10^3/ul (0-0.8); ABS Neutrophils 5.5 10^3/ul (1.5-7.7); ABS Nucleated RBC 0 10^3/ul; Eosinophil % 3.4 % (0-6); Hematocrit 41 % (42-52); Hemoglobin 13.3 g/dl (14.0-18.0); Lymphocyte % 24.2 % (25-47); Mean Corpuscular HGB Conc 33 g/dl (31-36); Mean Corpuscular Hemoglobin 27 pg (27-31); Mean Corpuscular Volume 83 fL (80-94); Mean Platelet Volume 6.9 um3 (7.4-10.4); Nucleated Red Blood Cells % 0.2; Platelet Count 293 10^3/ul (150-450); Red Blood Count 4.89 10^6/ul (4.00-5.40); Red Cell Distribution Width 13 % (10.5-15); White Blood Count 8.1 10^3/ul (3.5-10.8)
[2018-04-07 16:51] LABS: EGFR Non-African American 109.2 (>60)
--- NOTE | 2018-04-07 17:16 | RAD ---
INDICATION: Right lower leg and ankle pain COMPARISON: None. TECHNIQUE: 2 views of the right lower leg and 3 views of the right ankle were obtained. FINDINGS: The bones are normal alignment. Joint spaces appear maintained. No fracture is seen. IMPRESSION: NO RADIOGRAPHICALLY APPARENT FRACTURE OR DISLOCATION INVOLVING THE RIGHT LOWER LEG OR ANKLE. If the patient's symptoms persist, follow-up imaging is recommended.
[2018-04-07 18:31] VITALS: BP 155/102
--- NOTE | 2018-04-13 07:18 | ED ---
Lower Extremity - HPI Summary HPI Summary: Patient is a 38-year-old male presenting to the ED after a fall with chief complaint of right lateral ankle pain. He states the pain radiates just inferior to the right knee. He denies any knee pain. Patient states he is unable to ambulate. Denies any swelling or erythema to the area. He states he may have had a seizure and would like lab work obtained. Denies hitting his head. He states he does recall the events prior to the fall and after the fall. - History of Current Complaint Chief Complaint: EDExtremityLower Stated Complaint: RT FOOT PAIN Time Seen by Provider: 04/07/18 14:24 Hx Obtained From: Patient Onset of Pain: Minutes Onset/Duration: Minutes Severity Initially: Mild Severity Currently: Mild Pain Intensity: 10 Pain Scale Used: 0-10 Numeric Timing: Constant Location: Is Discrete @ - right ankle pain Associated Signs And Symptoms: Negative: Swelling, Redness Aggravating Factor(s): Standing, Ambulation Alleviating Factor(s): Rest Able to Bear Weight: No - Risk Factors Gout Risk Factors: Negative DVT Risk Factors: Negative Septic Arthritis Risk Factor: Negative - Allergies/Home Medications Allergies/Adverse Reactions: Allergies Allergy/AdvReac Type Severity Reaction Status Date / Time clozapine Allergy See Comment Verified 04/13/18 07:32 ephedrine Allergy Blurred Verified 04/13/18 07:32 Vision haloperidol [From Haldol] Allergy See Comment Verified 04/13/18 07:32 ziprasidone [From Geodon] Allergy See Comment Verified 04/13/18 07:32 PMH/Surg Hx/FS Hx/Imm Hx Previously Healthy: Yes Endocrine/Hematology History: Reports: Hx Diabetes, Hx Anemia, Other Endocrine/ Hematological Disorders - leukopenia Denies: Hx Anticoagulant Therapy, Hx Thyroid Disease, Hx Unexplained Bleeding Cardiovascular History: Reports: Hx Hypertension, Other Cardiovascular Problems/ Disorders - IDDM/LEUOKOPENIA / SEIZURES Denies: Hx Aneurysm, Hx Angina, Hx Angioplasty, Hx Auto Implanted Cardiovert Defib, Hx Cardiac Arrest, Hx Cardiomegaly, Hx Congenital Heart Disease, Hx Congestive Heart Failure, Hx Coronary Artery Disease, Hx Deep Vein Thrombosis, Hx Hypercholesterolemia, Hx Hypotension, Hx Myocardial Infarction, Hx Pacemaker/ ICD, Hx Peripheral Vascular Disease, Hx Rheumatic Fever, Hx Syncope, Hx Valvular Heart Disease Respiratory History: Denies: Hx Asthma, Hx Chronic Bronchitis, Hx Chronic Obstructive Pulmonary Disease (COPD), Hx Cystic Fibrosis, Hx Lung Cancer, Hx Pleural Effusion, Hx Pneumonia, Hx Pulmonary Edema, Hx Pulmonary Embolism, Hx Seasonal Allergies, Hx Sleep Apnea, Other Respiratory Problems/Disorders GI History: Reports: Hx Gastroesophageal Reflux Disease, Hx Hiatal Hernia, Other GI Disorders - Constipation Denies: Hx Gall Bladder Disease, Hx Gastrointestinal Bleed, Hx Ulcer, Hx Urosepsis History: Denies: Hx Kidney Stones, Hx Renal Disease, Other Problems/Disorders Musculoskeletal History: Reports: Hx Orthopedic Injury - Left Leg Fracture Denies: Other Musculoskeletal History Sensory History: Denies: Hx Contacts or Glasses, Hx Hearing Aid, Other Sensory Impairments Opthamlomology History: Denies: Hx Contacts or Glasses, Other Sensory Impairments Neurological History: Reports: 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, Other Neuro Impairments/Disorders - MENTAL ILLNESS/SCHIZOPHRENIA Denies: Hx Dementia, Hx Developmental Delay, Hx Headaches, Hx Migraine, Hx Nerve Disease, Hx Spinal Cord Injury, Hx Transient Ischemic Attacks (TIA) Psychiatric History: Reports: Hx Anxiety, Hx Oppositional [place] Disorder, Hx Depression, Hx Panic Disorder, Hx Post Traumatic Stress Disorder, Hx Inpatient Treatment, Hx Community Mental Health Tx, Hx Schizophrenia, Hx Bipolar Disorder , Hx Suicide Attempt, Hx Substance Abuse, Other Psychiatric Issues/Disorders - Hx Psychosis Denies: Hx Attention Deficit Hyperactivity Disorder, Hx Eating Disorder, Hx of Violent Episodes Against Others - Surgical History Surgery Procedure, Year, and Place: LEFT INGUINAL HERNIA - as a child. LEG - NO METAL PER PT Hx Anesthesia Reactions: No - Immunization History Date of Tetanus Vaccine: Up to Date Date of Influenza Vaccine: None Hx Pertussis Vaccination: No Immunizations Up to Date: Yes Infectious Disease History: No Infectious Disease History: Reports: Hx Clostridium Difficile Denies: Hx Hepatitis, Hx Human Immunodeficiency Virus (HIV), Hx of Known/ Suspected MRSA, Hx Shingles, Hx Tuberculosis, Hx Known/Suspected VRE, History Other Infectious Disease, Traveled Outside the [place] in Last 30 Days - Family History Known Family History: Positive: Cardiac Disease, Hypertension, Diabetes - When asked about family HTN, DM, CAD, he states, "Yeah, something like, Other - Schizophrenia, ASTHMA, CANCER - Social History Occupation: Unemployed Lives: Dormitory/Roommates Alcohol Use: Occasionally Alcohol Amount: last ETOH 4 years ago Hx Substance Use: No Substance Use Type: Reports: None Substance Use Comment - Amount & Last Used: in the past Amphetamine Barbituats Hx Tobacco Use: Yes Smoking Status (MU): Never Smoked Tobacco Review of Systems Constitutional: Negative Negative: Fever, Chills, Fatigue, Skin Diaphoresis Negative: Palpitations, Chest Pain Negative: Shortness Of Breath, Cough Genitourinary: Negative Positive: no symptoms reported, see HPI Positive: Arthralgia, Myalgia Negative: Rash Neurological: Negative All Other Systems Reviewed And Are Negative: Yes Physical Exam Triage Information Reviewed: Yes Vital Signs On Initial Exam: Initial Vitals Temp Pulse Resp BP Pulse Ox 98.7 F 81 19 135/87 98 04/07/18 14:15 04/07/18 14:15 04/07/18 14:15 04/07/18 14:15 04/07/18 14:15 Vital Signs Reviewed: Yes Appearance: Positive: Well-Appearing, Well-Nourished Skin: Positive: Warm, Skin Color Reflects Adequate Perfusion Head/Face: Positive: Normal Head/Face Inspection Eyes: Positive: EOMI, BHAVIK, Conjunctiva Clear Neck: Positive: Supple, No Lymphadenopathy Respiratory/Lung Sounds: Positive: Clear to Auscultation, Breath Sounds Present Cardiovascular: Positive: RRR, Pulses are Symmetrical in both Upper and Lower Extremities Musculoskeletal: Positive: Normal, Strength/ROM Intact Neurological: Positive: Speech Normal Psychiatric: Positive: Normal, Affect/Mood Appropriate AVPU Assessment: Alert Diagnostics - Vital Signs Vital Signs Temp Pulse Resp BP Pulse Ox 04/07/18 18:29 98.8 F 86 18 155/102 97 04/07/18 14:15 98.7 F 81 19 135/87 98 - Laboratory Lab Results: Lab Results 04/07/18 04/07/18 Range/Units 16:23 16:23 WBC 8.1 (3.5-10.8) 10^3/ul RBC 4.89 (4.00-5.40) 10^6/ul Hgb 13.3 L (14.0-18.0) g/dl Hct 41 L (42-52) % MCV 83 (80-94) fL MCH 27 (27-31) pg MCHC 33 (31-36) g/dl RDW 13 (10.5-15) % Plt Count 293 (150-450) 10^3/ul MPV 6.9 L (7.4-10.4) um3 Neut % (Auto) 68.3 (38-83) % Lymph % (Auto) 24.2 L (25-47) % [place] % (Auto) 3.7 (0-7) % Eos % (Auto) 3.4 (0-6) % Baso % (Auto) 0.4 (0-2) % Absolute Neuts (auto) 5.5 (1.5-7.7) 10^3/ul Absolute Lymphs (auto) 1.9 (1.0-4.8) 10^3/ul Absolute Monos (auto) 0.3 (0-0.8) 10^3/ul Absolute Eos (auto) 0.3 (0-0.6) 10^3/ul Absolute Basos (auto) 0 (0-0.2) 10^3/ul Absolute Nucleated RBC 0 10^3/ul Nucleated RBC % 0.2 Sodium 137 (135-145) mmol/L Potassium 3.8 (3.5-5.0) mmol/L Chloride 107 (101-111) mmol/L Carbon Dioxide 22 (22-32) mmol/L Anion Gap 8 (2-11) mmol/L BUN 10 (6-24) mg/dL Creatinine 0.79 (0.67-1.17) mg/dL Est GFR ( Amer) 132.1 (>60) Est GFR (Non-Af Amer) 109.2 (>60) BUN/Creatinine Ratio 12.7 (8-20) Glucose 103 H (70-100) mg/dL Calcium 9.5 (8.6-10.3) mg/dL Magnesium 1.8 L (1.9-2.7) mg/dL Total Bilirubin 0.30 (0.2-1.0) mg/dL AST 16 (13-39) U/L ALT 12 (7-52) U/L Alkaline Phosphatase 68 (34-104) U/L Total Protein 8.3 (6.4-8.9) g/dL Albumin 4.5 (3.2-5.2) g/dL Globulin 3.8 (2-4) g/dL Albumin/Globulin Ratio 1.2 (1-3) Result Diagrams: 04/07/18 16:23 04/07/18 16:23 Lab Statement: Any lab studies that have been ordered have been reviewed, and results considered in the medical decision making process. Lower Extremity Course/Dx - Course Course Of Treatment: Right ankle and right lower extremity x-ray obtained. Negative for any fracture. Labs obtained upon patient request which was also WNL. Appears that patient likely did not have a seizure. - Diagnoses Differential Diagnosis/HQI/PQRI: Positive: Sprain Provider Diagnoses: Ankle sprain Discharge - Sign-Out/Discharge Documenting (check all that apply): Patient Departure - Discharge Plan Condition: Stable Disposition: HOME Patient Education Materials: Ankle Sprain (ED) Referrals: Nicki Olmstead MD [Primary Care Provider] - Additional Instructions: Crutches as needed Ice Elevation Ibuprofen 600mg three times daily Gel splint as needed - Billing Disposition and Condition Condition: STABLE Disposition: Home
== END 2018-04-07 18:29 | disposition home or self-care (01) ==
LOC: ED 14:07
DX: S93.401A Sprain of unspecified ligament of right ankle, initial encounter (principal); M79.671 Pain in right foot; W19.XXXA Unspecified fall, initial encounter; Y92.9 Unspecified place or not applicable; E11.9 Type 2 diabetes mellitus without complications
CPT/HCPCS: 36415; 80053; 83735; 85025; 99282

== ENCOUNTER 2018-04-13 07:16 | Emergency (ER) | payer MEDICARE, MEDICAID ==
[2018-04-13] MEDS ORDERED: Ibuprofen TAB* 600 MG PO ONE (08:07)
[2018-04-13 08:30] LABS: ABS Basophils 0 10^3/ul (0-0.2); ABS Eosinophils 0.3 10^3/ul (0-0.6); ABS Lymphocytes 1.5 10^3/ul (1.0-4.8); ABS Monocytes 0.3 10^3/ul (0-0.8); ABS Neutrophils 4.1 10^3/ul (1.5-7.7); ABS Nucleated RBC 0 10^3/ul; Eosinophil % 4.6 % (0-6); Hematocrit 37 % (42-52); Hemoglobin 12.1 g/dl (14.0-18.0); Lymphocyte % 24.3 % (25-47); Mean Corpuscular HGB Conc 33 g/dl (31-36); Mean Corpuscular Hemoglobin 27 pg (27-31); Mean Corpuscular Volume 83 fL (80-94); Mean Platelet Volume 7.1 um3 (7.4-10.4); Nucleated Red Blood Cells % 0.1; Platelet Count 282 10^3/ul (150-450); Red Blood Count 4.46 10^6/ul (4.00-5.40); Red Cell Distribution Width 13 % (10.5-15); White Blood Count 6.2 10^3/ul (3.5-10.8)
[2018-04-13 08:45] LABS: EGFR Non-African American 88.3 (>60)
[2018-04-13 09:22] VITALS: BP 130/93
--- NOTE | 2018-04-13 09:59 | ED ---
Lower Extremity - HPI Summary HPI Summary: Patient is 38-year-old male presenting to the ED for the second time in one week with right ankle pain. He states he was concerned as he was "falling" in the elevator this morning and is requesting blood work. He was requesting blood work last week as well for a "falling" episode. History of seizures, but states this was not a seizure. He states while he is not concerned over his falling episodes he would like to have blood work obtained. He is also endorsing some pain to the right ankle, however this was improved over the past week since he injured the area. He remains on crutches and with a gel splint. He has not followed up with orthopedics. He continues to take ibuprofen daily. He denies any headache, visual changes, hitting his head or LOC. - History of Current Complaint Chief Complaint: EDExtremityLower Stated Complaint: FALL Time Seen by Provider: 04/13/18 07:21 Hx Obtained From: Patient Onset of Pain: Minutes Onset/Duration: Minutes Severity Initially: Mild Severity Currently: Mild Pain Intensity: 8 Pain Scale Used: 0-10 Numeric Timing: Constant Location: Is Discrete @ - right ankle Character Of Pain: Aching Associated Signs And Symptoms: Negative: Swelling, Redness, Bruising Aggravating Factor(s): Standing, Ambulation Alleviating Factor(s): Rest Able to Bear Weight: Yes - Risk Factors Gout Risk Factors: Negative DVT Risk Factors: Negative Septic Arthritis Risk Factor: Negative - Allergies/Home Medications Allergies/Adverse Reactions: Allergies Allergy/AdvReac Type Severity Reaction Status Date / Time clozapine Allergy See Comment Verified 04/13/18 07:32 ephedrine Allergy Blurred Verified 04/13/18 07:32 Vision haloperidol [From Haldol] Allergy See Comment Verified 04/13/18 07:32 ziprasidone [From Geodon] Allergy See Comment Verified 04/13/18 07:32 PMH/Surg Hx/FS Hx/Imm Hx Previously Healthy: Yes Endocrine/Hematology History: Reports: Hx Diabetes, Hx Anemia, Other Endocrine/ Hematological Disorders - leukopenia Denies: Hx Anticoagulant Therapy, Hx Thyroid Disease, Hx Unexplained Bleeding Cardiovascular History: Reports: Hx Hypertension, Other Cardiovascular Problems/ Disorders - IDDM/LEUOKOPENIA / SEIZURES Denies: Hx Aneurysm, Hx Angina, Hx Angioplasty, Hx Auto Implanted Cardiovert Defib, Hx Cardiac Arrest, Hx Cardiomegaly, Hx Congenital Heart Disease, Hx Congestive Heart Failure, Hx Coronary Artery Disease, Hx Deep Vein Thrombosis, Hx Hypercholesterolemia, Hx Hypotension, Hx Myocardial Infarction, Hx Pacemaker/ ICD, Hx Peripheral Vascular Disease, Hx Rheumatic Fever, Hx Syncope, Hx Valvular Heart Disease Respiratory History: Denies: Hx Asthma, Hx Chronic Bronchitis, Hx Chronic Obstructive Pulmonary Disease (COPD), Hx Cystic Fibrosis, Hx Lung Cancer, Hx Pleural Effusion, Hx Pneumonia, Hx Pulmonary Edema, Hx Pulmonary Embolism, Hx Seasonal Allergies, Hx Sleep Apnea, Other Respiratory Problems/Disorders GI History: Reports: Hx Gastroesophageal Reflux Disease, Hx Hiatal Hernia, Other GI Disorders - Constipation Denies: Hx Gall Bladder Disease, Hx Gastrointestinal Bleed, Hx Ulcer, Hx Urosepsis History: Denies: Hx Kidney Stones, Hx Renal Disease, Other Problems/Disorders Musculoskeletal History: Reports: Hx Orthopedic Injury - Left Leg Fracture Denies: Other Musculoskeletal History Sensory History: Denies: Hx Contacts or Glasses, Hx Hearing Aid, Other Sensory Impairments Opthamlomology History: Denies: Hx Contacts or Glasses, Other Sensory Impairments Neurological History: Reports: 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, Other Neuro Impairments/Disorders - MENTAL ILLNESS/SCHIZOPHRENIA Denies: Hx Dementia, Hx Developmental Delay, Hx Headaches, Hx Migraine, Hx Nerve Disease, Hx Spinal Cord Injury, Hx Transient Ischemic Attacks (TIA) Psychiatric History: Reports: Hx Anxiety, Hx Oppositional [place] Disorder, Hx Depression, Hx Panic Disorder, Hx Post Traumatic Stress Disorder, Hx Inpatient Treatment, Hx Community Mental Health Tx, Hx Schizophrenia, Hx Bipolar Disorder , Hx Suicide Attempt, Hx Substance Abuse, Other Psychiatric Issues/Disorders - Hx Psychosis Denies: Hx Attention Deficit Hyperactivity Disorder, Hx Eating Disorder, Hx of Violent Episodes Against Others - Surgical History Surgery Procedure, Year, and Place: LEFT INGUINAL HERNIA - as a child. LEG - NO METAL PER PT Hx Anesthesia Reactions: No - Immunization History Date of Tetanus Vaccine: Up to Date Date of Influenza Vaccine: None Hx Pertussis Vaccination: No Immunizations Up to Date: Yes Infectious Disease History: No Infectious Disease History: Reports: Hx Clostridium Difficile Denies: Hx Hepatitis, Hx Human Immunodeficiency Virus (HIV), Hx of Known/ Suspected MRSA, Hx Shingles, Hx Tuberculosis, Hx Known/Suspected VRE, History Other Infectious Disease, Traveled Outside the [place] in Last 30 Days - Family History Known Family History: Positive: Cardiac Disease, Hypertension, Diabetes - When asked about family HTN, DM, CAD, he states, "Yeah, something like, Other - Schizophrenia, ASTHMA, CANCER - Social History Occupation: Unemployed Lives: Alf Alcohol Use: Occasionally Alcohol Amount: last ETOH 4 years ago Hx Substance Use: No Substance Use Type: Reports: None Substance Use Comment - Amount & Last Used: in the past Amphetamine Barbituats Hx Tobacco Use: Yes Smoking Status (MU): Never Smoked Tobacco Review of Systems Constitutional: Negative Negative: Fever, Chills, Fatigue, Skin Diaphoresis Negative: Palpitations, Chest Pain Negative: Shortness Of Breath, Cough Negative: Abdominal Pain, Vomiting, Diarrhea, Nausea Genitourinary: Negative Positive: no symptoms reported, see HPI Positive: Arthralgia, Other - denies weakness bilaterally Skin: Negative Neurological: Other - "falling" Negative: Headache, Weakness, Paresthesia, Numbness Positive: Anxious All Other Systems Reviewed And Are Negative: Yes Physical Exam Triage Information Reviewed: Yes Vital Signs On Initial Exam: Initial Vitals Temp Pulse Resp BP Pulse Ox 98.3 F 97 19 140/100 97 04/13/18 07:17 04/13/18 07:17 04/13/18 07:17 04/13/18 07:17 04/13/18 07:17 Vital Signs Reviewed: Yes Appearance: Positive: Well-Appearing, Well-Nourished Skin: Positive: Warm, Skin Color Reflects Adequate Perfusion Head/Face: Positive: Normal Head/Face Inspection Eyes: Positive: EOMI, BHAVIK, Conjunctiva Clear Neck: Positive: Supple, No Lymphadenopathy Respiratory/Lung Sounds: Positive: Clear to Auscultation, Breath Sounds Present Cardiovascular: Positive: RRR, Pulses are Symmetrical in both Upper and Lower Extremities. Negative: Leg Edema Left, Leg Edema Right Musculoskeletal: Positive: Strength/ROM Intact, Pain @ - right medial and lateral ankle with pain on palpation and flexion and extension Neurological: Positive: Speech Normal Psychiatric: Positive: Affect/Mood Appropriate AVPU Assessment: Alert Diagnostics - Vital Signs Vital Signs Temp Pulse Resp BP Pulse Ox 04/13/18 09:21 98.1 F 78 17 130/93 99 04/13/18 07:17 98.3 F 97 19 140/100 97 - Laboratory Lab Results: Lab Results 04/13/18 04/13/18 Range/Units 08:10 08:10 WBC 6.2 (3.5-10.8) 10^3/ul RBC 4.46 (4.00-5.40) 10^6/ul Hgb 12.1 L (14.0-18.0) g/dl Hct 37 L (42-52) % MCV 83 (80-94) fL MCH 27 (27-31) pg MCHC 33 (31-36) g/dl RDW 13 (10.5-15) % Plt Count 282 (150-450) 10^3/ul MPV 7.1 L (7.4-10.4) um3 Neut % (Auto) 65.8 (38-83) % Lymph % (Auto) 24.3 L (25-47) % [place] % (Auto) 4.8 (0-7) % Eos % (Auto) 4.6 (0-6) % Baso % (Auto) 0.5 (0-2) % Absolute Neuts (auto) 4.1 (1.5-7.7) 10^3/ul Absolute Lymphs (auto) 1.5 (1.0-4.8) 10^3/ul Absolute Monos (auto) 0.3 (0-0.8) 10^3/ul Absolute Eos (auto) 0.3 (0-0.6) 10^3/ul Absolute Basos (auto) 0 (0-0.2) 10^3/ul Absolute Nucleated RBC 0 10^3/ul Nucleated RBC % 0.1 Sodium 140 (135-145) mmol/L Potassium 3.9 (3.5-5.0) mmol/L Chloride 104 (101-111) mmol/L Carbon Dioxide 29 (22-32) mmol/L Anion Gap 7 (2-11) mmol/L BUN 14 (6-24) mg/dL Creatinine 0.95 (0.67-1.17) mg/dL Est GFR ( Amer) 106.8 (>60) Est GFR (Non-Af Amer) 88.3 (>60) BUN/Creatinine Ratio 14.7 (8-20) Glucose 135 H (70-100) mg/dL Calcium 9.4 (8.6-10.3) mg/dL Total Bilirubin 0.40 (0.2-1.0) mg/dL AST 15 (13-39) U/L ALT 10 (7-52) U/L Alkaline Phosphatase 77 (34-104) U/L Total Protein 7.6 (6.4-8.9) g/dL Albumin 4.1 (3.2-5.2) g/dL Globulin 3.5 (2-4) g/dL Albumin/Globulin Ratio 1.2 (1-3) Result Diagrams: 04/13/18 08:10 04/13/18 08:10 Lab Statement: Any lab studies that have been ordered have been reviewed, and results considered in the medical decision making process. Lower Extremity Course/Dx - Course Course Of Treatment: During the course of treatment, the patient is evaluated for right ankle pain and "falling episodes." He states this is normal for him but would like to get checked out. Denies hitting his head or any LOC. He states he feels well. Patient is nontoxic in appearing, appears well, sitting upright and is A&O x 3. There is no swelling or ecchymosis noted to the ankle. I've encouraged him to follow-up with orthopedics if symptoms worsen or persist. He is okay for discharge at this time. Labs are WNL. - Diagnoses Differential Diagnosis/HQI/PQRI: Positive: Sprain, Strain, Other - seizure like activity, dizziness, syncope, weakness Provider Diagnoses: Fall Discharge - Sign-Out/Discharge Documenting (check all that apply): Patient Departure - Discharge Plan Condition: Stable Disposition: HOME Referrals: Nicki Olmstead MD [Primary Care Provider] - - Billing Disposition and Condition Condition: STABLE Disposition: Home
== END 2018-04-13 09:21 | disposition home or self-care (01) ==
LOC: ED 07:16
DX: M25.571 Pain in right ankle and joints of right foot (principal); W19.XXXA Unspecified fall, initial encounter; Y92.9 Unspecified place or not applicable; Z91.81 History of falling; Z88.8 Allergy status to other drugs, medicaments and biological substances
CPT/HCPCS: 36415; 80053; 85025; 99282; A9270-GY

== ENCOUNTER 2018-05-05 05:50 | Emergency (ER) | payer MEDICARE, MEDICAID ==
[2018-05-05] MEDS ORDERED: guaiFENesin/CODIEN 100MG-10MG* 5 ML UDC PO ONE (05:59)
[2018-05-05] MEDS ORDERED: Albuterol HFA INHALER* 8 gm MDI INH ONE (06:00)
--- NOTE | 2018-05-05 06:20 | ED ---
Respiratory - HPI Summary HPI Summary: Patient's 38-year-old male presenting to the ED with a cough and shortness of breath which started this morning. He states the cough may have been present for 2-3 days, but the shortness of breath began just prior to arrival. He states he awoke with the shortness of breath. Denies any chest pain. Denies any recent travel, calf pain, history of DVT or PE. He takes ibuprofen daily for his foot pain. He also has prescription for PRN Zyprexa. History of seizures, but is currently not on any seizure medications. He denies any known sick contacts. Denies any fevers or chills, however is endorsing intermittent sweats. He states he has not taken his temperature prior to arrival. - History of Current Complaint Chief Complaint: EDShortnessOfBreath Stated Complaint: COUGH Time Seen by Provider: 05/05/18 05:51 Hx Obtained From: Patient Onset/Duration: Sudden Onset Timing: Constant Current Severity: Moderate Pain Intensity: 0 Character: Cough (Nonproductive) Sputum Amount: Scant Sputum Color: Clear, White Aggravating Factor(s): Nothing Alleviating Factor(s): Nothing Associated Signs and Symptoms: SOB - Risk Factors Status Asthmaticus Risk Factors: Negative Pulmonary Embolism Risk Factors: Negative Cardiac Risk Factors: Negative Pseudomonas Risk Factors: Negative - Allergy/Home Medications Allergies/Adverse Reactions: Allergies Allergy/AdvReac Type Severity Reaction Status Date / Time clozapine Allergy See Comment Verified 04/13/18 07:32 ephedrine Allergy Blurred Verified 04/13/18 07:32 Vision haloperidol [From Haldol] Allergy See Comment Verified 04/13/18 07:32 ziprasidone [From Geodon] Allergy See Comment Verified 04/13/18 07:32 PMH/Surg Hx/FS Hx/Imm Hx Previously Healthy: Yes Endocrine/Hematology History: Reports: Hx Diabetes, Hx Anemia, Other Endocrine/ Hematological Disorders - leukopenia Denies: Hx Anticoagulant Therapy, Hx Thyroid Disease, Hx Unexplained Bleeding Cardiovascular History: Reports: Hx Hypertension, Other Cardiovascular Problems/ Disorders - IDDM/LEUOKOPENIA / SEIZURES Denies: Hx Aneurysm, Hx Angina, Hx Angioplasty, Hx Auto Implanted Cardiovert Defib, Hx Cardiac Arrest, Hx Cardiomegaly, Hx Congenital Heart Disease, Hx Congestive Heart Failure, Hx Coronary Artery Disease, Hx Deep Vein Thrombosis, Hx Hypercholesterolemia, Hx Hypotension, Hx Myocardial Infarction, Hx Pacemaker/ ICD, Hx Peripheral Vascular Disease, Hx Rheumatic Fever, Hx Syncope, Hx Valvular Heart Disease Respiratory History: Denies: Hx Asthma, Hx Chronic Bronchitis, Hx Chronic Obstructive Pulmonary Disease (COPD), Hx Cystic Fibrosis, Hx Lung Cancer, Hx Pleural Effusion, Hx Pneumonia, Hx Pulmonary Edema, Hx Pulmonary Embolism, Hx Seasonal Allergies, Hx Sleep Apnea, Other Respiratory Problems/Disorders GI History: Reports: Hx Gastroesophageal Reflux Disease, Hx Hiatal Hernia, Other GI Disorders - Constipation Denies: Hx Gall Bladder Disease, Hx Gastrointestinal Bleed, Hx Ulcer, Hx Urosepsis History: Denies: Hx Kidney Stones, Hx Renal Disease, Other Problems/Disorders Musculoskeletal History: Reports: Hx Orthopedic Injury - Left Leg Fracture Denies: Other Musculoskeletal History Sensory History: Denies: Hx Contacts or Glasses, Other Sensory Impairments Opthamlomology History: Denies: Hx Contacts or Glasses, Other Sensory Impairments Neurological History: Reports: 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, Other Neuro Impairments/Disorders - MENTAL ILLNESS/SCHIZOPHRENIA Denies: Hx Dementia, Hx Developmental Delay, Hx Headaches, Hx Migraine, Hx Nerve Disease, Hx Spinal Cord Injury, Hx Transient Ischemic Attacks (TIA) Psychiatric History: Reports: Hx Anxiety, Hx Oppositional [place] Disorder, Hx Depression, Hx Panic Disorder, Hx Post Traumatic Stress Disorder, Hx Inpatient Treatment, Hx Community Mental Health Tx, Hx Schizophrenia, Hx Bipolar Disorder , Hx Suicide Attempt, Hx Substance Abuse, Other Psychiatric Issues/Disorders - Hx Psychosis Denies: Hx Attention Deficit Hyperactivity Disorder, Hx Eating Disorder, Hx of Violent Episodes Against Others - Surgical History Surgery Procedure, Year, and Place: LEFT INGUINAL HERNIA - as a child. LEG - NO METAL PER PT Hx Anesthesia Reactions: No - Immunization History Date of Tetanus Vaccine: Up to Date Date of Influenza Vaccine: None Infectious Disease History: No Infectious Disease History: Reports: Hx Clostridium Difficile Denies: Hx Hepatitis, Hx Human Immunodeficiency Virus (HIV), Hx of Known/ Suspected MRSA, Hx Shingles, Hx Tuberculosis, Hx Known/Suspected VRE, History Other Infectious Disease, Traveled Outside the [place] in Last 30 Days - Family History Known Family History: Positive: Cardiac Disease, Hypertension, Diabetes - When asked about family HTN, DM, CAD, he states, "Yeah, something like, Other - Schizophrenia, ASTHMA, CANCER - Social History Occupation: Unemployed Lives: Alone Alcohol Use: Occasionally Alcohol Amount: last ETOH 4 years ago Hx Substance Use: No Substance Use Type: Reports: None Substance Use Comment - Amount & Last Used: in the past Amphetamine Barbituats Hx Tobacco Use: Yes Smoking Status (MU): Never Smoked Tobacco Review of Systems Positive: Skin Diaphoresis. Negative: Fever, Chills, Fatigue Negative: Epistaxis, Dental Pain, Sore Throat Negative: Palpitations, Chest Pain Positive: Shortness Of Breath, Cough Genitourinary: Negative Positive: no symptoms reported, see HPI Negative: Arthralgia, Myalgia Negative: Rash, Bruising Neurological: Negative All Other Systems Reviewed And Are Negative: Yes Physical Exam Triage Information Reviewed: Yes Vital Signs On Initial Exam: Initial Vitals Temp Pulse Resp BP Pulse Ox 99.0 F 128 20 121/77 96 05/05/18 05:52 05/05/18 05:52 05/05/18 05:52 05/05/18 05:52 05/05/18 05:52 Vital Signs Reviewed: Yes Appearance: Positive: Well-Appearing, Well-Nourished Skin: Positive: Warm, Diaphoretic Eyes: Positive: EOMI, BHAVIK, Conjunctiva Clear Neck: Positive: Supple, No Lymphadenopathy Respiratory/Lung Sounds: Positive: Wheezes Cardiovascular: Positive: RRR, Pulses are Symmetrical in both Upper and Lower Extremities Musculoskeletal: Positive: Normal, Strength/ROM Intact Neurological: Positive: Sensory/Motor Intact, Speech Normal Psychiatric: Positive: Normal, Affect/Mood Appropriate AVPU Assessment: Alert Diagnostics - Vital Signs Vital Signs Temp Pulse Resp BP Pulse Ox 05/05/18 05:52 99.0 F 128 20 121/77 96 - Laboratory Result Diagrams: 05/05/18 06:46 05/05/18 06:46 Lab Statement: Any lab studies that have been ordered have been reviewed, and results considered in the medical decision making process. Disposition - Course Course Of Treatment: During the course of treatment, the patient is evaluated for cough and respiratory distress. On evaluation, he has a productive cough of clear and white sputum. Lungs are wheezy bilaterally, but no rhonchi. Patient is slightly diaphoretic from coughing, however vital signs are stable and he appears nontoxic. He is however, slightly tacky. Labs obtained, Robitussin with codeine and an albuterol inhaler given on arrival. Symptoms improved. Chest x-ray read by myself DEBI Lou as negative for any acute cardiopulmonary disease. He will be discharged home at this time with acute cough and viral syndrome. He is given Robitussin as prescription and is encouraged albuterol inhaler. - Differential Dx - Cardiopulmonary Differential Diagnoses - Cardiopulmonary: Sinusitis - Diagnoses Provider Diagnoses: Cough Discharge - Sign-Out/Discharge Documenting (check all that apply): Patient Departure - Discharge Plan Condition: Stable Disposition: HOME Prescriptions: guaiFENesin LIQ* [Robitussin*] 10 ml PO Q6H PRN #[id number] [id number] PRN Reason: Cough Patient Education Materials: Acute Cough (ED) Referrals: Nicki Olmstead MD [Primary Care Provider] - Additional Instructions: Albuterol inhaler as needed up to every 4 hours for cough Robitussin every 4 hours for cough - Billing Disposition and Condition Condition: STABLE Disposition: Home
[2018-05-05 06:52] LABS: Hematocrit 34 % (42-52); Hemoglobin 11.2 g/dl (14.0-18.0); Mean Corpuscular HGB Conc 33 g/dl (31-36); Mean Corpuscular Hemoglobin 27 pg (27-31); Mean Corpuscular Volume 82 fL (80-94); Mean Platelet Volume 6.9 um3 (7.4-10.4); Platelet Count 280 10^3/ul (150-450); Red Blood Count 4.13 10^6/ul (4.00-5.40); Red Cell Distribution Width 13 % (10.5-15); White Blood Count 11.5 10^3/ul (3.5-10.8)
[2018-05-05 07:12] LABS: ABS Basophils 0.1 10^3/ul (0-0.2); ABS Eosinophils 2.5 10^3/ul (0-0.6); ABS Lymphocytes 0.4 10^3/ul (1.0-4.8); ABS Monocytes 0.3 10^3/ul (0-0.8); ABS Neutrophils 8.3 10^3/ul (1.5-7.7); ABS Nucleated RBC 0 10^3/ul; Eosinophil % 21.4 % (0-6); Lymphocyte % 3.4 % (25-47); Nucleated Red Blood Cells % 0.1
[2018-05-05 07:13] LABS: EGFR Non-African American 87.2 (>60)
[2018-05-05 07:53] VITALS: BP 112/68
--- NOTE | 2018-05-05 07:57 | RAD ---
HISTORY: SOB/CP COMPARISONS: December 16, 2017 VIEWS: 4: Frontal dual-energy and lateral views of the chest. FINDINGS: CARDIOMEDIASTINAL SILHOUETTE: The cardiomediastinal silhouette is normal. TASHA: The tasha are normal. PLEURA: The costophrenic angles are sharp. No pleural abnormalities are noted. LUNG PARENCHYMA: The lungs are clear. ABDOMEN: The upper abdomen is clear. There is no subphrenic gas. BONES AND SOFT TISSUES: No bone or soft tissue abnormalities are noted. OTHER: None. IMPRESSION: NO ACTIVE CARDIOPULMONARY DISEASE. R1
== END 2018-05-05 08:08 | disposition home or self-care (01) ==
LOC: ED 05:50
DX: R05 Cough (principal); I10 Essential (primary) hypertension; Z88.8 Allergy status to other drugs, medicaments and biological substances
CPT/HCPCS: 36415; 71046; 80053; 83605; 85025; 99283; A9270-GY

== ENCOUNTER 2018-05-21 22:01 | Emergency (ER) | payer MEDICARE, MEDICAID ==
--- NOTE | 2018-05-21 22:41 | ED ---
Adult Trauma - HPI Summary HPI Summary: 38-year-old male presents with right rib pain after a fall. He states that he had one of his jerking episodes and fell onto his right side. Denies any loss consciousness. No urinary incontinence. He denies any head injury. No neck pain. Only injuries to this right ribs. He denies any shortness breath. No palpitations. No abdominal pain. No back pain. No other injury. He states that these jerking episodes are similar to his previous jerking episodes. He denies any seizure today. Has not seen neurology in a while. He is still taking his seizure meds. - History of Current Complaint Chief Complaint: EDGeneral Stated Complaint: FALL Time Seen by Provider: 05/21/18 22:20 Pain Intensity: 8 - Additional Pertinent History Primary Care Physician: JN - Allergy/Home Medications Allergies/Adverse Reactions: Allergies Allergy/AdvReac Type Severity Reaction Status Date / Time clozapine Allergy See Comment Verified 04/13/18 07:32 ephedrine Allergy Blurred Verified 04/13/18 07:32 Vision haloperidol [From Haldol] Allergy See Comment Verified 04/13/18 07:32 ziprasidone [From Geodon] Allergy See Comment Verified 04/13/18 07:32 PMH/Surg Hx/FS Hx/Imm Hx Endocrine/Hematology History: Reports: Hx Diabetes, Hx Anemia, Other Endocrine/ Hematological Disorders - leukopenia Denies: Hx Anticoagulant Therapy, Hx Thyroid Disease, Hx Unexplained Bleeding Cardiovascular History: Reports: Hx Hypertension, Other Cardiovascular Problems/ Disorders - IDDM/LEUOKOPENIA / SEIZURES Denies: Hx Aneurysm, Hx Angina, Hx Angioplasty, Hx Auto Implanted Cardiovert Defib, Hx Cardiac Arrest, Hx Cardiomegaly, Hx Congenital Heart Disease, Hx Congestive Heart Failure, Hx Coronary Artery Disease, Hx Deep Vein Thrombosis, Hx Hypercholesterolemia, Hx Hypotension, Hx Myocardial Infarction, Hx Pacemaker/ ICD, Hx Peripheral Vascular Disease, Hx Rheumatic Fever, Hx Syncope, Hx Valvular Heart Disease Respiratory History: Denies: Hx Asthma, Hx Chronic Bronchitis, Hx Chronic Obstructive Pulmonary Disease (COPD), Hx Cystic Fibrosis, Hx Lung Cancer, Hx Pleural Effusion, Hx Pneumonia, Hx Pulmonary Edema, Hx Pulmonary Embolism, Hx Seasonal Allergies, Hx Sleep Apnea, Other Respiratory Problems/Disorders GI History: Reports: Hx Gastroesophageal Reflux Disease, Hx Hiatal Hernia, Other GI Disorders - Constipation Denies: Hx Gall Bladder Disease, Hx Gastrointestinal Bleed, Hx Ulcer, Hx Urosepsis History: Denies: Hx Kidney Stones, Hx Renal Disease, Other Problems/Disorders Musculoskeletal History: Reports: Hx Orthopedic Injury - Left Leg Fracture Denies: Other Musculoskeletal History Sensory History: Denies: Hx Contacts or Glasses, Other Sensory Impairments Opthamlomology History: Denies: Hx Contacts or Glasses, Other Sensory Impairments Neurological History: Reports: 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, Other Neuro Impairments/Disorders - MENTAL ILLNESS/SCHIZOPHRENIA Denies: Hx Dementia, Hx Developmental Delay, Hx Headaches, Hx Migraine, Hx Nerve Disease, Hx Spinal Cord Injury, Hx Transient Ischemic Attacks (TIA) Psychiatric History: Reports: Hx Anxiety, Hx Oppositional [place] Disorder, Hx Depression, Hx Panic Disorder, Hx Post Traumatic Stress Disorder, Hx Inpatient Treatment, Hx Community Mental Health Tx, Hx Schizophrenia, Hx Bipolar Disorder , Hx Suicide Attempt, Hx Substance Abuse, Other Psychiatric Issues/Disorders - Hx Psychosis Denies: Hx Attention Deficit Hyperactivity Disorder, Hx Eating Disorder, Hx of Violent Episodes Against Others - Surgical History Surgery Procedure, Year, and Place: LEFT INGUINAL HERNIA - as a child. LEG - NO METAL PER PT Hx Anesthesia Reactions: No - Immunization History Date of Tetanus Vaccine: Up to Date Date of Influenza Vaccine: None Infectious Disease History: No Infectious Disease History: Reports: Hx Clostridium Difficile Denies: Hx Hepatitis, Hx Human Immunodeficiency Virus (HIV), Hx of Known/ Suspected MRSA, Hx Shingles, Hx Tuberculosis, Hx Known/Suspected VRE, History Other Infectious Disease, Traveled Outside the [place] in Last 30 Days - Family History Known Family History: Positive: Cardiac Disease, Hypertension, Diabetes - When asked about family HTN, DM, CAD, he states, "Yeah, something like, Other - Schizophrenia, ASTHMA, CANCER - Social History Alcohol Use: Occasionally Alcohol Amount: last ETOH 4 years ago Hx Substance Use: No Substance Use Type: Reports: None Substance Use Comment - Amount & Last Used: in the past Amphetamine Barbituats Hx Tobacco Use: No Smoking Status (MU): Never Smoked Tobacco Review of Systems Negative: Fever Positive: Other - right sided rib pain Negative: Shortness Of Breath, Cough Neurological: Other - jerking All Other Systems Reviewed And Are Negative: Yes Physical Exam Triage Information Reviewed: Yes Vital Signs On Initial Exam: Initial Vitals Temp Pulse Resp BP Pulse Ox 98.6 F 85 18 129/75 96 05/21/18 22:09 05/21/18 22:09 05/21/18 22:09 05/21/18 22:09 05/21/18 22:09 Vital Signs Reviewed: Yes Appearance: Positive: Well-Appearing Skin: Positive: Warm, Dry Head/Face: Positive: Normal Head/Face Inspection Eyes: Positive: Normal, EOMI, BHAVIK, Conjunctiva Clear ENT: Positive: Normal ENT inspection, Pharynx normal, TMs normal Respiratory/Lung Sounds: Positive: Clear to Auscultation, Breath Sounds Present , Other - tenderness right side of chest wall Cardiovascular: Positive: Normal, RRR Abdomen Description: Positive: Nontender, Soft Bowel Sounds: Positive: Present Musculoskeletal: Positive: Normal Neurological: Positive: Sensory/Motor Intact, Alert, Oriented to Person Place, Time, CN Intact II-III Psychiatric: Positive: Normal Diagnostics - Vital Signs Vital Signs Temp Pulse Resp BP Pulse Ox 05/21/18 22:09 98.6 F 85 18 129/75 96 - Laboratory Result Diagrams: 05/21/18 22:31 05/21/18 22:31 Lab Statement: Any lab studies that have been ordered have been reviewed, and results considered in the medical decision making process. - Radiology ribs Radiology Interpretation Completed By: ED Physician Summary of Radiographic Findings: no fx - EKG No standard instances EKG Rhythm: Sinus Rhythm EKG Comparison: No Significant Change Summary of EKG Findings: sinus rhythm Adult Trauma Course/Dx - Course Course Of Treatment: 38-year-old male presents with right rib pain after a fall. He states that he had one of his jerking episodes and fell onto his right side. Denies any loss consciousness. No urinary incontinence. He denies any head injury. No neck pain. Only injuries to this right ribs. He denies any shortness breath. No palpitations. No abdominal pain. No back pain. No other injury. He states that these jerking episodes are similar to his previous jerking episodes. He denies any seizure today. Has not seen neurology in a while. He is still taking his seizure meds. On exam normal neuro exam. Tenderness over right ribs 8-12. Lungs clear to auscultation. ekg sinus rhythm. X-ray read by me as normal. Labs magnesium was low so supplemented. Told to encourage fluids. Follow-up with primary. Patient understands and agrees plan. - Diagnoses Differential Diagnosis/HQI/PQRI: Positive: Contusion(s), Fracture, Strain Provider Diagnoses: Rib pain on right side Discharge - Sign-Out/Discharge Documenting (check all that apply): Patient Departure - Discharge Plan Condition: Good Disposition: HOME Patient Education Materials: Rib Contusion (ED) Referrals: Nicki Olmstead MD [Primary Care Provider] - Additional Instructions: place ice on the area take tyenlol as needed for pain every 6 hours follow up with primary within 5 days follow up with neuro return to ED if develop any new or worsening symptoms - Billing Disposition and Condition Condition: GOOD Disposition: Home
[2018-05-21 22:54] LABS: Hematocrit 32 % (42-52); Hemoglobin 10.8 g/dl (14.0-18.0); Mean Corpuscular HGB Conc 34 g/dl (31-36); Mean Corpuscular Hemoglobin 28 pg (27-31); Mean Corpuscular Volume 81 fL (80-94); Mean Platelet Volume 7.1 fL (7.4-10.4); Platelet Count 343 10^3/ul (150-450); Red Blood Count 3.91 10^6/ul (4.00-5.40); Red Cell Distribution Width 14 % (10.5-15); White Blood Count 10.3 10^3/ul (3.5-10.8)
[2018-05-21 23:01] LABS: ABS Basophils 0 10^3/ul (0-0.2); ABS Eosinophils 2.5 10^3/ul (0-0.6); ABS Lymphocytes 1.8 10^3/ul (1.0-4.8); ABS Monocytes 0.7 10^3/ul (0-0.8); ABS Neutrophils 5.3 10^3/ul (1.5-7.7); ABS Nucleated RBC 0 10^3/ul; Eosinophil % 24.5 % (0-6); Lymphocyte % 17.3 % (25-47); Nucleated Red Blood Cells % 0.4
[2018-05-21 23:06] LABS: EGFR Non-African American 141.8 (>60)
[2018-05-21] MEDS ORDERED: Magnesium Chloride EC TAB* 64 MG PO ONE (23:53)
[2018-05-22 00:31] VITALS: BP 109/66
== END 2018-05-22 00:30 | disposition home or self-care (01) ==
LOC: ED 22:01
DX: R07.81 Pleurodynia (principal); Z88.8 Allergy status to other drugs, medicaments and biological substances
CPT/HCPCS: 36415; 80053; 83735; 84484; 85025; 93005; 99283

== ENCOUNTER 2018-06-12 11:24 | Emergency (ER) | payer MEDICARE, MEDICAID ==
[2018-06-12] MEDS ORDERED: NS 0.9% 1000 ML*IV.FLUID IV ONE (11:33)
[2018-06-12 12:18] LABS: ABS Basophils 0.1 10^3/ul (0-0.2); ABS Eosinophils 0.3 10^3/ul (0-0.6); ABS Lymphocytes 1.2 10^3/ul (1.0-4.8); ABS Monocytes 0.2 10^3/ul (0-0.8); ABS Neutrophils 5.4 10^3/ul (1.5-7.7); ABS Nucleated RBC 0 10^3/ul; Eosinophil % 3.5 %; Hematocrit 34 % (42-52); Hemoglobin 11.2 g/dl (14.0-18.0); Lymphocyte % 17.1 %; Mean Corpuscular HGB Conc 34 g/dl (31-36); Mean Corpuscular Hemoglobin 27 pg (27-31); Mean Corpuscular Volume 82 fL (80-94); Mean Platelet Volume 7.2 fL (7.4-10.4); Nucleated Red Blood Cells % 0; Platelet Count 415 10^3/ul (150-450); Red Cell Distribution Width 15 % (10.5-15); White Blood Count 7.3 10^3/ul (3.5-10.8)
[2018-06-12 12:24] LABS: INR 0.99 (0.77-1.02)
[2018-06-12 12:34] LABS: EGFR Non-African American 75.3 (>60)
[2018-06-12] MEDS ORDERED: Lacosamide TAB* 100 MG TAB PO ONE (12:56)
--- NOTE | 2018-06-12 12:58 | ED ---
Neurological HPI - HPI Summary HPI Summary: A 38 y/o male brought in by [facility] ambulance presents to [facility] with a chief complaint of a possible seizure the night of 06/11/18. He also reports N/V and lightheadedness that night. He believes he had a seizure and bit his tongue. The patient was found by his visiting nurse diaphoretic and confused. He currently states that he feels better and rates his pain as 0/10. He denies ALLISON, diarrhea, Fever, Chills, Erythema (eyes), Sore throat, Chest pain, Shortness of Breath, Cough, Abdominal pain, Dysuria, Hematuria, Myalgia, Edema, Rash and Dizziness. - History of Current Complaint Chief Complaint: EDGeneral Stated Complaint: CONFUSION Time Seen by Provider: 06/12/18 11:30 Hx Obtained From: Patient Onset/Duration: Sudden Onset, Started hours ago, Still Present Timing: Sudden Onset Onset Severity: Moderate Current Severity: Moderate Pain Intensity: 0 Pain Scale Used: 0-10 Numeric Character: Lightheaded - Additional Pertinent History Primary Care Physician: JN - Allergy/Home Medications Allergies/Adverse Reactions: Allergies Allergy/AdvReac Type Severity Reaction Status Date / Time clozapine Allergy See Comment Verified 04/13/18 07:32 ephedrine Allergy Blurred Verified 04/13/18 07:32 Vision haloperidol [From Haldol] Allergy See Comment Verified 04/13/18 07:32 ziprasidone [From Geodon] Allergy See Comment Verified 04/13/18 07:32 Home Medications: Home Medications Guaifenesin/Dextromethorphan [Mucinex Dm ER 600-30 mg Tablet] 2 tab PO BID 06/12 [History Confirmed 06/12/18] Ibuprofen TAB* [Motrin TAB* 800 MG] 800 mg PO TID PRN 06/12/18 [History Confirmed 06/12/18] Melatonin (NF) 5 mg PO BEDTIME 06/12/18 [History Confirmed 06/12/18] Metoprolol Tartrate TAB* [Lopressor TAB*] 25 mg PO BID 06/12/18 [History Confirmed 06/12/18] Multivitamin [Daily Multiple Vitamins] 1 tab PO DAILY 06/12/18 [History Confirmed 06/12/18] Trihexyphenidyl TAB* [Artane*] 2 mg PO BEDTIME 06/12/18 [History Confirmed 06/12] hydrOXYzine HCL TAB* [Atarax 25 MG TAB*] 25 mg PO Q4HR PRN MDD 200mg 06/12/18 [ History Confirmed 06/12/18] risperiDONE TAB* [RisperDAL*] 4 mg PO BEDTIME 06/12/18 [History Confirmed ] PMH/Surg Hx/FS Hx/Imm Hx Endocrine/Hematology History: Reports: Hx Diabetes, Hx Anemia, Other Endocrine/ Hematological Disorders - leukopenia Denies: Hx Anticoagulant Therapy, Hx Thyroid Disease, Hx Unexplained Bleeding Cardiovascular History: Reports: Hx Hypertension, Other Cardiovascular Problems/ Disorders - IDDM/LEUOKOPENIA / SEIZURES Denies: Hx Aneurysm, Hx Angina, Hx Angioplasty, Hx Auto Implanted Cardiovert Defib, Hx Cardiac Arrest, Hx Cardiomegaly, Hx Congenital Heart Disease, Hx Congestive Heart Failure, Hx Coronary Artery Disease, Hx Deep Vein Thrombosis, Hx Hypercholesterolemia, Hx Hypotension, Hx Myocardial Infarction, Hx Pacemaker/ ICD, Hx Peripheral Vascular Disease, Hx Rheumatic Fever, Hx Syncope, Hx Valvular Heart Disease Respiratory History: Denies: Hx Asthma, Hx Chronic Bronchitis, Hx Chronic Obstructive Pulmonary Disease (COPD), Hx Cystic Fibrosis, Hx Lung Cancer, Hx Pleural Effusion, Hx Pneumonia, Hx Pulmonary Edema, Hx Pulmonary Embolism, Hx Seasonal Allergies, Hx Sleep Apnea, Other Respiratory Problems/Disorders GI History: Reports: Hx Gastroesophageal Reflux Disease, Hx Hiatal Hernia, Other GI Disorders - Constipation Denies: Hx Gall Bladder Disease, Hx Gastrointestinal Bleed, Hx Ulcer, Hx Urosepsis History: Denies: Hx Kidney Stones, Hx Renal Disease, Other Problems/Disorders Musculoskeletal History: Reports: Hx Orthopedic Injury - Left Leg Fracture Denies: Other Musculoskeletal History Sensory History: Denies: Hx Contacts or Glasses, Other Sensory Impairments Opthamlomology History: Denies: Hx Contacts or Glasses, Other Sensory Impairments Neurological History: Reports: 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, Other Neuro Impairments/Disorders - MENTAL ILLNESS/SCHIZOPHRENIA Denies: Hx Dementia, Hx Developmental Delay, Hx Headaches, Hx Migraine, Hx Nerve Disease, Hx Spinal Cord Injury, Hx Transient Ischemic Attacks (TIA) Psychiatric History: Reports: Hx Anxiety, Hx Oppositional [place] Disorder, Hx Depression, Hx Panic Disorder, Hx Post Traumatic Stress Disorder, Hx Inpatient Treatment, Hx Community Mental Health Tx, Hx Schizophrenia, Hx Bipolar Disorder , Hx Suicide Attempt, Hx Substance Abuse, Other Psychiatric Issues/Disorders - Hx Psychosis Denies: Hx Attention Deficit Hyperactivity Disorder, Hx Eating Disorder, Hx of Violent Episodes Against Others - Surgical History Surgery Procedure, Year, and Place: LEFT INGUINAL HERNIA - as a child. LEG - NO METAL PER PT Hx Anesthesia Reactions: No - Immunization History Date of Tetanus Vaccine: Up to Date Date of Influenza Vaccine: None Infectious Disease History: No Infectious Disease History: Reports: Hx Clostridium Difficile Denies: Hx Hepatitis, Hx Human Immunodeficiency Virus (HIV), Hx of Known/ Suspected MRSA, Hx Shingles, Hx Tuberculosis, Hx Known/Suspected VRE, History Other Infectious Disease, Traveled Outside the [place] in Last 30 Days - Family History Known Family History: Positive: Cardiac Disease, Hypertension, Diabetes - When asked about family HTN, DM, CAD, he states, "Yeah, something like, Other - Schizophrenia, ASTHMA, CANCER - Social History Alcohol Use: Occasionally Alcohol Amount: last ETOH 4 years ago Hx Substance Use: No Substance Use Type: Reports: None Substance Use Comment - Amount & Last Used: in the past Amphetamine Barbituats Hx Tobacco Use: No Smoking Status (MU): Former Smoker Review of Systems Positive: Skin Diaphoresis. Negative: Fever, Chills Negative: Erythema Negative: Sore Throat Negative: Chest Pain Negative: Shortness Of Breath, Cough Positive: Vomiting, Nausea. Negative: Abdominal Pain, Diarrhea Negative: dysuria, hematuria Neurological: Negative - dizziness, Other - positive: lightheadedness Negative: Headache All Other Systems Reviewed And Are Negative: Yes Physical Exam - Summary Physical Exam Summary: Constitutional: Well-developed, Well-nourished, Alert, Somewhat sluggish. (-) Distressed Skin: Warm, Dry HENT: Normocephalic; Atraumatic Eyes: Conjunctiva normal Neck: Musculoskeletal ROM normal neck. (-) JVD, (-) Stridor, (-) Tracheal deviation Cardio: Rhythm regular, rate normal, Heart sounds normal; Intact distal pulses; The pedal pulses are 2+ and symmetric. Radial pulses are 2+ and symmetric. (-) Murmur Pulmonary/Chest wall: Effort normal. (-) Respiratory distress, (-) Wheezes, (-) Rales Abd: Soft. (-) Tenderness, (-) Distension, (-) Guarding, (-) Rebound Musculoskeletal: (-) Edema Lymph: (-) Cervical adenopathy Neuro: Alert, Oriented x3, Strength normal, Cranial nerves II-XII are grossly intact. (-) Dysmetria, (-) Nystagmus, (-) Ataxia by finger to nose testing, (-) Sensory deficit. Psych: Mood and affect Normal GCS: 15 Triage Information Reviewed: Yes Vital Signs On Initial Exam: Initial Vitals Temp Pulse Resp BP Pulse Ox 98.6 F 135 12 95/74 97 06/12/18 11:25 06/12/18 11:25 06/12/18 11:25 06/12/18 11:25 06/12/18 11:25 Vital Signs Reviewed: Yes Diagnostics - Vital Signs Vital Signs Temp Pulse Resp BP Pulse Ox 06/12/18 12:28 98 22 150/95 99 06/12/18 12:00 111 21 100 06/12/18 11:58 123 20 115/72 96 06/12/18 11:30 134 10 96 06/12/18 11:28 134 95/74 96 06/12/18 11:25 98.6 F 135 12 95/74 97 - Laboratory Lab Results: Lab Results 06/12/18 06/12/18 06/12/18 Range/Units 12:07 12:08 12:08 WBC 7.3 (3.5-10.8) 10^3/ul RBC 4.10 (4.00-5.40) 10^6/ul Hgb 11.2 L (14.0-18.0) g/dl Hct 34 L (42-52) % MCV 82 (80-94) fL MCH 27 (27-31) pg MCHC 34 (31-36) g/dl RDW 15 (10.5-15) % Plt Count 415 (150-450) 10^3/ul MPV 7.2 L (7.4-10.4) fL Neut % (Auto) 74.9 % Lymph % (Auto) 17.1 % Loving % (Auto) 3.4 % Eos % (Auto) 3.5 % Baso % (Auto) 1.1 % Absolute Neuts (auto) 5.4 (1.5-7.7) 10^3/ul Absolute Lymphs (auto) 1.2 (1.0-4.8) 10^3/ul Absolute Monos (auto) 0.2 (0-0.8) 10^3/ul Absolute Eos (auto) 0.3 (0-0.6) 10^3/ul Absolute Basos (auto) 0.1 (0-0.2) 10^3/ul Absolute Nucleated RBC 0 10^3/ul Nucleated RBC % 0 INR (Anticoag Therapy) 0.99 (0.77-1.02) APTT 26.7 (26.0-36.3) seconds Sodium 137 (135-145) mmol/L Potassium 4.1 (3.5-5.0) mmol/L Chloride 105 (101-111) mmol/L Carbon Dioxide 23 (22-32) mmol/L Anion Gap 9 (2-11) mmol/L BUN 5 L (6-24) mg/dL Creatinine 1.09 (0.67-1.17) mg/dL Est GFR ( Amer) 91.1 (>60) Est GFR (Non-Af Amer) 75.3 (>60) BUN/Creatinine Ratio 4.6 L (8-20) Glucose 187 H (70-100) mg/dL Lactic Acid (0.5-2.0) mmol/L Calcium 8.8 (8.6-10.3) mg/dL Total Bilirubin 0.20 (0.2-1.0) mg/dL AST 18 (13-39) U/L ALT 9 (7-52) U/L Alkaline Phosphatase 95 (34-104) U/L Total Creatine Kinase Pending Troponin I 0.00 (<0.04) ng/mL Total Protein 7.0 (6.4-8.9) g/dL Albumin 3.3 (3.2-5.2) g/dL Globulin 3.7 (2-4) g/dL Albumin/Globulin Ratio 0.9 L (1-3) Serum Alcohol Pending 06/12/18 Range/Units 12:08 WBC (3.5-10.8) 10^3/ul RBC (4.00-5.40) 10^6/ul Hgb (14.0-18.0) g/dl Hct (42-52) % MCV (80-94) fL MCH (27-31) pg MCHC (31-36) g/dl RDW (10.5-15) % Plt Count (150-450) 10^3/ul MPV (7.4-10.4) fL Neut % (Auto) % Lymph % (Auto) % Loving % (Auto) % Eos % (Auto) % Baso % (Auto) % Absolute Neuts (auto) (1.5-7.7) 10^3/ul Absolute Lymphs (auto) (1.0-4.8) 10^3/ul Absolute Monos (auto) (0-0.8) 10^3/ul Absolute Eos (auto) (0-0.6) 10^3/ul Absolute Basos (auto) (0-0.2) 10^3/ul Absolute Nucleated RBC 10^3/ul Nucleated RBC % INR (Anticoag Therapy) (0.77-1.02) APTT (26.0-36.3) seconds Sodium (135-145) mmol/L Potassium (3.5-5.0) mmol/L Chloride (101-111) mmol/L Carbon Dioxide (22-32) mmol/L Anion Gap (2-11) mmol/L BUN (6-24) mg/dL Creatinine (0.67-1.17) mg/dL Est GFR ( Amer) (>60) Est GFR (Non-Af Amer) (>60) BUN/Creatinine Ratio (8-20) Glucose (70-100) mg/dL Lactic Acid 4.6 H* (0.5-2.0) mmol/L Calcium (8.6-10.3) mg/dL Total Bilirubin (0.2-1.0) mg/dL AST (13-39) U/L ALT (7-52) U/L Alkaline Phosphatase (34-104) U/L Total Creatine Kinase Troponin I (<0.04) ng/mL Total Protein (6.4-8.9) g/dL Albumin (3.2-5.2) g/dL Globulin (2-4) g/dL Albumin/Globulin Ratio (1-3) Serum Alcohol Result Diagrams: 06/12/18 12:08 06/12/18 12:08 Lab Statement: Any lab studies that have been ordered have been reviewed, and results considered in the medical decision making process. - CT Brain CT Interpretation Completed By: Radiologist Summary of CT Findings: 1. NO EVIDENCE FOR ACUTE INTRACRANIAL ABNORMALITY. 2. FINDINGS CONSISTENT WITH CHRONIC SINUSITIS. ED physician has reviewed this imaging report. - EKG 11:26 Cardiac Rate: Tachycardia - 134 bpm EKG Rhythm: Sinus Tachycardia Summary of EKG Findings: no STEMI. Re-Evaluation - Re-Evaluation First Eval Re-Evaluation Time: 15:30 Change: Improved Comment: Patient is feeling better and walking around. Course/Dx - Course Course Of Treatment: A 38 y/o male brought in by [facility] ambulance presents to [facility] with a chief complaint of a possible seizure the night of 06/11/18. He also reports N/V and lightheadedness that night. He believes he had a seizure and bit his tongue. The patient was found by his visiting nurse diaphoretic and confused. He currently states that he feels better and rates his pain as 0/ 10. He denies ALLISON, diarrhea, Fever, Chills, Erythema (eyes), Sore throat, Chest pain, Shortness of Breath, Cough, Abdominal pain, Dysuria, Hematuria, Myalgia, Edema, Rash and Dizziness. His PE revealed that the patient was somewhat sluggish. His EKG showed sinus tachycardia at 134 bpm with no STEMI. His Brain CT IMPRESSION was: 1. NO EVIDENCE FOR ACUTE INTRACRANIAL ABNORMALITY. 2. FINDINGS CONSISTENT WITH CHRONIC SINUSITIS. His lactic acid was remarkable at 4.6. In the ED course the patient was given sodium chloride IV and Lacosamide PO. Upon re-eval the patient was feeling better and was walking around. Dx: seizure. The patient will be discharged home and was instucted to return to the ED if he experiences any worsening or changing symptoms and follow up with his PCP. The patient is agreeable with this plan. - Diagnoses Provider Diagnoses: Seizure Discharge - Sign-Out/Discharge Documenting (check all that apply): Patient Departure - DC - Discharge Plan Condition: Stable Disposition: HOME Patient Education Materials: New-Onset Seizure in Adults (ED) Referrals: Nicki Olmstead MD [Primary Care Provider] - 2 Days Additional Instructions: RETURN TO THE EMERGENCY DEPARTMENT FOR CHANGING OR WORSENING SYMPTOMS - Billing Disposition and Condition Condition: STABLE Disposition: Home - Attestation Statements Document Initiated by Scribe: Yes Documenting Scribe: Kermit James Provider For Whom Scribe is Documenting (Include Credential): Luis Bello MD Scribe Attestation: Kermit Anderson scribed for Luis Bello MD on 06/20/18 at 1254. Scribe Documentation Reviewed: Yes Provider Attestation: The documentation as recorded by the scribe, Kermit James accurately reflects the service I personally performed and the decisions made by me, Luis Bello MD Status of Scribe Document: Viewed
[2018-06-12 13:50] LABS: Urine Appearance Clear; Urine Blood 1+ (Negative); Urine Color Yellow; Urine Ketones Negative (Negative); Urine Protein 3+(>=500 mg/dL) (Negative); Urine Red Blood Cell Trace(0-2/hpf) (Absent); Urine Specific Gravity 1.013 (1.010-1.030); Urine Urobilinogen Negative (Negative); Urine White Blood Cell Trace(0-5/hpf) (Absent)
[2018-06-12 16:03] VITALS: BP 117/77
== END 2018-06-12 16:02 | disposition home or self-care (01) ==
LOC: ED 11:24
DX: R56.9 Unspecified convulsions (principal); Z87.891 Personal history of nicotine dependence
CPT/HCPCS: 36415; 70450; 80053; 80299; 80307; 80320; 81003; 81015; 82550; 83605; 84484; 85025; 85610; 85730; 87040; 87086; 93005; 99284; G0480

== ENCOUNTER 2018-07-04 22:56 | Emergency (ER) | payer MEDICARE, MEDICAID ==
[2018-07-04] MEDS ORDERED: LORazepam TAB(*) 1 MG PO ONE (23:06)
--- NOTE | 2018-07-04 23:08 | ED ---
Neurological HPI - HPI Summary HPI Summary: This patient is a 38 year old M brought in by EMS with a chief complaint of grand mal seizure since just [place]. EMS states that he seized in front of them for 30 seconds, with intermittent twitching. He is slowly coming out of a postictal state in the ED. EMS says that this patient usually has minimal to strange complaints. EMS also says that he lives in an assisted mental health facility. They tried to give him an IV en route but he became restless. They say he is the most calm he has been while in the ED. HPI limited due to the patient's postictal state, level 5 caveat - History of Current Complaint Stated Complaint: SEIZURES Time Seen by Provider: 07/04/18 22:59 Hx Obtained From: EMS Hx From Patient Unobtainable Due To: Other - postictal Onset/Duration: Sudden Onset, Started minutes ago Timing: Intermittent Episodes Lasting: - 30 seconds Number of Seizures: 1 - Additional Pertinent History Primary Care Physician: JN - Allergy/Home Medications Allergies/Adverse Reactions: Allergies Allergy/AdvReac Type Severity Reaction Status Date / Time clozapine Allergy See Comment Verified 04/13/18 07:32 ephedrine Allergy Blurred Verified 04/13/18 07:32 Vision haloperidol [From Haldol] Allergy See Comment Verified 04/13/18 07:32 ziprasidone [From Geodon] Allergy See Comment Verified 04/13/18 07:32 PMH/Surg Hx/FS Hx/Imm Hx Endocrine/Hematology History: Reports: Hx Diabetes, Hx Anemia, Other Endocrine/ Hematological Disorders - leukopenia Denies: Hx Anticoagulant Therapy, Hx Thyroid Disease, Hx Unexplained Bleeding Cardiovascular History: Reports: Hx Hypertension, Other Cardiovascular Problems/ Disorders - IDDM/LEUOKOPENIA / SEIZURES Denies: Hx Aneurysm, Hx Angina, Hx Angioplasty, Hx Auto Implanted Cardiovert Defib, Hx Cardiac Arrest, Hx Cardiomegaly, Hx Congenital Heart Disease, Hx Congestive Heart Failure, Hx Coronary Artery Disease, Hx Deep Vein Thrombosis, Hx Hypercholesterolemia, Hx Hypotension, Hx Myocardial Infarction, Hx Pacemaker/ ICD, Hx Peripheral Vascular Disease, Hx Rheumatic Fever, Hx Syncope, Hx Valvular Heart Disease Respiratory History: Denies: Hx Asthma, Hx Chronic Bronchitis, Hx Chronic Obstructive Pulmonary Disease (COPD), Hx Cystic Fibrosis, Hx Lung Cancer, Hx Pleural Effusion, Hx Pneumonia, Hx Pulmonary Edema, Hx Pulmonary Embolism, Hx Seasonal Allergies, Hx Sleep Apnea, Other Respiratory Problems/Disorders GI History: Reports: Hx Gastroesophageal Reflux Disease, Hx Hiatal Hernia, Other GI Disorders - Constipation Denies: Hx Gall Bladder Disease, Hx Gastrointestinal Bleed, Hx Ulcer, Hx Urosepsis History: Denies: Hx Kidney Stones, Hx Renal Disease, Other Problems/Disorders Musculoskeletal History: Reports: Hx Orthopedic Injury - Left Leg Fracture Denies: Other Musculoskeletal History Sensory History: Denies: Hx Contacts or Glasses, Other Sensory Impairments Opthamlomology History: Denies: Hx Contacts or Glasses, Other Sensory Impairments Neurological History: Reports: 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, Other Neuro Impairments/Disorders - MENTAL ILLNESS/SCHIZOPHRENIA Denies: Hx Dementia, Hx Developmental Delay, Hx Headaches, Hx Migraine, Hx Nerve Disease, Hx Spinal Cord Injury, Hx Transient Ischemic Attacks (TIA) Psychiatric History: Reports: Hx Anxiety, Hx Oppositional [place] Disorder, Hx Depression, Hx Panic Disorder, Hx Post Traumatic Stress Disorder, Hx Inpatient Treatment, Hx Community Mental Health Tx, Hx Schizophrenia, Hx Bipolar Disorder , Hx Suicide Attempt, Hx Substance Abuse, Other Psychiatric Issues/Disorders - Hx Psychosis Denies: Hx Attention Deficit Hyperactivity Disorder, Hx Eating Disorder, Hx of Violent Episodes Against Others - Surgical History Surgery Procedure, Year, and Place: LEFT INGUINAL HERNIA - as a child. LEG - NO METAL PER PT Hx Anesthesia Reactions: No - Immunization History Date of Tetanus Vaccine: Up to Date Date of Influenza Vaccine: None Infectious Disease History: Reports: Hx Clostridium Difficile Denies: Hx Hepatitis, Hx Human Immunodeficiency Virus (HIV), Hx of Known/ Suspected MRSA, Hx Shingles, Hx Tuberculosis, Hx Known/Suspected VRE, History Other Infectious Disease - Family History Known Family History: Positive: Cardiac Disease, Hypertension, Diabetes - When asked about family HTN, DM, CAD, he states, "Yeah, something like, Other - Schizophrenia, ASTHMA, CANCER - Social History Alcohol Use: Occasionally Alcohol Amount: last ETOH 4 years ago Hx Substance Use: No Substance Use Type: Reports: None Substance Use Comment - Amount & Last Used: in the past Amphetamine Barbituats Hx Tobacco Use: No Smoking Status (MU): Former Smoker Review of Systems - ROS Summary Review of Systems Summary: ROS limited due to the patient's postictal state, level 5 caveat Neurological: Other - seizure All Other Systems Reviewed And Are Negative: No Physical Exam - Summary Physical Exam Summary: Appearance: Well-appearing, Well-nourished, lying in bed comfortable. Restless but awake and alert. Skin: Warm, dry, no obvious rash Eyes: sclera anicteric, no conjunctival pallor ENT: mucous membranes moist Neck: deferred Respiratory: No signs of respiratory distress Cardiovascular: Appears well perfused, pulses are nml Abdomen: deferred Musculoskeletal: Moving all 4 extremities without obvious discomfort Neurological: Awake and alert, he knows his name but is disoriented to time and place. Other than this, his exam is nonfocal. Psychiatric: affect is normal, does not appear anxious or depressed Triage Information Reviewed: Yes Vital Signs Reviewed: Yes Diagnostics - Laboratory Result Diagrams: 07/04/18 23:20 07/04/18 23:20 Lab Statement: Any lab studies that have been ordered have been reviewed, and results considered in the medical decision making process. Re-Evaluation - Re-Evaluation First Eval Re-Evaluation Time: 02:03 Change: Improved Comment: The patient is clearing his sensorium. He is awake and alert now. He apparently has had a seizure tonight witnessed by EMS, in the context of diagnosed epilepsy. He is on 2 different medications. He will continue to be observed over the next couple of hours, but barring further seizure activity anticipate discharge. As this is only been one seizure, I would not recommend any changes in his regimen. Course/Dx - Course Course Of Treatment: This patient is a 38 year old M brought in by EMS with a chief complaint of grand mal seizure since just [place]. EMS states that he seized in front of them for 30 seconds, with intermittent twitching. He is slowly coming out of a postictal state in the ED. Test results with no significant abnormalities. The patient was observed in the emergency department for several hours and did not have any further seizure activity. He completely cleared his postictal state. He is followed by neurology and is on 2 antiepileptic medications. At this point he is stable for discharge. In the ED course the patient was given Lorazepam. Patient will be discharged with and follow up from Dr. Scott. The patient is agreeable with this plan. - Diagnoses Provider Diagnoses: Seizure disorder, Generalized tonic-clonic seizure Discharge - Sign-Out/Discharge Documenting (check all that apply): Patient Departure - discharge - Discharge Plan Condition: Good Disposition: HOME Patient Education Materials: Epilepsy (ED) Referrals: Brenda Scott MD [Medical Doctor] - - Billing Disposition and Condition Condition: GOOD Disposition: Home - Attestation Statements Document Initiated by Herminio: Yes Documenting Scribe: Nick Godinez Provider For Whom Herminio is Documenting (Include Credential): Jose Antonio Garcia MD [place] Attestation: Nick Anderson, scribed for Jose Antonio Garcia MD on 07/07/18 at 1102. Scribe Documentation Reviewed: Yes Provider Attestation: The documentation as recorded by the Nick peralta accurately reflects the service I personally performed and the decisions made by me, Jose Antonio Garcia MD Status of Scribe Document: Viewed
[2018-07-04 23:34] LABS: ABS Basophils 0.1 10^3/ul (0-0.2); ABS Eosinophils 0.4 10^3/ul (0-0.6); ABS Lymphocytes 1.9 10^3/ul (1.0-4.8); ABS Monocytes 0.5 10^3/ul (0-0.8); ABS Neutrophils 4.4 10^3/ul (1.5-7.7); ABS Nucleated RBC 0 10^3/ul; Eosinophil % 4.9 %; Hematocrit 38 % (42-52); Hemoglobin 12.2 g/dl (14.0-18.0); Lymphocyte % 26.6 %; Mean Corpuscular HGB Conc 32 g/dl (31-36); Mean Corpuscular Hemoglobin 27 pg (27-31); Mean Corpuscular Volume 84 fL (80-94); Mean Platelet Volume 7.4 fL (7.4-10.4); Nucleated Red Blood Cells % 0.1; Platelet Count 309 10^3/ul (150-450); Red Blood Count 4.52 10^6/ul (4.00-5.40); Red Cell Distribution Width 15 % (10.5-15); White Blood Count 7.2 10^3/ul (3.5-10.8)
[2018-07-04 23:51] LABS: Albumin 3.4 g/dL (3.2-5.2); Albumin/Globulin Ratio 0.9 (1-3); BUN/Creatinine Ratio 7.5 (8-20); Calcium 9.1 mg/dL (8.6-10.3); EGFR Non-African American 90.5 (>60); Globulin 3.6 g/dL (2-4); Potassium 4.1 mmol/L (3.5-5.0); Total Bilirubin 0.2 mg/dL (0.2-1.0)
[2018-07-05] MEDS ORDERED: LORazepam TAB(*) 1 MG PO ONE (01:05)
[2018-07-05 05:44] VITALS: BP 99/64
== END 2018-07-05 05:45 | disposition home or self-care (01) ==
LOC: ED 22:56
DX: G40.309 Generalized idiopathic epilepsy and epileptic syndromes, not intractable, without status epilepticus (principal); Z87.891 Personal history of nicotine dependence; E11.9 Type 2 diabetes mellitus without complications; I10 Essential (primary) hypertension; K21.9 Gastro-esophageal reflux disease without esophagitis
CPT/HCPCS: 36415; 80053; 85025; 99283; A9270-GY

== ENCOUNTER 2018-07-22 11:36 | Emergency (ER) | payer MEDICARE, MEDICAID ==
[2018-07-22] MEDS ORDERED: LORazepam INJ* 2 MG/ML 1 ML VIAL IV PUSH ONE (11:47)
[2018-07-22] MEDS ORDERED: Albuterol/Ipratropium NEB.SOL* Albuterol 2.5 MG/Ipratropium 0.5 MG 3 ML INH ONE (11:49)
[2018-07-22] MEDS ORDERED: LORazepam TAB(*) 1 MG PO ONE (11:57)
[2018-07-22] MEDS ORDERED: LORazepam TAB(*) 1 MG ONE (11:59)
--- NOTE | 2018-07-22 11:59 | ED ---
Neurological HPI - HPI Summary HPI Summary: Pt. is a 38 y.o male who presents to the ER with complaints of tremors that started just prior to arrival. Pt. has a hx of seizures. He is currently on vimpat and aptiom. He also has a hx of psychosis and DM. Pt. states he noticed his hands and feet were tremoring and was concerned he may have a seizure. Pt. also notes that he has been coughing and wheezing over the last few days. Denies smoking or asthma. Symptoms are mild-moderate in severity. No current modifying factors. [facility] - History of Current Complaint Chief Complaint: EDSeizure Stated Complaint: POSS SEIZURES Time Seen by Provider: 07/22/18 11:40 Hx Obtained From: Patient Pain Intensity: 0 - Additional Pertinent History Primary Care Physician: JN - Allergy/Home Medications Allergies/Adverse Reactions: Allergies Allergy/AdvReac Type Severity Reaction Status Date / Time clozapine Allergy See Comment Verified 07/10/18 10:47 ephedrine Allergy Blurred Verified 07/10/18 10:47 Vision haloperidol [From Haldol] Allergy See Comment Verified 07/10/18 10:47 lamotrigine [From Lamictal] Allergy Rash Verified 07/10/18 10:47 ziprasidone [From Geodon] Allergy See Comment Verified 07/10/18 10:47 Home Medications: Home Medications Dicyclomine HCl 40 mg PO QID 07/22/18 [History Confirmed 07/22/18] Eslicarbazepine (Nf) Acetate [Aptiom] 800 mg PO DAILY 07/22/18 [History Confirmed 07/22/18] Ibuprofen TAB* [Motrin TAB* 800 MG] 800 mg PO TID PRN 07/22/18 [History Confirmed 07/22/18] Lacosamide TAB* [Vimpat TAB*] 200 mg PO BID 07/22/18 [History Confirmed 07/22/18 ] Metoprolol Tartrate TAB* [Lopressor TAB*] 25 mg PO BID 07/22/18 [History Confirmed 07/22/18] Multivitamin [Daily Multiple Vitamins] 1 tab PO DAILY 07/22/18 [History Confirmed 07/22/18] OLANzapine TAB* [Zyprexa 10 MG TAB*] 10 mg PO BID 07/22/18 [History Confirmed ] OLANzapine TAB*ODT* [ZyPREXA 10 MG *ODT*] 5 mg PO DAILY PRN MDD 10 mg 07/22/18 [ History Confirmed 07/22/18] Pantoprazole TAB * [Protonix TAB *] 40 mg PO DAILY 07/22/18 [History Confirmed 07/22/18] Potassium Chlor TAB* [Klor Con ER TAB*] 10 meq PO DAILY 07/22/18 [History Confirmed 07/22/18] Trihexyphenidyl TAB* [Artane*] 2 mg PO BEDTIME 07/22/18 [History Confirmed 07/22] hydrOXYzine HCL TAB* [Atarax TAB 50 MG *] 50 mg PO Q4HR PRN 07/22/18 [History Confirmed 07/22/18] risperiDONE TAB* [RisperDAL*] 4 mg PO BEDTIME 07/22/18 [History Confirmed ] PMH/Surg Hx/FS Hx/Imm Hx Previously Healthy: Yes Endocrine/Hematology History: Reports: Hx Diabetes, Hx Anemia, Other Endocrine/ Hematological Disorders - leukopenia Denies: Hx Anticoagulant Therapy, Hx Thyroid Disease, Hx Unexplained Bleeding Cardiovascular History: Reports: Hx Hypertension, Other Cardiovascular Problems/ Disorders - IDDM/LEUOKOPENIA / SEIZURES Denies: Hx Aneurysm, Hx Angina, Hx Angioplasty, Hx Auto Implanted Cardiovert Defib, Hx Cardiac Arrest, Hx Cardiomegaly, Hx Congenital Heart Disease, Hx Congestive Heart Failure, Hx Coronary Artery Disease, Hx Deep Vein Thrombosis, Hx Hypercholesterolemia, Hx Hypotension, Hx Myocardial Infarction, Hx Pacemaker/ ICD, Hx Peripheral Vascular Disease, Hx Rheumatic Fever, Hx Syncope, Hx Valvular Heart Disease Respiratory History: Denies: Hx Asthma, Hx Chronic Bronchitis, Hx Chronic Obstructive Pulmonary Disease (COPD), Hx Cystic Fibrosis, Hx Lung Cancer, Hx Pleural Effusion, Hx Pneumonia, Hx Pulmonary Edema, Hx Pulmonary Embolism, Hx Seasonal Allergies, Hx Sleep Apnea, Other Respiratory Problems/Disorders GI History: Reports: Hx Gastroesophageal Reflux Disease, Hx Hiatal Hernia, Other GI Disorders - Constipation Denies: Hx Gall Bladder Disease, Hx Gastrointestinal Bleed, Hx Ulcer, Hx Urosepsis History: Denies: Hx Kidney Stones, Hx Renal Disease, Other Problems/Disorders Musculoskeletal History: Reports: Hx Orthopedic Injury - Left Leg Fracture Denies: Other Musculoskeletal History Sensory History: Denies: Hx Contacts or Glasses, Other Sensory Impairments Opthamlomology History: Denies: Hx Contacts or Glasses, Other Sensory Impairments Neurological History: Reports: 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, Other Neuro Impairments/Disorders - MENTAL ILLNESS/SCHIZOPHRENIA Denies: Hx Dementia, Hx Developmental Delay, Hx Headaches, Hx Migraine, Hx Nerve Disease, Hx Spinal Cord Injury, Hx Transient Ischemic Attacks (TIA) Psychiatric History: Reports: Hx Anxiety, Hx Oppositional [place] Disorder, Hx Depression, Hx Panic Disorder, Hx Post Traumatic Stress Disorder, Hx Inpatient Treatment, Hx Community Mental Health Tx, Hx Schizophrenia, Hx Bipolar Disorder , Hx Suicide Attempt, Hx Substance Abuse, Other Psychiatric Issues/Disorders - Hx Psychosis Denies: Hx Attention Deficit Hyperactivity Disorder, Hx Eating Disorder, Hx of Violent Episodes Against Others - Surgical History Surgery Procedure, Year, and Place: LEFT INGUINAL HERNIA - as a child. LEG - NO METAL PER PT Hx Anesthesia Reactions: No - Immunization History Date of Tetanus Vaccine: Up to Date Date of Influenza Vaccine: None Infectious Disease History: No Infectious Disease History: Reports: Hx Clostridium Difficile Denies: Hx Hepatitis, Hx Human Immunodeficiency Virus (HIV), Hx of Known/ Suspected MRSA, Hx Shingles, Hx Tuberculosis, Hx Known/Suspected VRE, History Other Infectious Disease, Traveled Outside the [place] in Last 30 Days - Family History Known Family History: Positive: Cardiac Disease, Hypertension, Diabetes - When asked about family HTN, DM, CAD, he states, "Yeah, something like, Other - Schizophrenia, ASTHMA, CANCER - Social History Alcohol Use: None Alcohol Amount: last ETOH 4 years ago Hx Substance Use: No Substance Use Type: Reports: None Substance Use Comment - Amount & Last Used: in the past Amphetamine Barbituats Hx Tobacco Use: No Smoking Status (MU): Former Smoker Review of Systems Constitutional: Negative Eyes: Negative ENT: Negative Cardiovascular: Negative Positive: Shortness Of Breath, Cough Gastrointestinal: Negative Genitourinary: Negative Musculoskeletal: Negative Neurological: Other - Tremors to hands and feet Negative: Headache, Weakness, Paresthesia, Numbness, Syncope, Slurred Speech Psychological: Normal All Other Systems Reviewed And Are Negative: Yes Physical Exam Triage Information Reviewed: Yes Vital Signs On Initial Exam: Initial Vitals Temp Pulse Resp BP Pulse Ox 98.2 F 98 18 140/93 99 07/22/18 11:37 07/22/18 11:37 07/22/18 11:37 07/22/18 11:37 07/22/18 11:37 Vital Signs Reviewed: Yes Appearance: Positive: Well-Appearing - Pt. sitting up in bed in NAD. Slight tremor to hands and feet. Skin: Positive: Warm, Dry Head/Face: Positive: Normal Head/Face Inspection Eyes: Positive: Normal, EOMI Neck: Positive: Supple Respiratory/Lung Sounds: Positive: Other - Mild diffuse expiratory wheeze. Cardiovascular: Positive: Normal, RRR Musculoskeletal: Positive: Normal, Strength/ROM Intact Neurological: Positive: Normal, Alert, Oriented to Person Place, Time, CN Intact II-III Psychiatric: Positive: Affect/Mood Appropriate Diagnostics - Vital Signs Vital Signs Temp Pulse Resp BP Pulse Ox 07/22/18 11:37 98.2 F 98 18 140/93 99 - Laboratory Result Diagrams: 07/22/18 12:20 07/22/18 12:20 Lab Statement: Any lab studies that have been ordered have been reviewed, and results considered in the medical decision making process. Course/Dx - Course Course Of Treatment: Pt. presenting for tremors. He also c/o cough and wheeze. He is afebrile with normal VS. Will give a dose of ativan and a breathing treatment. Basic labs and CXR ordered. CXR is negative for acute findings, per radiology. Labs are unremarkable other than mild anemia. U/A is contaminated, will send for culture. On re-exam pt. is feeling better and wheezing has improved. Will rx albuteral inhaler. Pt. to f.u with PCP and neurology. To continue home medications as directed. To return to ER if symptoms change or worsen. Pt. understands and agrees with plan. - Differential Dx Differential Diagnoses Neuro: Positive: Anxiety, Hypoglycemia, Medication Reaction, Viral Syndrome - Diagnoses Provider Diagnoses: Bronchitis, Tremor Discharge - Sign-Out/Discharge Documenting (check all that apply): Patient Departure - Discharge Plan Condition: Improved Disposition: HOME Prescriptions: Albuterol HFA INHALER* [Ventolin HFA Inhaler*] 2 puff INH Q6H PRN #1 mdi PRN Reason: Wheezing Patient Education Materials: Acute Bronchitis (ED) Referrals: Nicki Olmstead MD [Primary Care Provider] - Additional Instructions: Call your neurologist and PCP today to schedule a close follow up appointment Continue home medications as directed Use inhaler as directed for wheezing Return to ER if symptoms change or worsen - Billing Disposition and Condition Condition: IMPROVED Disposition: Home
[2018-07-22] MEDS ORDERED: LORazepam INJ* 2 MG/ML 1 ML VIAL ONE (12:05)
--- OUTSIDE RECORDS SUMMARY | 2018-07-22 12:23 | XMS REPORT | Continuity of Care Document ---
:1980 External Reference #:[id number] Author Name Zo Grossman Care Team Providers Name Role Phone Nicki Olmstead MD Primary Care Physician Unavailable Payers Type Date Identification Numbers Payment Provider Subscriber Effective: 2000 Policy Number: [id number] Medicare Rickey Mcbride PayID: [id number] [address] [place] [address] Effective: 2008 Policy Number: [id number] Medicaid Rickey Mcbride Group Name: 1 1 [address] PayID: [id number] [place] [address] Advance Directives Description No Information Available Problems Date Description Provider Status Onset: 09/04/2017 [...] HIV Social History Type Date Description Comments Sex Unknown Hand Dominance Left-handed ETOH Use Denies alcohol use Recreational Drug Use Denies Drug Use Tobacco Use Start: Unknown Patient has never smoked Smoking Status Reviewed: 07/05/18 Patient has never smoked Allergies, Adverse Reactions, Alerts Date Description Reaction Status Severity Comments 04/30/2013 Clozaril Active 04/30/2013 Geodon Active 11/13/2017 Lamotrigine mouth ulcerations,itching/rash Active Severe Medications Medication Date Status Form Strength Qnty SIG Indications Ordering Provider Aptiom 12/17 Active Tablets 800mg 30tab 1 by G40.909 dony Berrios M.D. every day Vimpat 05/30 Active Tablets 100mg 120ta 2 tabs by G40.909 hannah Berrios M.D. twice a day Metformin HCL ER Active Tablets ER 750mg 1 tab Unknown /0000 24HR daily Metoprolol Active Tablets 25mg 1 tab 2x Unknown Tartrate /0000 daily Zyprexa Zydis Active Tablets 10mg po qam Unknown Dispers Magnesium Active Tablets 400mg 1 by Unknown /0000 mouth every day Multi-Vitamin Active Tablets 1 by Unknown /0000 mouth every day Protonix Active Solution 40mg 1 by Unknown /0000 Rec mouth every day Trihexyphenidyl Active Tablets 2mg 1 tab at Unknown HCL /0000 bedtime Risperdal Active Tablets 4mg one Unknown / tablety at bedtime Melatonin Active Capsules 5mg 1 tablets Unknown /0000 at bed time Potassium Active Tablets ER 10Meq 1 by Unknown Chloride ER /0000 mouth every day Dicyclomine HCL Active Tablets 20mg 2 tabs po Unknown /0000 four times a day Hydroxyzine HCL Active Tablets 50mg 1-2 Unknown /0000 tablets 4 times daily as needed for itching Ventolin HFA Active Aerosol 108(90Bas 2 puffs Unknown /0000 e) by mouth mcg/Act four times a day as needed Tessalon Perles Active Capsules 100mg 1 by Unknown /0000 mouth three times a day as needed Zonisamide 11/14 Hx Capsules 50mg 60cap 1 tab by Brenda Scott s mouth MD - daily for 12/03 weeks, then increase to 2 tabs daily. start date for med 11/20/17 Lamotrigine 10/30 Hx Tablets 25mg 256ta 1 by G40.909 Brenda Scott bs mouth MD - every 11/12 night week then 1 twice a day x1 week then 1 in am and 2 in pm x1 week then as instructe d to 4 2x/day Omeprazole Hx Capsules 20mg Unknown /0000 DR - 05/03 Zolpidem Hx Tablets 10mg Unknown Tartrate / - 05/03 Risperidone Hx Tablets 4mg Unknown / - 05/03 Benztropine Hx Tablets 1mg Unknown Mesylate / - 05/03 Divalproex Hx Tablets ER 500mg Unknown Sodium ER /0000 24HR - 05/03 Buspirone HCL Hx Tablets 30mg Unknown / - 05/03 Risperdal Consta Hx Suspension 50mg intramusc Unknown / Rec ular q2 - weeks 12/16 Florastor Hx Capsules 250mg one Unknown / capsule - by mouth 09/03 morning /2017 and night KCL In Hx Solution 10-5-0.45 Unknown Dextrose-Nacl /0000 Meq/L-%-% - 09/03 Vistaril Hx Capsules 100mg one by Unknown / mouth - three 09/03 times day as needed anxiety Immunizations Description No Information Available Vital Signs Date Vital Result Comment 07/05/2018 10:50am Height 70.5 inches 5'10.50" Weight 210.00 lb Heart Rate 82 /min BP Systolic Sitting 138 mmHg BP Diastolic Sitting 88 mmHg Respiratory Rate 16 /min BMI (Body Mass Index) 29.7 kg/m2 12/17/2017 2:29pm Height 70.5 inches 5'10.50" Weight 213.25 lb Heart Rate 88 /min BP Systolic Sitting 142 mmHg BP Diastolic Sitting 80 mmHg Respiratory Rate 17 /min BMI (Body Mass Index) 30.2 kg/m2 10/30/2017 10:07am Height 70.5 inches 5'10.50" Weight 216.50 lb Heart Rate 82 /min BP Systolic 150 mmHg BP Diastolic 90 mmHg BMI (Body Mass Index) 30.6 kg/m2 09/04/2017 1:59pm Height 70.5 inches 5'10.50" Weight 214.25 lb BP Systolic 120 mmHg BP Diastolic 78 mmHg BMI (Body Mass Index) 30.3 kg/m2 05/30/2017 8:57am Height 70.5 inches 5'10.50" Heart Rate 80 /min BP Systolic Sitting 122 mmHg BP Diastolic Sitting 88 mmHg 05/04/2017 3:01pm Height 70.5 inches 5'10.50" Weight 183.12 lb Heart Rate 78 /min BP Systolic 108 mmHg BP Diastolic 76 mmHg BMI (Body Mass Index) 25.9 kg/m2 04/30/2013 1:55pm Heart Rate 80 /min BP Systolic Sitting 120 mmHg BP Diastolic Sitting 70 mmHg Respiratory Rate 18 /min Results Test Date Facility Test Result H/L Range Note Laboratory test 05/08/2017 [facility] Creatine 208 U/L N 10- [address] Kinase(CK) [place] [address] [phone] Vitamin D 1,25 05/08/2017 [facility] Vitamin D Total 30.5 ng/mL N 20-50 And Vitamin D,[address](Oh) [place] [address] [phone] Vitamin D, 1,25 Dihydroxy 28 pg/mL N 18-64 1 CBC Auto Diff 09/05/2013 [facility] White Blood 4.9 10^3/uL 4.8-10.[address] [place] [address] [phone] Red Blood Count 4.69 10^6/uL 4.0-5.4 Hemoglobin [...] Cells % 0.2 Comp Metabolic Panel 09/05/2013 [facility] Sodium 137 mmol/L 133-[address] [address] [phone] Potassium 4.1 mmol/L 3.7-5.6 Chloride 104 mmol/L [...] developed and its performance characteristics determined by [facility] in a manner consistent with CLIA requirements. This test has not been cleared or approved by the U.S. Food and Drug Administration. Test Performed by: [facility] [address] [place] [address] 2 Because ethnic data is not always [...] Kidney failure <15 (or dialysis) Procedures Date Code Description Status 05/08/2017 87897 EEG Recording Awake & Drowsy Completed 10/14/2015 55538 Holter Monitor Review (24 hr)dr review & interp only Completed 10/31/2012 65998 EEG Recording Awake & Drowsy Completed 08/29/2012 65459 EEG Recording Awake & Drowsy Completed Encounters Type Date Location Provider Dx Diagnosis Office Visit 12/17/2017 [facility] Bren[facility] Scott G40.909 Epilepsy, unsp, 2:30p Clinic not intractable, without status epilepticus F25.9 Schizoaffective disorder, unspecified Office Visit 10/30/2017 [facility] Brenda G40.909 Epilepsy, unsp, 10:00a Clinic MD Sonia not intractable, without status epilepticus F25.9 Schizoaffective disorder, unspecified Office Visit 09/04/2017 [facility] Brenda G40.909 Epilepsy, unsp, 2:00p Clinic MD Sonia not intractable, without status epilepticus F25.9 Schizoaffective disorder, unspecified F51.05 Insomnia due to other mental disorder Office Visit 05/30/2017 [facility] Brenda G40.909 Epilepsy, unsp, 9:00a Clinic MD Sonia not intractable, without status epilepticus F25.9 Schizoaffective disorder, unspecified Office Visit 05/04/2017 [facility] Scott, R56.9 Unspecified 3:00p Clinic convulsions R53.1 Weakness Office Visit 03/07/2017 [facility] Chad E16.2 Hypoglycemia, 4:19p Assjason rosado MD unspecified Hospitalists F20.9 Schizophrenia, unspecified E11.9 Type 2 diabetes mellitus without complications F29 Unsp psychosis not due to a substance or known physiol cond Office Visit 03/06/2017 [facility] Corwin E16.2 Hypoglycemia, 3:02p Assjason rosado, N.P. 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 Convulsive W/O Hospitalists Intractable 780.97 Altered Mental Status Office Visit 08/29/2012 [facility] Teresa Mccauleyabiodun, 345.90 Epilepsy Unspec 3:22p [facility] Annette W/O Intractable Office Visit 08/28/2012 [facility] Zakia Sosamikaela, 780.97 Altered Mental 12:28p Assocjason DO Status Hospitalists 345.10 Epilepsy Convulsive W/O Intractable Office Visit 08/28/2012 [facility] Reed Ceballos 345.90 Epilepsy Unspec 3:21p [facility] Annette Campo W/O Intractable Office Visit 10/19/2009 [facility] Real Arambula, 977.9 Poisoning By 1:30a Assoc,pc D.O. Medicinal Hospitalists Substance Unspec 415.19 Pulmonary Embolism And Infarction Other 285.9 Anemia Unspec 296.80 Bipolar Disorder NOS Office Visit 10/18/2009 12:45a [facility] Real Arambula 977.9 Poisoning By Assoc,pc D.O. Medicinal Hospitalists Substance Unspec 415.19 Pulmonary Embolism And Infarction Other 285.9 Anemia Unspec 296.80 Bipolar Disorder NOS Office Visit 10/17/2009 12:15a [facility] Real Arambula, 977.9 Poisoning By Assoc,pc D.O. [facility] Hospitalists Substance Unspec 780.97 Altered Mental Status 785.0 Tachycardia Unspec 285.9 Anemia Unspec Office Visit 10/16/2009 1:00a [facility] Delmis 977.9 Poisoning By Assoc,jason Dos Santos M.D. Medicinal Hospitalists Substance Unspec Office Visit 10/16/2009 1:15a [facility] Real Arambula, 780.97 Altered Mental Assoc,pc D.O. Status Hospitalists 780.09 Consciousness Alteration Other 785.0 Tachycardia Unspec 276.1 Hyposmolality & Or Hyponatremia Office Visit 10/15/2009 1:15a [facility] Dayne 415.19 Pulmonary Assoc,jason German M.D. Embolism And Hospitalists Infarction Other 285.9 Anemia Unspec Office Visit 10/14/2009 1:15a [facility] 415.19 Pulmonary Assocjason M.D. Embolism And Hospitalists Infarction Other 285.9 Anemia Unspec Office Visit 10/13/2009 1:15a [facility] 415.19 Pulmonary Assocjason M.D. Embolism And Hospitalists Infarction Other 298.9 Psychosis Unspec 280.9 Iron Deficiency Anemia Unspec Office Visit 10/12/2009 1:15a [facility] 415.19 Pulmonary Assocjason M.D. Embolism And Hospitalists Infarction Other 285.9 Anemia Unspec Office Visit 10/11/2009 1:00a [facility] Tao Vence, 285.9 Anemia Unspec Assocjason M.D. Hospitalists 415.19 Pulmonary Embolism And Infarction Other 280.9 Iron Deficiency Anemia Unspec Office Visit 10/10/2009 1:15a [facility] 415.19 Pulmonary Assjason rosado M.D. Embolism And Hospitalists Infarction Other 285.9 Anemia Unspec Office Visit 10/09/2009 12:45a [facility] 415.19 Pulmonary Assjason rosado M.D. Embolism And Hospitalists Infarction Other 285.9 Anemia Unspec Office Visit 10/08/2009 [facility] 415.19 Pulmonary 12:30a Assjason rosado M.D. Embolism And Hospitalists Infarction Other 578.9 Hemorrhage Gastrointestinal Tract Unspec 280.9 Iron Deficiency Anemia Unspec Plan of Treatment Future Appointment(s):07/25/2018 12:00 pm - Manoj Lake MD at [facility] [id number]/05/2018 - Manoj Lake [id number] Epilepsy, unspecified, not intractable, without status epileFollow up:3 weeks
[2018-07-22 12:36] LABS: ABS Basophils 0.1 10^3/ul (0-0.2); ABS Eosinophils 0.3 10^3/ul (0-0.6); ABS Lymphocytes 0.9 10^3/ul (1.0-4.8); ABS Monocytes 0.3 10^3/ul (0-0.8); ABS Neutrophils 3.8 10^3/ul (1.5-7.7); ABS Nucleated RBC 0 10^3/ul; Eosinophil % 5.8 %; Hematocrit 39 % (42-52); Hemoglobin 12.6 g/dl (14.0-18.0); Lymphocyte % 16.8 %; Mean Corpuscular HGB Conc 33 g/dl (31-36); Mean Corpuscular Hemoglobin 27 pg (27-31); Mean Corpuscular Volume 83 fL (80-94); Mean Platelet Volume 7.1 fL (7.4-10.4); Nucleated Red Blood Cells % 0.1; Platelet Count 276 10^3/ul (150-450); Red Blood Count 4.68 10^6/ul (4.00-5.40); Red Cell Distribution Width 15 % (10.5-15); White Blood Count 5.4 10^3/ul (3.5-10.8)
[2018-07-22 12:49] LABS: Albumin 3.7 g/dL (3.2-5.2); Potassium 3.5 mmol/L (3.5-5.0); Total Bilirubin 0.3 mg/dL (0.2-1.0)
[2018-07-22 12:55] LABS: BUN/Creatinine Ratio 14.1 (8-20); EGFR Non-African American 110.8 (>60); Globulin 3.6 g/dL (2-4); Total Protein 7.3 g/dL (6.4-8.9)
[2018-07-22 14:18] LABS: Urine Appearance Cloudy; Urine Bacteria Absent (Absent); Urine Bilirubin Negative (Negative); Urine Blood Negative (Negative); Urine Color Yellow; Urine Glucose Negative (Negative); Urine Ketones Negative (Negative); Urine Nitrite Negative (Negative); Urine Protein 2+(100 mg/dL) (Negative); Urine Red Blood Cell Absent (Absent); Urine Specific Gravity 1.027 (1.010-1.030); Urine Urobilinogen Negative (Negative); Urine White Blood Cell Trace(0-5/hpf) (Absent)
[2018-07-22 14:50] VITALS: BP 0/0
--- NOTE | 2018-07-24 07:00 | ED ---
Progress - Progress Note Progress Note: Patient's preliminary urine cx reveals 50-75,000 Citrobacter koseri. He was seen for tremor of hands as well as cough/wheeze. He was prescribed albuterol. No urinary symptoms reported. [facility] at [facility]. Final results pending. Course/Dx - Course Course Of Treatment: Pt. presenting for tremors. He also c/o cough and wheeze. He is afebrile with normal VS. Will give a dose of ativan and a breathing treatment. Basic labs and CXR ordered. CXR is negative for acute findings, per radiology. Labs are unremarkable other than mild anemia. U/A is contaminated, will send for culture. On re-exam pt. is feeling better and wheezing has improved. Will rx albuteral inhaler. Pt. to f.u with PCP and neurology. To continue home medications as directed. To return to ER if symptoms change or worsen. Pt. understands and agrees with plan. - Diagnoses Provider Diagnoses: Bronchitis, Tremor Discharge - Sign-Out/Discharge Documenting (check all that apply): Post-Discharge Follow Up - Discharge Plan Condition: Improved Disposition: HOME Prescriptions: Albuterol HFA INHALER* [Ventolin HFA Inhaler*] 2 puff INH Q6H PRN #1 mdi PRN Reason: Wheezing Patient Education Materials: Acute Bronchitis (ED) Referrals: Nicki Olmstead MD [Primary Care Provider] - Additional Instructions: Call your neurologist and PCP today to schedule a close follow up appointment Continue home medications as directed Use inhaler as directed for wheezing Return to ER if symptoms change or worsen - Billing Disposition and Condition Condition: IMPROVED Disposition: Home
--- NOTE | 2018-07-25 11:20 | ED ---
Progress - Progress Note Progress Note: Patient's preliminary urine cx reveals 50-75,000 Citrobacter koseri. He was seen for tremor of hands as well as cough/wheeze. He was prescribed albuterol. No urinary symptoms reported. Resides at [facility]. Final results pending. UPDATE: Patient resides at [facility]. Spoke with Dea, pt's advocate, who reports she will relay message to both the patient and his ACT team that he has abnormal urine findings that may need antibiotic treatment. They will help the patient coordinate follow-up appointment with his primary care provider, Dr. Montez. If patient is having urinary symptoms, may call back sooner and treatment can be sent to his pharmacy. Course/Dx - Course Course Of Treatment: Pt. presenting for tremors. He also c/o cough and wheeze. He is afebrile with normal VS. Will give a dose of ativan and a breathing treatment. Basic labs and CXR ordered. CXR is negative for acute findings, per radiology. Labs are unremarkable other than mild anemia. U/A is contaminated, will send for culture. On re-exam pt. is feeling better and wheezing has improved. Will rx albuteral inhaler. Pt. to f.u with PCP and neurology. To continue home medications as directed. To return to ER if symptoms change or worsen. Pt. understands and agrees with plan. - Diagnoses Provider Diagnoses: Bronchitis, Tremor Discharge - Sign-Out/Discharge Documenting (check all that apply): Post-Discharge Follow Up - Discharge Plan Condition: Improved Disposition: HOME Prescriptions: Albuterol HFA INHALER* [Ventolin HFA Inhaler*] 2 puff INH Q6H PRN #1 mdi PRN Reason: Wheezing Patient Education Materials: Acute Bronchitis (ED) Referrals: Nicki Olmstead MD [Primary Care Provider] - Additional Instructions: Call your neurologist and PCP today to schedule a close follow up appointment Continue home medications as directed Use inhaler as directed for wheezing Return to ER if symptoms change or worsen - Billing Disposition and Condition Condition: IMPROVED Disposition: Home
== END 2018-07-22 14:49 | disposition home or self-care (01) ==
LOC: ED 11:36
DX: J40 Bronchitis, not specified as acute or chronic (principal); R25.1 Tremor, unspecified; I10 Essential (primary) hypertension; K21.9 Gastro-esophageal reflux disease without esophagitis; Z88.8 Allergy status to other drugs, medicaments and biological substances; Z87.891 Personal history of nicotine dependence
CPT/HCPCS: 36415; 71045; 80053; 81003; 81015; 85025; 87077; 87086; 87186; 99283; A9270-GY; J2060

== ENCOUNTER 2018-08-20 11:43 | Emergency (ER) | payer MEDICARE, MEDICAID ==
--- OUTSIDE RECORDS SUMMARY | 2018-08-20 11:58 | XMS REPORT | Continuity of Care Document ---
:1980 External Reference #:[id number] Author Name Coco Moore Care Team Providers Name Role Phone Nicki Olmstead MD Primary Care Physician Unavailable Payers Type Date Identification Numbers Payment Provider Subscriber Effective: 2000 Policy Number: [id number] Medicare Rickey Mcbride PayID: [id number] [address] [place] [address] Effective: 2008 Policy Number: [id number] Medicaid Rickey Mcbride Group Name: 1 1 [address] PayID: [id number] [place] [address] Advance Directives Description No Information Available Problems Date Description Provider Status Onset: 08/09/2018 Abnormal results function studies of Manoj Lake MD Active central nervous system Onset: 09/04/2017 Insomnia 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 every day Vimpat 05/30 Active Tablets 100mg 120ta 2 tabs by G40.909 Manoj hannah Lake MD twice a day Metformin HCL ER Active Tablets ER 750mg 1 tab Unknown /0000 24HR daily Metoprolol Active Tablets 25mg 1 tab 2x Unknown Tartrate /0000 daily Zyprexa Zydis Active Tablets 10mg po qam Unknown /0000 Dispers Magnesium Active Tablets 400mg 1 by Unknown /0000 mouth every day Multi-Vitamin Active Tablets 1 by Unknown /0000 mouth every day Protonix Active Solution 40mg 1 by Unknown /0000 Rec mouth every day Trihexyphenidyl Active Tablets 2mg 1 tab at Unknown HCL /0000 bedtime Risperdal Active Tablets 4mg one Unknown /0000 tablety at bedtime Melatonin Active Capsules 5mg [...] 50mg 60cap 1 tab by Brenda Scott dony lazar MD - daily for 12/03 weeks, then increase to 2 tabs daily. start date for med 11/20/17 Lamotrigine 10/30 Hx Tablets 25mg 256ta 1 by G40.909 Brenda Scott hannah lazar MD - every 11/12 night week then [...] Capsules 100mg one by Unknown /0000 mouth - three 09/03 times day as needed anxiety Immunizations Description No Information Available Vital Signs Date Vital Result Comment 08/09/2018 1:32pm Height 70.5 inches 5'10.50" Weight 212.50 lb Heart Rate 80 /min BP Systolic 124 mmHg BP Diastolic 90 mmHg BMI (Body Mass Index) 30.1 kg/m2 07/05/2018 10:50am Height 70.5 inches 5'10.50" Weight [...] Test Result H/L Range Note Laboratory test [facility] Miscellaneous Test See Comment 1 finding 9 [address] [place] [address] [phone] CBC Auto Diff [facility] White Blood Count 5.0 10^3/ uL N 3.5-10.8 8 [address] [place] [address] [phone] Red Blood Count 4.73 10^6/uL N 4.00-5.40 Hemoglobin 12.7 g/dL Low 14.0-18.0 Hematocrit 39 % Low 42-52 Mean Corpuscular Volume 82 fL N 80-94 Mean Corpuscular Hemoglobin 27 pg N 27-31 Mean Corpuscular HGB Conc 33 g/dL N 31-36 Red Cell Distribution Width 15 % N 10.5-15 Platelet Count 292 10^3/uL N 150-450 Mean Platelet Volume 7.6 fL N 7.4-10.4 Abs Neutrophils 3.3 10^3/uL N 1.5-7.7 Abs Lymphocytes 1.3 10^3/uL N 1.0-4.8 Abs Monocytes 0.2 10^3/uL N 0-0.8 Abs Eosinophils 0.2 10^3/uL N 0-0.6 Abs Basophils 0 10^3/uL N 0-0.2 Abs Nucleated RBC 0 10^3/uL Granulocyte % 66.2 % Lymphocyte % 25.8 % Monocyte % 4.2 % Eosinophil % 3.5 % Basophil % 0.3 % Nucleated Red Blood Cells % 0 Comp Metabolic Panel 07/12/2018 [facility] Sodium 138 mmol/L N 135-145 [address] [place] [address] [phone] Potassium 4.2 mmol/L N 3.5-5.0 Chloride 104 mmol/L N 101-111 Co2 Carbon Dioxide 24 mmol/L N 22-32 Anion Gap 10 mmol/L N 2-11 Glucose 137 mg/dL High 70-100 Blood Urea Nitrogen 8 mg/dL N 6-24 Creatinine 0.87 mg/dL N 0.67-1.17 BUN/Creatinine Ratio 9.2 N 8-20 Calcium 9.7 mg/dL N 8.6-10.3 Total Protein 7.4 g/dL N 6.4-8.9 Albumin 4.0 g/dL N 3.2-5.2 Globulin 3.4 g/dL N 2-4 Albumin/Globulin Ratio 1.2 N 1-3 Total Bilirubin 0.30 mg/dL N 0.2-1.0 Alkaline Phosphatase 79 U/L N 34-104 Alt 7 U/L N 7-52 Ast 12 U/L Low 13-39 Egfr Non- 97.7 >60 Egfr 118.2 >60 2 Laboratory test 07/12/2018 [facility] Lacosamide 10.8 Abnormal 1.0 - [address] g/mL 10.0 [place] [address] [phone] Miscellaneous Test See Comment 4 Comp Metabolic Panel 07/05/2018 [facility] Sodium 138 mmol/L N 135-145 [address] [place] [address] [phone] Potassium 4.0 mmol/L N 3.5-5.0 Chloride 106 mmol/L N 101-111 Co2 Carbon Dioxide 28 mmol/L N 22-32 Anion Gap 4 mmol/L N 2-11 Glucose 85 mg/dL N 70-100 Blood Urea Nitrogen 8 mg/dL N 6-24 Creatinine 0.80 mg/dL N 0.67-1.17 BUN/Creatinine Ratio 10.0 N 8-20 Calcium 9.2 mg/dL N 8.6-10.3 Total Protein 7.2 g/dL N 6.4-8.9 Albumin 3.7 g/dL N 3.2-5.2 Globulin 3.5 g/dL N 2-4 Albumin/Globulin Ratio 1.1 N 1-3 Total Bilirubin 0.30 mg/dL N 0.2-1.0 Alkaline Phosphatase 86 U/L N 34-104 Alt 7 U/L N 7-52 Ast 13 U/L N 13-39 Egfr Non- 107.6 >60 Egfr 130.2 >60 5 CBC Auto Diff 07/05/2018 [facility] White Blood 6.1 10^3/uL N 3.5-10.[address] [place] [address] [phone] Red Blood Count 4.65 10^6/uL N 4.00-5.40 Hemoglobin 12.5 g/dL Low 14.0-18.0 Hematocrit 39 % Low 42-52 Mean Corpuscular Volume 83 fL N 80-94 Mean Corpuscular Hemoglobin 27 pg N 27-31 Mean Corpuscular HGB Conc 33 g/dL N 31-36 Red Cell Distribution Width 15 % N 10.5-15 Platelet Count 307 10^3/uL N 150-450 Mean Platelet Volume 7.5 fL N 7.4-10.4 Abs Neutrophils 3.2 10^3/uL N 1.5-7.7 Abs Lymphocytes 2.2 10^3/uL N 1.0-4.8 Abs Monocytes 0.3 10^3/uL N 0-0.8 Abs Eosinophils 0.4 10^3/uL N 0-0.6 Abs Basophils 0 10^3/uL N 0-0.2 Abs Nucleated RBC 0 10^3/uL Granulocyte % 52.2 % Lymphocyte % 36.1 % Monocyte % 5.5 % Eosinophil % 5.9 % Basophil % 0.3 % Nucleated Red Blood Cells % 0.1 Laboratory test 07/05/2018 [facility] Lacosamide 7.8 g/mL 1.0 - 10.0 [address] [place] [address] [phone] Miscellaneous Test <pending> Laboratory test 05/08/2017 [facility] Creatine 208 U/L N 10- [address] Kinase(CK) [place] [address] [phone] Vitamin D 1,25 05/08/2017 [facility] Vitamin D Total 30.5 N 20 -50 And Vitamin D,[address] 25(Oh) ng/[place] [address] [phone] Vitamin D, 1,25 Dihydroxy 28 pg/mL N 18-64 7 CBC Auto Diff 09/05/2013 [facility] White Blood 4.9 10^3/uL 4.8-10.[address] [place] [address] [phone] Red Blood Count 4.69 10^6/uL 4.0-5.4 Hemoglobin [...] Cells % 0.2 Comp Metabolic Panel 09/05/2013 [facility] Sodium 137 mmol/L 133-[address] [place] [address] [phone] Potassium 4.1 mmol/L 3.7-5.6 Chloride 104 mmol/L [...] Egfr Non- 67.4 >60 Egfr 86.6 >60 8 1 Test Result Flag Unit RefValue Eslicarbazepine See Comment Test Name Results Reference Range Eslicarbazepine 9.0 mcg/mL No established therapeutic range; individual patient concentrations should be evaluated in context of patient's clinical condition or prior concentration. Trough plasma levels following doses of 400-2400 mg/day, averaged 2-28 mcg/mL. Maximum plasma concentrations following 2400 mg/day dosages averaged 55 mcg/mL. This test was developed and its analytical performance characteristics have been determined by [employer] [facility]. It has not been cleared or approved by the [place] Food and Drug Administration. This assay has been validated pursuant to the CLIA regulations and is used for clinical purposes. Test Performed by: [facility] [address] [place] [address] 2 Because ethnic data is not always [...] 15-29 5 Kidney failure <15 (or dialysis) 3 ADDITIONAL INFORMATION This test was developed and its performance characteristics determined by [facility] in a manner consistent with CLIA requirements. This test has not been cleared or approved by the U.S. Food and Drug Administration. Test Performed by: [facility] [place] [facility] [address] [place] [address] 4 Test Result Flag Unit RefValue TNP TNP TNP TNP TNP Goby Zazueta was cancelled on 07/15/2018 at 08:46; Test not available on specimen source received. Goby Zazueta was cancelled on 07/15/2018 at 08:46; Test not available on specimen source received. Goby Zazueta was cancelled on 07/15/2018 at 08:46; Test not available on specimen source received. Goby Zazueta was cancelled on 07/15/2018 at 08:46; Test not available on specimen source received. Goby Zazueta was cancelled on 07/15/2018 at 08:46; Test not available on specimen source received. Test Performed by: [facility] [address] [place] [address] 5 Because ethnic data is not always readily [...] 15-29 5 Kidney failure <15 (or dialysis) 6 ADDITIONAL INFORMATION This test was developed and its performance characteristics determined by [facility] in a manner consistent with CLIA requirements. This test has not been cleared or approved by the U.S. Food and Drug Administration. Test Performed by: [facility] [employer] [facility] [place] [address] 7 ADDITIONAL INFORMATION This test was developed and its performance characteristics determined by [facility] in a manner consistent with CLIA requirements. This test has not been cleared or approved by the U.S. Food and Drug Administration. Test Performed by: [facility] [employer] - [address] [address] 8 Because ethnic data is not always readily [...] dialysis) Procedures Date Code Description Status 05/08/2017 29962 EEG Recording Awake & Drowsy Completed 10/14/2015 73626 Holter Monitor Review (24 hr)dr review & interp only Completed 10/31/2012 82248 EEG Recording Awake & Drowsy Completed 08/29/2012 37087 EEG Recording Awake & Drowsy Completed Encounters Type Date Location Provider Dx Diagnosis Office Visit 08/09/2018 [facility] Lake G40.909 Epilepsy, unsp, 1:30p Clinic not intractable, without status epilepticus R94.02 Abnormal brain scan Office 07/05/2018 [facility] Manoj G40.909 Epilepsy, unsp, Visit 10:45a Clinic MD Jaya not intractable, without status epilepticus Office 12/17/2017 [facility] Brenda Scott G40.909 Epilepsy, unsp, Visit 2:30p Clinic not intractable, without status epilepticus F25.9 Schizoaffective disorder, unspecified Office Visit 10/30/2017 [facility] Brenda G40.909 Epilepsy, unsp, 10:00a Benedicto Scott MD not intractable, without status epilepticus F25.9 Schizoaffective disorder, unspecified Office Visit 09/04/2017 [facility] Brenda G40.909 Epilepsy, unsp, 2:00p Benedicto Scott MD not intractable, without status epilepticus F25.9 Schizoaffective disorder, unspecified F51.05 Insomnia due to other mental disorder Office Visit 05/30/2017 [facility] Brenda G40.909 Epilepsy, unsp, 9:00a Benedicto Scott MD not intractable, without status epilepticus F25.9 Schizoaffective disorder, unspecified Office Visit 05/04/2017 [facility] Bren[facility] Scott, R56.9 Unspecified 3:00p Clinic convulsions R53.1 Weakness Office Visit 03/07/2017 [facility] Chad E16.2 Hypoglycemia, 4:19p Assocjason MD unspecified Hospitalists F20.9 Schizophrenia, unspecified E11.9 Type 2 diabetes mellitus without complications F29 Unsp psychosis not due to a substance or known physiol cond Office Visit 03/06/2017 [facility] Corwin E16.2 Hypoglycemia, 3:02p Assjason rosado, N.P. 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 Annette 790.5 Serum Enzyme Levels Abnormal Other Nonspec Office Visit 08/30/2012 1:59p [facility] Dayne 345.10 Epilepsy Assoc,jason German M.D. Convulsive W/O Hospitalists Intractable 780.97 Altered Mental Status Office Visit 08/29/2012 [facility] Teresa Hernandez, 345.90 Epilepsy Unspec 3:22p Services [facility] Isidro Bryant W/O Intractable Office Visit 08/28/2012 [facility] Reed Ceballos 345.90 Epilepsy Unspec 3:21p [facility] Annette Campo W/O Intractable Office Visit 08/28/2012 [facility] Zakia Mir, 780.97 Altered Mental 12:28p Assoc,jason DO Status Hospitalists 345.10 Epilepsy Convulsive W/O Intractable Office Visit 10/19/2009 1:30a [facility] Real Arambula 977.9 Poisoning By Assoc,pc D.O. Medicinal Hospitalists Substance Unspec 415.19 Pulmonary Embolism And Infarction Other 285.9 Anemia Unspec 296.80 Bipolar Disorder NOS Office Visit 10/18/2009 12:45a [facility] Real Arambula 977.9 Poisoning By Assoc,pc D.O. Medicinal Hospitalists Substance Unspec 415.19 Pulmonary Embolism And Infarction Other 285.9 Anemia Unspec 296.80 Bipolar Disorder NOS Office Visit 10/17/2009 12:15a [facility] Real Arambula 977.9 Poisoning By Assoc,pc D.O. Medicinal Hospitalists Substance Unspec 780.97 Altered Mental Status 785.0 Tachycardia Unspec 285.9 Anemia Unspec Office Visit 10/16/2009 1:15a [facility] Real Arambula, 780.97 Altered Mental Assoc,pc D.O. Status Hospitalists 780.09 Consciousness Alteration Other 785.0 Tachycardia Unspec 276.1 Hyposmolality & Or Hyponatremia Office Visit 10/16/2009 1:00a [facility] Delmis 977.9 Poisoning By Assoc,jason Dos Santos M.D. Medicinal Hospitalists Substance Unspec Office Visit 10/15/2009 1:15a [facility] Dayne 415.19 Pulmonary Assoc,pc Kardon, M.D. Embolism And Hospitalists Infarction Other 285.9 Anemia Unspec Office Visit 10/14/2009 1:15a [facility] 415.19 Pulmonary Assocjason M.D. Embolism And Hospitalists Infarction Other 285.9 Anemia Unspec [facility] Assjason rosado M.D. Embolism And Hospitalists Infarction Other 298.9 Psychosis Unspec 280.9 Iron Deficiency Anemia Unspec Office Visit 10/12/2009 1:15a [facility] 415.19 Pulmonary Assocjason M.D. Embolism And Hospitalists Infarction Other 285.9 Anemia Unspec Office Visit 10/11/2009 1:00a [facility] Tao Vence, 285.9 Anemia Unspec Assoc,jason Bryant Hospitalists 415.19 Pulmonary Embolism And Infarction Other 280.9 Iron Deficiency Anemia Unspec Office Visit 10/10/2009 1:15a [facility] 415.19 Pulmonary Assocjason M.D. Embolism And Hospitalists Infarction Other 285.9 Anemia Unspec Office Visit 10/09/2009 12:45a [facility] 415.19 Pulmonary Assjason rosado M.D. Embolism And Hospitalists Infarction Other 285.9 Anemia Unspec Office Visit 10/08/2009 [facility] 415.19 Pulmonary 12:30a Assjason rosado M.D. Embolism And Hospitalists Infarction Other 578.9 Hemorrhage Gastrointestinal Tract Unspec 280.9 Iron Deficiency Anemia Unspec Plan of Treatment Future Appointment(s):11/07/2018 1:45 pm - Manoj Lake MD at [id number]/09/2018 - Manoj Lake MDG40.909 Epilepsy, unspecified, not intractable, without status epileComments:Patient is more compliant and his major seizures are clearly better. However, he still has twitching during day not infrequently and it is unclear if this is a seizure. will be getting a video eeg to help clarify if he has ongoing seizures but no change for now.Discussed his mri results with him including sinus disease and a small old scar in this right white matter.Follow up:3 to 4 [id number] Abnormal brain scan
[2018-08-20] MEDS ORDERED: hydrOXYzine HCL TAB* 25 MG PO ONE (14:43)
[2018-08-20 15:05] VITALS: BP 137/86
--- NOTE | 2018-08-20 17:01 | ED ---
Psychiatric Complaint - HPI Summary HPI Summary: Patient is a 38-year-old male with a history of seizures presenting to the ED with request for Ativan. He denies complaints. He states he is somewhat shaky after his seizures, but is not shaking currently. He denies any pain, head trauma, LOC, confusion, memory loss. He was seen this morning after his seizure. He has been seen several times for same in the ED. Labs are always WNL. He denies any other complaints and denies any fevers, sweats, chills. - History Of Current Complaint Chief Complaint: EDSeizure Time Seen by Provider: 08/20/18 13:35 Hx Obtained From: Patient Onset/Duration: Sudden Onset Timing: Constant Severity Initially: Mild Severity Currently: None Character: Anxious Aggravating Factor(s): Nothing Alleviating Factor(s): Nothing Associated Signs And Symptoms: Positive: Negative - Allergies/Home Medications Allergies/Adverse Reactions: Allergies Allergy/AdvReac Type Severity Reaction Status Date / Time clozapine Allergy See Comment Verified 07/10/18 10:47 ephedrine Allergy Blurred Verified 07/10/18 10:47 Vision haloperidol [From Haldol] Allergy See Comment Verified 07/10/18 10:47 lamotrigine [From Lamictal] Allergy Rash Verified 07/10/18 10:47 ziprasidone [From Geodon] Allergy See Comment Verified 07/10/18 10:47 Home Medications: Home Medications Albuterol 2.5MG/3ML (0.083%)* [Ventolin 2.5 MG/3 ML NEB.JUANY*] 2.5 mg INH BID 12/01 [History Confirmed 08/20/18] Albuterol HFA INHALER* [Ventolin HFA Inhaler*] 2 puff INH Q6H PRN 08/20/18 [ History Confirmed 08/20/18] Dicyclomine CAP* [Bentyl CAP*] 40 mg PO QID 08/20/18 [History Confirmed 08/20/18 ] Fluticasone-Salmeterol 250-50* [Advair Diskus 250-50*] 1 puff INH BID 08/20/18 [ History Confirmed 08/20/18] Trihexyphenidyl TAB* [Artane TAB*] 2.5 mg PO DAILY 08/20/18 [History Confirmed 08/20/18] PMH/Surg Hx/FS Hx/Imm Hx Previously Healthy: Yes Endocrine/Hematology History: Reports: Hx Diabetes, Hx Anemia, Other Endocrine/ Hematological Disorders - leukopenia Denies: Hx Anticoagulant Therapy, Hx Thyroid Disease, Hx Unexplained Bleeding Cardiovascular History: Reports: Hx Hypertension, Other Cardiovascular Problems/ Disorders - IDDM/LEUOKOPENIA / SEIZURES Denies: Hx Aneurysm, Hx Angina, Hx Angioplasty, Hx Auto Implanted Cardiovert Defib, Hx Cardiac Arrest, Hx Cardiomegaly, Hx Congenital Heart Disease, Hx Congestive Heart Failure, Hx Coronary Artery Disease, Hx Deep Vein Thrombosis, Hx Hypercholesterolemia, Hx Hypotension, Hx Myocardial Infarction, Hx Pacemaker/ ICD, Hx Peripheral Vascular Disease, Hx Rheumatic Fever, Hx Syncope, Hx Valvular Heart Disease Respiratory History: Denies: Hx Asthma, Hx Chronic Bronchitis, Hx Chronic Obstructive Pulmonary Disease (COPD), Hx Cystic Fibrosis, Hx Lung Cancer, Hx Pleural Effusion, Hx Pneumonia, Hx Pulmonary Edema, Hx Pulmonary Embolism, Hx Seasonal Allergies, Hx Sleep Apnea, Other Respiratory Problems/Disorders GI History: Reports: Hx Gastroesophageal Reflux Disease, Hx Hiatal Hernia, Other GI Disorders - Constipation Denies: Hx Gall Bladder Disease, Hx Gastrointestinal Bleed, Hx Ulcer, Hx Urosepsis History: Denies: Hx Kidney Stones, Hx Renal Disease, Other Problems/Disorders Musculoskeletal History: Reports: Hx Orthopedic Injury - Left Leg Fracture Denies: Other Musculoskeletal History Sensory History: Denies: Hx Contacts or Glasses, Other Sensory Impairments Opthamlomology History: Denies: Hx Contacts or Glasses, Other Sensory Impairments Neurological History: Reports: 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, Other Neuro Impairments/Disorders - MENTAL ILLNESS/SCHIZOPHRENIA Denies: Hx Dementia, Hx Developmental Delay, Hx Headaches, Hx Migraine, Hx Nerve Disease, Hx Spinal Cord Injury, Hx Transient Ischemic Attacks (TIA) Psychiatric History: Reports: Hx Anxiety, Hx Oppositional Catherine Disorder, Hx Depression, Hx Panic Disorder, Hx Post Traumatic Stress Disorder, Hx Inpatient Treatment, Hx Community Mental Health Tx, Hx Schizophrenia, Hx Bipolar Disorder , Hx Suicide Attempt, Hx Substance Abuse, Other Psychiatric Issues/Disorders - Hx Psychosis Denies: Hx Attention Deficit Hyperactivity Disorder, Hx Eating Disorder, Hx of Violent Episodes Against Others - Surgical History Surgery Procedure, Year, and Place: LEFT INGUINAL HERNIA - as a child. LEG - NO METAL PER PT Hx Anesthesia Reactions: No - Immunization History Date of Tetanus Vaccine: Up to Date Date of Influenza Vaccine: None Infectious Disease History: No Infectious Disease History: Reports: Hx Clostridium Difficile Denies: Hx Hepatitis, Hx Human Immunodeficiency Virus (HIV), Hx of Known/ Suspected MRSA, Hx Shingles, Hx Tuberculosis, Hx Known/Suspected VRE, History Other Infectious Disease, Traveled Outside the [place] in Last 30 Days - Family History Known Family History: Positive: Cardiac Disease, Hypertension, Diabetes - When asked about family HTN, DM, CAD, he states, "Yeah, something like, Other - Schizophrenia, ASTHMA, CANCER - Social History Occupation: Unemployed Lives: Skilled Nursing Alcohol Use: None Alcohol Amount: last ETOH 4 years ago per pt Hx Substance Use: No Substance Use Type: Reports: None Substance Use Comment - Amount & Last Used: in the past Amphetamine Barbituats Hx Tobacco Use: No Smoking Status (MU): Former Smoker Review of Systems Constitutional: Negative Negative: Fever, Chills, Fatigue, Skin Diaphoresis Negative: Palpitations, Chest Pain Negative: Shortness Of Breath, Cough Genitourinary: Negative Positive: no symptoms reported, see HPI Negative: Arthralgia, Myalgia Skin: Negative Neurological: Negative Positive: Anxious All Other Systems Reviewed And Are Negative: Yes Physical Exam Triage Information Reviewed: Yes Vital Signs On Initial Exam: Initial Vitals Temp Pulse Resp BP Pulse Ox 98.8 F 92 16 104/65 98 08/20/18 11:47 08/20/18 11:47 08/20/18 11:47 08/20/18 11:47 08/20/18 11:47 Vital Signs Reviewed: Yes Appearance: Positive: Well-Appearing, Well-Nourished Skin: Positive: Warm, Skin Color Reflects Adequate Perfusion Head/Face: Positive: Normal Head/Face Inspection Eyes: Positive: EOMI, BHAVIK, Conjunctiva Clear Neck: Positive: Supple, No Lymphadenopathy Respiratory/Lung Sounds: Positive: Clear to Auscultation, Breath Sounds Present Cardiovascular: Positive: RRR, Pulses are Symmetrical in both Upper and Lower Extremities Musculoskeletal: Positive: Normal, Strength/ROM Intact Neurological: Positive: Sensory/Motor Intact, Alert, Oriented to Person Place, Time, Speech Normal Psychiatric: Positive: Normal, Affect/Mood Appropriate AVPU Assessment: Alert Diagnostics - Vital Signs Vital Signs Temp Pulse Resp BP Pulse Ox 08/20/18 15:04 98.6 F 87 18 137/86 97 08/20/18 11:47 98.8 F 92 16 104/65 98 - Laboratory Lab Statement: Any lab studies that have been ordered have been reviewed, and results considered in the medical decision making process. Course/Dx - Course Course Of Treatment: On physical examination, patient appears well. Denies any symptoms. Denies any pain. He has no signs of trauma. I have agreed to give the patient hydroxyzine inset of Ativan. He is okay with this plan. He is discharged home with medication request. - Differential Dx/Clinical Impression Provider Diagnosis: Medication requested Discharge - Sign-Out/Discharge Documenting (check all that apply): Patient Departure Patient Received Moderate/Deep Sedation with Procedure: No - Discharge Plan Condition: Stable Disposition: HOME Referrals: Nicki Olmstead MD [Primary Care Provider] - - Billing Disposition and Condition Condition: STABLE Disposition: Home
== END 2018-08-20 15:04 | disposition home or self-care (01) ==
LOC: ED 11:43
DX: Z76.0 Encounter for issue of repeat prescription (principal); G40.909 Epilepsy, unspecified, not intractable, without status epilepticus; I10 Essential (primary) hypertension; E11.9 Type 2 diabetes mellitus without complications; K21.9 Gastro-esophageal reflux disease without esophagitis; F41.9 Anxiety disorder, unspecified; Z87.891 Personal history of nicotine dependence
CPT/HCPCS: 99282; A9270-GY

== ENCOUNTER 2018-08-26 02:52 | Emergency (ER) | payer MEDICARE, MEDICAID ==
[2018-08-26] MEDS ORDERED: LORazepam TAB(*) 1 MG PO ONE (03:22)
--- NOTE | 2018-08-26 03:24 | ED ---
Neurological HPI - HPI Summary HPI Summary: This patient is a 38 year old M brought in by ambulance to [facility] with a chief complaint of seizure aura since 1 day ago. The patient rates the pain 0/10 in severity. Symptoms aggravated by nothing. Symptoms alleviated by nothing. Pt has hx of seizures. Patient takes Aptiom and Depakote. - History of Current Complaint Chief Complaint: EDSeizure Stated Complaint: SEIZURE Time Seen by Provider: 08/26/18 02:54 Hx Obtained From: Patient Onset/Duration: Gradual Onset, Started days ago - 1 day, Still Present Timing: Constant Onset Severity: Mild Current Severity: Mild Number of Seizures: 1 - seizure aura Pain Intensity: 0 Pain Scale Used: 0-10 Numeric Syncope Timin hours Episode Lasting: Hours Number of Episodes: 1 Syncope Context: At Rest Frequency: Episodes Lasting ____ (in Mins/Days/Weeks/Years) - 24 hours Aggravating: Nothing Alleviating: Nothing Related Hx: Seizure - Additional Pertinent History Primary Care Physician: JN - Allergy/Home Medications Allergies/Adverse Reactions: Allergies Allergy/AdvReac Type Severity Reaction Status Date / Time clozapine Allergy See Comment Verified 07/10/18 10:47 ephedrine Allergy Blurred Verified 07/10/18 10:47 Vision haloperidol [From Haldol] Allergy See Comment Verified 07/10/18 10:47 lamotrigine [From Lamictal] Allergy Rash Verified 07/10/18 10:47 ziprasidone [From Geodon] Allergy See Comment Verified 07/10/18 10:47 PMH/Surg Hx/FS Hx/Imm Hx Endocrine/Hematology History: Reports: Hx Diabetes, Hx Anemia, Other Endocrine/ Hematological Disorders - leukopenia Denies: Hx Anticoagulant Therapy, Hx Thyroid Disease, Hx Unexplained Bleeding Cardiovascular History: Reports: Hx Hypertension, Other Cardiovascular Problems/ Disorders - IDDM/LEUOKOPENIA / SEIZURES Denies: Hx Aneurysm, Hx Angina, Hx Angioplasty, Hx Auto Implanted Cardiovert Defib, Hx Cardiac Arrest, Hx Cardiomegaly, Hx Congenital Heart Disease, Hx Congestive Heart Failure, Hx Coronary Artery Disease, Hx Deep Vein Thrombosis, Hx Hypercholesterolemia, Hx Hypotension, Hx Myocardial Infarction, Hx Pacemaker/ ICD, Hx Peripheral Vascular Disease, Hx Rheumatic Fever, Hx Syncope, Hx Valvular Heart Disease Respiratory History: Denies: Hx Asthma, Hx Chronic Bronchitis, Hx Chronic Obstructive Pulmonary Disease (COPD), Hx Cystic Fibrosis, Hx Lung Cancer, Hx Pleural Effusion, Hx Pneumonia, Hx Pulmonary Edema, Hx Pulmonary Embolism, Hx Seasonal Allergies, Hx Sleep Apnea, Other Respiratory Problems/Disorders GI History: Reports: Hx Gastroesophageal Reflux Disease, Hx Hiatal Hernia, Other GI Disorders - Constipation Denies: Hx Gall Bladder Disease, Hx Gastrointestinal Bleed, Hx Ulcer, Hx Urosepsis History: Denies: Hx Kidney Stones, Hx Renal Disease, Other Problems/Disorders Musculoskeletal History: Reports: Hx Orthopedic Injury - Left Leg Fracture Denies: Other Musculoskeletal History Sensory History: Denies: Hx Contacts or Glasses, Other Sensory Impairments Opthamlomology History: Denies: Hx Contacts or Glasses, Other Sensory Impairments Neurological History: Reports: 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, Other Neuro Impairments/Disorders - MENTAL ILLNESS/SCHIZOPHRENIA Denies: Hx Dementia, Hx Developmental Delay, Hx Headaches, Hx Migraine, Hx Nerve Disease, Hx Spinal Cord Injury, Hx Transient Ischemic Attacks (TIA) Psychiatric History: Reports: Hx Anxiety, Hx Oppositional [place] Disorder, Hx Depression, Hx Panic Disorder, Hx Post Traumatic Stress Disorder, Hx Inpatient Treatment, Hx Community Mental Health Tx, Hx Schizophrenia, Hx Bipolar Disorder , Hx Suicide Attempt, Hx Substance Abuse, Other Psychiatric Issues/Disorders - Hx Psychosis Denies: Hx Attention Deficit Hyperactivity Disorder, Hx Eating Disorder, Hx of Violent Episodes Against Others - Surgical History Surgery Procedure, Year, and Place: LEFT INGUINAL HERNIA - as a child. LEG - NO METAL PER PT Hx Anesthesia Reactions: No - Immunization History Date of Tetanus Vaccine: Up to Date Date of Influenza Vaccine: None Infectious Disease History: No Infectious Disease History: Reports: Hx Clostridium Difficile Denies: Hx Hepatitis, Hx Human Immunodeficiency Virus (HIV), Hx of Known/ Suspected MRSA, Hx Shingles, Hx Tuberculosis, Hx Known/Suspected VRE, History Other Infectious Disease, Traveled Outside the [place] in Last 30 Days - Family History Known Family History: Positive: Cardiac Disease, Hypertension, Diabetes - When asked about family HTN, DM, CAD, he states, "Yeah, something like, Other - Schizophrenia, ASTHMA, CANCER - Social History Alcohol Use: None Alcohol Amount: last ETOH 4 years ago per pt Hx Substance Use: No Substance Use Type: Reports: None Substance Use Comment - Amount & Last Used: in the past Amphetamine Barbituats Hx Tobacco Use: No Smoking Status (MU): Former Smoker Review of Systems Negative: Fever Negative: Epistaxis Negative: Cough Negative: Vomiting Neurological: Other - seizure aura All Other Systems Reviewed And Are Negative: Yes Physical Exam - Summary Physical Exam Summary: VITAL SIGNS: Reviewed. GENERAL: Patient is a well-developed and nourished MALE who is lying comfortable in the stretcher. Patient is not in any acute respiratory distress. HEAD AND FACE: No signs of trauma. No ecchymosis, hematomas or skull depressions. No sinus tenderness. EYES: PERRLA, EOMI x 2, No injected conjunctiva, no nystagmus. EARS: Hearing grossly intact. Ear canals and tympanic membranes are within normal limits. MOUTH: Oropharynx within normal limits. NECK: Supple, trachea is midline, no adenopathy, no JVD, no carotid bruit, no c- spine tenderness, neck with full ROM. CHEST: Symmetric, no tenderness at palpation LUNGS: Clear to auscultation bilaterally. No wheezing or crackles. CVS: Regular rate and rhythm, S1 and S2 present, no murmurs or gallops appreciated. ABDOMEN: Soft, non-tender. No signs of distention. No rebound no guarding, and no masses palpated. Bowel sounds are normal. EXTREMITIES: FROM in all major joints, no edema, no cyanosis or clubbing. NEURO: Alert and oriented x 3. No acute neurological deficits. Speech is normal and follows commands. SKIN: Dry and warm PSYCH: Anxious Triage Information Reviewed: Yes Vital Signs On Initial Exam: Initial Vitals Temp Pulse Resp BP Pulse Ox 98.5 F 72 18 129/85 100 08/26/18 02:53 08/26/18 02:53 08/26/18 02:53 08/26/18 02:53 08/26/18 02:53 Vital Signs Reviewed: Yes Diagnostics - Vital Signs Vital Signs Temp Pulse Resp BP Pulse Ox 08/26/18 02:53 98.5 F 72 18 129/85 100 - Laboratory Result Diagrams: 08/26/18 03:28 08/26/18 03:28 Lab Statement: Any lab studies that have been ordered have been reviewed, and results considered in the medical decision making process. Course/Dx - Course Course Of Treatment: This patient is a 38 year old M with hx seizures brought in by ambulance to [facility] with a chief complaint of seizure aura since 1 day ago. Test results with no significant abnormalities. In the ED course the patient was given Ativan. Patient will be discharged home with follow up from PCP and neurologist. Dx anxiety. The patient is agreeable with this plan. - Diagnoses Provider Diagnoses: Anxiety Discharge - Sign-Out/Discharge Documenting (check all that apply): Patient Departure - discharge home Patient Received Moderate/Deep Sedation with Procedure: No - Discharge Plan Condition: Stable Disposition: HOME Patient Education Materials: Anxiety (ED) Referrals: Giorgio Berrios MD [Medical Doctor] - 1 Day Nicki Olmstead MD [Primary Care Provider] - 1 Day Additional Instructions: Follow up with primary care physician and Dr. Berrios, neurologist, in 1-2 days. Return to the emergency department with any new or worsening symptoms. - Attestation Statements Document Initiated by Nikoibe: Yes Documenting Scribe: Gissel Whiting Provider For Whom Herminio is Documenting (Include Credential): Marianna Belle MD Scribe Attestation: Gissel Anderson, scribed for Marianna Belle MD on 08/26/18 at 0416. Status of Scribe Document: Ready
[2018-08-26 03:34] LABS: ABS Basophils 0 10^3/ul (0-0.2); ABS Eosinophils 0.4 10^3/ul (0-0.6); ABS Lymphocytes 2.7 10^3/ul (1.0-4.8); ABS Monocytes 0.4 10^3/ul (0-0.8); ABS Neutrophils 2.2 10^3/ul (1.5-7.7); ABS Nucleated RBC 0 10^3/ul; Eosinophil % 6.5 %; Hematocrit 39 % (42-52); Hemoglobin 12.5 g/dl (14.0-18.0); Lymphocyte % 46.9 %; Mean Corpuscular HGB Conc 33 g/dl (31-36); Mean Corpuscular Hemoglobin 27 pg (27-31); Mean Corpuscular Volume 84 fL (80-94); Nucleated Red Blood Cells % 0.1; Platelet Count 271 10^3/ul (150-450); Red Blood Count 4.61 10^6/ul (4.00-5.40); Red Cell Distribution Width 14 % (10.5-15); White Blood Count 5.7 10^3/ul (3.5-10.8)
[2018-08-26 03:40] LABS: INR 0.96 (0.77-1.02)
[2018-08-26 03:52] LABS: ALT 9 U/L (7-52); AST 14 U/L (13-39); Albumin 4.3 g/dL (3.2-5.2); Albumin/Globulin Ratio 1.4 (1-3); Alkaline Phosphatase 69 U/L (34-104); Anion Gap 8 mmol/L (2-11); BUN/Creatinine Ratio 15.3 (8-20); Blood Urea Nitrogen 13 mg/dL (6-24); CO2 Carbon Dioxide 25 mmol/L (22-32); Calcium 9.5 mg/dL (8.6-10.3); Chloride 103 mmol/L (101-111); Creatine Kinase 343 U/L (10-223); EGFR African American 121.4 (>60); EGFR Non-African American 100.3 (>60); Globulin 3.1 g/dL (2-4); Glucose 117 mg/dL (70-100); Magnesium 1.8 mg/dL (1.9-2.7); Potassium 3.7 mmol/L (3.5-5.0); Sodium 136 mmol/L (135-145); Total Protein 7.4 g/dL (6.4-8.9)
[2018-08-26 04:08] LABS: Lithium < 0.10 mmol/L (0.6-1.2)
[2018-08-26 04:29] VITALS: BP 129/97
== END 2018-08-26 04:28 | disposition home or self-care (01) ==
LOC: ED 02:52
DX: F41.9 Anxiety disorder, unspecified (principal); G40.909 Epilepsy, unspecified, not intractable, without status epilepticus; Z87.891 Personal history of nicotine dependence
CPT/HCPCS: 36415; 80053; 80164; 80178; 82550; 83735; 85025; 85610; 99282; A9270-GY

== ENCOUNTER → 2018-08-30 11:59 | Emergency (ER) | payer MEDICARE, MEDICAID ==
[~2018-08-30 11:59] MED LIST changes: -Aspirin Low Dose CHEW TAB* 81 MG PO ONE; +LORazepam INJ* 2 MG/ML 1 ML VIAL ONE; +hydrOXYzine HCL TAB* 25 MG PO ONE
--- NOTE | 2018-08-30 12:27 | ED ---
HPI Cardiac - HPI Summary HPI Summary: Patient is a 38-year-old male who has frequent visits to the ER presenting with a chief complaint of feeling like "I might have a seizure." He denies any symptoms. He denies any CP, SOB, fever, sweats, chills, abdominal pain, neck pain. He states he usually feels when a seizures about to come on, and will come to the ED. He did not take his seizure medications this morning because he "didn't get downstairs and time." Patient was a halfway. He normally comes into the ED to request Ativan. - History of Current Complaint Stated Complaint: FALL , Time Seen by Provider: 08/30/18 12:04 Hx Obtained From: Patient Onset/Duration: Started Hours Ago Timing: Constant Initial Severity: Mild Current Severity: Mild Pain Scale Used: 0-10 Numeric Aggravating Factor(s): Exertion Alleviating Factor(s): Nothing Associated Signs and Symptoms: Positive: Negative - Additional Pertinent History Primary Care Physician: JN - Allergy/Home Medications Allergies/Adverse Reactions: Allergies Allergy/AdvReac Type Severity Reaction Status Date / Time clozapine Allergy See Comment Verified 07/10/18 10:47 ephedrine Allergy Blurred Verified 07/10/18 10:47 Vision haloperidol [From Haldol] Allergy See Comment Verified 07/10/18 10:47 lamotrigine [From Lamictal] Allergy Rash Verified 07/10/18 10:47 ziprasidone [From Geodon] Allergy See Comment Verified 07/10/18 10:47 PMH/Surg Hx/FS Hx/Imm Hx Previously Healthy: Yes Endocrine/Hematology History: Reports: Hx Diabetes, Hx Anemia, Other Endocrine/ Hematological Disorders - leukopenia Denies: Hx Anticoagulant Therapy, Hx Thyroid Disease, Hx Unexplained Bleeding Cardiovascular History: Reports: Hx Hypertension, Other Cardiovascular Problems/ Disorders - IDDM/LEUOKOPENIA / SEIZURES Denies: Hx Aneurysm, Hx Angina, Hx Angioplasty, Hx Auto Implanted Cardiovert Defib, Hx Cardiac Arrest, Hx Cardiomegaly, Hx Congenital Heart Disease, Hx Congestive Heart Failure, Hx Coronary Artery Disease, Hx Deep Vein Thrombosis, Hx Hypercholesterolemia, Hx Hypotension, Hx Myocardial Infarction, Hx Pacemaker/ ICD, Hx Peripheral Vascular Disease, Hx Rheumatic Fever, Hx Syncope, Hx Valvular Heart Disease Respiratory History: Denies: Hx Asthma, Hx Chronic Bronchitis, Hx Chronic Obstructive Pulmonary Disease (COPD), Hx Cystic Fibrosis, Hx Lung Cancer, Hx Pleural Effusion, Hx Pneumonia, Hx Pulmonary Edema, Hx Pulmonary Embolism, Hx Seasonal Allergies, Hx Sleep Apnea, Other Respiratory Problems/Disorders GI History: Reports: Hx Gastroesophageal Reflux Disease, Hx Hiatal Hernia, Other GI Disorders - Constipation Denies: Hx Gall Bladder Disease, Hx Gastrointestinal Bleed, Hx Ulcer, Hx Urosepsis History: Denies: Hx Kidney Stones, Hx Renal Disease, Other Problems/Disorders Musculoskeletal History: Reports: Hx Orthopedic Injury - Left Leg Fracture Denies: Other Musculoskeletal History Sensory History: Denies: Hx Contacts or Glasses, Other Sensory Impairments Opthamlomology History: Denies: Hx Contacts or Glasses, Other Sensory Impairments Neurological History: Reports: 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, Other Neuro Impairments/Disorders - MENTAL ILLNESS/SCHIZOPHRENIA Denies: Hx Dementia, Hx Developmental Delay, Hx Headaches, Hx Migraine, Hx Nerve Disease, Hx Spinal Cord Injury, Hx Transient Ischemic Attacks (TIA) Psychiatric History: Reports: Hx Anxiety, Hx Oppositional [place] Disorder, Hx Depression, Hx Panic Disorder, Hx Post Traumatic Stress Disorder, Hx Inpatient Treatment, Hx Community Mental Health Tx, Hx Schizophrenia, Hx Bipolar Disorder , Hx Suicide Attempt, Hx Substance Abuse, Other Psychiatric Issues/Disorders - Hx Psychosis Denies: Hx Attention Deficit Hyperactivity Disorder, Hx Eating Disorder, Hx of Violent Episodes Against Others - Surgical History Surgery Procedure, Year, and Place: LEFT INGUINAL HERNIA - as a child. LEG - NO METAL PER PT Hx Anesthesia Reactions: No - Immunization History Date of Tetanus Vaccine: Up to Date Date of Influenza Vaccine: None Hx Pertussis Vaccination: No Immunizations Up to Date: Yes Infectious Disease History: Reports: Hx Clostridium Difficile Denies: Hx Hepatitis, Hx Human Immunodeficiency Virus (HIV), Hx of Known/ Suspected MRSA, Hx Shingles, Hx Tuberculosis, Hx Known/Suspected VRE, History Other Infectious Disease, Traveled Outside the [place] in Last 30 Days - Family History Known Family History: Positive: Cardiac Disease, Hypertension, Diabetes - When asked about family HTN, DM, CAD, he states, "Yeah, something like, Other - Schizophrenia, ASTHMA, CANCER - Social History Occupation: Unemployed Alcohol Use: None Alcohol Amount: last ETOH 4 years ago per pt Hx Substance Use: No Substance Use Type: Reports: None Substance Use Comment - Amount & Last Used: in the past Amphetamine Barbituats Hx Tobacco Use: No Smoking Status (MU): Former Smoker Review of Systems Constitutional: Negative Negative: Fever, Chills, Fatigue, Skin Diaphoresis Negative: Palpitations, Chest Pain Negative: Shortness Of Breath, Cough Genitourinary: Negative Positive: no symptoms reported, see HPI Negative: Arthralgia, Myalgia Skin: Negative Positive: Anxious All Other Systems Reviewed And Are Negative: Yes Physical Exam Triage Information Reviewed: Yes Vital Signs Reviewed: Yes Appearance: Positive: Well-Appearing, Well-Nourished Skin: Positive: Warm, Skin Color Reflects Adequate Perfusion Eyes: Positive: Normal, EOMI, BHAVIK Neck: Positive: No Lymphadenopathy Respiratory/Lung Sounds: Positive: Clear to Auscultation Cardiovascular: Positive: Pulses are Symmetrical in both Upper and Lower Extremities Musculoskeletal: Positive: Strength/ROM Intact Neurological: Positive: Alert, Oriented to Person Place, Time, Speech Normal Psychiatric: Positive: Affect/Mood Appropriate Disposition - Course Course Of Treatment: On physical examination, patient appears well and nontoxic. Lungs CTA. RRR. No lymphadenopathy bilaterally. No weakness noted. He is able to eat and drink well. Ambulating well. I have offered hydroxyzine for the patient as he seems and appears anxious. He states he is usually anxious if he feels a seizure coming on. I have discussed returning to his halfway to take his medications as soon as possible. He is agreeable to this plan. - Diagnoses Provider Diagnoses: Anxiety about health Discharge - Sign-Out/Discharge Documenting (check all that apply): Patient Departure Patient Received Moderate/Deep Sedation with Procedure: No - Discharge Plan Condition: Stable Disposition: HOME Referrals: Nicki Olmstead MD [Primary Care Provider] - - Billing Disposition and Condition Condition: STABLE Disposition: Home
[2018-08-30 12:29] VITALS: BP 121/79
== END | disposition home or self-care (01) ==
LOC: ED 11:59
DX: F41.9 Anxiety disorder, unspecified (principal)
CPT/HCPCS: 99282; A9270-GY; J2060

== ENCOUNTER → 2018-08-30 13:44 | Emergency (ER) | payer MEDICARE, MEDICAID ==
[~2018-08-30 13:44] MED LIST changes: +ACETATE PO ONE; +ESLICARBAZEPINE PO ONE; -LORazepam INJ* 2 MG/ML 1 ML VIAL ONE; +LORazepam TAB(*) 1 MG PO ONE; +Lacosamide TAB* 100 MG TAB PO ONE; +Lacosamide TAB* 50 MG TAB PO ONE; +TRIHEXYPHENIDYL 5 MG PO ONE; -hydrOXYzine HCL TAB* 25 MG PO ONE
[2018-08-30 16:30] VITALS: BP 120/83
--- NOTE | 2018-09-01 11:48 | ED ---
Seizure - HPI Summary HPI Summary: Patient was recently seen in the ED (proximal by 30 minutes ago) with chief complaint of "feeling like I am about to have a seizure." He denies any seizure activities at this time. He states he would like some Ativan on arrival. Again, patient is denying any new symptoms from 30 minutes ago. - History Of Current Complaint Chief Complaint: EDGeneral Time Seen by Provider: 08/30/18 14:07 Onset/Duration: Sudden Onset Severity Of Seizure: Self-Limited Aggravating Factor(s): Nothing Alleviating Factor(s): Nothing Associated Signs And Symptoms: Negative - Risk Factors SAH Risk Factors: -French Meningitis Risk Factors: Negative SDH Risk Factor: Seizures - Allergies/Home Medications Allergies/Adverse Reactions: Allergies Allergy/AdvReac Type Severity Reaction Status Date / Time clozapine Allergy See Comment Verified 07/10/18 10:47 ephedrine Allergy Blurred Verified 07/10/18 10:47 Vision haloperidol [From Haldol] Allergy See Comment Verified 07/10/18 10:47 lamotrigine [From Lamictal] Allergy Rash Verified 07/10/18 10:47 ziprasidone [From Geodon] Allergy See Comment Verified 07/10/18 10:47 PMH/Surg Hx/FS Hx/Imm Hx Previously Healthy: Yes Endocrine/Hematology History: Reports: Hx Diabetes, Hx Anemia, Other Endocrine/ Hematological Disorders - leukopenia Denies: Hx Anticoagulant Therapy, Hx Thyroid Disease, Hx Unexplained Bleeding Cardiovascular History: Reports: Hx Hypertension, Other Cardiovascular Problems/ Disorders - IDDM/LEUOKOPENIA / SEIZURES Denies: Hx Aneurysm, Hx Angina, Hx Angioplasty, Hx Auto Implanted Cardiovert Defib, Hx Cardiac Arrest, Hx Cardiomegaly, Hx Congenital Heart Disease, Hx Congestive Heart Failure, Hx Coronary Artery Disease, Hx Deep Vein Thrombosis, Hx Hypercholesterolemia, Hx Hypotension, Hx Myocardial Infarction, Hx Pacemaker/ ICD, Hx Peripheral Vascular Disease, Hx Rheumatic Fever, Hx Syncope, Hx Valvular Heart Disease Respiratory History: Denies: Hx Asthma, Hx Chronic Bronchitis, Hx Chronic Obstructive Pulmonary Disease (COPD), Hx Cystic Fibrosis, Hx Lung Cancer, Hx Pleural Effusion, Hx Pneumonia, Hx Pulmonary Edema, Hx Pulmonary Embolism, Hx Seasonal Allergies, Hx Sleep Apnea, Other Respiratory Problems/Disorders GI History: Reports: Hx Gastroesophageal Reflux Disease, Hx Hiatal Hernia, Other GI Disorders - Constipation Denies: Hx Gall Bladder Disease, Hx Gastrointestinal Bleed, Hx Ulcer, Hx Urosepsis History: Denies: Hx Kidney Stones, Hx Renal Disease, Other Problems/Disorders Musculoskeletal History: Reports: Hx Orthopedic Injury - Left Leg Fracture Denies: Other Musculoskeletal History Sensory History: Denies: Hx Contacts or Glasses, Other Sensory Impairments Opthamlomology History: Denies: Hx Contacts or Glasses, Other Sensory Impairments Neurological History: Reports: 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, Other Neuro Impairments/Disorders - MENTAL ILLNESS/SCHIZOPHRENIA Denies: Hx Dementia, Hx Developmental Delay, Hx Headaches, Hx Migraine, Hx Nerve Disease, Hx Spinal Cord Injury, Hx Transient Ischemic Attacks (TIA) Psychiatric History: Reports: Hx Anxiety, Hx Oppositional [place] Disorder, Hx Depression, Hx Panic Disorder, Hx Post Traumatic Stress Disorder, Hx Inpatient Treatment, Hx Community Mental Health Tx, Hx Schizophrenia, Hx Bipolar Disorder , Hx Suicide Attempt, Hx Substance Abuse, Other Psychiatric Issues/Disorders - Hx Psychosis Denies: Hx Attention Deficit Hyperactivity Disorder, Hx Eating Disorder, Hx of Violent Episodes Against Others - Surgical History Surgery Procedure, Year, and Place: LEFT INGUINAL HERNIA - as a child. LEG - NO METAL PER PT Hx Anesthesia Reactions: No - Immunization History Date of Tetanus Vaccine: Up to Date Date of Influenza Vaccine: None Hx Pertussis Vaccination: No Immunizations Up to Date: Yes Infectious Disease History: No Infectious Disease History: Reports: Hx Clostridium Difficile Denies: Hx Hepatitis, Hx Human Immunodeficiency Virus (HIV), Hx of Known/ Suspected MRSA, Hx Shingles, Hx Tuberculosis, Hx Known/Suspected VRE, History Other Infectious Disease, Traveled Outside the [place] in Last 30 Days - Family History Known Family History: Positive: Cardiac Disease, Hypertension, Diabetes - When asked about family HTN, DM, CAD, he states, "Yeah, something like, Other - Schizophrenia, ASTHMA, CANCER - Social History Occupation: Unemployed Lives: Alf Alcohol Use: None Alcohol Amount: last ETOH 4 years ago per pt Hx Substance Use: No Substance Use Type: Reports: None Substance Use Comment - Amount & Last Used: in the past Amphetamine Barbituats Hx Tobacco Use: No Smoking Status (MU): Former Smoker Review of Systems Constitutional: Negative Negative: Fever, Chills, Fatigue, Skin Diaphoresis Negative: Palpitations, Chest Pain Negative: Shortness Of Breath, Cough Negative: Abdominal Pain, Vomiting, Diarrhea, Nausea Negative: Headache, Weakness, Paresthesia, Numbness Psychological: Normal All Other Systems Reviewed And Are Negative: Yes Physical Exam Triage Information Reviewed: Yes Vital Signs On Initial Exam: Initial Vitals Temp Pulse Resp BP Pulse Ox 96.5 F 132 18 178/86 98 08/30/18 14:01 08/30/18 14:01 08/30/18 14:01 08/30/18 14:01 08/30/18 14:01 Vital Signs Reviewed: Yes Appearance: Positive: Well-Appearing, Well-Nourished Skin: Positive: Warm, Skin Color Reflects Adequate Perfusion Head/Face: Positive: Normal Head/Face Inspection Eyes: Positive: EOMI, BHAVIK, Conjunctiva Clear Neck: Positive: No Lymphadenopathy Respiratory/Lung Sounds: Positive: Clear to Auscultation, Breath Sounds Present Cardiovascular: Positive: Pulses are Symmetrical in both Upper and Lower Extremities Musculoskeletal: Positive: Strength/ROM Intact Neurological: Positive: Speech Normal Diagnostics - Vital Signs Vital Signs Temp Pulse Resp BP Pulse Ox 08/30/18 16:30 98.0 F 91 19 120/83 98 08/30/18 16:25 120/83 08/30/18 16:17 19 08/30/18 16:00 86 14 97 08/30/18 15:36 99 24 120/80 96 08/30/18 15:16 111 23 129/89 97 08/30/18 15:07 121 25 155/98 97 08/30/18 15:04 125 97 08/30/18 14:48 98 F 114 18 154/93 100 08/30/18 14:01 96.5 F 132 18 178/86 98 - Laboratory Lab Statement: Any lab studies that have been ordered have been reviewed, and results considered in the medical decision making process. Course/Dx - Course Course Of Treatment: During the course of evaluation, I discussed with the patient that he is on the appropriate treatment and medications. He was given hydroxyzine 30 minutes ago during his visit and was discharged. After speaking with the patient, patient began to have seizure-like activity, although this is pseudoseizures as patient continues to be able to speak to provider and nurses. After approximate 30 minutes, patient began to seize. He was placed in room 14. After about 2 minutes, patient awakens without a postictal state and states he feels well enough to be discharged. Again he is requesting Ativan. He is given his home doses of glucose [place] and Artane. He is also given 0.5 mg Ativan. Patient appears well, nontoxic appearing. Denies any fevers sweats, chills. He is encouraged to follow back up with his neurologist. - Diagnoses Differential Diagnosis/HQI/PQRI: Positive: Other - Pseudoseizures, tonic-clonic seizures, behavioral disorder Provider Diagnoses: Seizure Discharge - Sign-Out/Discharge Documenting (check all that apply): Patient Departure Patient Received Moderate/Deep Sedation with Procedure: No - Discharge Plan Condition: Stable Disposition: HOME Referrals: Nicki Olmstead MD [Primary Care Provider] - - Billing Disposition and Condition Condition: STABLE Disposition: Home
== END | disposition home or self-care (01) ==
LOC: ED 13:44
DX: R56.9 Unspecified convulsions (principal); Z88.8 Allergy status to other drugs, medicaments and biological substances; Z87.891 Personal history of nicotine dependence
CPT/HCPCS: 71046; 99283; A9270-GY

== ENCOUNTER 2018-08-30 19:04 | Emergency (ER) | payer MEDICARE, MEDICAID ==
[2018-08-30] MEDS ORDERED: LORazepam INJ* 2 MG/ML 1 ML VIAL IV PUSH ONE (19:12)
--- NOTE | 2018-08-30 19:45 | ED ---
Neurological HPI - HPI Summary HPI Summary: Pt is 38 y/o M who presents to ED c/o seizure. He had been seen in the ED earlier today when he complained of feeling like he would have a seizure. Pt had been discharged home and [facility] [place] [facility], he had a seizure episode for approximately 45 seconds. He is unsure whether he took his medication today. - History of Current Complaint Chief Complaint: EDSeizure Stated Complaint: SEIZURE Time Seen by Provider: 08/30/18 19:11 Hx Obtained From: Patient Onset/Duration: Sudden Onset, Started minutes ago, Resolved Timing: Sudden Onset Current Severity: None Number of Seizures: 1 Pain Intensity: 0 Pain Scale Used: 0-10 Numeric Character: Confusion Aggravating: Nothing Alleviating: Nothing Associated Signs and Symptoms: Positive: Confusion, Seizure - Additional Pertinent History Primary Care Physician: JN - Allergy/Home Medications Allergies/Adverse Reactions: Allergies Allergy/AdvReac Type Severity Reaction Status Date / Time clozapine Allergy See Comment Verified 07/10/18 10:47 ephedrine Allergy Blurred Verified 07/10/18 10:47 Vision haloperidol [From Haldol] Allergy See Comment Verified 07/10/18 10:47 lamotrigine [From Lamictal] Allergy Rash Verified 07/10/18 10:47 ziprasidone [From Geodon] Allergy See Comment Verified 07/10/18 10:47 PMH/Surg Hx/FS Hx/Imm Hx Endocrine/Hematology History: Reports: Hx Diabetes, Hx Anemia, Other Endocrine/ Hematological Disorders - leukopenia Denies: Hx Anticoagulant Therapy, Hx Thyroid Disease, Hx Unexplained Bleeding Cardiovascular History: Reports: Hx Hypertension, Other Cardiovascular Problems/ Disorders - IDDM/LEUOKOPENIA / SEIZURES Denies: Hx Aneurysm, Hx Angina, Hx Angioplasty, Hx Auto Implanted Cardiovert Defib, Hx Cardiac Arrest, Hx Cardiomegaly, Hx Congenital Heart Disease, Hx Congestive Heart Failure, Hx Coronary Artery Disease, Hx Deep Vein Thrombosis, Hx Hypercholesterolemia, Hx Hypotension, Hx Myocardial Infarction, Hx Pacemaker/ ICD, Hx Peripheral Vascular Disease, Hx Rheumatic Fever, Hx Syncope, Hx Valvular Heart Disease Respiratory History: Denies: Hx Asthma, Hx Chronic Bronchitis, Hx Chronic Obstructive Pulmonary Disease (COPD), Hx Cystic Fibrosis, Hx Lung Cancer, Hx Pleural Effusion, Hx Pneumonia, Hx Pulmonary Edema, Hx Pulmonary Embolism, Hx Seasonal Allergies, Hx Sleep Apnea, Other Respiratory Problems/Disorders GI History: Reports: Hx Gastroesophageal Reflux Disease, Hx Hiatal Hernia, Other GI Disorders - Constipation Denies: Hx Gall Bladder Disease, Hx Gastrointestinal Bleed, Hx Ulcer, Hx Urosepsis History: Denies: Hx Kidney Stones, Hx Renal Disease, Other Problems/Disorders Musculoskeletal History: Reports: Hx Orthopedic Injury - Left Leg Fracture Denies: Other Musculoskeletal History Sensory History: Denies: Hx Contacts or Glasses, Other Sensory Impairments Opthamlomology History: Denies: Hx Contacts or Glasses, Other Sensory Impairments Neurological History: Reports: 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, Other Neuro Impairments/Disorders - MENTAL ILLNESS/SCHIZOPHRENIA Denies: Hx Dementia, Hx Developmental Delay, Hx Headaches, Hx Migraine, Hx Nerve Disease, Hx Spinal Cord Injury, Hx Transient Ischemic Attacks (TIA) Psychiatric History: Reports: Hx Anxiety, Hx Oppositional [place] Disorder, Hx Depression, Hx Panic Disorder, Hx Post Traumatic Stress Disorder, Hx Inpatient Treatment, Hx Community Mental Health Tx, Hx Schizophrenia, Hx Bipolar Disorder , Hx Suicide Attempt, Hx Substance Abuse, Other Psychiatric Issues/Disorders - Hx Psychosis Denies: Hx Attention Deficit Hyperactivity Disorder, Hx Eating Disorder, Hx of Violent Episodes Against Others - Surgical History Surgery Procedure, Year, and Place: LEFT INGUINAL HERNIA - as a child. LEG - NO METAL PER PT Hx Anesthesia Reactions: No - Immunization History Date of Tetanus Vaccine: Up to Date Date of Influenza Vaccine: None Infectious Disease History: No Infectious Disease History: Reports: Hx Clostridium Difficile Denies: Hx Hepatitis, Hx Human Immunodeficiency Virus (HIV), Hx of Known/ Suspected MRSA, Hx Shingles, Hx Tuberculosis, Hx Known/Suspected VRE, History Other Infectious Disease, Traveled Outside the [place] in Last 30 Days - Family History Known Family History: Positive: Cardiac Disease, Hypertension, Diabetes - When asked about family HTN, DM, CAD, he states, "Yeah, something like, Other - Schizophrenia, ASTHMA, CANCER - Social History Alcohol Use: None Alcohol Amount: last ETOH 4 years ago per pt Hx Substance Use: No Substance Use Type: Reports: None Substance Use Comment - Amount & Last Used: in the past Amphetamine Barbituats Hx Tobacco Use: No Smoking Status (MU): Former Smoker Review of Systems Positive: Other - Confusion Neurological: Other - Seizure All Other Systems Reviewed And Are Negative: Yes Physical Exam - Summary Physical Exam Summary: Appearance: Well-appearing, Well-nourished, lying in bed comfortably Skin: Warm, dry, no obvious rash Eyes: sclera anicteric, no conjunctival pallor ENT: mucous membranes moist, pharynx appears normal Neck: Supple, nontender Respiratory: Clear to auscultation, no signs of respiratory distress Cardiovascular: Normal S1, S2. No murmurs. Normal distal pulses in tibial and radial bilaterally. Abdomen: Soft, nontender, normal active bowel sounds present Musculoskeletal: Normal, Strength/ROM Intact Neurological: Awake and alert but somewhat sluggish in his responses, knows his name and where he is but can't recall his time in the waiting room Psychiatric: affect is normal, does not appear anxious or depressed Triage Information Reviewed: Yes Vital Signs On Initial Exam: Initial Vitals Resp 25 08/30/18 19:08 Vital Signs Reviewed: Yes Diagnostics - Vital Signs Vital Signs Temp Pulse Resp BP Pulse Ox 08/30/18 19:13 25 08/30/18 19:12 126 21 126/87 99 08/30/18 19:10 98.2 F 126 19 126/87 97 08/30/18 19:08 25 - Laboratory Result Diagrams: 08/30/18 21:05 08/30/18 21:05 Lab Statement: Any lab studies that have been ordered have been reviewed, and results considered in the medical decision making process. Course/Dx - Course Course Of Treatment: Pt is 38 y/o M who presents to ED c/o seizure. He had been seen in the ED earlier today and had been discharged home. While [facility], he had a seizure for approximately 45 seconds. Physical exam revealed pt is awake and alert but somewhat sluggish in his responses. Labs revealed elevated lactic acid levels. In the ED course pt was given Risperdal, Zyprexa, Lopressor, Ativan, and Vimpat. After monitoring for several hours pt did not have another seizure. Pt will be discharged home with diagnosis of seizure. Pt is agreeable with this plan. - Diagnoses Provider Diagnoses: Seizure, Psychosis, Non compliance w medication regimen Discharge - Sign-Out/Discharge Documenting (check all that apply): Patient Departure - Discharge Patient Received Moderate/Deep Sedation with Procedure: No - Discharge Plan Condition: Improved Disposition: HOME Patient Education Materials: Epilepsy (ED) Referrals: Nicki Olmstead MD [Primary Care Provider] - 3 Days Additional Instructions: You did have a single brief seizure in the ED waiting room, but after several hours of monitoring you have not had any further seizures and you have received your regular evening medications. At this point it is ok for you to go back home and resume your normal medications in the morning. It is important to take the medications as prescribed and not miss any doses. - Billing Disposition and Condition Condition: IMPROVED Disposition: Home - Attestation Statements Document Initiated by Herminio: Yes Documenting Scribe: Matilda De La Rosa Provider For Whom Herminio is Documenting (Include Credential): Dr. Jose Antonio Garcia MD Scribe Attestation: I, Matilda De La Rosa, scribed for Dr. Jose Atnonio Garcia MD on 09/03/18 at 1416. Scribe Documentation Reviewed: Yes Provider Attestation: The documentation as recorded by the scribe, Matilda De La Rosa accurately reflects the service I personally performed and the decisions made by me, Dr. Jose Antonio Garcia MD Status of Scribe Document: Viewed
[2018-08-30] MEDS ORDERED: Lacosamide TAB* 100 MG TAB PO SCH (21:00)
[2018-08-30 21:34] LABS: ABS Basophils 0 10^3/ul (0-0.2); ABS Eosinophils 0.2 10^3/ul (0-0.6); ABS Lymphocytes 1.5 10^3/ul (1.0-4.8); ABS Monocytes 0.4 10^3/ul (0-0.8); ABS Neutrophils 6.9 10^3/ul (1.5-7.7); ABS Nucleated RBC 0 10^3/ul; Eosinophil % 2.3 %; Hematocrit 39 % (42-52); Hemoglobin 12.6 g/dl (14.0-18.0); Lymphocyte % 16.7 %; Mean Corpuscular HGB Conc 32 g/dl (31-36); Mean Corpuscular Hemoglobin 27 pg (27-31); Mean Corpuscular Volume 83 fL (80-94); Mean Platelet Volume 7.6 fL (7.4-10.4); Nucleated Red Blood Cells % 0; Platelet Count 283 10^3/ul (150-450); Red Blood Count 4.68 10^6/ul (4.00-5.40); Red Cell Distribution Width 14 % (10.5-15)
[2018-08-30 21:42] LABS: Urine Appearance Clear; Urine Bacteria Absent (Absent); Urine Bilirubin Negative (Negative); Urine Blood 1+ (Negative); Urine Color Colorless; Urine Glucose Negative (Negative); Urine Ketones Negative (Negative); Urine Nitrite Negative (Negative); Urine Protein Negative (Negative); Urine Red Blood Cell Trace(0-2/hpf) (Absent); Urine Specific Gravity 1.004 (1.010-1.030); Urine Urobilinogen Negative (Negative); Urine White Blood Cell Trace(0-5/hpf) (Absent)
[2018-08-30 21:50] LABS: Albumin 4.5 g/dL (3.2-5.2); Albumin/Globulin Ratio 1.5 (1-3); BUN/Creatinine Ratio 8.5 (8-20); Calcium 9.5 mg/dL (8.6-10.3); EGFR African American 94.1 (>60); EGFR Non-African American 77.8 (>60); Globulin 3.1 g/dL (2-4); Potassium 3.8 mmol/L (3.5-5.0); Total Bilirubin 0.3 mg/dL (0.2-1.0); Total Protein 7.6 g/dL (6.4-8.9)
[2018-08-30 21:54] LABS: Barbiturates Urine Screen None Detected (None Detect); Benzodiazepine Urine Screen None Detected (None Detect); Urine Cannabinoids Screen None Detected (None Detect)
[2018-08-30] MEDS ORDERED: Metoprolol Tartrate TAB* 25 MG PO ONE (23:02)
[2018-08-30] MEDS ORDERED: OLANzapine TAB* 10 MG PO ONE (23:02)
[2018-08-30] MEDS ORDERED: risperiDONE TAB* 2 MG PO ONE (23:03)
[2018-08-30 23:48] VITALS: BP 143/94
== END 2018-08-31 00:11 | disposition home or self-care (01) ==
LOC: ED 19:04
DX: R56.9 Unspecified convulsions (principal); Z88.8 Allergy status to other drugs, medicaments and biological substances; Z87.891 Personal history of nicotine dependence; F41.9 Anxiety disorder, unspecified
CPT/HCPCS: 36415; 80053; 80307; 81003; 81015; 83605; 85025; 87086; 96374; 99284; A9270-GY

== ENCOUNTER 2018-11-23 12:46 | Inpatient (IN) | payer MEDICARE, MEDICAID ==
[2018-11-23] MEDS ORDERED: Albuterol 0.5% CONC NEB.SOL* 5 MG/ML 20 ml BOT INH ONE (12:58)
[2018-11-23] MEDS ORDERED: methylPREDNISolone 125 MG* 2 ML VIAL IV ONE (12:58)
--- NOTE | 2018-11-23 12:59 | ED ---
Respiratory - HPI Summary HPI Summary: This patient is a 38 year old M presenting to [facility] with a chief complaint of progressively worsening upper respiratory symptoms for the past three days. Symptoms began with sore throat, nasal congestion and headache and has worsened with productive cough, difficulty breathing, wheezing, chest and abdominal pain. Pain is rated 4/10. Denies hx of asthma. - History of Current Complaint Chief Complaint: EDUpperRespComplaint Stated Complaint: DIFFICULTY BREATHING PER PT Time Seen by Provider: 11/23/18 12:53 Hx Obtained From: Patient Onset/Duration: Gradual Onset, Lasting Days Timing: Constant Pain Intensity: 4 Character: Wheezing, Cough (Productive) Alleviating Factor(s): Nothing Associated Signs and Symptoms: SOB, Wheezing, Chest Pain with Cough, Nasal Congestion - Allergy/Home Medications Allergies/Adverse Reactions: Allergies Allergy/AdvReac Type Severity Reaction Status Date / Time clozapine Allergy See Comment Verified 11/23/18 12:58 ephedrine Allergy Blurred Verified 11/23/18 12:58 Vision fluphenazine [From Prolixin] Allergy Unknown Verified 11/23/18 13:45 Reaction Details haloperidol [From Haldol] Allergy See Comment Verified 11/23/18 12:58 lamotrigine [From Lamictal] Allergy Rash Verified 11/23/18 12:58 paliperidone Allergy Unknown Verified 11/23/18 13:45 Reaction Details phenobarbital Allergy Unknown Verified 11/23/18 13:45 Reaction Details theophylline Allergy Unknown Verified 11/23/18 13:45 Reaction Details ziprasidone [From Geodon] Allergy See Comment Verified 11/23/18 12:58 Home Medications: Home Medications Clobazam 10 mg PO BID 11/23/18 [History Confirmed 11/23/18] Hydroxyzine HCl 50 mg PO Q4HR PRN 11/23/18 [History Confirmed 11/23/18] OLANZapine 5 mg PO BID PRN 11/23/18 [History Confirmed 11/23/18] PMH/Surg Hx/FS Hx/Imm Hx Endocrine/Hematology History: Reports: Hx Diabetes, Hx Anemia, Other Endocrine/ Hematological Disorders - leukopenia Denies: Hx Anticoagulant Therapy, Hx Thyroid Disease, Hx Unexplained Bleeding Cardiovascular History: Reports: Hx Hypertension, Other Cardiovascular Problems/ Disorders - IDDM/LEUOKOPENIA / SEIZURES Denies: Hx Aneurysm, Hx Angina, Hx Angioplasty, Hx Auto Implanted Cardiovert Defib, Hx Cardiac Arrest, Hx Cardiomegaly, Hx Congenital Heart Disease, Hx Congestive Heart Failure, Hx Coronary Artery Disease, Hx Deep Vein Thrombosis, Hx Hypercholesterolemia, Hx Hypotension, Hx Myocardial Infarction, Hx Pacemaker/ ICD, Hx Peripheral Vascular Disease, Hx Rheumatic Fever, Hx Syncope, Hx Valvular Heart Disease Respiratory History: Denies: Hx Asthma, Hx Chronic Bronchitis, Hx Chronic Obstructive Pulmonary Disease (COPD), Hx Cystic Fibrosis, Hx Lung Cancer, Hx Pleural Effusion, Hx Pneumonia, Hx Pulmonary Edema, Hx Pulmonary Embolism, Hx Seasonal Allergies, Hx Sleep Apnea, Other Respiratory Problems/Disorders GI History: Reports: Hx Gastroesophageal Reflux Disease, Hx Hiatal Hernia, Other GI Disorders - Constipation Denies: Hx Gall Bladder Disease, Hx Gastrointestinal Bleed, Hx Ulcer, Hx Urosepsis History: Denies: Hx Kidney Stones, Hx Renal Disease, Other Problems/Disorders Musculoskeletal History: Reports: Hx Orthopedic Injury - Left Leg Fracture Denies: Other Musculoskeletal History Sensory History: Denies: Hx Contacts or Glasses, Other Sensory Impairments Opthamlomology History: Denies: Hx Contacts or Glasses, Other Sensory Impairments Neurological History: Reports: 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, Other Neuro Impairments/Disorders - MENTAL ILLNESS/SCHIZOPHRENIA Denies: Hx Dementia, Hx Developmental Delay, Hx Headaches, Hx Migraine, Hx Nerve Disease, Hx Spinal Cord Injury, Hx Transient Ischemic Attacks (TIA) Psychiatric History: Reports: Hx Anxiety, Hx Oppositional [place] Disorder, Hx Depression, Hx Panic Disorder, Hx Post Traumatic Stress Disorder, Hx Inpatient Treatment, Hx Community Mental Health Tx, Hx Schizophrenia, Hx Bipolar Disorder , Hx Suicide Attempt, Hx Substance Abuse, Other Psychiatric Issues/Disorders - Hx Psychosis Denies: Hx Attention Deficit Hyperactivity Disorder, Hx Eating Disorder, Hx of Violent Episodes Against Others - Surgical History Surgery Procedure, Year, and Place: LEFT INGUINAL HERNIA - as a child. LEG - NO METAL PER PT Hx Anesthesia Reactions: No - Immunization History Date of Tetanus Vaccine: Up to Date Date of Influenza Vaccine: None Infectious Disease History: Reports: Hx Clostridium Difficile Denies: Hx Hepatitis, Hx Human Immunodeficiency Virus (HIV), Hx of Known/ Suspected MRSA, Hx Shingles, Hx Tuberculosis, Hx Known/Suspected VRE, History Other Infectious Disease - Family History Known Family History: Positive: Cardiac Disease, Hypertension, Diabetes - When asked about family HTN, DM, CAD, he states, "Yeah, something like, Other - Schizophrenia, ASTHMA, CANCER - Social History Alcohol Use: None Alcohol Amount: last ETOH 4 years ago per pt Hx Substance Use: No Substance Use Type: Reports: None Substance Use Comment - Amount & Last Used: in the past Amphetamine Barbituats Hx Tobacco Use: No Smoking Status (MU): Former Smoker Review of Systems Positive: Sore Throat, Nasal Discharge Positive: Chest Pain Positive: Shortness Of Breath, Cough Positive: Abdominal Pain Positive: frequency Positive: Headache All Other Systems Reviewed And Are Negative: Yes Physical Exam - Summary Physical Exam Summary: Appearance: ill-appearing male, Well-nourished, lying in bed comfortably, vital signs notable for mild tachypnea, no fever Skin: Warm, dry, no obvious rash Eyes: sclera anicteric, no conjunctival pallor ENT: mucous membranes moist, pharynx appears clear and normal, no trismus Neck: Supple, nontender Respiratory: diffuse expiratory wheezing with scattered rhonchi Cardiovascular: Normal S1, S2. No murmurs. Normal distal pulses in tibial and radial bilaterally. Abdomen: Soft, nontender, normal active bowel sounds present Musculoskeletal: Normal, Strength/ROM Intact Neurological: A&Ox3, awake and alert, mentation is normal, speech is fluent and appropriate Psychiatric: affect is normal, does not appear anxious or depressed Triage Information Reviewed: Yes Vital Signs Reviewed: Yes Diagnostics - Laboratory Result Diagrams: 11/26/18 06:20 11/26/18 06:20 Lab Statement: Any lab studies that have been ordered have been reviewed, and results considered in the medical decision making process. - Radiology CXR Radiology Interpretation Completed By: Radiologist Summary of Radiographic Findings: LOW LUNG VOLUMES, SMALL BIBASILAR INFILTRATES. ED Physician has reviewed this report. Soft Tissue Neck XR Radiology Interpretation Completed By: Radiologist - NEGATIVE EXAM. ED physician has reviewed this report. - EKG 1452 Cardiac Rate: NL - 80 BPM EKG Rhythm: Sinus Rhythm Summary of EKG Findings: NSR at 80 BPM, P waves, QRS complex, and T waves are within normal limits, T waves and intervals are normal, no ischemic changes. This is a normal EKG. Re-Evaluation - Re-Evaluation 1 Re-Evaluation Time: 14:34 Change: Improved - Patient reports feeling slightly better. Remains congested and wheezy. Disposition - Course Course Of Treatment: 38 year old M with a chief complaint of progressively worsening upper respiratory symptoms for the past three days. Symptoms began with sore throat, nasal congestion and headache and has worsened with productive cough, difficulty breathing, and wheezing. Bloodwork, UA, Blood gas, and flu swabs obtained. EKG reveals NSR at 80 BPM. CXR reveals: LOW LUNG VOLUMES , SMALL BIBASILAR INFILTRATES. Patient given Rocephin, Zitromax, and fluids. Patient is given nebulizer treatment and patient report feeling better however remains congested and wheezy. Case discussed with Dr. Awad hospitalist who agrees to admit the patient. - Diagnoses Provider Diagnoses: PNA (pneumonia) - Physician Notifications Discussed Care Of Patient With: Isaac Awad - hospitalist Time Discussed With Above Provider: 14:37 Instructed by Provider To: Admit As Inpatient Discharge - Sign-Out/Discharge Documenting (check all that apply): Patient Departure - admit Patient Received Moderate/Deep Sedation with Procedure: No - Discharge Plan Condition: Stable Disposition: ADMITTED TO [facility] - Billing Disposition and Condition Condition: STABLE Disposition: Admitted to [facility] - Attestation Statements Document Initiated by Nikoibe: Yes Documenting Scribe: Poonam Anthony Provider For Whom Nikoibe is Documenting (Include Credential): Jose Antonio Garcia MD Scribe Attestation: Poonam Anderson, scribed for Jose Antonio Garcia MD on 11/26/18 at 0951. Scribe Documentation Reviewed: Yes Provider Attestation: The documentation as recorded by the nikoibePoonam accurately reflects the service I personally performed and the decisions made by me, Jose Antonio Garcia MD Status of Scribe Document: Viewed
[2018-11-23 13:12] LABS: Influenza A Molecular NEGATIVE (Negative); Influenza B Molecular NEGATIVE (Negative)
[2018-11-23 14:06] LABS: Hematocrit 37 % (42-52); Hemoglobin 12.1 g/dL (14.0-18.0); Mean Corpuscular HGB Conc 32 g/dL (31-36); Mean Corpuscular Hemoglobin 28 pg (27-31); Mean Corpuscular Volume 85 fL (80-94); Mean Platelet Volume 6.8 fL (7.4-10.4); Platelet Count 348 10^3/uL (150-450); Red Blood Count 4.41 10^6 /uL (4.18-5.48); Red Cell Distribution Width 14 % (10.5-15); White Blood Count 9.8 10^3/uL (3.5-10.8)
[2018-11-23 14:30] LABS: ABS Basophils 0.1 10^3/ul (0-0.2); ABS Eosinophils 4.1 10^3/ul (0-0.6); ABS Lymphocytes 2.3 10^3/ul (1.0-4.8); ABS Monocytes 0.7 10^3/ul (0-0.8); ABS Neutrophils 2.6 10^3/ul (1.5-7.7); Albumin 3.8 g/dL (3.2-5.2); Albumin/Globulin Ratio 0.9 (1-3); BUN/Creatinine Ratio 8.1 (8-20); Calcium 9.2 mg/dL (8.6-10.3); EGFR African American 142.5 (>60); EGFR Non-African American 117.7 (>60); Eosinophil % 41.6 %; Globulin 4.1 g/dL (2-4); Lymphocyte % 23.8 %; Potassium 4.3 mmol/L (3.5-5.0); Total Bilirubin 0.4 mg/dL (0.2-1.0); Total Protein 7.9 g/dL (6.4-8.9)
[2018-11-23] MEDS ORDERED: cefTRIAXone(*) 1 GM in NS 0.9% 50 ML* 50 ML IVPB ONE (14:34)
[2018-11-23] MEDS ORDERED: Azithromycin IV(*) 500 MG in NS 0.9% 250 ML* 250 ML IVPB ONE (14:34)
[2018-11-23] MEDS ORDERED: cefTRIAXone(*) 1 GM ADVAN/BAG ONE (15:50)
[2018-11-23] MEDS: NS 0.9% 1000 ML** 2,000 ML IV ONE ×2 (15:54→15:58)
[2018-11-23] MEDS ORDERED: Azithromycin 500 mg/250 ml NS 500 MG/250 ML BAG IVPB ONE (15:59)
[2018-11-23 16:34] LABS: Urine Appearance Clear; Urine Bilirubin Negative (Negative); Urine Blood Negative (Negative); Urine Color Straw; Urine Glucose Negative (Negative); Urine Ketones Negative (Negative); Urine Nitrite Negative (Negative); Urine Protein Negative (Negative); Urine Specific Gravity 1.002 (1.010-1.030); Urine Urobilinogen Negative (Negative)
[2018-11-23] MEDS ORDERED: OLANzapine TAB* 5 MG PO PRN (16:36)
[2018-11-23] MEDS ORDERED: Dextrose 50% Syringe 50 ML* 25 GM/50 ML SYRINGE IV PUSH PRN (16:43)
[2018-11-23] MEDS: Albuterol/Ipratropium NEB.SOL* Albuterol 2.5 MG/Ipratropium 0.5 MG 3 ML INH SCH ×2 (19:50→23:27)
[2018-11-23] MEDS: methylPREDNISolone SOD 40 MG* 1 ML VIAL IV SCH (20:04)
[2018-11-23] MEDS: Enoxaparin(*) 40 MG/0.4 ML SYR SUBCUT SCH (20:06)
--- NOTE | 2018-11-23 20:26 | HP ---
ADMITTING HISTORY AND PHYSICAL: DATE OF ADMISSION: 11/23/18 CHIEF COMPLAINT: Shortness of breath. HISTORY OF PRESENT ILLNESS: The patient is a 38-year-old -[place] gentleman with history of schizophrenia, bipolar disorder, and diabetes mellitus as well as hypertension, who is unfortunately a poor historian, but presented to the ED with the above chief complaint. He mentioned that 4 days prior to admission, he started feeling unwell with easy fatigability and coughing intermittently between productive and nonproductive cough. His sputum he mentions is clear in color. He mentions that all of his symptoms have significantly gotten worse since it first started leading to his presentation in the ED for which he was diagnosed with community-acquired pneumonia via chest x-ray. In the ED, he was given albuterol, azithromycin, Rocephin, 2 L normal saline bolus, and IV Solu-Medrol. PAST MEDICAL AND SURGICAL HISTORY: 1. Schizophrenia. 2. Bipolar disorder. 3. Diabetes mellitus, type 2, on metformin. 4. Left inguinal hernia repair. ALLERGIES: To Clozapine where the patient is unable to focus. Other allergies listed are Ephedrine, Fluphenazine, Haloperidol, Lamotrigine, adn Paliperidone SOCIAL HISTORY: He lives in an [facility] and denies any history of IV drug use, alcohol abuse, nor smoking. FAMILY HISTORY: Schizophrenia, his brother; bipolar disorder, his brother. REVIEW OF SYSTEMS: The patient mentions that all of his symptoms described above have improved, but denies any headaches, dizziness, vomiting, abdominal pain, diarrhea, or constipation, pain and/or increased frequency in urination, myalgias, arthralgias, throat pain, or new skin lesions. The rest of the 14- point review of systems is otherwise unremarkable. PHYSICAL EXAMINATION GENERAL APPEARANCE: The patient is awake, lethargic, otherwise oriented x3, ill - appearing gentleman. VITAL SIGNS: Reveals the most recent vital signs of records with blood pressure of 108/80, 78 beats per minute heart rate, 92% saturation room air, 22 per minute respiratory rate. HEENT: Normocephalic, atraumatic. PERRLA. Extraocular muscles intact. Negative for icterus. Moist oral mucosa. Negative throat erythema. NECK: Soft, supple with no cervical lymphadenopathy. No JVD. CHEST: Positive for rhonchi bilaterally throughout all lung rob. No rales or wheezes appreciated. HEART: S1, S2 within normal limits, regular rate and rhythm. No murmurs, rubs , or gallops. ABDOMEN: Soft, nondistended, nontender. Normoactive bowel sounds x4 q. EXTREMITIES: No cyanosis, clubbing, or edema. PSYCHIATRIC: No active psychosis, depression, suicidal or homicidal ideation, with blunt affect. DIAGNOSTIC STUDIES/LAB DATA: Most recent and pertinent laboratories drawn show CBC with a WBC that is normal, H and H of 12.1 and 37, 348 respectively. First set of troponins and flu screen were all found to be negative. Sodium and potassium were found to be normal. BUN and creatinine were normal. EKG shows 80 beats per minute, normal sinus rhythm with no ST segment changes with a QTc of 439 msec. Soft tissue of the neck CT shows no acute disease process. Chest x-ray shows small bibasilar infiltrates. ASSESSMENT AND PLAN: The patient is a 38-year-old gentleman with history of schizophrenia, bipolar disorder, and diabetes along with history of seizure disorders admitted for pneumonia with mild sepsis with a qSOFA of 2. 1. Pneumonia with mild sepsis with a qSOFA of 2. Despite CURB-65 being 0, his pneumonia is in fact in the septic range especially given qSOFA of 2. We will place the patient on low-dose Solu-Medrol as ordered and continue DuoNeb/ nebulization as ordered. Continue with Rocephin and azithromycin. We will obtain urine antigen for Legionella pneumophila as well as Strep pneumoniae and we will continue to wait for cultures drawn in the ED. In addition, ambulatory saturations done in the ED showed pt was severely dyspnic and with increased WOB on exertion and desaturated to 85% on RA upon evaluation. 2. Diabetes mellitus. Advise lifestyle modifications. We will hold metformin and we will place the patient on insulin sliding scale. 3. Lethargy. Likely presentation of pneumonia with sepsis; however, unclear whether the patient has had any recent change in his medication regimen. So therefore at this time, we will hold off on his benzodiazepines so as to not further exacerbate his lethargy, thought to be due to the above. 4. Hypertension. Continue metoprolol. 5. DVT prophylaxis. We will place the patient on Lovenox subcu. 6. Disposition for PT eval. [id number]/[facility] #: [id number] [facility]
[2018-11-23] MEDS: Metoprolol Tartrate TAB* 25 MG PO SCH (20:46)
[2018-11-23] MEDS: Lacosamide TAB* 100 MG TAB PO SCH (20:47)
[2018-11-23] MEDS: Insulin LISPRO* 1 UNITS UNIT SUBCUT SCH (21:11)
[2018-11-24] MEDS: Albuterol/Ipratropium NEB.SOL* Albuterol 2.5 MG/Ipratropium 0.5 MG 3 ML INH SCH ×7 (02:36→23:42)
[2018-11-24 06:38] LABS: Hematocrit 35 % (42-52); Hemoglobin 11.5 g/dL (14.0-18.0); Mean Corpuscular HGB Conc 33 g/dL (31-36); Mean Corpuscular Hemoglobin 28 pg (27-31); Mean Corpuscular Volume 84 fL (80-94); Mean Platelet Volume 6.9 fL (7.4-10.4); Platelet Count 360 10^3/uL (150-450); Red Blood Count 4.16 10^6 /uL (4.18-5.48); Red Cell Distribution Width 13 % (10.5-15); White Blood Count 8.3 10^3/uL (3.5-10.8)
[2018-11-24 06:59] LABS: Albumin 3.5 g/dL (3.2-5.2); Albumin/Globulin Ratio 0.9 (1-3); BUN/Creatinine Ratio 15.6 (8-20); Calcium 8.7 mg/dL (8.6-10.3); EGFR African American 168.5 (>60); EGFR Non-African American 139.2 (>60); Globulin 3.8 g/dL (2-4); Magnesium 1.9 mg/dL (1.9-2.7); Phosphorus 3.3 mg/dL (2.5-5.0); Potassium 4.3 mmol/L (3.5-5.0); Total Bilirubin 0.3 mg/dL (0.2-1.0); Total Protein 7.3 g/dL (6.4-8.9)
[2018-11-24] MEDS ORDERED: cefTRIAXone(*) 2 GM in NS 0.9% 100 ML* 100 ML IVPB SCH (09:00)
[2018-11-24] MEDS: Insulin LISPRO* 1 UNITS UNIT SUBCUT SCH ×4 (10:16→20:18)
[2018-11-24] MEDS: TRIHEXYPHENIDYL 5 MG PO SCH (10:19)
[2018-11-24] MEDS: Metoprolol Tartrate TAB* 25 MG PO SCH ×2 (10:21→20:03)
[2018-11-24] MEDS: Lacosamide TAB* 100 MG TAB PO SCH ×2 (10:21→21:46)
[2018-11-24] MEDS: Potassium Chlor TAB* 10 MEQ TAB.ER PO SCH (10:21)
[2018-11-24] MEDS: Pantoprazole TAB * 40 MG TAB PO SCH (10:22)
[2018-11-24] MEDS: Magnesium Oxide TAB* 400 MG PO SCH (10:22)
[2018-11-24] MEDS: ESLICARBAZEPINE ACETATE 800 MG PO SCH (10:23)
[2018-11-24] MEDS: methylPREDNISolone 125 MG* 2 ML VIAL IV SCH (10:23)
[2018-11-24] MEDS: methylPREDNISolone SOD 40 MG* 1 ML VIAL IV SCH (10:24)
[2018-11-24] MEDS: cefTRIAXone* 1 GM in NS 0.9% 50 ML BAG IVPB SCH (14:37)
--- NOTE | 2018-11-24 15:03 | PN ---
Subjective Date of Service: 11/24/18 Interval History: Pt seen and examined. Meds and labs reviewed. CC: Pt mentions he feels better today than yesterday ROS: Denied ALLISON/dizziness, F/C, N/V, CP, increased cough, sputum production, abd pain, diarrhea, constipation, dysuria, myalgias, arthralgias, throat pain, and new skin lesions. The rest of the 14 point ROS are unremarkable. PHYSICAL EXAM: GEN APPEARANCE: Asleep, arousable, not in acute distress HEENT: NC/AT, PERRLA, moist oral mucosa, (-) throat erythema NECK: Soft, supple, (-) cervical LAD, (-)JVD HEART: S1S2 WNL, RRR, No MRG CHEST: (+)Wheezing and ronchi, BL lung, GAE ABD: Soft, ND/NT, NABS 4x Q EXT: No C/C/E SKIN: Warm to touch PSYCH: No active psychosis, hallucinations, depression, SI/HI Objective Active Medications: Albuterol/Ipratropium (Duoneb (Albuterol 2.5 Mg/Ipratropium 0.5 Mg)) 1 neb INH [id number] AWAKE [facility] Last Admin: 11/24/18 10:43 Dose: 1 neb Clobazam (Onfi Tab(Nf)) 5 mg PO BID [facility] Dextrose (D50w Syringe 50 Ml*) 12.5 gm IV PUSH .FOR FS < 60 - SS PRN PRN Reason: FS < 60 Enoxaparin Sodium (Lovenox(*)) 40 mg SUBCUT Q24H [facility] Last Admin: 11/23/18 20:06 Dose: 40 mg Eslicarbazepine Acetate (Aptiom) 800 mg PO DAILY [facility] Last Admin: 11/24/18 10:23 Dose: Not Given Azithromycin 250 mg/ Sodium (Chloride) 250 mls @ 250 mls/hr IVPB Q24H [facility] Stop: 11/28/18 15:59 Ceftriaxone Sodium 1 gm/ (Sodium Chloride) 50 mls @ 200 mls/hr IVPB Q24H [facility] Last Admin: 11/24/18 14:37 Dose: 200 mls/hr Insulin Human Lispro (Humalog*) 0 units SUBCUT ACHS [facility]; Protocol Last Admin: 11/24/18 12:44 Dose: 2 units Lacosamide (Vimpat Tab*) 200 mg PO BID [facility] Last Admin: 11/24/18 10:21 Dose: 200 mg Lorazepam (Ativan Tab(*)) 1 mg PO ONCE ONE Stop: 11/24/18 22:01 Magnesium Oxide (Magox 400 Tab*) 400 mg PO DAILY WITH MEAL [facility] Last Admin: 11/24/18 10:22 Dose: 400 mg Methylprednisolone Sodium Succinate (Solu-Medrol 125mg *) 40 mg IV DAILY [facility] Last Admin: 11/24/18 10:23 Dose: 40 mg Metoprolol Tartrate (Lopressor Tab*) 25 mg PO BID [facility] Last Admin: 11/24/18 10:21 Dose: 25 mg Olanzapine (Zyprexa Tab*) 5 mg PO BID PRN PRN Reason: BEHAVIOR Last Admin: 11/23/18 20:46 Dose: 5 mg Pantoprazole Sodium (Protonix Tab*) 40 mg PO DAILY [facility] Last Admin: 11/24/18 10:22 Dose: 40 mg Potassium Chloride (Klor Con Er Tab*) 10 meq PO DAILY [facility] Last Admin: 11/24/18 10:21 Dose: 10 meq Trihexyphenidyl HCl (Artane Tab*) 2.5 mg PO DAILY [facility] Last Admin: 11/24/18 10:19 Dose: 2.5 mg Vital Signs - 8 hr 11/24/18 11/24/18 11/24/18 07:58 08:00 10:44 Temperature 97.9 F Pulse Rate 81 75 Respiratory 20 20 18 Rate Blood Pressure 119/66 (mmHg) O2 Sat by Pulse 95 98 Oximetry 11/24/18 12:15 Temperature 98.6 F Pulse Rate 73 Respiratory 17 Rate Blood Pressure 113/65 (mmHg) O2 Sat by Pulse 97 Oximetry Oxygen Devices in Use Now: None Result Diagrams: 11/24/18 06:20 11/24/18 06:20 Microbiology and Other Data: Microbiology 11/23/18 13:55 Aerobic Blood Culture - Preliminary Blood Venous No Growth Day 1 Anaerobic Blood Culture - Preliminary No Growth Day 1 11/23/18 13:55 Aerobic Blood Culture - Preliminary Blood Venous No Growth Day 1 Anaerobic Blood Culture - Preliminary No Growth Day 1 11/23/18 16:19 Legionella Urinary Antigen - Final Urine Negative Legionella Antigen Streptococcus pneumoniae Ag Screen - Final Negative S. pneumo Antigen Assess/Plan/Problems-Billing Assessment: - Patient Problems (1) Sepsis due to pneumonia Current Visit: Yes Status: Acute Code(s): J18.9 - PNEUMONIA, UNSPECIFIED ORGANISM; A41.9 - SEPSIS, UNSPECIFIED ORGANISM SNOMED Code(s): 84596030 Comment: -Continue Rocephin and Azithromycin, Abx day #2/ -Continue nebulization (2) Lethargy Current Visit: Yes Status: Acute Code(s): R53.83 - OTHER FATIGUE SNOMED Code(s): 748396122 Comment: -Could be due to polypharmacy in the setting of above? -D/W Dr. Campo and will await his input (3) Diabetes 1.5, managed as type 2 Current Visit: Yes Status: Acute Code(s): E13.9 - OTHER SPECIFIED DIABETES MELLITUS WITHOUT COMPLICATIONS SNOMED Code(s): 954461807 Comment: -Continue ISS -Continue watchful waiting (4) Hypertension Current Visit: No Status: Acute Priority: High Onset Date: 03/23/15 Code (s): I10 - ESSENTIAL (PRIMARY) HYPERTENSION SNOMED Code(s): 78680969 Comment: -Well-controlled -Continue Metoprolol (5) DVT prophylaxis Current Visit: Yes Status: Acute Code(s): Z29.9 - ENCOUNTER FOR PROPHYLACTIC MEASURES, UNSPECIFIED SNOMED Code(s): 420128325 Comment: -Continue Lovenox SQ Status and Disposition: -As above
[2018-11-24] MEDS: Azithromycin IV(*) 250 MG in NS 0.9% 250 ML* 250 ML IVPB SCH (15:21)
--- NOTE | 2018-11-24 17:15 | CONS ---
CC: Dr. Lake * NEUROLOGY CONSULTATION: DATE OF CONSULT: 11/24/18 REFERRING PHYSICIAN: Dr. Awad. LOCATION: He is an inpatient, room 452. CHIEF COMPLAINT: Lethargy. HISTORY OF PRESENT ILLNESS: Rickey Mcbride is a 38-year-old man admitted yesterday with a lethargy and infiltrates on his chest x-ray. He has been treated for pneumonia. He was said to be quite sleepy and lethargic this morning, so I was asked to consult. He has a history of epilepsy and he is on Vimpat, clobazam, and Aptiom. He says he takes his medications regularly. He said with the addition of clobazam, he has not had a seizure in 3 months. His medicines are supervised and delivered to him as he lives in a supervised apartment setting. In addition to epilepsy, he has a history of schizophrenia. CURRENT MEDICATIONS: Include: 1. Vimpat 200 mg p.o. b.i.d. 2. Aptiom 800 mg p.o. daily. 3. Clobazam 10 mg p.o. b.i.d. 4. Olanzapine 5 mg p.o. b.i.d. 5. Metformin ER 750 mg p.o. daily. 6. Protonix 40 mg p.o. daily. 7. Zyprexa 10 mg p.o. b.i.d. REVIEW OF SYSTEMS: Negative for headaches. He admits to being fatigued, but he is not sure how long it has been. He does not have any chills or sweats. PHYSICAL EXAM: Well nourished and well hydrated. Temperature 98.6, blood pressure 113/65, heart rate is 73 and regular, respiratory rate is 17, and oxygen saturation is 97% on room air. He is alert and conversant. He is eating his lunch. Eye movements are full. There is no myoclonus or tremor. Language is fluent. Memory is poor. LABORATORY DATA: Includes negative influenza A and B, normal urinalysis, normal chemistry profile. CBC is normal as well other than a hemoglobin of 11.5. IMPRESSION AND PLAN: Impression is that of a history of epilepsy. Currently, he is alert and conversant. He should continue his current anti-epileptics as before. Apparently, clobazam is not available in our pharmacy till tomorrow, so I will give him a dose of Ativan tonight as I am afraid he might otherwise have a withdrawal seizure. [id number]/[facility] #: [id number] MTDD
[2018-11-24] MEDS: Enoxaparin(*) 40 MG/0.4 ML SYR SUBCUT SCH (17:50)
--- NOTE | 2018-11-24 19:00 | PN ---
Subjective Date of Service: 11/24/18 Interval History: RN noted that pt has a small amount of blood with cough. Reassured that this is not abnormal in pt with PNA. will d/c Lovenox for SVT prophylaxis Objective Active Medications: Albuterol/Ipratropium (Duoneb (Albuterol 2.5 Mg/Ipratropium 0.5 Mg)) 1 neb INH [id number] AWAKE [facility] Last Admin: 11/24/18 15:08 Dose: 1 neb Clobazam (Onfi Tab(Nf)) 5 mg PO BID [facility] Dextrose (D50w Syringe 50 Ml*) 12.5 gm IV PUSH .FOR FS < 60 - SS PRN PRN Reason: FS < 60 Eslicarbazepine Acetate (Aptiom) 800 mg PO DAILY [facility] Last Admin: 11/24/18 10:23 Dose: Not Given Guaifenesin (Mucinex*) 600 mg PO BID [facility] Azithromycin 250 mg/ Sodium (Chloride) 250 mls @ 250 mls/hr IVPB Q24H [facility] Stop: 11/28/18 15:59 Last Admin: 11/24/18 15:21 Dose: 250 mls/hr Ceftriaxone Sodium 1 gm/ (Sodium Chloride) 50 mls @ 200 mls/hr IVPB Q24H [facility] Last Admin: 11/24/18 14:37 Dose: 200 mls/hr Insulin Human Lispro (Humalog*) 0 units SUBCUT ACHS [facility]; Protocol Last Admin: 11/24/18 17:51 Dose: 2 units Lacosamide (Vimpat Tab*) 200 mg PO BID [facility] Last Admin: 11/24/18 10:21 Dose: 200 mg Lorazepam (Ativan Tab(*)) 1 mg PO ONCE ONE Stop: 11/24/18 22:01 Magnesium Oxide (Magox 400 Tab*) 400 mg PO DAILY WITH MEAL [facility] Last Admin: 11/24/18 10:22 Dose: 400 mg Methylprednisolone Sodium Succinate (Solu-Medrol 125mg *) 40 mg IV DAILY [facility] Last Admin: 11/24/18 10:23 Dose: 40 mg Metoprolol Tartrate (Lopressor Tab*) 25 mg PO BID [facility] Last Admin: 11/24/18 10:21 Dose: 25 mg Olanzapine (Zyprexa Tab*) 5 mg PO BID PRN PRN Reason: BEHAVIOR Last Admin: 11/23/18 20:46 Dose: 5 mg Pantoprazole Sodium (Protonix Tab*) 40 mg PO DAILY [facility] Last Admin: 11/24/18 10:22 Dose: 40 mg Potassium Chloride (Klor Con Er Tab*) 10 meq PO DAILY [facility] Last Admin: 11/24/18 10:21 Dose: 10 meq Trihexyphenidyl HCl (Artane Tab*) 2.5 mg PO DAILY [facility] Last Admin: 11/24/18 10:19 Dose: 2.5 mg Vital Signs - 8 hr 11/24/18 11/24/18 11/24/18 12:15 15:09 16:44 Temperature 98.6 F 98.7 F Pulse Rate 73 76 85 Respiratory 17 18 18 Rate Blood Pressure 113/65 124/74 (mmHg) O2 Sat by Pulse 97 97 97 Oximetry Oxygen Devices in Use Now: None Result Diagrams: 11/24/18 06:20 11/24/18 06:20 Microbiology and Other Data: Microbiology 11/23/18 13:55 Aerobic Blood Culture - Preliminary Blood Venous No Growth Day 1 Anaerobic Blood Culture - Preliminary No Growth Day 1 11/23/18 13:55 Aerobic Blood Culture - Preliminary Blood Venous No Growth Day 1 Anaerobic Blood Culture - Preliminary No Growth Day 1 11/23/18 16:19 Legionella Urinary Antigen - Final Urine Negative Legionella Antigen Streptococcus pneumoniae Ag Screen - Final Negative S. pneumo Antigen Assess/Plan/Problems-Billing Assessment: Status and Disposition: -As above
[2018-11-24] MEDS: Clobazam TAB (NF) 10 MG TAB PO SCH (20:03)
[2018-11-24] MEDS: guaiFENesin ER TAB 600 MG PO SCH (20:03)
[2018-11-24] MEDS ORDERED: LORazepam TAB(*) 1 MG PO ONE (22:00)
[2018-11-25] MEDS: Benzonatate CAP* 100 MG PO PRN ×2 (02:00→12:05)
[2018-11-25] MEDS: Albuterol/Ipratropium NEB.SOL* Albuterol 2.5 MG/Ipratropium 0.5 MG 3 ML INH SCH ×6 (03:08→23:39)
[2018-11-25 07:05] LABS: ABS Basophils 0.1 10^3/ul (0-0.2); ABS Lymphocytes 3.3 10^3/ul (1.0-4.8); ABS Monocytes 0.5 10^3/ul (0-0.8); ABS Neutrophils 3.2 10^3/ul (1.5-7.7); Eosinophil % 11.8 %; Hematocrit 34 % (42-52); Hemoglobin 11.6 g/dL (14.0-18.0); Lymphocyte % 40.7 %; Mean Corpuscular HGB Conc 34 g/dL (31-36); Mean Corpuscular Hemoglobin 29 pg (27-31); Mean Corpuscular Volume 84 fL (80-94); Nucleated Red Blood Cells % 0.1; Platelet Count 322 10^3/uL (150-450); Red Blood Count 4.05 10^6 /uL (4.18-5.48); Red Cell Distribution Width 14 % (10.5-15); White Blood Count 8.1 10^3/uL (3.5-10.8)
[2018-11-25] MEDS: Insulin LISPRO* 1 UNITS UNIT SUBCUT SCH ×4 (07:12→22:19)
[2018-11-25 07:19] LABS: BUN/Creatinine Ratio 11.9 (8-20); Calcium 8.8 mg/dL (8.6-10.3); EGFR African American 159.8 (>60); EGFR Non-African American 132.1 (>60); Potassium 3.4 mmol/L (3.5-5.0)
[2018-11-25] MEDS: ESLICARBAZEPINE ACETATE 800 MG PO SCH (08:13)
[2018-11-25] MEDS: guaiFENesin ER TAB 600 MG PO SCH ×2 (08:23→20:31)
[2018-11-25] MEDS: Pantoprazole TAB * 40 MG TAB PO SCH (08:23)
[2018-11-25] MEDS: Magnesium Oxide TAB* 400 MG PO SCH (08:23)
[2018-11-25] MEDS: Clobazam TAB (NF) 10 MG TAB PO SCH ×2 (08:23→20:30)
[2018-11-25] MEDS: Metoprolol Tartrate TAB* 25 MG PO SCH ×2 (08:23→20:31)
[2018-11-25] MEDS: Lacosamide TAB* 100 MG TAB PO SCH ×2 (08:23→20:31)
[2018-11-25] MEDS: Potassium Chlor TAB* 10 MEQ TAB.ER PO SCH (08:23)
[2018-11-25] MEDS: TRIHEXYPHENIDYL 5 MG PO SCH (08:24)
[2018-11-25] MEDS: methylPREDNISolone 125 MG* 2 ML VIAL IV SCH (08:24)
[2018-11-25] MEDS ORDERED: Potassium Chloride* LIQUID 20 MEQ/15 ML UDC PO ONE (11:00)
[2018-11-25] MEDS: ESLICARBAZEPINE 800 MG PO SCH (12:31)
[2018-11-25] MEDS: cefTRIAXone* 1 GM in NS 0.9% 50 ML BAG IVPB SCH (14:55)
--- NOTE | 2018-11-25 15:45 | PN ---
Subjective Date of Service: 11/25/18 Length of Stay: 2 Days Neurology is following for lethargy. Interval History: Mr. Mcbride is feeling well. He has no acute complaints. He still has trouble coughing. No reported fevers. His last seizure was between 3-5 months ago. Review of Systems: Denied headache, visual disturbance, or focal weakness. Objective Active Medications: Albuterol/Ipratropium (Duoneb (Albuterol 2.5 Mg/Ipratropium 0.5 Mg)) 1 neb INH [id number] AWAKE [facility] Last Admin: 11/25/18 15:27 Dose: 1 neb Benzonatate (Tessalon Cap*) 100 mg PO BID PRN PRN Reason: COUGH Last Admin: 11/25/18 12:05 Dose: 100 mg Clobazam (Onfi Tab(Nf)) 5 mg PO BID [facility] Last Admin: 11/25/18 08:23 Dose: 5 mg Dextrose (D50w Syringe 50 Ml*) 12.5 gm IV PUSH .FOR FS < 60 - SS PRN PRN Reason: FS < 60 Eslicarbazepine Acetate (Aptiom) 800 mg PO DAILY [facility] Last Admin: 11/25/18 12:31 Dose: 800 mg Guaifenesin (Mucinex*) 600 mg PO BID [facility] Last Admin: 11/25/18 08:23 Dose: 600 mg Azithromycin 250 mg/ Sodium (Chloride) 250 mls @ 250 mls/hr IVPB Q24H [facility] Stop: 11/28/18 15:59 Last Admin: 11/24/18 15:21 Dose: 250 mls/hr Ceftriaxone Sodium 1 gm/ (Sodium Chloride) 50 mls @ 200 mls/hr IVPB Q24H [facility] Last Admin: 11/25/18 14:55 Dose: 200 mls/hr Insulin Human Lispro (Humalog*) 0 units SUBCUT ACHS [facility]; Protocol Last Admin: 11/25/18 12:03 Dose: 1 units Lacosamide (Vimpat Tab*) 200 mg PO BID [facility] Last Admin: 11/25/18 08:23 Dose: 200 mg Magnesium Oxide (Magox 400 Tab*) 400 mg PO DAILY WITH MEAL [facility] Last Admin: 11/25/18 08:23 Dose: 400 mg Methylprednisolone Sodium Succinate (Solu-Medrol 125mg *) 40 mg IV DAILY [facility] Last Admin: 11/25/18 08:24 Dose: 40 mg Metoprolol Tartrate (Lopressor Tab*) 25 mg PO BID [facility] Last Admin: 11/25/18 08:23 Dose: 25 mg Olanzapine (Zyprexa Tab*) 5 mg PO BID PRN PRN Reason: BEHAVIOR Last Admin: 11/23/18 20:46 Dose: 5 mg Pantoprazole Sodium (Protonix Tab*) 40 mg PO DAILY [facility] Last Admin: 11/25/18 08:23 Dose: 40 mg Potassium Chloride (Potassium Chloride Liquid) 10 meq PO DAILY [facility] Trihexyphenidyl HCl (Artane Tab*) 2.5 mg PO DAILY [facility] Last Admin: 11/25/18 08:24 Dose: 2.5 mg Vital Signs 11/24/18 11/24/18 11/24/18 16:44 20:00 20:01 Temperature 98.7 F 97.8 F Pulse Rate 85 87 Respiratory 18 22 22 Rate Blood Pressure 124/74 114/82 (mmHg) O2 Sat by Pulse 97 98 Oximetry 11/24/18 11/24/18 11/24/18 20:21 21:57 23:20 Temperature 98.1 F Pulse Rate 87 72 Respiratory 20 18 18 Rate Blood Pressure 131/88 (mmHg) O2 Sat by Pulse 99 100 Oximetry 11/24/18 11/24/18 11/25/18 23:43 23:57 00:00 Temperature 98.1 F Pulse Rate 82 72 Respiratory 20 18 18 Rate Blood Pressure 131/88 (mmHg) O2 Sat by Pulse 99 100 Oximetry 11/25/18 11/25/18 11/25/18 00:11 03:08 03:17 Temperature 97.3 F 97.6 F Pulse Rate 80 79 71 Respiratory 18 20 20 Rate Blood Pressure 121/82 113/69 (mmHg) O2 Sat by Pulse 100 99 100 Oximetry 11/25/18 11/25/18 11/25/18 07:57 08:00 15:27 Temperature 98.1 F Pulse Rate 80 91 Respiratory 16 18 16 Rate Blood Pressure 107/62 (mmHg) O2 Sat by Pulse 96 99 Oximetry Intake and Output Last 24 Hours 11/23/18 11/24/18 11/25/18 11/26/18 06:59 06:59 06:59 06:59 Intake Total 3020 1850 Output Total 600 2575 Balance 2420 -725 Weight 219 lb 9.6 oz Intake: IV Fluids 2300 50 ABX - CEFTRIAXONE 50 Oral 720 1800 Output: Urine 600 2575 Other: Estimated Void Medium # Voids 2 Oxygen Devices in Use Now: Nasal Cannula Neurology Exam: General: Mild ill appearing man due to an upper respiratory infection and sinus congestion. He is in no distress. HEENT: Normocephelic/atraumatic, sclera anicteric, mucous membranes moist Extremities: No clubbing, cyanosis, or edema Neurological Findings: Awake, alert, and oriented to person, place, and time. Speech: fluent without dysarthria, repetition intact Cranial Nerve: PERRL, EOM intact, VFF, no nystagmus Motor: s/s throughout, proximal and distal extremities x4 tone/bulk normal Gait: reported ambulating to the restroom without any complications. Result Diagrams: 11/25/18 06:43 11/25/18 06:43 Microbiology and Other Data: Microbiology 11/23/18 13:55 Aerobic Blood Culture - Preliminary Blood Venous No Growth Day 1 Anaerobic Blood Culture - Preliminary No Growth Day 1 11/23/18 13:55 Aerobic Blood Culture - Preliminary Blood Venous No Growth Day 1 Anaerobic Blood Culture - Preliminary No Growth Day 1 11/23/18 16:19 Legionella Urinary Antigen - Final Urine Negative Legionella Antigen Streptococcus pneumoniae Ag Screen - Final Negative S. pneumo Antigen Assessment/Plan Mr. Carias is a 38-year-old man with epilepsy. He has not had any recent seizures. Neurology was consulted yesterday to evaluate for lethargy in the setting of a respiratory illness. The patient is feeling better today and has no neurological complaints. 1. Seizures- continue home AED therapy (Vimpat, Aptiom, and Clobazam). 2. Lethargy- most likely related to the pneumonia. Improving with current antibiotic therapy. The patient should not be placed on any fluoroquinolone as an outpatient given it's risk for lowering the seizure threshold. 3. Pneumonia- defer to the primary team. Neurology will sign off. Please contact us for any questions or concerns.
[2018-11-25] MEDS: Azithromycin IV(*) 250 MG in NS 0.9% 250 ML* 250 ML IVPB SCH (16:41)
--- NOTE | 2018-11-25 17:13 | PN ---
Subjective Date of Service: 11/25/18 Interval History: Pt seen and examined. Meds and labs reviewed. No O/N issues CC: Feels better today ROS: Denied ALLISON/dizziness, F/C, N/V, CP, SOB, increased cough, sputum production , abd pain, diarrhea, constipation, dysuria, myalgias, arthralgias, throat pain , and new skin lesions. The rest of the 14 point ROS are unremarkable. PHYSICAL EXAM: GEN APPEARANCE: Awake, not in acute distress, looks improved compared to yesterday HEENT: NC/AT, PERRLA, moist oral mucosa, (-) throat erythema NECK: Soft, supple, (-) cervical LAD, (-)JVD HEART: S1S2 WNL, RRR, No MRG CHEST: CTA, BL, GAE, No W/R/R ABD: Soft, ND/NT, NABS 4x Q EXT: No C/C/E SKIN: Warm to touch PSYCH: No active psychosis, hallucinations, depression, SI/HI Objective Active Medications: Albuterol/Ipratropium (Duoneb (Albuterol 2.5 Mg/Ipratropium 0.5 Mg)) 1 neb INH [id number] AWAKE [facility] Last Admin: 11/25/18 15:27 Dose: 1 neb Benzonatate (Tessalon Cap*) 100 mg PO BID PRN PRN Reason: COUGH Last Admin: 11/25/18 12:05 Dose: 100 mg Clobazam (Onfi Tab(Nf)) 5 mg PO BID [facility] Last Admin: 11/25/18 08:23 Dose: 5 mg Dextrose (D50w Syringe 50 Ml*) 12.5 gm IV PUSH .FOR FS < 60 - SS PRN PRN Reason: FS < 60 Eslicarbazepine Acetate (Aptiom) 800 mg PO DAILY [facility] Last Admin: 11/25/18 12:31 Dose: 800 mg Guaifenesin (Mucinex*) 600 mg PO BID [facility] Last Admin: 11/25/18 08:23 Dose: 600 mg Azithromycin 250 mg/ Sodium (Chloride) 250 mls @ 250 mls/hr IVPB Q24H [facility] Stop: 11/28/18 15:59 Last Admin: 11/25/18 16:41 Dose: 250 mls/hr Ceftriaxone Sodium 1 gm/ (Sodium Chloride) 50 mls @ 200 mls/hr IVPB Q24H [facility] Last Admin: 11/25/18 14:55 Dose: 200 mls/hr Insulin Human Lispro (Humalog*) 0 units SUBCUT ACHS [facility]; Protocol Last Admin: 11/25/18 16:41 Dose: Not Given Lacosamide (Vimpat Tab*) 200 mg PO BID [facility] Last Admin: 11/25/18 08:23 Dose: 200 mg Magnesium Oxide (Magox 400 Tab*) 400 mg PO DAILY WITH MEAL [facility] Last Admin: 11/25/18 08:23 Dose: 400 mg Methylprednisolone Sodium Succinate (Solu-Medrol 125mg *) 40 mg IV DAILY [facility] Last Admin: 11/25/18 08:24 Dose: 40 mg Metoprolol Tartrate (Lopressor Tab*) 25 mg PO BID [facility] Last Admin: 11/25/18 08:23 Dose: 25 mg Olanzapine (Zyprexa Tab*) 5 mg PO BID PRN PRN Reason: BEHAVIOR Last Admin: 11/23/18 20:46 Dose: 5 mg Pantoprazole Sodium (Protonix Tab*) 40 mg PO DAILY [facility] Last Admin: 11/25/18 08:23 Dose: 40 mg Potassium Chloride (Potassium Chloride Liquid) 10 meq PO DAILY [facility] Trihexyphenidyl HCl (Artane Tab*) 2.5 mg PO DAILY [facility] Last Admin: 11/25/18 08:24 Dose: 2.5 mg Vital Signs - 8 hr 11/25/18 15:27 Pulse Rate 91 Respiratory 16 Rate O2 Sat by Pulse 99 Oximetry Oxygen Devices in Use Now: Nasal Cannula Result Diagrams: 11/25/18 06:43 11/25/18 06:43 Microbiology and Other Data: Microbiology 11/23/18 13:55 Aerobic Blood Culture - Preliminary Blood Venous No Growth Day 1 Anaerobic Blood Culture - Preliminary No Growth Day 1 11/23/18 13:55 Aerobic Blood Culture - Preliminary Blood Venous No Growth Day 1 Anaerobic Blood Culture - Preliminary No Growth Day 1 11/23/18 16:19 Legionella Urinary Antigen - Final Urine Negative Legionella Antigen Streptococcus pneumoniae Ag Screen - Final Negative S. pneumo Antigen Assess/Plan/Problems-Billing Mr. Carias is a 38-year-old man with epilepsy. He has not had any recent seizures. Neurology was consulted yesterday to evaluate for lethargy in the setting of a respiratory illness. The patient is feeling better today and has no neurological complaints. 1. Seizures- continue home AED therapy (Vimpat, Aptiom, and Clobazam). 2. Lethargy- most likely related to the pneumonia. Improving with current antibiotic therapy. The patient should not be placed on any fluoroquinolone as an outpatient given it's risk for lowering the seizure threshold. 3. Pneumonia- defer to the primary team. Neurology will sign off. Please contact us for any questions or concerns. - Patient Problems (1) Sepsis due to pneumonia Current Visit: Yes Status: Acute Code(s): J18.9 - PNEUMONIA, UNSPECIFIED ORGANISM; A41.9 - SEPSIS, UNSPECIFIED ORGANISM SNOMED Code(s): 15714518 Comment: -Continue Rocephin and Azithromycin, Abx day #3 -Continue nebulization -Blood Cx (-) x 2 days -Urine Ag (-) Legionella and S. pneumoniae -Sepsis resolved (2) Lethargy Current Visit: Yes Status: Acute Code(s): R53.83 - OTHER FATIGUE SNOMED Code(s): 923155453 Comment: -Resolved -Likely due to sepsis due to above -Appreciate Neuro input (3) Diabetes 1.5, managed as type 2 Current Visit: Yes Status: Acute Code(s): E13.9 - OTHER SPECIFIED DIABETES MELLITUS WITHOUT COMPLICATIONS SNOMED Code(s): 195849129 Comment: -Well-controlled -Continue ISS -Continue watchful waiting (4) Hypertension Current Visit: No Status: Acute Priority: High Onset Date: 03/23/15 Code (s): I10 - ESSENTIAL (PRIMARY) HYPERTENSION SNOMED Code(s): 14231781 Comment: -Well-controlled -Continue Metoprolol (5) DVT prophylaxis Current Visit: Yes Status: Acute Code(s): Z29.9 - ENCOUNTER FOR PROPHYLACTIC MEASURES, UNSPECIFIED SNOMED Code(s): 001469633 Comment: -Continue Lovenox SQ Status and Disposition: -For ambulatory sats in AM -For possible D/C in AM
[2018-11-26] MEDS: Albuterol/Ipratropium NEB.SOL* Albuterol 2.5 MG/Ipratropium 0.5 MG 3 ML INH SCH ×2 (02:53→08:04)
[2018-11-26] MEDS: Benzonatate CAP* 100 MG PO PRN (04:45)
[2018-11-26 06:30] LABS: Hematocrit 38 % (42-52); Hemoglobin 12.5 g/dL (14.0-18.0); Mean Corpuscular HGB Conc 33 g/dL (31-36); Mean Corpuscular Hemoglobin 28 pg (27-31); Mean Corpuscular Volume 84 fL (80-94); Mean Platelet Volume 6.7 fL (7.4-10.4); Platelet Count 355 10^3/uL (150-450); Red Blood Count 4.49 10^6 /uL (4.18-5.48); Red Cell Distribution Width 14 % (10.5-15); White Blood Count 8.9 10^3/uL (3.5-10.8)
[2018-11-26 06:51] LABS: Albumin 3.9 g/dL (3.2-5.2); BUN/Creatinine Ratio 14.7 (8-20); Calcium 9.7 mg/dL (8.6-10.3); EGFR African American 157.1 (>60); EGFR Non-African American 129.8 (>60); Phosphorus 4.5 mg/dL (2.5-5.0); Total Bilirubin 0.3 mg/dL (0.2-1.0); Total Protein 7.9 g/dL (6.4-8.9)
[2018-11-26] MEDS: Insulin LISPRO* 1 UNITS UNIT SUBCUT SCH (07:13)
[2018-11-26 08:30] VITALS: BP 116/66
[2018-11-26] MEDS: Magnesium Oxide TAB* 400 MG PO SCH (08:39)
[2018-11-26] MEDS: ESLICARBAZEPINE 800 MG PO SCH (08:39)
[2018-11-26] MEDS: Metoprolol Tartrate TAB* 25 MG PO SCH (08:39)
[2018-11-26] MEDS: Pantoprazole TAB * 40 MG TAB PO SCH (08:39)
[2018-11-26] MEDS: Clobazam TAB (NF) 10 MG TAB PO SCH (08:39)
[2018-11-26] MEDS: TRIHEXYPHENIDYL 5 MG PO SCH (08:39)
[2018-11-26] MEDS: guaiFENesin ER TAB 600 MG PO SCH (08:39)
[2018-11-26] MEDS: methylPREDNISolone 125 MG* 2 ML VIAL IV SCH (08:40)
[2018-11-26] MEDS: Lacosamide TAB* 100 MG TAB PO SCH (08:46)
[2018-11-26] MEDS ORDERED: Potassium Chloride* LIQUID 20 MEQ/15 ML UDC PO SCH (09:00)
[2018-11-26] MEDS ORDERED: Albuterol/Ipratropium NEB.SOL* Albuterol 2.5 MG/Ipratropium 0.5 MG 3 ML INH PRN (09:32)
--- NOTE | 2018-11-26 12:21 | DS ---
CC: Dr. Jose Antonio Garcia; Dr. Campo; Dr. Nicki Olmstead* DISCHARGE SUMMARY: DATE OF ADMISSION: 11/23/18 DATE OF DISCHARGE: 11/26/18 DISCHARGE CONDITION: Stable. DISCHARGE DISPOSITION: Discharged to [facility]. DISCHARGE DIAGNOSES: Are as follows: 1. Community-acquired pneumonia with mild sepsis, sepsis resolved. 2. Lethargy due to sepsis in the setting of polypharmacy, resolved. 3. Diabetes mellitus, well controlled. 4. Hypertension, well controlled. DISCHARGE MEDICATIONS: Are as follows: 1. Benzonatate capsule 100 mg p.o. b.i.d., p.r.n. 2. Clonazepam 5 mg p.o. b.i.d. 3. Aptiom 800 mg p.o. daily. 4. Guaifenesin 600 mg p.o. b.i.d. for 5 days. 5. Lacosamide 200 mg p.o. b.i.d. 6. Magnesium oxide 400 mg p.o. daily. 7. Metoprolol tartrate 25 mg p.o. b.i.d. 8. Olanzapine 5 mg p.o. b.i.d. 9. Pantoprazole 40 mg p.o. daily. 10. Potassium chloride 10 mEq p.o. daily. 11. Trihexyphenidyl tablet 2.5 mg p.o. daily. 12. Albuterol HFA inhaler 2 puffs inhalation q.6 p.r.n. 13. Azithromycin 250 mg p.o. daily for 3 more days. 14. Benzonatate capsule 100 mg p.o. b.i.d. for 3 days. 15. Cefdinir capsule 300 mg p.o. b.i.d. for 7 more days. 16. Clobazam 10 mg p.o. b.i.d. 17. Ibuprofen 800 mg p.o. t.i.d. p.r.n. 18. Floranex tabs 2 tabs p.o. daily for 10 days. 19. Metformin 750 mg p.o. daily. 20. Olanzapine 10 mg p.o. b.i.d. 21. Prednisone slow taper as ordered. HISTORY OF PRESENT ILLNESS/HOSPITAL COURSE: The patient is a 38-year-old - [place] gentleman with history of schizophrenia, bipolar disorder and diabetes mellitus, as well as hypertension, who was admitted for shortness of breath and lethargy and was found to have mild sepsis due to pneumonia. His previous medication regimen has been narrowed to further decrease his chances of lethargy as the patient was being treated for pneumonia with Rocephin and azithromycin. The patient's lethargy improved during his hospital course and was also seen by Neurology who agreed that his lethargy was likely secondary to pneumonia. He is back to his baseline mental state and will be discharged home. He had an ambulatory saturation test done and was found to have 92% saturation on ambulation. The patient had been advised to follow up and/or call his PCP within 3 days post discharge and if his symptoms resume or develop new ones, he was advised to call his PCP first, and if his PCP cannot entertain him due to scheduling issues alone, he was advised to call [facility] if the issue is not emergent. He was advised to call my office regarding any questions, concerns, or further clarifications regarding his discharge plans and/or prescriptions and to take his medications as prescribed. On review of systems, the patient denied any headaches, dizziness, fevers, chills, nausea, vomiting, chest pain, shortness of breath, increased cough and/ or sputum production, abdominal pain, diarrhea, constipation, pain and/or increased frequency in urination, myalgias, arthralgias, throat pain, or new skin lesions. The rest of the 14-point review of systems is otherwise unremarkable. On my exam prior to discharge, patient appeared comfortable at rest and on ambulation; however, on physical exam, patient was found to have some diffuse wheezing, but otherwise good air entry. Hence, we will increase prednisone from 40 mg p.o. daily to 60 mg p.o. daily and then taper as prescribed. PHYSICAL EXAMINATION: Shows the most recent vital signs of records with blood pressure of 116/66, 97.2 degrees Fahrenheit, 84 beats per minute heart rate, 21 per minute respiratory rate, saturating at 95% on room air. General Appearance : The patient is awake, alert, and oriented x3, not in acute distress. HEENT: Normocephalic, atraumatic. PERRLA. Extraocular muscles intact. Negative for icterus. Moist oral mucosa. Negative throat erythema. Neck: Soft, supple, with no cervical lymphadenopathy. No JVD. Heart: S1, S2 within normal limits. Regular rate and rhythm. No murmurs, rubs, and gallops. Chest: Slight wheezing throughout all lung rob, however, with good air entry. No rales, no rhonchi appreciated, and no signs of consolidation. Abdomen is soft, nondistended, nontender. Normoactive bowel sounds x4 quadrants. Extremities: No cyanosis, clubbing, or edema. Psychiatric: No active psychosis, depression , suicidal or homicidal ideations. Skin is warm to touch. TIME SPENT: The total time spent evaluating the patient, reviewing pertinent data, and appropriate documentation was 50 minutes. [id number] #: [id number] MTDD
== END 2018-11-26 11:12 | DRG 871 ==
LOC: ED 12:46 → MEDTELE 16:31
PROVIDERS: ADMIT Student in an Organized Health Care Education/Training Program; ATTEND Student in an Organized Health Care Education/Training Program
DX: A41.9 Sepsis, unspecified organism (principal); J18.8 Other pneumonia, unspecified organism; E13.9 Other specified diabetes mellitus without complications; G40.909 Epilepsy, unspecified, not intractable, without status epilepticus; I10 Essential (primary) hypertension; F20.9 Schizophrenia, unspecified; F31.9 Bipolar disorder, unspecified; Z79.84 Long term (current) use of oral hypoglycemic drugs; Z79.899 Other long term (current) drug therapy; Z88.8 Allergy status to other drugs, medicaments and biological substances; Z81.8 Family history of other mental and behavioral disorders
CPT/HCPCS: 36415; 70360; 71046; 80048; 80053; 81003; 82803; 83036; 83605; 83735; 84100; 84484; 85025; 85027; 87040; 87899; 93005; 94640; 99285; A9270-GY; J0456; J0696; J1650; J2920; J2930; J7611

== ENCOUNTER 2018-12-01 16:34 | Emergency (ER) | payer MEDICARE, MEDICAID ==
[2018-12-01] MEDS ORDERED: NS 0.9% 1000 ML** 1,000 ML IV ONE (17:14)
[2018-12-01] MEDS ORDERED: Albuterol/Ipratropium NEB.SOL* Albuterol 2.5 MG/Ipratropium 0.5 MG 3 ML INH ONE (17:14)
[2018-12-01] MEDS ORDERED: Ketorolac INJ* 30 MG/ML 1 ML VIAL IV PUSH ONE (17:15)
[2018-12-01] MEDS ORDERED: methylPREDNISolone 125 MG* 2 ML VIAL IV ONE (17:15)
--- NOTE | 2018-12-01 17:20 | ED ---
Complex/Multi-Sys Presentation - HPI Summary HPI Summary: Patient is a 38 y/o M presenting to ED via EMS with complaints of left chest pain, lower back pain, diffuse aches, SOB at rest and cough. Patient reports Hx of PNA seven days ago, he reports that he was admitted to [facility] and treated with antibiotics. Patient states he was admitted for 4-5 days, patient is no longer taking antibiotics. Upon review of medical records, on discharge on 11/26/18, patient was discharged with prescription for prednisone taper and Zithromax for three days. Patient claims that his cough has been productive of blood. In the room, the patient begins to cough and produces yellow, watery phlegm with no blood. PMHx of seizures, patient states that he was placed on a new medication for this recently but he cannot recall the name of the medication. He is a former smoker. On triage, pain is rated 8/10. Nothing is noted to aggravate/ alleviate Sx. Home medications and allergies are reviewed. - History Of Current Complaint Chief Complaint: EDUpperRespComplaint Time Seen by Provider: 12/01/18 16:42 Hx Obtained From: Patient, Medical Records Onset/Duration: Still Present Timing: Constant Severity Currently: Severe Location: Pain At: - left chest, lower back Aggravating Factor(s): nothing Alleviating Factor(s): nothing Associated Signs And Symptoms: Positive: SOB, Cough, Chest Pain, Back Pain, Other - diffuse aches - Allergies/Home Medications Allergies/Adverse Reactions: Allergies Allergy/AdvReac Type Severity Reaction Status Date / Time clozapine Allergy See Comment Verified 12/01/18 16:40 ephedrine Allergy Blurred Verified 12/01/18 16:40 Vision fluphenazine [From Prolixin] Allergy Unknown Verified 12/01/18 16:40 Reaction Details haloperidol [From Haldol] Allergy See Comment Verified 12/01/18 16:40 lamotrigine [From Lamictal] Allergy Rash Verified 12/01/18 16:40 paliperidone Allergy Unknown Verified 12/01/18 16:40 Reaction Details phenobarbital Allergy Unknown Verified 12/01/18 16:40 Reaction Details theophylline Allergy Unknown Verified 12/01/18 16:40 Reaction Details ziprasidone [From Geodon] Allergy See Comment Verified 12/01/18 16:40 PMH/Surg Hx/FS Hx/Imm Hx Endocrine/Hematology History: Reports: Hx Diabetes, Hx Anemia, Other Endocrine/ Hematological Disorders - leukopenia Denies: Hx Anticoagulant Therapy, Hx Thyroid Disease, Hx Unexplained Bleeding Cardiovascular History: Reports: Hx Hypertension, Other Cardiovascular Problems/ Disorders - IDDM/LEUOKOPENIA / SEIZURES Denies: Hx Aneurysm, Hx Angina, Hx Angioplasty, Hx Auto Implanted Cardiovert Defib, Hx Cardiac Arrest, Hx Cardiomegaly, Hx Congenital Heart Disease, Hx Congestive Heart Failure, Hx Coronary Artery Disease, Hx Deep Vein Thrombosis, Hx Hypercholesterolemia, Hx Hypotension, Hx Myocardial Infarction, Hx Pacemaker/ ICD, Hx Peripheral Vascular Disease, Hx Rheumatic Fever, Hx Syncope, Hx Valvular Heart Disease Respiratory History: Denies: Hx Asthma, Hx Chronic Bronchitis, Hx Chronic Obstructive Pulmonary Disease (COPD), Hx Cystic Fibrosis, Hx Lung Cancer, Hx Pleural Effusion, Hx Pneumonia, Hx Pulmonary Edema, Hx Pulmonary Embolism, Hx Seasonal Allergies, Hx Sleep Apnea, Other Respiratory Problems/Disorders GI History: Reports: Hx Gastroesophageal Reflux Disease, Hx Hiatal Hernia, Other GI Disorders - Constipation Denies: Hx Gall Bladder Disease, Hx Gastrointestinal Bleed, Hx Ulcer, Hx Urosepsis History: Denies: Hx Kidney Stones, Hx Renal Disease, Other Problems/Disorders Musculoskeletal History: Reports: Hx Orthopedic Injury - Left Leg Fracture Denies: Other Musculoskeletal History Sensory History: Denies: Hx Contacts or Glasses, Other Sensory Impairments Opthamlomology History: Denies: Hx Contacts or Glasses, Other Sensory Impairments Neurological History: Reports: 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, Other Neuro Impairments/Disorders - MENTAL ILLNESS/SCHIZOPHRENIA Denies: Hx Dementia, Hx Developmental Delay, Hx Headaches, Hx Migraine, Hx Nerve Disease, Hx Spinal Cord Injury, Hx Transient Ischemic Attacks (TIA) Psychiatric History: Reports: Hx Anxiety, Hx Oppositional [place] Disorder, Hx Depression, Hx Panic Disorder, Hx Post Traumatic Stress Disorder, Hx Inpatient Treatment, Hx Community Mental Health Tx, Hx Schizophrenia, Hx Bipolar Disorder , Hx Suicide Attempt, Hx Substance Abuse, Other Psychiatric Issues/Disorders - Hx Psychosis Denies: Hx Attention Deficit Hyperactivity Disorder, Hx Eating Disorder, Hx of Violent Episodes Against Others - Surgical History Surgery Procedure, Year, and Place: LEFT INGUINAL HERNIA - as a child. LEG - NO METAL PER PT Hx Anesthesia Reactions: No - Immunization History Date of Tetanus Vaccine: Up to Date Date of Influenza Vaccine: None Infectious Disease History: No Infectious Disease History: Reports: Hx Clostridium Difficile Denies: Hx Hepatitis, Hx Human Immunodeficiency Virus (HIV), Hx of Known/ Suspected MRSA, Hx Shingles, Hx Tuberculosis, Hx Known/Suspected VRE, History Other Infectious Disease, Traveled Outside the [place] in Last 30 Days - Family History Known Family History: Positive: Cardiac Disease, Hypertension, Diabetes - When asked about family HTN, DM, CAD, he states, "Yeah, something like, Other - Schizophrenia, ASTHMA, CANCER - Social History Alcohol Use: None Alcohol Amount: last ETOH 4 years ago per pt Hx Substance Use: No Substance Use Type: Reports: None Substance Use Comment - Amount & Last Used: in the past Amphetamine Barbituats Hx Tobacco Use: No Smoking Status (MU): Former Smoker Review of Systems Constitutional: Other - POSITIVE - DIFFUSE ACHES Positive: Chest Pain Positive: Shortness Of Breath, Cough Musculoskeletal: Other - POSITIVE - BACK PAIN All Other Systems Reviewed And Are Negative: Yes Physical Exam - Summary Physical Exam Summary: Appearance: well appearing, no pain distress Skin: warm, dry, reflects adequate perfusion Head/face: normal Eyes: EOMI, BHAVIK ENT: mucous membranes moist, clear nasal discharge Neck: supple, non-tender Respiratory: diffuse expiratory and inspiratory wheezes, breath sounds present Cardiovascular: RRR, pulses symmetrical Abdomen: non-tender, soft Bowel Sounds: present Musculoskeletal: normal, strength/ROM intact Neuro: normal, sensory motor intact, A&Ox3 Triage Information Reviewed: Yes Vital Signs On Initial Exam: Initial Vitals Temp Pulse Resp BP Pulse Ox 98.3 F 98 19 146/65 98 12/01/18 16:35 12/01/18 16:35 12/01/18 16:35 12/01/18 16:35 12/01/18 16:35 Vital Signs Reviewed: Yes Diagnostics - Vital Signs Vital Signs Temp Pulse Resp BP Pulse Ox 12/01/18 16:35 98.3 F 98 19 146/65 98 - Laboratory Result Diagrams: 12/01/18 17:26 12/01/18 17:26 Lab Statement: Any lab studies that have been ordered have been reviewed, and results considered in the medical decision making process. - Radiology CHEST X-RAY Radiology Interpretation Completed By: ED Physician Summary of Radiographic Findings: NO ACUTE INFILTRATE, PENDING OFFICIAL REPORT. Re-Evaluation - Re-Evaluation First Eval Re-Evaluation Time: 18:34 Change: Improved Comment: Wheezing is improved but still present, he feels subjectively better. Patient to be discharged to home, he is agreeable with this. Complex Multi-Symp Course/Dx Course Of Treatment: Patient for with recent admission for possible pneumonia who is currently on steroid taper and cephalosporin plus azithromycin. He presents with diffuse wheezing which improved quickly with breathing treatments. He was given IV fluids and steroids with improvement. X-ray shows no presence of infiltrate. He was discharged with an albuterol inhaler to go along with his antibiotics and prednisone taper. - Diagnoses Differential Diagnoses/HQI/PQRI: Other - Pneumonia, sepsis, bronchitis, COPD exacerbation Provider Diagnoses: History of pneumonia, Bronchitis Discharge - Sign-Out/Discharge Documenting (check all that apply): Patient Departure - discharge Patient Received Moderate/Deep Sedation with Procedure: No - Discharge Plan Condition: Improved Disposition: HOME Patient Education Materials: Acute Bronchitis (ED) Referrals: Nicki Olmstead MD [Primary Care Provider] - Additional Instructions: Use inhaler every 4 hours as needed. Continue the antibiotics until gone. Continue prednisone until gone. Call your doctor first thing in the morning to schedule prompt follow-up. Stay well-hydrated. Continue cough medicines as needed. Return if worse, new symptoms or other concerns. - Billing Disposition and Condition Condition: IMPROVED Disposition: Home - Attestation Statements Document Initiated by Herminio: Yes Documenting Nikoibe: JENNY SANTIAGO Provider For Whom Herminio is Documenting (Include Credential): TAYLOR WYATT MD Scribe Attestation: I, JENNY SANTIAGO, scribed for TAYLOR WYATT MD on 12/01/18 at 1851. Scribe Documentation Reviewed: Yes Provider Attestation: The documentation as recorded by the JENNY peralta accurately reflects the service I personally performed and the decisions made by me, TAYLOR WYATT MD Status of Scribe Document: Viewed
[2018-12-01 17:33] LABS: ABS Lymphocytes 1.7 10^3/ul (1.0-4.8); ABS Monocytes 0.3 10^3/ul (0-0.8); ABS Neutrophils 6.2 10^3/ul (1.5-7.7); Eosinophil % 0.1 %; Hematocrit 35 % (42-52); Hemoglobin 11.2 g/dL (14.0-18.0); Lymphocyte % 20.3 %; Mean Corpuscular HGB Conc 32 g/dL (31-36); Mean Corpuscular Hemoglobin 27 pg (27-31); Mean Corpuscular Volume 85 fL (80-94); Platelet Count 372 10^3/uL (150-450); Red Cell Distribution Width 14 % (10.5-15); White Blood Count 8.2 10^3/uL (3.5-10.8)
[2018-12-01 17:49] LABS: BUN/Creatinine Ratio 15.9 (8-20); Calcium 9.4 mg/dL (8.6-10.3); EGFR African American 154.5 (>60); EGFR Non-African American 127.6 (>60); Potassium 4.2 mmol/L (3.5-5.0)
[2018-12-01] MEDS ORDERED: Albuterol HFA INHALER* 8 gm MDI INH ONE (18:36)
[2018-12-01 19:36] VITALS: BP 141/91
== END 2018-12-20 14:21 | disposition home or self-care (01) ==
LOC: ED 16:34
DX: J40 Bronchitis, not specified as acute or chronic (principal); Z87.01 Personal history of pneumonia (recurrent); M54.5 Low back pain; E11.9 Type 2 diabetes mellitus without complications; I10 Essential (primary) hypertension; Z88.8 Allergy status to other drugs, medicaments and biological substances; Z87.891 Personal history of nicotine dependence
CPT/HCPCS: 36415; 71046; 80048; 83605; 85025; 96361; 96374; 96375; 99214; 99284; A9270-GY; G0463; J1885; J2930

== ENCOUNTER 2018-12-08 01:15 | Inpatient (IN) | payer MEDICARE, MEDICAID ==
[2018-12-08 02:20] LABS: Red Cell Distribution Width 14 % (10.5-15)
[2018-12-08 02:29] LABS: Hematocrit 28 % (42-52); Hemoglobin 9.2 g/dL (14.0-18.0); Mean Corpuscular HGB Conc 33 g/dL (31-36); Mean Corpuscular Hemoglobin 29 pg (27-31); Mean Corpuscular Volume 90 fL (80-94); Platelet Count 287 10^3/uL (150-450); Red Blood Count 3.15 10^6 /uL (4.18-5.48); White Blood Count 18.7 10^3/uL (3.5-10.8)
[2018-12-08 02:30] LABS: Mean Platelet Volume 6.9 fL (7.4-10.4)
[2018-12-08 02:36] LABS: ALT 27 U/L (7-52); AST 18 U/L (13-39); Albumin 3.5 g/dL (3.2-5.2); Albumin/Globulin Ratio 1.2 (1-3); Alkaline Phosphatase 93 U/L (34-104); Anion Gap 8 mmol/L (2-11); BUN/Creatinine Ratio 21.1 (8-20); Blood Urea Nitrogen 20 mg/dL (6-24); CO2 Carbon Dioxide 27 mmol/L (22-32); Calcium 8.6 mg/dL (8.6-10.3); Chloride 102 mmol/L (101-111); EGFR African American 106.8 (>60); EGFR Non-African American 88.3 (>60); Glucose 135 mg/dL (70-100); Potassium 4.1 mmol/L (3.5-5.0); Sodium 137 mmol/L (135-145); Total Protein 6.5 g/dL (6.4-8.9)
[2018-12-08 02:44] LABS: Acetaminophen < 15 mcg/mL; Alcohol < 10 mg/dL (<10); Salicylate < 2.50 mg/dL (<30)
[2018-12-08 03:20] LABS: ABS Eosinophils 0.4 10^3/ul (0-0.6); ABS Lymphocytes 1.1 10^3/ul (1.0-4.8); ABS Neutrophils 16.2 10^3/ul (1.5-7.7); ABS Nucleated RBC 0.2 10^3/ul; Eosinophil % 2.1 %; Lymphocyte % 5.7 %
--- NOTE | 2018-12-08 04:32 | ED ---
Psychiatric Complaint - HPI Summary HPI Summary: Pt is a 38 y/o M presenting to the ED brought in by EMS on a 9.41. He has paranoid thoughts and keeps stating "I know they're trying to kill me." He denies SI/HI, and fever. - History Of Current Complaint Chief Complaint: EDMentalHealth Time Seen by Provider: 12/08/18 02:56 Hx Obtained From: Patient Onset/Duration: Gradual Onset, Lasting Hours, Still Present Timing: Hours Severity Initially: Moderate Severity Currently: Moderate Character: Anxious Aggravating Factor(s): Nothing Alleviating Factor(s): Nothing Associated Signs And Symptoms: Positive: Paranoid Behavior Related History: Positive For: Prior Psychiatric Issues Has Suicidal: Denies: Thoughts Has Homicidal: Denies: Thoughts - Allergies/Home Medications Allergies/Adverse Reactions: Allergies Allergy/AdvReac Type Severity Reaction Status Date / Time clozapine Allergy See Comment Verified 12/01/18 16:40 ephedrine Allergy Blurred Verified 12/01/18 16:40 Vision fluphenazine [From Prolixin] Allergy Unknown Verified 12/01/18 16:40 Reaction Details haloperidol [From Haldol] Allergy See Comment Verified 12/01/18 16:40 lamotrigine [From Lamictal] Allergy Rash Verified 12/01/18 16:40 paliperidone Allergy Unknown Verified 12/01/18 16:40 Reaction Details phenobarbital Allergy Unknown Verified 12/01/18 16:40 Reaction Details theophylline Allergy Unknown Verified 12/01/18 16:40 Reaction Details ziprasidone [From Geodon] Allergy See Comment Verified 12/01/18 16:40 PMH/Surg Hx/FS Hx/Imm Hx Previously Healthy: No Endocrine/Hematology History: Reports: Hx Diabetes, Hx Anemia, Other Endocrine/ Hematological Disorders - leukopenia Denies: Hx Anticoagulant Therapy, Hx Thyroid Disease, Hx Unexplained Bleeding Cardiovascular History: Reports: Hx Hypertension, Other Cardiovascular Problems/ Disorders - IDDM/LEUOKOPENIA / SEIZURES Denies: Hx Aneurysm, Hx Angina, Hx Angioplasty, Hx Auto Implanted Cardiovert Defib, Hx Cardiac Arrest, Hx Cardiomegaly, Hx Congenital Heart Disease, Hx Congestive Heart Failure, Hx Coronary Artery Disease, Hx Deep Vein Thrombosis, Hx Hypercholesterolemia, Hx Hypotension, Hx Myocardial Infarction, Hx Pacemaker/ ICD, Hx Peripheral Vascular Disease, Hx Rheumatic Fever, Hx Syncope, Hx Valvular Heart Disease Respiratory History: Denies: Hx Asthma, Hx Chronic Bronchitis, Hx Chronic Obstructive Pulmonary Disease (COPD), Hx Cystic Fibrosis, Hx Lung Cancer, Hx Pleural Effusion, Hx Pneumonia, Hx Pulmonary Edema, Hx Pulmonary Embolism, Hx Seasonal Allergies, Hx Sleep Apnea, Other Respiratory Problems/Disorders GI History: Reports: Hx Gastroesophageal Reflux Disease, Hx Hiatal Hernia, Other GI Disorders - Constipation Denies: Hx Gall Bladder Disease, Hx Gastrointestinal Bleed, Hx Ulcer, Hx Urosepsis History: Denies: Hx Kidney Stones, Hx Renal Disease, Other Problems/Disorders Musculoskeletal History: Reports: Hx Orthopedic Injury - Left Leg Fracture Denies: Other Musculoskeletal History Sensory History: Denies: Hx Contacts or Glasses, Other Sensory Impairments Opthamlomology History: Denies: Hx Contacts or Glasses, Other Sensory Impairments Neurological History: Reports: 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, Other Neuro Impairments/Disorders - MENTAL ILLNESS/SCHIZOPHRENIA Denies: Hx Dementia, Hx Developmental Delay, Hx Headaches, Hx Migraine, Hx Nerve Disease, Hx Spinal Cord Injury, Hx Transient Ischemic Attacks (TIA) Psychiatric History: Reports: Hx Anxiety, Hx Oppositional [place] Disorder, Hx Depression, Hx Panic Disorder, Hx Post Traumatic Stress Disorder, Hx Inpatient Treatment, Hx Community Mental Health Tx, Hx Schizophrenia, Hx Bipolar Disorder , Hx Suicide Attempt, Hx Substance Abuse, Other Psychiatric Issues/Disorders - Hx Psychosis Denies: Hx Attention Deficit Hyperactivity Disorder, Hx Eating Disorder, Hx of Violent Episodes Against Others - Surgical History Surgery Procedure, Year, and Place: LEFT INGUINAL HERNIA - as a child. LEG - NO METAL PER PT Hx Anesthesia Reactions: No - Immunization History Date of Tetanus Vaccine: Up to Date Date of Influenza Vaccine: None Infectious Disease History: No Infectious Disease History: Reports: Hx Clostridium Difficile Denies: Hx Hepatitis, Hx Human Immunodeficiency Virus (HIV), Hx of Known/ Suspected MRSA, Hx Shingles, Hx Tuberculosis, Hx Known/Suspected VRE, History Other Infectious Disease, Traveled Outside the [place] in Last 30 Days - Family History Known Family History: Positive: Cardiac Disease, Hypertension, Diabetes - When asked about family HTN, DM, CAD, he states, "Yeah, something like, Other - Schizophrenia, ASTHMA, CANCER - Social History Alcohol Use: Occasionally Alcohol Amount: last ETOH 4 years ago per pt Hx Substance Use: No Substance Use Type: Reports: None Substance Use Comment - Amount & Last Used: in the past Amphetamine Barbituats Hx Tobacco Use: No Smoking Status (MU): Former Smoker Review of Systems Negative: Fever Positive: Other - paranoid. Negative: Anxious, Depressed All Other Systems Reviewed And Are Negative: Yes Physical Exam - Summary Physical Exam Summary: Appearance: Well-appearing, Well-nourished, lying in bed comfortable Skin: Warm, dry, no obvious rash Eyes: sclera anicteric, no conjunctival pallor ENT: mucous membranes moist Neck: deferred Respiratory: Mild wheezes, no signs of respiratory distress Cardiovascular: Appears well perfused, pulses are nml Abdomen: deferred Musculoskeletal: Moving all 4 extremities without obvious discomfort Neurological: Awake and alert, mentation is normal, speech is fluent and appropriate Psychiatric: affect is normal, does not appear anxious or depressed Triage Information Reviewed: Yes Vital Signs On Initial Exam: Initial Vitals Temp Pulse Resp BP Pulse Ox 99.4 F 122 18 130/78 99 12/08/18 01:24 12/08/18 01:24 12/08/18 01:24 12/08/18 01:24 12/08/18 01:24 Vital Signs Reviewed: Yes Diagnostics - Vital Signs Vital Signs Temp Pulse Resp BP Pulse Ox 12/08/18 04:24 99.2 F 102 16 129/75 97 12/08/18 01:24 99.4 F 122 18 130/78 99 - Laboratory Lab Results: Lab Results 12/08/18 12/08/18 Range/Units 02:14 02:14 WBC 18.7 H (3.5-10.8) 10^3/uL RBC 3.15 L (4.18-5.48) 10^6 /uL Hgb 9.2 L (14.0-18.0) g/dL Hct 28 L (42-52) % MCV 90 (80-94) fL MCH 29 (27-31) pg MCHC 33 (31-36) g/dL RDW 14 (10.5-15) % Plt Count 287 (150-450) 10^3/uL MPV 6.9 L (7.4-10.4) fL Neut % (Auto) 86.5 % Lymph % (Auto) 5.7 % [place] % (Auto) 5.4 % Eos % (Auto) 2.1 % Baso % (Auto) 0.3 % Absolute Neuts (auto) 16.2 H (1.5-7.7) 10^3/ul Absolute Lymphs (auto) 1.1 (1.0-4.8) 10^3/ul Absolute Monos (auto) 1.0 H (0-0.8) 10^3/ul Absolute Eos (auto) 0.4 (0-0.6) 10^3/ul Absolute Basos (auto) 0.0 (0-0.2) 10^3/ul Absolute Nucleated RBC 0.2 10^3/ul Nucleated RBC % 1.0 Sodium 137 (135-145) mmol/L Potassium 4.1 (3.5-5.0) mmol/L Chloride 102 (101-111) mmol/L Carbon Dioxide 27 (22-32) mmol/L Anion Gap 8 (2-11) mmol/L BUN 20 (6-24) mg/dL Creatinine 0.95 (0.67-1.17) mg/dL Est GFR ( Amer) 106.8 (>60) Est GFR (Non-Af Amer) 88.3 (>60) BUN/Creatinine Ratio 21.1 H (8-20) Glucose 135 H (70-100) mg/dL Calcium 8.6 (8.6-10.3) mg/dL Total Bilirubin 0.30 (0.2-1.0) mg/dL AST 18 (13-39) U/L ALT 27 (7-52) U/L Alkaline Phosphatase 93 (34-104) U/L Total Protein 6.5 (6.4-8.9) g/dL Albumin 3.5 (3.2-5.2) g/dL Globulin 3.0 (2-4) g/dL Albumin/Globulin Ratio 1.2 (1-3) TSH 1.00 (0.34-5.60) mcIU/mL Salicylates < 2.50 (<30) mg/dL Acetaminophen < 15 mcg/mL Serum Alcohol < 10 (<10) mg/dL Result Diagrams: 12/10/18 06:14 12/10/18 06:14 Lab Statement: Any lab studies that have been ordered have been reviewed, and results considered in the medical decision making process. Course/Dx - Course Course Of Treatment: Pt is a 38 y/o M presenting to the ED brought in by EMS on a 9.41. He has paranoid thoughts and keeps stating "I know they're trying to kill me." He denies SI/HI, and fever. Pt's physical exam is normal aside from mild wheezes in his lungs. Pt will be admitted to [facility] with a dx of unspecified psychosis under Dr. Valle. - Differential Dx/Clinical Impression Provider Diagnosis: Unspecified psychosis Discharge - Sign-Out/Discharge Documenting (check all that apply): Patient Departure Patient Received Moderate/Deep Sedation with Procedure: No - Discharge Plan Condition: Stable Disposition: [facility]YCHIATRIC FACILITY[place] [place] - Billing Disposition and Condition Condition: STABLE Disposition: Psychiatric Facility [facility] [place] - Attestation Statements Document Initiated by Scribe: Yes Documenting Scribe: Zakia Bradford Provider For Whom Nikoibe is Documenting (Include Credential): Jose Antonio Garcia MD. Scribe Attestation: Zakia Anderson scribed for Jose Antonio Garcia MD. on 12/11/18 at 0445. Scribe Documentation Reviewed: Yes Provider Attestation: The documentation as recorded by the scribeZakia accurately reflects the service I personally performed and the decisions made by , Jose Antonio Garcia MD. Status of Scribe Document: Viewed
[2018-12-08 04:38] LABS: Urine Appearance Clear; Urine Bilirubin Negative (Negative); Urine Blood Negative (Negative); Urine Color Yellow; Urine Glucose Negative (Negative); Urine Ketones Negative (Negative); Urine Nitrite Negative (Negative); Urine Protein Negative (Negative); Urine Specific Gravity 1.029 (1.010-1.030); Urine Urobilinogen Negative (Negative)
[2018-12-08 04:56] LABS: Urine Benzodiazepine Screen Presumptive Positive (None Detect); Urine Opiates Screen None Detected (None Detect)
[2018-12-08] MEDS ORDERED: predniSONE TAB* 20 MG PO ONE ×2 (05:50→05:51)
[2018-12-08] MEDS ORDERED: Albuterol 0.5% CONC NEB.SOL* 5 MG/ML 20 ml BOT INH ONE (05:50)
[2018-12-08] MEDS ORDERED: Acetaminophen TAB* 325 MG PO PRN (09:33)
[2018-12-08] MEDS ORDERED: Al Hydrox/Mg Hydrox/Simet LIQ* 30 ML UDC PO PRN (09:33)
[2018-12-08] MEDS ORDERED: LORazepam TAB(*) 1 MG PO PRN (09:34)
[2018-12-08] MEDS ORDERED: Haloperidol TAB* 5 MG PO PRN (09:37)
[2018-12-08] MEDS ORDERED: Benzonatate CAP* 100 MG PO PRN (13:25)
[2018-12-08] MEDS ORDERED: OLANzapine TAB* 5 MG PO PRN ×2 (13:25→14:49)
[2018-12-08] MEDS ORDERED: Saline NASAL SPRAY 0.65%* BTL BOTH NARES PRN (13:44)
[2018-12-08 15:03] LABS: Influenza A Molecular NEGATIVE (Negative); Influenza B Molecular NEGATIVE (Negative)
--- NOTE | 2018-12-08 15:58 | CONS ---
CC: Nicki Olmstead MD* CONSULTATION REPORT: DATE OF CONSULT: 12/08/18 PRIMARY CARE PROVIDER: Nicki Olmstead MD. REQUESTING PHYSICIAN IN CONSULT: Dr. Valle. ATTENDING PHYSICIAN: Cristopher Hsieh MD (dictated by JORGE Botello). REASON FOR CONSULTATION: Leukocytosis, anemia. HISTORY OF PRESENT ILLNESS/HOSPITAL COURSE: Mr. Mcbride is a 38-year-old male with past medical history of diabetes, hypertension, seizure disorder, schizophrenia, who presented to the ER on 12/08/18 and was admitted to the [facility]. In the ER, he was noted to have a leukocytosis and anemia. He was afebrile throughout his stay and it is noted that the patient was recently discharged from the hospital on 11/26/18 with a diagnosis of pneumonia for which he was treated with azithromycin, cefdinir, and prednisone. The patient states that he took all of these medications as prescribed. Since that time, he notes that he has an intermittent wheeze as well as nasal congestion and postnasal drainage. He denies cough, fever, chills, nausea, vomiting, diarrhea. He does note that his chest feels congested, although again he denies cough. He denies shortness of breath, syncope, hematochezia, melena, hematemesis. PAST MEDICAL HISTORY: 1. Diabetes mellitus. 2. Hypertension. 3. Seizure disorder. 4. Gastroesophageal reflux disease. 5. Schizophrenia. 6. Bipolar. PAST SURGICAL HISTORY: Left inguinal hernia, left leg. HOME MEDICATIONS: 1. Artane 2.5 mg p.o. daily. 2. Potassium chloride 10 mEq p.o. daily. 3. Pantoprazole 40 mg p.o. daily. 4. Olanzapine 5 mg p.o. b.i.d. 5. Metoprolol tartrate 25 mg p.o. b.i.d. 6. Metformin ER 750 mg p.o. daily. 7. Magnesium oxide 400 mg p.o. daily with meals. 8. Vimpat 200 mg p.o. b.i.d. 9. Floranex 2 chews p.o. daily. 10. Ibuprofen 800 mg p.o. t.i.d. p.r.n. 11. Aptiom 800 mg p.o. daily. 12. Clobazam 10 mg p.o. b.i.d. 13. Olanzapine 10 mg p.o. b.i.d. 14. Albuterol HFA inhaler 2 puffs inhalation q.6 hours p.r.n. 15. Benzonatate 100 mg p.o. b.i.d. p.r.n. cough. 16. Guaifenesin ER 600 mg p.o. b.i.d. p.r.n. cough. 17. Prednisone taper. DRUG ALLERGIES: CLOZAPINE, EPHEDRINE, FLUPHENAZINE, HALOPERIDOL, LAMOTRIGINE, PALIPERIDONE, PHENOBARBITAL, THEOPHYLLINE, ZIPRASIDONE. FAMILY HISTORY: Positive for heart disease, hypertension, diabetes, schizophrenia, cancer. SOCIAL HISTORY: The patient denies current and former use of tobacco. He states that he does drink alcohol, noting that he buys alcohol on payday. He lives at [place] in an apartment by himself. In the event that he is unable to make his own medical decisions, he appoints his mother, Radha Mcbride to be his surrogate decision maker. REVIEW OF SYSTEMS: A 10-point review of systems was performed and all the pertinent positives and negatives are in the HPI. All other systems are negative. PHYSICAL EXAM: General: Mr. Mcbride is a well-developed, well-nourished, middle - aged man who is sitting up in bed. He appears to be in no acute distress. He is cooperative, but somewhat fixated on conspiracy. Vital Signs: Temperature 97.9 temporal, heart rate 95, respiratory rate 18, oxygen saturation 100% on room air, blood pressure 118/92. HEENT: Visual rob are grossly intact. The pupils are equally round and reactive to light. Extraocular movements are intact. There is no scleral icterus. Hearing is grossly intact. Oral mucous membranes are moist. There are no lesions. The pharynx is clear. Cardiovascular: Regular rate and rhythm with S1, S2 present. There are no murmurs, rubs, clicks, or gallops. There is no JVD. Respiratory : Symmetrical chest expansion. There is no use of accessory muscles. The lungs are clear to auscultation. There is no wheeze. There is no rhonchi or rubs. Abdomen: Bowel sounds noted in all quadrants. The abdomen is soft. There is no tenderness to palpation. Extremities: Skin is warm and smooth bilaterally. There is no clubbing, cyanosis, or edema. Radial and pedal pulses are palpable. Neuro: The patient is awake. He is alert and oriented. He is able to move all of his extremities. He has a steady gait without impairments. ASSESSMENT AND PLAN: Mr. Mcbride is a 38-year-old male with a past medical history of diabetes, hypertension, who was recently discharged from the hospital with pneumonia. He has been admitted to the behavioral services unit. The hospitalist team has been asked to consult from the patient for: 1. Leukocytosis. The patient does not have any signs or symptoms of infection. He does note that he has some nasal congestion and intermittent wheezing, but his lung exam is clear. He also notes postnasal drainage. He is afebrile. It is likely that leukocytosis is due to prednisone taper, which he has been on since approximately 11/24/18. Prednisone taper will be continued as prescribed at discharge. Influenza A and B has been ordered. The patient will be placed on nasal saline and fluticasone for his postnasal drainage, as this could be the cause of his chest congestion and subjective wheezing. We will continue to monitor his leukocytosis. 2. Anemia. The patient is noted to have a hemoglobin of 9.2, which is lower than his baseline. Iron studies were last checked in 2016. These will be rechecked, as will B12 and folate. This is may be a result of polypharmacy of seizure medications and psych medications. 3. Hypertension. Continue home medications. 4. Seizure disorder. Continue home medications. 5. Schizophrenia, bipolar, anxiety. Management per [facility]. 6. Code status. Full code. 7. DVT prophylaxis. Management per [facility]. TIME SPENT: Approximately 40 minutes was spent on this consultation; greater than half that time was spent with the patient obtaining history, performing physical, and reviewing the plan of care. The case has been reviewed with my attending, Dr. Hsieh, who is in agreement with the plan of care. JORGE BOTELLO [id number]/[facility] [place]: [id number] MIREYA
[2018-12-08] MEDS: Ibuprofen TAB* 800 MG PO PRN ×2 (16:16→22:47)
[2018-12-08] MEDS: predniSONE TAB* 10 MG PO SCH (16:16)
[2018-12-08] MEDS: TRIHEXYPHENIDYL 5 MG PO SCH (16:16)
[2018-12-08] MEDS: Fluticasone NASAL SPRAY 50MCG* 16 gm SPRAY BTL BOTH NARES SCH (16:32)
[2018-12-08] MEDS: ESLICARBAZEPINE ACETATE 800 MG PO SCH (16:32)
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
[2018-12-08] MEDS: Metoprolol Tartrate TAB* 25 MG PO SCH (16:58)
[2018-12-08] MEDS: CLOBAZAM 10 MG PO SCH (16:58)
[2018-12-08] MEDS: Lacosamide TAB* 100 MG TAB PO SCH (16:58)
[2018-12-08 21:53] LABS: % Iron Saturation 19 % (15-55); Iron 67 ug/dL (50-212); Total Iron Binding Capacity 353 mcg/dL (250-450); Transferrin 252 mg/dL (203-362)
[2018-12-08 22:14] LABS: Ferritin 29.2 ng/mL (24-336)
[2018-12-08 22:18] LABS: Folate 3.36 ng/mL (>3.99)
[2018-12-08] MEDS: OLANzapine TAB* 10 MG PO SCH (23:46)
[2018-12-09 09:00] LABS: Hematocrit 23 % (42-52); Hemoglobin 8.2 g/dL (14.0-18.0); Mean Corpuscular HGB Conc 35 g/dL (31-36); Mean Corpuscular Hemoglobin 33 pg (27-31); Mean Corpuscular Volume 94 fL (80-94); Mean Platelet Volume 6.9 fL (7.4-10.4); Platelet Count 301 10^3/uL (150-450); Red Blood Count 2.47 10^6 /uL (4.18-5.48); Red Cell Distribution Width 14 % (10.5-15); White Blood Count 25.6 10^3/uL (3.5-10.8)
[2018-12-09] MEDS ORDERED: NON FORMULARY MED* (L. Acidophilus/L.Bulgaricus [Floranex Tablet] 2 CHW) PO SCH (09:00)
[2018-12-09 09:17] LABS: HDL Cholesterol 122.6 mg/dL
[2018-12-09] MEDS: Lacosamide TAB* 100 MG TAB PO SCH ×2 (10:16→21:29)
[2018-12-09] MEDS: Metoprolol Tartrate TAB* 25 MG PO SCH ×2 (10:16→21:29)
[2018-12-09] MEDS: Vitamin THERAPEUTIC TAB PO SCH (10:16)
[2018-12-09] MEDS: Magnesium Oxide TAB* 400 MG PO SCH (10:16)
[2018-12-09] MEDS: predniSONE TAB* 10 MG PO SCH (10:16)
[2018-12-09] MEDS: TRIHEXYPHENIDYL 5 MG PO SCH (10:17)
[2018-12-09] MEDS: CLOBAZAM 10 MG PO SCH ×2 (10:17→21:29)
[2018-12-09] MEDS: OLANzapine TAB* 10 MG PO SCH (10:17)
[2018-12-09] MEDS: ESLICARBAZEPINE ACETATE 800 MG PO SCH (10:18)
[2018-12-09] MEDS: METFORMIN 750 MG PO SCH (10:18)
[2018-12-09] MEDS: Fluticasone NASAL SPRAY 50MCG* 16 gm SPRAY BTL BOTH NARES SCH (10:22)
[2018-12-09 12:04] LABS: Corrected Retic Count 1.7 % (0.5-1.5); Hematocrit for Retic CNT 23 % (42-52); Immature Retic Fraction 0.51; RBC Retic Count 2.34 10^6/uL (4.18-5.48)
--- NOTE | 2018-12-09 12:27 | PN ---
Subjective - Subjective Date of Service: 12/09/18 Service Type: [id number] Hosp care 15 min low complexity Subjective: Jose L is seen in Holiday coverage here on the [facility]. He is in his room, covered in blankets with multiple empty ice cream and other snack containers lined up on the sill of his window. He is preoccupied with his housing situation. "I need my own apartment. I can't stay in [facility] anymore, people don't like me there. They gang up on me. I keep a clean room. I need my own place." He denies SI, HI or any thoughts of violence. He does endorse mild AH of "songs and music." Objective - General Observations Appearance: Unkempt Appears Stated Age: Yes Stature: WNL Posture: WNL Eye Contact: Avoidant Behavior/Activity: Peculiar - Interaction Observations Attitude Towards Examiner: Cooperative Stated Mood: Euthymic Affect: Flat Speech Pattern/Tone: Clear, Appropriate, Perseverating Thought Process: Coherent, Goal Directed Perception: WNL Thought Content: WNL Hallucination Type: Auditory Delusion Type: None - Cognitive Function Orientation: A&O x 4 Level of Consciousness: Awake Cognition: WNL Estimated Intelligence: Normal Insight: WNL Judgment Within Normal Limits: Yes - Medication Compliance Cooperative with Inpatient Medication Regimen: Yes - Group Participation Participates in Group Activities: No Assessment - Assessment Merits Inpatient Hospitalization: Consolidate Improvements, Pending Safe DC Plan Inpatient DSM-V Dx: F29 Clinical Impression: 38 y.o. single, AA male with a history of chronic schizophrenia who resides at the [facility] arrived complaining of people trying to harm him. He appears mostly fixated on housing issues and would like the hospital to provide him with a new apartment. [facility]: Problem List - Patient Problems (1) Psychosis not due to substance or known physiological condition Current Visit: Yes Status: Acute Priority: Medium Code(s): F29 - UNSP PSYCHOSIS NOT DUE TO A SUBSTANCE OR KNOWN PHYSIOL COND SNOMED Code(s): 378188105 Plan - Plan Treatment Plan: Name: JOSE L FELDMAN Birthdate: 1980 [id number] Patient does not seem to meet inpatient criteria. Will confer with [facility] and the ACT team. His WBC's are quite elevated. Consult to Hospitalist service. Continued Medication Management: Continue Outpt Medication Medications: Current Medications Acetaminophen (Tylenol Tab*) 650 mg PO Q4H PRN PRN Reason: PAIN or TEMP > 101 F Al Hydrox/Mg Hydrox/Simethicone (Maalox Plus*) 30 ml PO Q4H PRN PRN Reason: INDIGESTION Albuterol (Ventolin Hfa Inhaler*) 2 puff INH Q4H PRN PRN Reason: SHORTNESS OF BREATH Albuterol (Ventolin Hfa Inhaler*) 2 puff INH Q6H PRN PRN Reason: SOB/WHEEZING Benzonatate (Tessalon Cap*) 100 mg PO BID PRN PRN Reason: COUGH Clobazam (Onfi Tab(Nf)) 10 mg PO BID [facility] Last Admin: 12/09/18 10:17 Dose: 10 mg Eslicarbazepine Acetate (Aptiom) 800 mg PO DAILY [facility] Last Admin: 12/09/18 10:18 Dose: Not Given Fluticasone Propionate (Flonase Nasal [place] 50mcg*) 2 spray BOTH NARES DAILY [facility] Last Admin: 12/09/18 10:22 Dose: 2 spray Ibuprofen (Motrin Tab*) 800 mg PO TID PRN PRN Reason: FEVER/PAIN Last Admin: 12/08/18 22:47 Dose: 800 mg Lacosamide (Vimpat Tab*) 200 mg PO BID [facility] Last Admin: 12/09/18 10:16 Dose: 200 mg Lorazepam (Ativan Tab(*)) 2 mg PO Q4H PRN PRN Reason: AGITATION Magnesium Oxide (Magox 400 Tab*) 400 mg PO DAILY WITH MEAL [facility] Last Admin: 12/09/18 10:16 Dose: 400 mg Metformin HCl (Glucophage Er (Nf)) 750 mg PO DAILY [facility] Last Admin: 12/09/18 10:18 Dose: Not Given Metoprolol Tartrate (Lopressor Tab*) 25 mg PO BID [facility] Last Admin: 12/09/18 10:16 Dose: 25 mg Multivitamins (Theragran Tab*) 1 tab PO DAILY [facility] Last Admin: 12/09/18 10:16 Dose: 1 tab Non-Formulary Medication (L. Acidophilus/L.Bulgaricus [Floranex Tablet]) 2 chw PO DAILY [facility] Last Admin: 12/09/18 10:17 Dose: Not Given Olanzapine (Zyprexa Tab*) 10 mg PO DAILY [facility] Last Admin: 12/09/18 10:17 Dose: 10 mg Olanzapine (Zyprexa Tab*) 5 mg PO BID PRN PRN Reason: AGITATION Pantoprazole Sodium (Protonix Tab*) 40 mg PO DAILY [facility] Prednisone (Deltasone Tab*) 20 mg PO DAILY [facility]; Taper Stop: 12/17/18 13:59 Last Admin: 12/09/18 10:16 Dose: 20 mg Sodium Chloride (Sodium Chloride 0.65% Nasal [place]*) 1 spray BOTH NARES Q4H PRN PRN Reason: CONGESTION Trihexyphenidyl HCl (Artane Tab*) 2.5 mg PO DAILY [facility] Last Admin: 12/09/18 10:17 Dose: 2.5 mg - Discharge Plan Discharge Plan: Outpatient Follow Up Lab Results - Lab Results Lab Results: 12/08/18 12/08/18 12/08/18 02:14 02:14 04:30 WBC 18.7 H RBC 3.15 L RBC (Retic) Hgb 9.2 L Hct 28 L HCT (Retic) MCV 90 MCH 29 MCHC 33 RDW 14 Plt Count 287 MPV 6.9 L Neut % (Auto) 86.5 Lymph % (Auto) 5.7 [place] % (Auto) 5.4 Eos % (Auto) 2.1 Baso % (Auto) 0.3 Absolute Neuts (auto) 16.2 H Absolute Lymphs (auto) 1.1 Absolute Monos (auto) 1.0 H Absolute Eos (auto) 0.4 Absolute Basos (auto) 0.0 Absolute Nucleated RBC 0.2 Nucleated RBC % 1.0 Retic Count, Calc Corrected Retic Count Retic Shift Factor Retic Production Index Immature Retic Fraction Mean Retic Volume Sodium 137 Potassium 4.1 Chloride 102 Carbon Dioxide 27 Anion Gap 8 BUN 20 Creatinine 0.95 Est GFR ( Amer) 106.8 Est GFR (Non-Af Amer) 88.3 BUN/Creatinine Ratio 21.1 H Glucose 135 H POC Glucose (mg/dL) Hemoglobin A1c Calcium 8.6 Iron 67 TIBC 353 % Saturation 19 Unsat Iron Binding < 338 Transferrin 252 Ferritin 29.2 Total Bilirubin 0.30 AST 18 ALT 27 Alkaline Phosphatase 93 Total Protein 6.5 Albumin 3.5 Globulin 3.0 Albumin/Globulin Ratio 1.2 Triglycerides Cholesterol LDL Cholesterol HDL Cholesterol Vitamin B12 757 Folate 3.36 TSH 1.00 Urine Color Yellow Urine Appearance Clear Urine pH 5.0 Ur Specific [place] 1.029 Urine Protein Negative Urine Ketones Negative Urine Blood Negative Urine Nitrate Negative Urine Bilirubin Negative Urine Urobilinogen Negative Ur Leukocyte Esterase Negative Urine Glucose Negative Salicylates < 2.50 Urine Opiates Screen Acetaminophen < 15 Ur Barbiturates Screen Ur Phencyclidine Scrn Ur Amphetamines Screen U Benzodiazepines Scrn Urine Cocaine Screen U Cannabinoids Screen Serum Alcohol < 10 Influenza A (Rapid) Influenza B (Rapid) 12/08/18 12/08/18 12/08/18 04:30 13:05 23:55 WBC RBC RBC (Retic) Hgb Hct HCT (Retic) MCV MCH MCHC RDW Plt Count MPV Neut % (Auto) Lymph % (Auto) [place] % (Auto) Eos % (Auto) Baso % (Auto) Absolute Neuts (auto) Absolute Lymphs (auto) Absolute Monos (auto) Absolute Eos (auto) Absolute Basos (auto) Absolute Nucleated RBC Nucleated RBC % Retic Count, Calc Corrected Retic Count Retic Shift Factor Retic Production Index Immature Retic Fraction Mean Retic Volume Sodium Potassium Chloride Carbon Dioxide Anion Gap BUN Creatinine Est GFR ( Amer) Est GFR (Non-Af Amer) BUN/Creatinine Ratio Glucose POC Glucose (mg/dL) 142 H Hemoglobin A1c Calcium Iron TIBC % Saturation Unsat Iron Binding Transferrin Ferritin Total Bilirubin AST ALT Alkaline Phosphatase Total Protein Albumin Globulin Albumin/Globulin Ratio Triglycerides Cholesterol LDL Cholesterol HDL Cholesterol Vitamin B12 Folate TSH Urine Color Urine Appearance Urine pH Ur Specific [place] Urine Protein Urine Ketones Urine Blood Urine Nitrate Urine Bilirubin Urine Urobilinogen Ur Leukocyte Esterase Urine Glucose Salicylates Urine Opiates Screen None detected Acetaminophen Ur Barbiturates Screen None detected Ur Phencyclidine Scrn None detected Ur Amphetamines Screen None detected U Benzodiazepines Scrn Presumptive positive A Urine Cocaine Screen None detected U Cannabinoids Screen None detected Serum Alcohol Influenza A (Rapid) Negative Influenza B (Rapid) Negative 12/09/18 12/09/18 12/09/18 08:43 08:43 08:43 WBC 25.6 H RBC 2.47 L RBC (Retic) 2.34 L Hgb 8.2 L Hct 23 L HCT (Retic) 23 L MCV 94 MCH 33 H MCHC 35 RDW 14 Plt Count 301 MPV 6.9 L Neut % (Auto) Lymph % (Auto) [place] % (Auto) Eos % (Auto) Baso % (Auto) Absolute Neuts (auto) Absolute Lymphs (auto) Absolute Monos (auto) Absolute Eos (auto) Absolute Basos (auto) Absolute Nucleated RBC Nucleated RBC % Retic Count, Calc 3.3 H Corrected Retic Count 1.7 H Retic Shift Factor 2.0 Retic Production Index 0.90 Immature Retic Fraction 0.51 Mean Retic Volume 98.8 Sodium Potassium Chloride Carbon Dioxide Anion Gap BUN Creatinine Est GFR ( Amer) Est GFR (Non-Af Amer) BUN/Creatinine Ratio Glucose POC Glucose (mg/dL) Hemoglobin A1c 5.8 H Calcium Iron TIBC % Saturation Unsat Iron Binding Transferrin Ferritin Total Bilirubin AST ALT Alkaline Phosphatase Total Protein Albumin Globulin Albumin/Globulin Ratio Triglycerides 96 Cholesterol 224 LDL Cholesterol 82 HDL Cholesterol 122.6 Vitamin B12 Folate TSH Urine Color Urine Appearance Urine pH Ur Specific [place] Urine Protein Urine Ketones Urine Blood Urine Nitrate Urine Bilirubin Urine Urobilinogen Ur Leukocyte Esterase Urine Glucose Salicylates Urine Opiates Screen Acetaminophen Ur Barbiturates Screen Ur Phencyclidine Scrn Ur Amphetamines Screen U Benzodiazepines Scrn Urine Cocaine Screen U Cannabinoids Screen Serum Alcohol Influenza A (Rapid) Influenza B (Rapid) 12/09/18 11:57 WBC RBC RBC (Retic) Hgb Hct HCT (Retic) MCV MCH MCHC RDW Plt Count MPV Neut % (Auto) Lymph % (Auto) [place] % (Auto) Eos % (Auto) Baso % (Auto) Absolute Neuts (auto) Absolute Lymphs (auto) Absolute Monos (auto) Absolute Eos (auto) Absolute Basos (auto) Absolute Nucleated RBC Nucleated RBC % Retic Count, Calc Corrected Retic Count Retic Shift Factor Retic Production Index Immature Retic Fraction Mean Retic Volume Sodium Potassium Chloride Carbon Dioxide Anion Gap BUN Creatinine Est GFR ( Amer) Est GFR (Non-Af Amer) BUN/Creatinine Ratio Glucose POC Glucose (mg/dL) 199 H Hemoglobin A1c Calcium Iron TIBC % Saturation Unsat Iron Binding Transferrin Ferritin Total Bilirubin AST ALT Alkaline Phosphatase Total Protein Albumin Globulin Albumin/Globulin Ratio Triglycerides Cholesterol LDL Cholesterol HDL Cholesterol Vitamin B12 Folate TSH Urine Color Urine Appearance Urine pH Ur Specific [place] Urine Protein Urine Ketones Urine Blood Urine Nitrate Urine Bilirubin Urine Urobilinogen Ur Leukocyte Esterase Urine Glucose Salicylates Urine Opiates Screen Acetaminophen Ur Barbiturates Screen Ur Phencyclidine Scrn Ur Amphetamines Screen U Benzodiazepines Scrn Urine Cocaine Screen U Cannabinoids Screen Serum Alcohol Influenza A (Rapid) Influenza B (Rapid)
[2018-12-09 13:36] LABS: LDH 307 U/L (140-271)
[2018-12-09 13:37] LABS: Albumin 3.5 g/dL (3.2-5.2); Albumin/Globulin Ratio 1.1 (1-3); BUN/Creatinine Ratio 27.4 (8-20); Calcium 9.2 mg/dL (8.6-10.3); EGFR African American 144.7 (>60); EGFR Non-African American 119.6 (>60); Globulin 3.1 g/dL (2-4); Potassium 4.3 mmol/L (3.5-5.0); Total Bilirubin 1.1 mg/dL (0.2-1.0); Total Protein 6.6 g/dL (6.4-8.9)
[2018-12-09] MEDS: Pantoprazole TAB * 40 MG TAB PO SCH (16:57)
[2018-12-09] MEDS: Ibuprofen TAB* 800 MG PO PRN (17:29)
--- NOTE | 2018-12-09 18:01 | PN ---
Subjective Date of Service: 12/09/18 Interval History: Patient evaluated on mental health. Patient is a poor historian and is focused on not returning to his current living situation at the [facility] on discharge. He is able to engage in ROS and answer questions. He reports he has some nasal congestion and cough. In his hx it was noted that he was recently admitted and tx for pneumonia and is still on steroid taper. He reports he feels like he might pass out after taking a hot shower, but otherwise not other symptoms. He denies cp, palpitations, sob. He denies diarrhea, bloody stool, nausea, vomiting. He denies abd pain, urinary symptoms, recent trauma. Objective Active Medications: Acetaminophen (Tylenol Tab*) 650 mg PO Q4H PRN PRN Reason: PAIN or TEMP > 101 F Al Hydrox/Mg Hydrox/Simethicone (Maalox Plus*) 30 ml PO Q4H PRN PRN Reason: INDIGESTION Albuterol (Ventolin Hfa Inhaler*) 2 puff INH Q4H PRN PRN Reason: SHORTNESS OF BREATH Albuterol (Ventolin Hfa Inhaler*) 2 puff INH Q6H PRN PRN Reason: SOB/WHEEZING Benzonatate (Tessalon Cap*) 100 mg PO BID PRN PRN Reason: COUGH Clobazam (Onfi Tab(Nf)) 10 mg PO BID [facility] Last Admin: 12/09/18 10:17 Dose: 10 mg Eslicarbazepine Acetate (Aptiom) 800 mg PO DAILY [facility] Last Admin: 12/09/18 10:18 Dose: Not Given Fluticasone Propionate (Flonase Nasal [place] 50mcg*) 2 spray BOTH NARES DAILY [facility] Last Admin: 12/09/18 10:22 Dose: 2 spray Ibuprofen (Motrin Tab*) 800 mg PO TID PRN PRN Reason: FEVER/PAIN Last Admin: 12/09/18 17:29 Dose: 800 mg Lacosamide (Vimpat Tab*) 200 mg PO BID [facility] Last Admin: 12/09/18 10:16 Dose: 200 mg Lactobacillus Rhamnosus (Lactobacillus Acidophilus*) 2 tab PO DAILY [facility] Lorazepam (Ativan Tab(*)) 2 mg PO Q4H PRN PRN Reason: AGITATION Magnesium Oxide (Magox 400 Tab*) 400 mg PO DAILY WITH MEAL [facility] Last Admin: 12/09/18 10:16 Dose: 400 mg Metformin HCl (Glucophage Er (Nf)) 750 mg PO DAILY [facility] Last Admin: 12/09/18 10:18 Dose: Not Given Metoprolol Tartrate (Lopressor Tab*) 25 mg PO BID [facility] Last Admin: 12/09/18 10:16 Dose: 25 mg Multivitamins (Theragran Tab*) 1 tab PO DAILY [facility] Last Admin: 12/09/18 10:16 Dose: 1 tab Olanzapine (Zyprexa Tab*) 10 mg PO DAILY [facility] Last Admin: 12/09/18 10:17 Dose: 10 mg Olanzapine (Zyprexa Tab*) 5 mg PO BID PRN PRN Reason: AGITATION Pantoprazole Sodium (Protonix Tab*) 40 mg PO DAILY [facility] Last Admin: 12/09/18 16:57 Dose: 40 mg Prednisone (Deltasone Tab*) 20 mg PO DAILY [facility]; Taper Stop: 12/17/18 13:59 Last Admin: 12/09/18 10:16 Dose: 20 mg Sodium Chloride (Sodium Chloride 0.65% Nasal [place]*) 1 spray BOTH NARES Q4H PRN PRN Reason: CONGESTION Trihexyphenidyl HCl (Artane Tab*) 2.5 mg PO DAILY [facility] Last Admin: 12/09/18 10:17 Dose: 2.5 mg Vital Signs - 8 hr 12/09/18 12/09/18 12/09/18 12:44 12:46 12:47 Temperature Pulse Rate 95 99 102 Respiratory 16 17 17 Rate Blood Pressure 117/55 127/80 136/74 (mmHg) O2 Sat by Pulse 98 99 100 Oximetry 12/09/18 12/09/18 13:39 16:53 Temperature 100.5 F 99.1 F Pulse Rate Respiratory Rate Blood Pressure (mmHg) O2 Sat by Pulse Oximetry Oxygen Devices in Use Now: None Appearance: NAD Eyes: No Scleral Icterus, - - Pale conjunctiva. Ears/Nose/Mouth/Throat: Mucous Membranes Moist, - - Lips and oral mucous pale. Neck: NL Appearance and Movements; NL JVP Respiratory: Symmetrical Chest Expansion and Respiratory Effort, Clear to Auscultation Cardiovascular: NL Sounds; No Murmurs; No JVD, RRR, No Edema Abdominal: NL Sounds; No Tenderness; No Distention, No Hepatosplenomegaly, - - No CVA tenderness Extremities: No Clubbing, Cyanosis Skin: No Rash or Ulcers Neurological: Alert and Oriented x 3, NL Muscle Strength and Tone Nutrition: Taking PO's Result Diagrams: 12/09/18 08:43 12/09/18 08:43 Additional Lab and Data: Laboratory Results - last 24 hr 12/08/18 12/08/18 12/09/18 02:14 23:55 08:43 WBC RBC RBC (Retic) Hgb Hct HCT (Retic) MCV MCH MCHC RDW Plt Count MPV Retic Count, Calc Corrected Retic Count Retic Shift Factor Retic Production Index Immature Retic Fraction Mean Retic Volume Sodium 137 135 Potassium 4.1 4.3 Chloride 102 101 Carbon Dioxide 27 24 Anion Gap 8 10 BUN 20 20 Creatinine 0.95 0.73 Est GFR ( Amer) 106.8 144.7 Est GFR (Non-Af Amer) 88.3 119.6 BUN/Creatinine Ratio 21.1 H 27.4 H Glucose 135 H 142 H POC Glucose (mg/dL) 142 H Hemoglobin A1c Calcium 8.6 9.2 Iron 67 TIBC 353 % Saturation 19 Unsat Iron Binding < 338 Transferrin 252 Ferritin 29.2 Total Bilirubin 0.30 1.10 H AST 18 68 H ALT 27 46 Alkaline Phosphatase 93 97 Lactate Dehydrogenase 307 H Cancelled Total Protein 6.5 6.6 Albumin 3.5 3.5 Globulin 3.0 3.1 Albumin/Globulin Ratio 1.2 1.1 Triglycerides 96 Cholesterol 224 LDL Cholesterol 82 HDL Cholesterol 122.6 Vitamin B12 757 Folate 3.36 TSH 1.00 Salicylates < 2.50 Acetaminophen < 15 Serum Alcohol < 10 Direct Antiglob Test 12/09/18 12/09/18 12/09/18 08:43 08:43 08:43 WBC 25.6 H RBC 2.47 L RBC (Retic) 2.34 L Hgb 8.2 L Hct 23 L HCT (Retic) 23 L MCV 94 MCH 33 H MCHC 35 RDW 14 Plt Count 301 MPV 6.9 L Retic Count, Calc 3.3 H Corrected Retic Count 1.7 H Retic Shift Factor 2.0 Retic Production Index 0.90 Immature Retic Fraction 0.51 Mean Retic Volume 98.8 Sodium Potassium Chloride Carbon Dioxide Anion Gap BUN Creatinine Est GFR ( Amer) Est GFR (Non-Af Amer) BUN/Creatinine Ratio Glucose POC Glucose (mg/dL) Hemoglobin A1c 5.8 H Calcium Iron TIBC % Saturation Unsat Iron Binding Transferrin Ferritin Total Bilirubin AST ALT Alkaline Phosphatase Lactate Dehydrogenase Total Protein Albumin Globulin Albumin/Globulin Ratio Triglycerides Cholesterol LDL Cholesterol HDL Cholesterol Vitamin B12 Folate TSH Salicylates Acetaminophen Serum Alcohol Direct Antiglob Test 4+ 12/09/18 11:57 WBC RBC RBC (Retic) Hgb Hct HCT (Retic) MCV MCH MCHC RDW Plt Count MPV Retic Count, Calc Corrected Retic Count Retic Shift Factor Retic Production Index Immature Retic Fraction Mean Retic Volume Sodium Potassium Chloride Carbon Dioxide Anion Gap BUN Creatinine Est GFR ( Amer) Est GFR (Non-Af Amer) BUN/Creatinine Ratio Glucose POC Glucose (mg/dL) 199 H Hemoglobin A1c Calcium Iron TIBC % Saturation Unsat Iron Binding Transferrin Ferritin Total Bilirubin AST ALT Alkaline Phosphatase Lactate Dehydrogenase Total Protein Albumin Globulin Albumin/Globulin Ratio Triglycerides Cholesterol LDL Cholesterol HDL Cholesterol Vitamin B12 Folate TSH Salicylates Acetaminophen Serum Alcohol Direct Antiglob Test Microbiology and Other Data: Microbiology 12/09/18 11:50 Stool Occult Blood (JUHI) - Final Stool Assess/Plan/Problems-Billing Assessment: 38 yr old male with pmh of DM, obesity, PE, anemia, htn, gerd, seizure disorder ; who is admitted to the MHU and was noted to have an elevated wbc and anemia - Patient Problems (1) Anemia Comment: - Patient noted to have hgb of 12.1 on 11/23/18 and today 8.2 - No blood noted in stool or urine. - LDH, Antoine, AST mildly elevated, therefore, concern for hemolytic anemia. - Iron, B12, Folate wnl. - Retic count mildly elevated - Hematology called and will see patient tomorrow. (2) Leukocytosis Comment: - Could be secondary to steriods. I wonder if patient stopped steriod taper at home and we restarted it? - Maybe secondary to viral process as no evidence of bacterial process at this time. Did have one elevated temp recorded so blood cultures and lactic ordered. I will hold of on covering with abx at this time. - Secondary to hematological process? Hematology consulting (3) Fever Comment: - Patient had on isolated fever of 100.5 - Discussed with attending and we will hold off and abx at this time and monitor patient on the medical floor. - Blood cultures and lactic ordered. - UA and chest xray wnl (4) Leg pain, bilateral Comment: - Nursing called due to patient's complaint of bilateral anterior thigh pain. On my assessment this afternoon patient did not have calf tenderness, warmth, or swelling. Given his hx of PE I have ordered bilateral dopplers. (5) Chronic psychosis Comment: - Defer to MHU team (6) Hypertension Comment: - Well-controlled - Continue home medications (7) Seizure disorder Comment: - Cont medications as same. - Patient follows with Dr Lake and had 3 day seizure study in [place] per staff - Seizure precautions (8) Diabetes Comment: - Cont Metformin (9) Pneumonia Comment: - Completed abx prior to admission - Cont steriod taper - Repeat chest xray unremarkable (10) GERD (gastroesophageal reflux disease) Comment: - Cont PPI (11) DVT prophylaxis Comment: - SCDs and ambulation given anemia Status and Disposition: Inpatient. Return to [facility] when medically stable Attending: Jett German
[2018-12-09 21:19] LABS: Albumin 3.6 g/dL (3.2-5.2); Albumin/Globulin Ratio 1.1 (1-3); BUN/Creatinine Ratio 23.5 (8-20); Calcium 9.3 mg/dL (8.6-10.3); EGFR African American 128.4 (>60); EGFR Non-African American 106.1 (>60); Globulin 3.4 g/dL (2-4); Potassium 4.2 mmol/L (3.5-5.0); Total Bilirubin 1.7 mg/dL (0.2-1.0)
[2018-12-09] MEDS ORDERED: Enoxaparin(*) 100 MG/ML SYR SUBCUT STA (23:32)
--- NOTE | 2018-12-09 23:36 | PN ---
Hospitalist Progress Note Date of Service: 12/09/18 Informed by RN pt still complains of BL thigh pain and some suspicion of DVT w/ unclear reason for leukocytosis and low grade fever. Mentioned that doppler ordered today was for some reason not done. Ordered D-dimer w/c was found to be elevated for age. Will dose 1x Lovenox SQ 1mg/kg and asked staff to call network operations center technician to confirm suspicion of possible DVT to determine if full anticoagulation will need to be continued.
[2018-12-10] MEDS ORDERED: Ondansetron INJ* 2 MG/ML VIAL IV PRN (00:44)
[2018-12-10] MEDS ORDERED: NS 0.9% 500 ML* 500 ML IV ONE (00:45)
[2018-12-10 06:49] LABS: Hematocrit 27 % (42-52); Hemoglobin 9.6 g/dL (14.0-18.0); Mean Corpuscular HGB Conc 36 g/dL (31-36); Mean Corpuscular Hemoglobin 29 pg (27-31); Mean Corpuscular Volume 81 fL (80-94); Platelet Count 305 10^3/uL (150-450); Red Blood Count 3.33 10^6 /uL (4.18-5.48); Red Cell Distribution Width 14 % (10.5-15); White Blood Count 23.7 10^3/uL (3.5-10.8)
[2018-12-10 06:50] LABS: Albumin 3.5 g/dL (3.2-5.2); Albumin/Globulin Ratio 1.1 (1-3); BUN/Creatinine Ratio 16.7 (8-20); Calcium 8.6 mg/dL (8.6-10.3); EGFR African American 113.7 (>60); EGFR Non-African American 93.9 (>60); Globulin 3.2 g/dL (2-4); Total Bilirubin 1.7 mg/dL (0.2-1.0); Total Protein 6.7 g/dL (6.4-8.9)
[2018-12-10 08:19] LABS: Polychromasia 1+
[2018-12-10 08:22] LABS: ABS Neutrophils 15.4 10^3/ul (1.5-7.7)
[2018-12-10 08:23] LABS: ABS Eosinophils 1.9 10^3/ul (0-0.6)
[2018-12-10] MEDS ORDERED: Iodixanol* (CONTRAST) 320 MG/ML 100 ML SDV IV ONE (08:27)
[2018-12-10] MEDS: TRIHEXYPHENIDYL 5 MG PO SCH (09:57)
[2018-12-10] MEDS: ESLICARBAZEPINE ACETATE 800 MG PO SCH (09:58)
[2018-12-10] MEDS: Fluticasone NASAL SPRAY 50MCG* 16 gm SPRAY BTL BOTH NARES SCH (09:58)
[2018-12-10] MEDS: METFORMIN 750 MG PO SCH (09:58)
[2018-12-10] MEDS: Lactobacillus Acidophilus* 1 TAB PO SCH (09:59)
[2018-12-10] MEDS: Metoprolol Tartrate TAB* 25 MG PO SCH ×2 (09:59→22:18)
[2018-12-10] MEDS: predniSONE TAB* 10 MG PO SCH (09:59)
[2018-12-10] MEDS: Lacosamide TAB* 100 MG TAB PO SCH ×2 (10:00→22:17)
[2018-12-10] MEDS: Pantoprazole TAB * 40 MG TAB PO SCH (10:00)
[2018-12-10] MEDS: CLOBAZAM 10 MG PO SCH ×2 (10:00→22:17)
[2018-12-10] MEDS: Magnesium Oxide TAB* 400 MG PO SCH (10:00)
[2018-12-10] MEDS: Vitamin THERAPEUTIC TAB PO SCH (10:03)
[2018-12-10] MEDS: OLANzapine TAB* 10 MG PO SCH (10:08)
[2018-12-10 10:45] LABS: Hepatitis B Surface Antigen Nonreactive (Nonreactive)
[2018-12-10 11:07] LABS: Hepatitis C Antibody Nonreactive (Nonreactive)
[2018-12-10] MEDS ORDERED: NS 0.9% 1000 ML** 1,000 ML IV SCH (17:15)
--- NOTE | 2018-12-10 17:19 | PN ---
Subjective Date of Service: 12/10/18 Interval History: Resting in bed on assessment. Reports he worries someone is poisoning him. He is also requesting HIV testing. He denies IV drug use and unprotected sex. Patient reports he has some "chest tightness" with breathing, bilateral legs ache (but reports it is improving from yesterday), and abd pain. He also states he "sometimes" has shortness of breath, but cannot identify aggravating or alleviating symptoms. Denies cp, palpitations, fever, chills, nausea, vomiting, diarrhea. Objective Active Medications: Acetaminophen (Tylenol Tab*) 650 mg PO Q4H PRN PRN Reason: PAIN or TEMP > 101 F Last Admin: 12/09/18 21:28 Dose: 650 mg Al Hydrox/Mg Hydrox/Simethicone (Maalox Plus*) 30 ml PO Q4H PRN PRN Reason: INDIGESTION Albuterol (Ventolin Hfa Inhaler*) 2 puff INH Q4H PRN PRN Reason: SHORTNESS OF BREATH Albuterol (Ventolin Hfa Inhaler*) 2 puff INH Q6H PRN PRN Reason: SOB/WHEEZING Benzonatate (Tessalon Cap*) 100 mg PO BID PRN PRN Reason: COUGH Clobazam (Onfi Tab(Nf)) 10 mg PO BID [facility] Last Admin: 12/10/18 10:00 Dose: 10 mg Eslicarbazepine Acetate (Aptiom) 800 mg PO DAILY [facility] Last Admin: 12/10/18 09:58 Dose: 800 mg Fluticasone Propionate (Flonase Nasal [place] 50mcg*) 2 spray BOTH NARES DAILY [facility] Last Admin: 12/10/18 09:58 Dose: 2 spray Sodium Chloride (Ns 0.9% 1000 Ml) 1,000 mls @ 75 mls/hr IV PER RATE [facility] Stop: 12/11/18 06:34 Lacosamide (Vimpat Tab*) 200 mg PO BID [facility] Last Admin: 12/10/18 10:00 Dose: 200 mg Lactobacillus Rhamnosus (Lactobacillus Acidophilus*) 2 tab PO DAILY [facility] Last Admin: 12/10/18 09:59 Dose: 2 tab Lorazepam (Ativan Tab(*)) 2 mg PO Q4H PRN PRN Reason: AGITATION Magnesium Oxide (Magox 400 Tab*) 400 mg PO DAILY WITH MEAL [facility] Last Admin: 12/10/18 10:00 Dose: 400 mg Metformin HCl (Glucophage Er (Nf)) 750 mg PO DAILY [facility] Last Admin: 12/10/18 09:58 Dose: 750 mg Metoprolol Tartrate (Lopressor Tab*) 25 mg PO BID [facility] Last Admin: 12/10/18 09:59 Dose: 25 mg Multivitamins (Theragran Tab*) 1 tab PO DAILY [facility] Last Admin: 12/10/18 10:03 Dose: 1 tab Olanzapine (Zyprexa Tab*) 10 mg PO DAILY [facility] Last Admin: 12/10/18 10:08 Dose: 10 mg Olanzapine (Zyprexa Tab*) 5 mg PO BID PRN PRN Reason: AGITATION Ondansetron HCl (Zofran Inj*) 4 mg IV Q6H PRN PRN Reason: NAUSEA Last Admin: 12/10/18 01:01 Dose: 4 mg Pantoprazole Sodium (Protonix Tab*) 40 mg PO DAILY [facility] Last Admin: 12/10/18 10:00 Dose: 40 mg Prednisone (Deltasone Tab*) 20 mg PO DAILY [facility]; Taper Stop: 12/17/18 13:59 Last Admin: 12/10/18 09:59 Dose: 20 mg Sodium Chloride (Sodium Chloride 0.65% Nasal [place]*) 1 spray BOTH NARES Q4H PRN PRN Reason: CONGESTION Trihexyphenidyl HCl (Artane Tab*) 2.5 mg PO DAILY [facility] Last Admin: 12/10/18 09:57 Dose: 2.5 mg Vital Signs - 8 hr 12/10/18 12/10/18 12/10/18 10:00 11:20 11:30 Temperature 99.8 F Pulse Rate 100 Respiratory 16 28 20 Rate Blood Pressure 105/66 (mmHg) O2 Sat by Pulse 98 Oximetry Oxygen Devices in Use Now: None Appearance: Comfortable, NAD Eyes: No Scleral Icterus Ears/Nose/Mouth/Throat: Clear Oropharnyx, Mucous Membranes Moist Neck: NL Appearance and Movements; NL JVP Respiratory: Symmetrical Chest Expansion and Respiratory Effort, - - Sporadic wheeze. Also some coarse rhonchi heard that clears well with cough. Cardiovascular: NL Sounds; No Murmurs; No JVD, RRR, No Edema Abdominal: - - Abd is tender in upper quads bilaterally. No distention, rigidity or rebound tenderness. BS x4 present Lymphatic: No Cervical Adenopathy Extremities: No Clubbing, Cyanosis Skin: No Rash or Ulcers Neurological: Alert and Oriented x 3, NL Muscle Strength and Tone Nutrition: Taking PO's Result Diagrams: 12/10/18 06:14 12/10/18 06:14 Additional Lab and Data: Laboratory Results - last 24 hr 12/09/18 12/09/18 12/09/18 20:49 20:49 20:49 WBC RBC Hgb Hct MCV MCH MCHC RDW Plt Count MPV Neut % (Auto) Lymph % (Auto) [place] % (Auto) Eos % (Auto) Baso % (Auto) Absolute Neuts (auto) Absolute Lymphs (auto) Absolute Monos (auto) Absolute Eos (auto) Absolute Basos (auto) Absolute Nucleated RBC Neutrophils % Lymphocytes % Monocytes % Eosinophils % Nucleated RBC % Abs Neuts (Manual) Abs Lymphs (Manual) Abs Monocytes (Manual) Absolute Eos (Manual) Nucleated RBCs/100 WBC Normal RBC Morphology Polychromasia Sickle Cell Screen Negative D-Dimer, Quantitative Sodium 134 L Potassium 4.2 Chloride 101 Carbon Dioxide 26 Anion Gap 7 BUN 19 Creatinine 0.81 Est GFR ( Amer) 128.4 Est GFR (Non-Af Amer) 106.1 BUN/Creatinine Ratio 23.5 H Glucose 137 H POC Glucose (mg/dL) Lactic Acid 1.3 Calcium 9.3 Total Bilirubin 1.70 H AST 208 H ALT 108 H Alkaline Phosphatase 96 Lactate Dehydrogenase Total Protein 7.0 Albumin 3.6 Globulin 3.4 Albumin/Globulin Ratio 1.1 Lipase Hepatitis A IgM Ab Hep Bs Antigen Hep B Core IgM Ab Hepatitis C Antibody Hepatitis C Ab Index HIV 1&2 Antibody 12/09/18 12/09/18 12/09/18 20:49 22:40 22:40 WBC RBC Hgb Hct MCV MCH MCHC RDW Plt Count MPV Neut % (Auto) Lymph % (Auto) [place] % (Auto) Eos % (Auto) Baso % (Auto) Absolute Neuts (auto) Absolute Lymphs (auto) Absolute Monos (auto) Absolute Eos (auto) Absolute Basos (auto) Absolute Nucleated RBC Neutrophils % Lymphocytes % Monocytes % Eosinophils % Nucleated RBC % Abs Neuts (Manual) Abs Lymphs (Manual) Abs Monocytes (Manual) Absolute Eos (Manual) Nucleated RBCs/100 WBC Normal RBC Morphology Polychromasia Sickle Cell Screen D-Dimer, Quantitative > 1050 H Sodium Potassium Chloride Carbon Dioxide Anion Gap BUN Creatinine Est GFR ( Amer) Est GFR (Non-Af Amer) BUN/Creatinine Ratio Glucose POC Glucose (mg/dL) Lactic Acid 2.2 H* Calcium Total Bilirubin AST ALT Alkaline Phosphatase Lactate Dehydrogenase 767 H Total Protein Albumin Globulin Albumin/Globulin Ratio Lipase Hepatitis A IgM Ab Hep Bs Antigen Hep B Core IgM Ab Hepatitis C Antibody Hepatitis C Ab Index HIV 1&2 Antibody 12/10/18 12/10/18 12/10/18 06:14 06:14 06:14 WBC 23.7 H RBC 3.33 L Hgb 9.6 L Hct 27 L MCV 81 MCH 29 MCHC 36 RDW 14 Plt Count 305 MPV 7.0 L Neut % (Auto) Not Reportable Lymph % (Auto) Not Reportable [place] % (Auto) Not Reportable Eos % (Auto) Not Reportable Baso % (Auto) Not Reportable Absolute Neuts (auto) Not Reportable Absolute Lymphs (auto) Not Reportable Absolute Monos (auto) Not Reportable Absolute Eos (auto) Not Reportable Absolute Basos (auto) Not Reportable Absolute Nucleated RBC Not Reportable Neutrophils % 65.0 Lymphocytes % 23.0 Monocytes % 4.0 Eosinophils % 8.0 Nucleated RBC % Not Reportable Abs Neuts (Manual) 15.4 H Abs Lymphs (Manual) 5.5 H Abs Monocytes (Manual) 0.9 H Absolute Eos (Manual) 1.9 H Nucleated RBCs/100 WBC 6.0 H Normal RBC Morphology Not Reportable Polychromasia 1+ Sickle Cell Screen D-Dimer, Quantitative Sodium 133 L Potassium 4.0 Chloride 99 L Carbon Dioxide 27 Anion Gap 7 BUN 15 Creatinine 0.90 Est GFR ( Amer) 113.7 Est GFR (Non-Af Amer) 93.9 BUN/Creatinine Ratio 16.7 Glucose 191 H POC Glucose (mg/dL) Lactic Acid 1.8 Calcium 8.6 Total Bilirubin 1.70 H AST 506 H ALT 207 H Alkaline Phosphatase 105 H Lactate Dehydrogenase Total Protein 6.7 Albumin 3.5 Globulin 3.2 Albumin/Globulin Ratio 1.1 Lipase 33 Hepatitis A IgM Ab Hep Bs Antigen Hep B Core IgM Ab Hepatitis C Antibody Hepatitis C Ab Index HIV 1&2 Antibody 12/10/18 12/10/18 12/10/18 06:14 07:58 11:56 WBC RBC Hgb Hct MCV MCH MCHC RDW Plt Count MPV Neut % (Auto) Lymph % (Auto) [place] % (Auto) Eos % (Auto) Baso % (Auto) Absolute Neuts (auto) Absolute Lymphs (auto) Absolute Monos (auto) Absolute Eos (auto) Absolute Basos (auto) Absolute Nucleated RBC Neutrophils % Lymphocytes % Monocytes % Eosinophils % Nucleated RBC % Abs Neuts (Manual) Abs Lymphs (Manual) Abs Monocytes (Manual) Absolute Eos (Manual) Nucleated RBCs/100 WBC Normal RBC Morphology Polychromasia Sickle Cell Screen D-Dimer, Quantitative Sodium Potassium Chloride Carbon Dioxide Anion Gap BUN Creatinine Est GFR ( Amer) Est GFR (Non-Af Amer) BUN/Creatinine Ratio Glucose POC Glucose (mg/dL) 213 H 157 H Lactic Acid Calcium Total Bilirubin AST ALT Alkaline Phosphatase Lactate Dehydrogenase Total Protein Albumin Globulin Albumin/Globulin Ratio Lipase Hepatitis A IgM Ab Nonreactive Hep Bs Antigen Nonreactive Hep B Core IgM Ab Nonreactive Hepatitis C Antibody Nonreactive Hepatitis C Ab Index < 0.0 HIV 1&2 Antibody Nonreactive Microbiology and Other Data: Microbiology 12/09/18 11:50 Stool Stool Occult Blood (JUHI) - Final Assess/Plan/Problems-Billing Assessment: 38 yr old male with pmh of DM, obesity, PE, anemia, htn, gerd, seizure disorder ; who is admitted to the MHU and was noted to have an elevated wbc and anemia - Patient Problems (1) Shortness of breath Comment: - Given elevated Ddimer, sob, chest tightness, tachycardia, hx of PE; CTA ordered and no evidence of PE. 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 No dyspnea. - Monitor (2) Abdominal pain Comment: - Tenderness to upper quads bilaterally. - CTA revealed mild hepatomegly (3) Anemia Comment: - Patient noted to have significant decrease in hgb which was on 12.1 on and yesterday 8.2. Today 9.7 - No blood noted in stool or urine. - LDH, Antoine, AST, ALT, and Alk Phos increasing; concern for hemolytic anemia. - Iron, B12, Folate wnl. - Retic count mildly elevated - Hematology consulting (4) Leukocytosis Comment: - Could be secondary to steriods. - Maybe secondary to viral process as no evidence of bacterial process at this time. Did have one elevated temp recorded so blood cultures and lactic ordered. I will hold of on covering with abx at this time. - Secondary to hematological process? Hematology consulting (5) Fever Comment: - Patient had on isolated fever of 100.5 - Discussed with attending and we will hold off and abx at this time and monitor patient on the medical floor. - Blood cultures ordered. - Lactic 1.8 - UA and chest xray wnl (6) Leg pain, bilateral Comment: - Improving per patient - Bilateral doppler revealed no suggestion of dvt, but slow blood flow with extensive venous status (7) Chronic psychosis Comment: - Defer to MHU team (8) Hypertension Comment: - Well-controlled - Continue home medications (9) Seizure disorder Comment: - Cont medications as same. - Patient follows with Dr Lake and had 3 day seizure study in [place] per staff - Seizure precautions (10) Diabetes Comment: - Cont Metformin (11) Pneumonia Comment: - Completed abx prior to admission - Cont steriod taper - Repeat chest xray unremarkable (12) GERD (gastroesophageal reflux disease) Comment: - Cont PPI (13) DVT prophylaxis Comment: - SCDs and ambulation given anemia Status and Disposition: Inpatient. Return to [facility] when medically stable Attending: Freya Banks
[2018-12-10] MEDS ORDERED: Dextrose 50% Syringe 50 ML* 25 GM/50 ML SYRINGE IV PUSH PRN (17:43)
[2018-12-10] MEDS: Insulin LISPRO* 1 UNITS UNIT SUBCUT SCH (22:00)
[2018-12-11] MEDS: Albuterol HFA INHALER* 8 gm MDI INH PRN ×3 (01:18→23:18)
[2018-12-11 07:18] LABS: Hematocrit 24 % (42-52); Hemoglobin 8.4 g/dL (14.0-18.0); Mean Corpuscular HGB Conc 35 g/dL (31-36); Mean Corpuscular Hemoglobin 28 pg (27-31); Mean Corpuscular Volume 79 fL (80-94); Mean Platelet Volume 7.1 fL (7.4-10.4); Platelet Count 261 10^3/uL (150-450); Red Blood Count 2.99 10^6 /uL (4.18-5.48); Red Cell Distribution Width 14 % (10.5-15); White Blood Count 21.2 10^3/uL (3.5-10.8)
[2018-12-11 07:20] LABS: Albumin 3.4 g/dL (3.2-5.2); Albumin/Globulin Ratio 1.1 (1-3); BUN/Creatinine Ratio 17.1 (8-20); Calcium 8.7 mg/dL (8.6-10.3); EGFR African American 138.2 (>60); EGFR Non-African American 114.2 (>60); Globulin 3.1 g/dL (2-4); Potassium 4.2 mmol/L (3.5-5.0); Total Bilirubin 1.8 mg/dL (0.2-1.0); Total Protein 6.5 g/dL (6.4-8.9)
[2018-12-11 08:01] LABS: ABS Basophils 0.1 10^3/ul (0-0.2); ABS Eosinophils 1.7 10^3/ul (0-0.6); ABS Lymphocytes 3.8 10^3/ul (1.0-4.8); ABS Monocytes 2.1 10^3/ul (0-0.8); ABS Neutrophils 13.5 10^3/ul (1.5-7.7)
[2018-12-11 08:06] LABS: ABS Neutrophils 13.1 10^3/ul (1.5-7.7)
[2018-12-11 08:07] LABS: ABS Eosinophils 1.3 10^3/ul (0-0.6)
[2018-12-11] MEDS: TRIHEXYPHENIDYL 5 MG PO SCH (09:10)
[2018-12-11] MEDS: CLOBAZAM 10 MG PO SCH ×2 (09:10→21:29)
[2018-12-11] MEDS: Lactobacillus Acidophilus* 1 TAB PO SCH (09:11)
[2018-12-11] MEDS: Pantoprazole TAB * 40 MG TAB PO SCH (09:11)
[2018-12-11] MEDS: Vitamin THERAPEUTIC TAB PO SCH (09:11)
[2018-12-11] MEDS: ESLICARBAZEPINE ACETATE 800 MG PO SCH (09:12)
[2018-12-11] MEDS: Lacosamide TAB* 100 MG TAB PO SCH ×2 (09:12→21:30)
[2018-12-11] MEDS: Magnesium Oxide TAB* 400 MG PO SCH (09:13)
[2018-12-11] MEDS: predniSONE TAB* 10 MG PO SCH (09:13)
[2018-12-11] MEDS: Fluticasone NASAL SPRAY 50MCG* 16 gm SPRAY BTL BOTH NARES SCH (09:13)
[2018-12-11] MEDS: Metoprolol Tartrate TAB* 25 MG PO SCH ×2 (09:13→21:41)
[2018-12-11] MEDS: OLANzapine TAB* 10 MG PO SCH ×2 (09:14→21:28)
[2018-12-11] MEDS: Insulin LISPRO* 1 UNITS UNIT SUBCUT SCH ×4 (09:14→21:40)
[2018-12-11] MEDS: predniSONE TAB* 50 MG PO SCH (11:57)
[2018-12-11] MEDS: Folic Acid TAB* 1 MG PO SCH (11:57)
--- NOTE | 2018-12-11 13:17 | CONSULT ---
Identification - Patient Identification Reason for Psychiatric Consultation: Patient Distress, Other -: Patient is a 38 year old, M admitted on 12/08/18. - MHU Identification Employment Status: Disabled Hx Psychiatric Hospitalization: Yes History - Objective HPI: Jose L is seen for psychiatric follow up in his room on . He is in fairly good spirits and continues to deny SI or HI. He is not hallucinating nor demonstrating any delusional thoughts or behaviors per staff notes. On exam Jose L continues to be focussed on housing. "I need to get back to the [facility] so I can talk to one of the social workers. I'm ready for my own place." The patient is educated that the hospital is not a place to go for housing changes. He is currently living in the [facility] building, which affords the highest level of supervision and structure available in a residential placement. My sense is that he has done well in this setting, given that he has not required psychiatric hospitalization in several years leading up to this admission. For collateral information I spoke with his field nurse case manager at the [place] agency, Alcira Felix ([phone]), who reports that Jose L's preoccupation with stepping down into a more independent living situation has been a long-term issue for him. She reports that their agency, along with the ACT team, have been working with him to try to find placement in a family care setting, where he would have similar structure with fewer cohabitants. I also spoke with Richar at the ACT team [phone]) who similarly endorses that Jose L is not able to live independently in his own apartment, especially given his recent medical complications. He notes that the patient has presented at his psychiatric baseline during visits they made with him in the community just prior to hospitalization. Ultimately I shared this information with Jose L who seemed to accept the situation and agreed to return to the [facility] with the understanding that he will use his resources at [place] and with the ACT team to continue to look for alternative placement. Exam Appearance: Well Developed/Nourished Hygiene: Normal Grooming: Fairly Well Kept Psychomotor Activities: Normal Exhibits Abnormal Movement: No Attitude and Relatedness: Cooperative Eye Contact: Good - Speech Quality: Unpressured Latencies: Normal Quantity: Appropriate Patient's Decription of Mood: "Okay" Observed Affect: Fair Affect Consistent with: Euthymia Patient's Thought Process: Goal Directed Thought Content: No Passive Wish, No Suicidal Planning, No Homicidal Ideation, No Paranoid Ideation Experiencing Hallucinations: No, Sensorium is Clear Type of Hallucinations: Visual: No, Auditory: No, Command: No Level of Consciousness: Alert Orientation: Yes Intact, Yes Orientated to Time, Yes Orientated to Place, Yes Orientated to Person Impulse Control: Tenuous Insight and Judgement: Fair Impression - Impression Clinical Impression: 38 y.o. single, AA male with a history of chronic schizophrenia who resides at the [facility] arrived complaining of people trying to harm him. He appears mostly fixated on housing issues and would like the hospital to provide him with a new apartment. Inpatient DSM-V Dx: F29 Merits Inpatient Hospitalization: No [facility]: Problem List - Patient Problems (1) Psychosis not due to substance or known physiological condition Current Visit: Yes Status: Acute Priority: Medium Code(s): F29 - UNSP PSYCHOSIS NOT DUE TO A SUBSTANCE OR KNOWN PHYSIOL COND SNOMED Code(s): 666987521 Plan - Treatment Plan Treatment Plan: Name: JOSE L FELDMAN Birthdate: 1980 [id number] Mr. Feldman is hoping for a change in placement, however, he accepts that the hospital is not in a position to provide him with this. Our recommendation is that his psychiatric medications not be changed and that he return home to the [facility] upon medical stabilization. I understand that the patient will be receiving high dose corticosteroids for a suspected blood condition and this could theoretically increase the risk of psychiatric decompensation. Psychiatry will remain involved for that reason, in order to monitor him and intervene if necessary. Otherwise, he is psychiatrically cleared for release. Continued Medication Management: Continue Outpt Medication Medications: Current Medications Acetaminophen (Tylenol Tab*) 650 mg PO Q4H PRN PRN Reason: PAIN or TEMP > 101 F Last Admin: 12/09/18 21:28 Dose: 650 mg Al Hydrox/Mg Hydrox/Simethicone (Maalox Plus*) 30 ml PO Q4H PRN PRN Reason: INDIGESTION Albuterol (Ventolin Hfa Inhaler*) 2 puff INH Q6H PRN PRN Reason: SOB/WHEEZING Benzonatate (Tessalon Cap*) 100 mg PO BID PRN PRN Reason: COUGH Clobazam (Onfi Tab(Nf)) 10 mg PO BID [facility] Last Admin: 12/11/18 09:10 Dose: 10 mg Dextrose (D50w Syringe 50 Ml*) 12.5 gm IV PUSH .FOR FS < 60 - SS PRN PRN Reason: FS < 60 Eslicarbazepine Acetate (Aptiom) 800 mg PO DAILY [facility] Last Admin: 12/11/18 09:12 Dose: 800 mg Fluticasone Propionate (Flonase Nasal [place] 50mcg*) 2 spray BOTH NARES DAILY [facility] Last Admin: 12/11/18 09:13 Dose: 2 spray Folic Acid (Folvite Tab*) 1 mg PO DAILY [facility] Last Admin: 12/11/18 11:57 Dose: 1 mg Insulin Human Lispro (Humalog*) 0 units SUBCUT ACHS [facility]; Protocol Last Admin: 12/11/18 12:56 Dose: 2 units Lacosamide (Vimpat Tab*) 200 mg PO BID [facility] Last Admin: 12/11/18 09:12 Dose: 200 mg Lactobacillus Rhamnosus (Lactobacillus Acidophilus*) 2 tab PO DAILY [facility] Last Admin: 12/11/18 09:11 Dose: 2 tab Lorazepam (Ativan Tab(*)) 2 mg PO Q4H PRN PRN Reason: AGITATION Magnesium Oxide (Magox 400 Tab*) 400 mg PO DAILY WITH MEAL [facility] Last Admin: 12/11/18 09:13 Dose: 400 mg Metoprolol Tartrate (Lopressor Tab*) 25 mg PO BID [facility] Last Admin: 12/11/18 09:13 Dose: 25 mg Multivitamins (Theragran Tab*) 1 tab PO DAILY [facility] Last Admin: 12/11/18 09:11 Dose: 1 tab Olanzapine (Zyprexa Tab*) 10 mg PO DAILY [facility] Last Admin: 12/11/18 09:14 Dose: 10 mg Olanzapine (Zyprexa Tab*) 5 mg PO BID PRN PRN Reason: AGITATION Ondansetron HCl (Zofran Inj*) 4 mg IV Q6H PRN PRN Reason: NAUSEA Last Admin: 12/10/18 01:01 Dose: 4 mg Pantoprazole Sodium (Protonix Tab*) 40 mg PO DAILY [facility] Last Admin: 12/11/18 09:11 Dose: 40 mg Prednisone (Deltasone Tab*) 100 mg PO DAILY [facility] Last Admin: 12/11/18 11:57 Dose: 100 mg Sodium Chloride (Sodium Chloride 0.65% Nasal [place]rough*) 1 spray BOTH NARES Q4H PRN PRN Reason: CONGESTION Trihexyphenidyl HCl (Artane Tab*) 2.5 mg PO DAILY [facility] Last Admin: 12/11/18 09:10 Dose: 2.5 mg - Discharge Plan Discharge Plan: Outpatient Follow Up Outpatient Program: ACT Team
--- NOTE | 2018-12-11 15:25 | CONS ---
MEDICAL ONCOLOGY/HEMATOLOGY CONSULTATION NOTE: DATE OF CONSULT: 12/10/18 REASON FOR CONSULTATION: Autoimmune hemolytic anemia. HISTORY OF PRESENT ILLNESS: Rickey Mcbride is a 38-year-old -[place] male , who is an extremely poor historian. He carries an underlying history of schizophrenia and bipolar disorder and also seizure disorder. He also has diabetes and hypertension. He has had multiple previous admissions to the psychiatric unit here at [facility]. He was admitted on 11/23/18 with cough, feeling poorly, and had been found to have a community-acquired pneumonia. He was treated with antibiotics along with a high dose of steroids. He was able to be discharged back to his residence, where he is under supervision of [facility] on 11/26/18. At that time, he was maintained on antibiotics with azithromycin and also was still on a slow prednisone taper. He actually was increased to 60 mg per day at that point, with then a slow taper thereafter. He presented back to the emergency room on 12/01/18 and again on 12/08/18; he was seen in consultation by Psychiatry, admitted there, and then following being found to be anemic and with a high white count, was transferred to the medical service on 12/08/18. He had remained afebrile at home in 12 days since discharge and was treated as noted above with azithromycin, cefdinir, and prednisone. He was found to have a high white count of approximately 20,000. This is most likely due to the prednisone that he had been on along with a recent infection. He was also found to have significant worsening of his underlying anemia. It should be noted that his baseline hemoglobin over the past 8 years has been approximately 12 to 13 and occasionally down to 10. During his admission earlier this month, his hemoglobin was running between 11.2 and 12.5. On admission, his hemoglobin was 9.2 and then 8.2 the following day, although at 9.6 on the day of this consultation. A workup during this hospitalization has included a reticulocyte count which is mildly elevated with a total reticulocyte count of 3.3 with a corrected reticulocyte count of 1.7. He has an elevated LDH at 767, having been 307 the day before. In addition, mildly elevated bilirubin at 1.7 having been normal as recently as the day of admission. Transaminases revealed elevations as well with normal LFTs on 12/08/18 and AST of 506 on 12/10/18, ALT of 27 on admission and now 207. Direct antiglobulin test is 4+ positive. There are no reports in the computer of any leukocytes in his peripheral smear, but on reviewing on myself, it does show significant but not overwhelming numbers of schistocytes. PAST MEDICAL HISTORY: As noted above, includes: 1. Type 2 diabetes. 2. Pulmonary embolism in 2009. 3. Hypertension. 4. GERD. 5. Longstanding seizure disorder. 6. History of substance abuse. 7. Known overdoses in the past with suicide attempts. MEDICATIONS AT THE TIME OF ADMISSION: Include: 1. Artane 2.5 mg daily. 2. Potassium chloride 10 mEq daily. 3. Pantoprazole 40 mg daily. 4. Olanzapine 5 mg b.i.d. 5. Metoprolol 25 mg b.i.d. 6. Metformin 750 daily. 7. Vimpat 20 mg b.i.d. 8. Floranex 2 chews daily. 9. Aptiom 800 mg daily. 10. Clobazam 10 mg b.i.d. 11. Olanzapine 10 mg b.i.d. 12. Benzonatate Perles 100 mg b.i.d. p.r.n. cough. 13. Guaifenesin p.r.n. cough. 14. Prednisone being tapered, currently at 20 mg per day. 15. Albuterol inhaler 2 puffs q.6 hours p.r.n. ALLERGIES: To CLOZAPINE, EPHEDRINE, FLUPHENAZINE, HALOPERIDOL, LAMOTRIGINE, PALIPERIDONE, PHENOBARBITAL, THEOPHYLLINE, and ZIPRASIDONE. FAMILY HISTORY: Unavailable from the patient, but an old chart is reportedly positive for heart disease, hypertension, diabetes, schizophrenia, and cancer. SOCIAL HISTORY: The patient does drink occasional alcohol. He lives in an apartment by himself under the supervision of [facility]. REVIEW OF SYSTEMS: The patient reports that he was short of breath just recently, but not at the present time. He complains of pains in his thighs. Denies any recent bleeding episodes, specifically any bright red blood per rectum or melena. Reports that he was coughing and "throwing up blood" 1 week ago, but it was subsequently improved. He thinks his weight loss is down by 15 pounds in 1 year. Review of systems is otherwise negative except as discussed above. PHYSICAL EXAM: A 38-year-old male, overweight, but not significantly obese. Vital Signs: Blood pressure 141/74, pulse 88, afebrile, having had temperatures as high as 100.5 the previous day. HEENT: PERRL. EOMI. No erythema or exudates. No scleral icterus. No palpable cervical, supraclavicular, axillary, or inguinal adenopathy. Lungs: Clear. Heart: Regular rate and rhythm without murmurs, rubs, or gallops. Abdomen: Soft, nontender without masses or organomegaly. Extremities: No edema. The patient is alert and oriented, able to follow simple commands, but somewhat confused. IMPRESSION: A 38-year-old male with recent pneumonia, ongoing longstanding mild anemia, who now presents with leukocytosis and significant anemia. 1. His longstanding underlying anemia is a normocytic anemia and likely due to multiple medications that he is on, both those for psychiatric reasons and those to prevent seizures. This has been stable for many years. A change in his laboratory studies occurred literally on this admission, as at admission he had a hemoglobin of 9.2, although currently slightly higher at 9.6. This is associated with a positive CHRIS at 4+ along with schistocytes on his peripheral smear, mildly elevated reticulocyte count, mildly elevated bilirubin, and significantly elevated transaminases. This pattern is certainly consistent with an autoimmune hemolytic anemia. This can be related to various medications including his recently received cephalosporins and/or to the azithromycin. He has been on fairly low-dose steroids recently which may have been helping this somewhat from becoming more severe. There is no reason to suspect underlying lymphoma, or rheumatologic conditions given the quick onset of his current episode. He will be treated with high-dose steroids at 1 mg/kg or 100 mg prednisone daily and also receive folic acid at 1 mg daily. CBC will be watched carefully. We would not transfuse unless his hemoglobin fell dramatically from his current levels. If he does not fully respond to the steroids, certainly other second-line therapies are available including most typically used IV IgG and/or rituximab. 2. Elevated white count, likely due to recent infection and/or to steroids, unlikely that it is due to any significant underlying hematologic condition in this situation. [id number]/[facility] #: [id number] [facility]
--- NOTE | 2018-12-11 16:06 | CONS ---
NEUROLOGY CONSULTATION NOTE: DATE OF CONSULT: 12/11/18 CONSULTING PROVIDER: Liza Mcintyre NP REASON FOR CONSULT: Anemia in the presence of multiple antiseizure medications. CHIEF COMPLAINT: No complaints. HISTORY OF PRESENT ILLNESS: Mr. Rickey Mbcride is a 38-year-old man with a chronic psychiatric disorder and localization related epilepsy, on multiple AED therapies, who was last seen by Neurology actually early this month. I had the pleasure of seeing the patient on 11/25/18 for followup for lethargy. At that time, the patient had a pneumonia, was treated with multiple antibiotics and steroid therapy. He had no acute neurological complaints. The patient apparently presented again on 12/08/18 to [facility] ER with an acute exacerbation of his psychiatric condition. The patient was paranoid and felt like that people were to poison his food at [facility]. The patient was admitted for further evaluation of leukocytosis and anemia. It was thought that the leukocytosis may be related to the recent steroid use, but the anemia is an unclear diagnosis until this time. In regards to his seizure history, the patient has refractory epilepsy. He reports having been hospitalized in the past for status epilepticus. He was started on Onfi 3-4 months ago. Since starting Onfi, the patient has not had any seizures. Prior to Onfi, the patient was having 1-2 generalized convulsion and myoclonic jerks a week. He does have increase in drowsiness while on Onfi, but he prefers the drowsiness rather than having seizures. He was eating at bedside without any acute complaints. He was very apologetic and I was not sure why. With further evaluation, the patient apparently stated that he was not very nice to his staff at [facility] and would like to apologize to them if he goes back. Please note that the patient was discharged on antibiotics from the previous admission and that includes azithromycin and cefdinir. The patient denied any headaches, visual disturbance, focal weakness, or paresthesias. He denied dizziness, vertigo, nausea, abnormal coordination, or ataxia. The MRI of the brain completed on 07/18/18 was personally reviewed by me. There were no areas of temporal asymmetry. He has no evidence of any heterotopia or cortical dysplasia. I also reviewed the EEG report from that was read by Dr. Scott. The patient had an abnormal EEG with epileptiform discharges emanating from the bifrontal region. PAST MEDICAL HISTORY: Diabetes mellitus, hypertension, seizure disorder, GERD, schizophrenia, and bipolar. PAST SURGICAL HISTORY: He had a left inguinal hernia repair. MEDICATIONS: 1. Metformin 750 mg p.o. daily. 2. Magnesium 400 mg p.o. daily. 3. Ibuprofen 800 mg p.o. t.i.d. 4. Olanzapine 10 mg p.o. b.i.d. 5. Aptiom 800 mg p.o. daily. 6. Lacosamide 200 mg p.o. b.i.d. 7. Potassium 10 mEq p.o. daily. 8. Metoprolol 25 mg p.o. b.i.d. 9. Pantoprazole 40 mg p.o. daily. 10. Artane 2.5 mg p.o. daily. 11. Albuterol 2 puffs inhaled q.6 hours. 12. Clobazam 10 mg p.o. b.i.d. 13. Benzonatate 100 mg p.o. b.i.d. 14. Cefdinir 300 mg p.o. b.i.d. 15. Guaifenesin 600 mg p.o. b.i.d. 16. Prednisone 10 mg p.o. daily. DRUG ALLERGIES: CLOZAPINE, EPHEDRINE, FLUPHENAZINE, HALOPERIDOL, LAMOTRIGINE, PALIPERIDONE, PHENOBARBITAL, THEOPHYLLINE, ZIPRASIDONE. FAMILY HISTORY: Positive for heart disease, hypertension, diabetes, schizophrenia, and cancer. SOCIAL HISTORY: The patient denied any tobacco or alcohol use. REVIEW OF SYSTEMS: A 14-point review of systems was obtained and otherwise negative except for what was mentioned in the HPI. PHYSICAL EXAM: Vitals: Temperature of 98.4, pulse rate of 96, respiratory rate 18, oxygen saturation of 100%, blood pressure of 115/81. General: A well - nourished, well-developed man, in no acute distress. Head: Normocephalic, atraumatic without any obvious abnormality. Eyes: Conjunctivae/corneas are clear. Neck is supple and symmetrical, with no carotid bruit. Lungs are clear to auscultation bilaterally. Cardiovascular: Regular rate and rhythm with normal S1, S2. Extremities: Normal range of motion with no cyanosis. Skin: No skin lesions or laceration. Psych: He has got a flat affect, but good mood. Easy to establish rapport. We were discussing the upcoming playoff games with the [employer] and the [employer]. Neurological Examination : Mental status: Awake, alert, and oriented to person, place, time, and general circumstance. He has some mild psychomotor slowing, but otherwise his speech and language including expression, naming, and repetition were assessed and found to be normal. Cranial Nerves: Normal confrontation testing bilaterally. Pupils are mid range and reactive to light. Normal consensual response. No ptosis. Sensation is intact in the face. No facial droop. He is able to hear throughout the history process. Tongue is symmetrical and midline. Motor Examination: No abnormal movements or pronator drift. Normal bulk and tone throughout. He has 5/5 strength in the upper and lower extremities bilaterally. Reflexes: Right/left, brachioradialis 2/2, biceps 2/2 , triceps 2/2, patella 1/1, ankle 0/0, plantar flexors/flexor. Sensation is intact to light touch throughout. Coordination: Normal ejsuoa-pm-huow and rapid alternating movement. Gait: Narrow based, normal stance and gait. No ataxia. ASSESSMENT AND RECOMMENDATION: Mr. Rickey Mcbride is a 38-year-old man with history of refractory epilepsy, most likely localization-related epilepsy, who presented with psychiatric symptoms and was found to have leukocytosis and anemia. Currently, the patient does not have any acute neurological complaints. He denied any dizziness, vertigo, nausea, or abnormal coordination, which can be side effects of either Aptiom or lacosamide. He does have significant drowsiness; however, when I assessed him this afternoon, he was awake and looking forward to have his lunch. Since there has been no recent adjustments of his antiseizure medications and since he is not on any typical CYP enzyme inhibitors or inducers, I do not suspect that the patient's liver dysfunction and anemia to be related to any of the current therapies. Therefore, I recommend continuing the same dose of clobazam 10 mg twice daily, Aptiom 800 mg daily, and Vimpat 200 mg twice daily. Please note that the patient has history of refractory epilepsy and status epilepticus in the past that any adjustments to his antiseizure medication may cause him to have breakthrough seizures or status epilepticus. I do agree with a hematological consultation for which this has been arranged. From a neurology standpoint, the patient appears more awake and cooperative when compared to his assessment earlier this month. Therefore, we do not recommend any further neurological workup at this time. Discussed these recommendations with the patient and with Liza. [id number]/[facility] #: [id number] MIREYA
--- NOTE | 2018-12-11 16:53 | PN ---
Subjective Date of Service: 12/11/18 Interval History: Resting in bed on assessment. Reports he feels improved today as his legs are less sore. He reports he continues to have occasional sob but no aggravating symptoms. Reports occasional cough, but less frequent. Denies cp, palpitations, nausea, vomiting, diarrhea. Objective Active Medications: Acetaminophen (Tylenol Tab*) 650 mg PO Q4H PRN PRN Reason: PAIN or TEMP > 101 F Last Admin: 12/09/18 21:28 Dose: 650 mg Al Hydrox/Mg Hydrox/Simethicone (Maalox Plus*) 30 ml PO Q4H PRN PRN Reason: INDIGESTION Albuterol (Ventolin Hfa Inhaler*) 2 puff INH Q6H PRN PRN Reason: SOB/WHEEZING Benzonatate (Tessalon Cap*) 100 mg PO BID PRN PRN Reason: COUGH Clobazam (Onfi Tab(Nf)) 10 mg PO BID PENDING SALE TO [facility] Last Admin: 12/11/18 09:10 Dose: 10 mg Dextrose (D50w Syringe 50 Ml*) 12.5 gm IV PUSH .FOR FS < 60 - SS PRN PRN Reason: FS < 60 Eslicarbazepine Acetate (Aptiom) 800 mg PO DAILY PENDING SALE TO [facility] Last Admin: 12/11/18 09:12 Dose: 800 mg Fluticasone Propionate (Flonase Nasal [place] 50mcg*) 2 spray BOTH NARES DAILY PENDING SALE TO [facility] Last Admin: 12/11/18 09:13 Dose: 2 spray Folic Acid (Folvite Tab*) 1 mg PO DAILY PENDING SALE TO [facility] Last Admin: 12/11/18 11:57 Dose: 1 mg Insulin Human Lispro (Humalog*) 0 units SUBCUT ACHS PENDING SALE TO [facility]; Protocol Last Admin: 12/11/18 12:56 Dose: 2 units Lacosamide (Vimpat Tab*) 200 mg PO BID PENDING SALE TO [facility] Last Admin: 12/11/18 09:12 Dose: 200 mg Lactobacillus Rhamnosus (Lactobacillus Acidophilus*) 2 tab PO DAILY PENDING SALE TO [facility] Last Admin: 12/11/18 09:11 Dose: 2 tab Lorazepam (Ativan Tab(*)) 2 mg PO Q4H PRN PRN Reason: AGITATION Magnesium Oxide (Magox 400 Tab*) 400 mg PO DAILY WITH MEAL PENDING SALE TO [facility] Last Admin: 12/11/18 09:13 Dose: 400 mg Metoprolol Tartrate (Lopressor Tab*) 25 mg PO BID PENDING SALE TO [facility] Last Admin: 12/11/18 09:13 Dose: 25 mg Multivitamins (Theragran Tab*) 1 tab PO DAILY PENDING SALE TO [facility] Last Admin: 12/11/18 09:11 Dose: 1 tab Olanzapine (Zyprexa Tab*) 5 mg PO BID PRN PRN Reason: AGITATION Olanzapine (Zyprexa Tab*) 10 mg PO BID PENDING SALE TO [facility] Ondansetron HCl (Zofran Inj*) 4 mg IV Q6H PRN PRN Reason: NAUSEA Last Admin: 12/10/18 01:01 Dose: 4 mg Pantoprazole Sodium (Protonix Tab*) 40 mg PO DAILY PENDING SALE TO [facility] Last Admin: 12/11/18 09:11 Dose: 40 mg Prednisone (Deltasone Tab*) 100 mg PO DAILY PENDING SALE TO [facility] Last Admin: 12/11/18 11:57 Dose: 100 mg Risperidone (Risperdal Consta*) 50 mg IM ONCE ONE Stop: 12/12/18 09:01 Sodium Chloride (Sodium Chloride 0.65% Nasal [place]*) 1 spray BOTH NARES Q4H PRN PRN Reason: CONGESTION Trihexyphenidyl HCl (Artane Tab*) 2.5 mg PO DAILY PENDING SALE TO [facility] Last Admin: 12/11/18 09:10 Dose: 2.5 mg Vital Signs - 8 hr 12/11/18 09:10 Respiratory 15 Rate Oxygen Devices in Use Now: None Appearance: Comfortable, NAD Eyes: No Scleral Icterus, PERRLA Ears/Nose/Mouth/Throat: Clear Oropharnyx, Mucous Membranes Moist Neck: NL Appearance and Movements; NL JVP Respiratory: Symmetrical Chest Expansion and Respiratory Effort, - - Sporadic wheeze, but less then yesterday. Improved aeration today. Cardiovascular: NL Sounds; No Murmurs; No JVD, RRR, No Edema Abdominal: NL Sounds; No Tenderness; No Distention Lymphatic: No Cervical Adenopathy Extremities: - - No calf tenderness Skin: No Rash or Ulcers Neurological: Alert and Oriented x 3 Nutrition: Taking PO's Result Diagrams: 12/11/18 06:49 12/11/18 06:50 Additional Lab and Data: Laboratory Results - last 24 hr 12/10/18 12/10/18 12/11/18 17:04 21:52 06:49 WBC 21.2 H RBC 2.99 L Hgb 8.4 L Hct 24 L MCV 79 L MCH 28 MCHC 35 RDW 14 Plt Count 261 MPV 7.1 L Neut % (Auto) Not Reportable Lymph % (Auto) Not Reportable Bee % (Auto) Not Reportable Eos % (Auto) Not Reportable Baso % (Auto) Not Reportable Absolute Neuts (auto) 13.5 H Absolute Lymphs (auto) 3.8 Absolute Monos (auto) 2.1 H Absolute Eos (auto) 1.7 H Absolute Basos (auto) 0.1 Absolute Nucleated RBC Not Reportable Immature Gran % 5.0 Neutrophils % 57.0 Band Neutrophils % 2.0 Lymphocytes % 24.0 Monocytes % 8.0 Eosinophils % 6.0 Metamyelocytes % 3.0 H Nucleated RBC % Not Reportable Abs Neuts (Manual) 13.1 H Abs Lymphs (Manual) 5.1 H Abs Monocytes (Manual) 1.7 H Absolute Eos (Manual) 1.3 H Nucleated RBCs/100 WBC 3.0 H Normal RBC Morphology Normal Sodium Potassium Chloride Carbon Dioxide Anion Gap BUN Creatinine Est GFR ( Amer) Est GFR (Non-Af Amer) BUN/Creatinine Ratio Glucose POC Glucose (mg/dL) 211 H 92 Calcium Total Bilirubin AST ALT Alkaline Phosphatase Lactate Dehydrogenase Total Creatine Kinase Total Protein Albumin Globulin Albumin/Globulin Ratio 12/11/18 12/11/18 12/11/18 06:50 07:21 11:54 WBC RBC Hgb Hct MCV MCH MCHC RDW Plt Count MPV Neut % (Auto) Lymph % (Auto) Bee % (Auto) Eos % (Auto) Baso % (Auto) Absolute Neuts (auto) Absolute Lymphs (auto) Absolute Monos (auto) Absolute Eos (auto) Absolute Basos (auto) Absolute Nucleated RBC Immature Gran % Neutrophils % Band Neutrophils % Lymphocytes % Monocytes % Eosinophils % Metamyelocytes % Nucleated RBC % Abs Neuts (Manual) Abs Lymphs (Manual) Abs Monocytes (Manual) Absolute Eos (Manual) Nucleated RBCs/100 WBC Normal RBC Morphology Sodium 135 Potassium 4.2 Chloride 99 L Carbon Dioxide 29 Anion Gap 7 BUN 13 Creatinine 0.76 Est GFR ( Amer) 138.2 Est GFR (Non-Af Amer) 114.2 BUN/Creatinine Ratio 17.1 Glucose 152 H POC Glucose (mg/dL) 151 H 183 H Calcium 8.7 Total Bilirubin 1.80 H AST 456 H ALT 298 H Alkaline Phosphatase 89 Lactate Dehydrogenase 1516 H Total Creatine Kinase 138 Total Protein 6.5 Albumin 3.4 Globulin 3.1 Albumin/Globulin Ratio 1.1 Microbiology and Other Data: Microbiology 12/09/18 11:50 Stool Stool Occult Blood (JUHI) - Final Assess/Plan/Problems-Billing Assessment: 38 yr old male with pmh of DM, obesity, PE, anemia, htn, gerd, seizure disorder ; who is admitted to the MHU and was noted to have an elevated wbc and anemia - Patient Problems (1) Shortness of breath Comment: - Improving. Likely secondary to recent pneumonia/uri - Given elevated Ddimer, sob, chest tightness, tachycardia, hx of PE; CTA ordered and no evidence of PE. 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 No dyspnea. - Monitor (2) Abdominal pain Comment: - No tenderness today. - CTA revealed mild hepatomegly (3) Anemia Comment: - Patient noted to have significant decrease in hgb which was on 12.1 on and 8 to 9 on this admission - No blood noted in stool or urine. 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 Prednisone ordered by Dr Schroeder. - Cont to monitor H&H (4) Leukocytosis Comment: - Likely related to recent infection and/or steriods per hematology (5) Fever Comment: - 100.5 on 12/09 - Blood cultures no growth - Lactic 1.8 - UA and chest xray wnl (6) Leg pain, bilateral Comment: - Improving per patient - Bilateral doppler revealed no suggestion of dvt, but slow blood flow with extensive venous status (7) Chronic psychosis Comment: - Defer to MHU team (8) Hypertension Comment: - Well-controlled - Continue home medications (9) Seizure disorder Comment: - Cont medications as same. - Patient follows with Dr Lake and had 3 day seizure study in [place] per staff - Seizure precautions - Dr Perez consulting and recommends no change in medication (10) Diabetes Comment: - Hold Metformin while inpatient - Cont ACHS FSBG and SS (11) Pneumonia Comment: - Completed abx prior to admission - Cont steriod taper - Repeat chest xray unremarkable (12) GERD (gastroesophageal reflux disease) Comment: - Cont PPI (13) DVT prophylaxis Comment: - SCDs and ambulation given anemia Status and Disposition: Inpatient. [facility] does not believe he needs further admission, therefore, he will be discharge to [facility] when medically stable. Attending: Freya Banks
[2018-12-12 06:28] LABS: Hematocrit 23 % (42-52); Hemoglobin 8.1 g/dL (14.0-18.0); Mean Corpuscular HGB Conc 35 g/dL (31-36); Mean Corpuscular Hemoglobin 28 pg (27-31); Mean Corpuscular Volume 81 fL (80-94); Mean Platelet Volume 7.2 fL (7.4-10.4); Platelet Count 265 10^3/uL (150-450); Red Blood Count 2.87 10^6 /uL (4.18-5.48); Red Cell Distribution Width 14 % (10.5-15); White Blood Count 30.2 10^3/uL (3.5-10.8)
[2018-12-12 06:41] LABS: Albumin 3.5 g/dL (3.2-5.2); BUN/Creatinine Ratio 23.7 (8-20); Calcium 8.8 mg/dL (8.6-10.3); EGFR African American 138.2 (>60); EGFR Non-African American 114.2 (>60); Globulin 3.4 g/dL (2-4); Potassium 3.8 mmol/L (3.5-5.0); Total Bilirubin 1.2 mg/dL (0.2-1.0); Total Protein 6.9 g/dL (6.4-8.9)
[2018-12-12 07:30] LABS: ABS Eosinophils 1.2 10^3/ul (0-0.6); ABS Neutrophils 21.2 10^3/ul (1.5-7.7); ABS Neutrophils 24.1 10^3/ul (1.5-7.7); Polychromasia 2+
[2018-12-12] MEDS ORDERED: risperiDONE CONSTA* 50 MG IM ONE (09:00)
[2018-12-12] MEDS: Pantoprazole TAB * 40 MG TAB PO SCH (10:06)
[2018-12-12] MEDS: Vitamin THERAPEUTIC TAB PO SCH (10:06)
[2018-12-12] MEDS: predniSONE TAB* 50 MG PO SCH (10:06)
[2018-12-12] MEDS: Insulin LISPRO* 1 UNITS UNIT SUBCUT SCH ×4 (10:06→21:55)
[2018-12-12] MEDS: Magnesium Oxide TAB* 400 MG PO SCH (10:06)
[2018-12-12] MEDS: OLANzapine TAB* 10 MG PO SCH ×2 (10:07→21:52)
[2018-12-12] MEDS: Lactobacillus Acidophilus* 1 TAB PO SCH (10:07)
[2018-12-12] MEDS: CLOBAZAM 10 MG PO SCH ×2 (10:07→21:52)
[2018-12-12] MEDS: Lacosamide TAB* 100 MG TAB PO SCH ×2 (10:07→21:52)
[2018-12-12] MEDS: Metoprolol Tartrate TAB* 25 MG PO SCH ×2 (10:07→21:52)
[2018-12-12] MEDS: Folic Acid TAB* 1 MG PO SCH (10:07)
[2018-12-12] MEDS: ESLICARBAZEPINE ACETATE 800 MG PO SCH (10:08)
[2018-12-12] MEDS: TRIHEXYPHENIDYL 5 MG PO SCH (10:08)
[2018-12-12] MEDS: Fluticasone NASAL SPRAY 50MCG* 16 gm SPRAY BTL BOTH NARES SCH (10:09)
[2018-12-12 17:32] LABS: Cytomegalovirus IgG Antibody Negative (Negative)
--- NOTE | 2018-12-12 18:30 | PN ---
Subjective Date of Service: 12/12/18 Interval History: Resting in bed. Reports he no longer has leg pain. Reports he continues to have cough, but shortness of breath is improving. Denies cp, palpitations, fever, chills, nausea, vomiting, diarrhea, abd pain. Objective Active Medications: Acetaminophen (Tylenol Tab*) 650 mg PO Q4H PRN PRN Reason: PAIN or TEMP > 101 F Last Admin: 12/09/18 21:28 Dose: 650 mg Al Hydrox/Mg Hydrox/Simethicone (Maalox Plus*) 30 ml PO Q4H PRN PRN Reason: INDIGESTION Albuterol (Ventolin Hfa Inhaler*) 2 puff INH Q6H PRN PRN Reason: SOB/WHEEZING Last Admin: 12/11/18 23:18 Dose: 2 puff Benzonatate (Tessalon Cap*) 100 mg PO BID PRN PRN Reason: COUGH Clobazam (Onfi Tab(Nf)) 10 mg PO BID [facility] Last Admin: 12/12/18 10:07 Dose: 10 mg Dextrose (D50w Syringe 50 Ml*) 12.5 gm IV PUSH .FOR FS < 60 - SS PRN PRN Reason: FS < 60 Eslicarbazepine Acetate (Aptiom) 800 mg PO DAILY [facility] Last Admin: 12/12/18 10:08 Dose: 800 mg Fluticasone Propionate (Flonase Nasal [place] 50mcg*) 2 spray BOTH NARES DAILY [facility] Last Admin: 12/12/18 10:09 Dose: 2 spray Folic Acid (Folvite Tab*) 1 mg PO DAILY [facility] Last Admin: 12/12/18 10:07 Dose: 1 mg Insulin Human Lispro (Humalog*) [address] [facility]; Protocol Last Admin: 12/12/18 17:44 Dose: 4 units Lacosamide (Vimpat Tab*) 200 mg PO BID [facility] Last Admin: 12/12/18 10:07 Dose: 200 mg Lactobacillus Rhamnosus (Lactobacillus Acidophilus*) 2 tab PO DAILY [facility] Last Admin: 12/12/18 10:07 Dose: 2 tab Lorazepam (Ativan Tab(*)) 2 mg PO Q4H PRN PRN Reason: AGITATION Magnesium Oxide (Magox 400 Tab*) 400 mg PO DAILY WITH MEAL [facility] Last Admin: 12/12/18 10:06 Dose: 400 mg Metoprolol Tartrate (Lopressor Tab*) 25 mg PO BID [facility] Last Admin: 12/12/18 10:07 Dose: 25 mg Multivitamins (Theragran Tab*) 1 tab PO DAILY [facility] Last Admin: 12/12/18 10:06 Dose: 1 tab Olanzapine (Zyprexa Tab*) 5 mg PO BID PRN PRN Reason: AGITATION Olanzapine (Zyprexa Tab*) 10 mg PO BID [facility] Last Admin: 12/12/18 10:07 Dose: 10 mg Ondansetron HCl (Zofran Inj*) 4 mg IV Q6H PRN PRN Reason: NAUSEA Last Admin: 12/10/18 01:01 Dose: 4 mg Pantoprazole Sodium (Protonix Tab*) 40 mg PO DAILY [facility] Last Admin: 12/12/18 10:06 Dose: 40 mg Prednisone (Deltasone Tab*) 100 mg PO DAILY [facility] Last Admin: 12/12/18 10:06 Dose: 100 mg Sodium Chloride (Sodium Chloride 0.65% Nasal [place]*) 1 spray BOTH NARES Q4H PRN PRN Reason: CONGESTION Trihexyphenidyl HCl (Artane Tab*) 2.5 mg PO DAILY [facility] Last Admin: 12/12/18 10:08 Dose: 2.5 mg Vital Signs - 8 hr 12/12/18 12/12/18 11:15 15:20 Temperature 97.7 F 98.5 F Pulse Rate 91 100 Respiratory 22 18 Rate Blood Pressure 101/65 136/83 (mmHg) O2 Sat by Pulse 99 97 Oximetry Oxygen Devices in Use Now: None Appearance: Comfortable, NAD Eyes: No Scleral Icterus Ears/Nose/Mouth/Throat: Clear Oropharnyx, Mucous Membranes Moist Neck: NL Appearance and Movements; NL JVP Respiratory: Symmetrical Chest Expansion and Respiratory Effort, Clear to Auscultation, - - Initially rhonchi heard, but cleared well with cough Cardiovascular: NL Sounds; No Murmurs; No JVD, RRR, No Edema Abdominal: NL Sounds; No Tenderness; No Distention Lymphatic: No Cervical Adenopathy Extremities: No Clubbing, Cyanosis Skin: No Rash or Ulcers Neurological: Alert and Oriented x 3, NL Muscle Strength and Tone Nutrition: Taking PO's Result Diagrams: 12/12/18 05:58 12/12/18 05:58 Additional Lab and Data: Laboratory Results - last 24 hr 12/08/18 12/11/18 12/11/18 02:14 11:21 21:28 WBC RBC Hgb Hct MCV MCH MCHC RDW Plt Count MPV Neut % (Auto) Lymph % (Auto) [place] % (Auto) Eos % (Auto) Baso % (Auto) Absolute Neuts (auto) Absolute Lymphs (auto) Absolute Monos (auto) Absolute Eos (auto) Absolute Basos (auto) Absolute Nucleated RBC Immature Gran % Neutrophils % Band Neutrophils % Lymphocytes % Reactive Lymphs % Monocytes % Eosinophils % Basophils % Metamyelocytes % Nucleated RBC % Abs Neuts (Manual) Abs Lymphs (Manual) Abs Monocytes (Manual) Absolute Eos (Manual) Abs Basophils (Manual) Nucleated RBCs/100 WBC Normal RBC Morphology Polychromasia Anisocytosis Haptoglobin 195 Hem Pathologist Commnt Sodium Potassium Chloride Carbon Dioxide Anion Gap BUN Creatinine Est GFR ( Amer) Est GFR (Non-Af Amer) BUN/Creatinine Ratio Glucose POC Glucose (mg/dL) 164 H Calcium Total Bilirubin AST ALT Alkaline Phosphatase Total Protein Albumin Globulin Albumin/Globulin Ratio CMV IgG Ab Negative CMV IgM Ab Negative EBV Early Antigen Negative 12/12/18 12/12/18 12/12/18 05:58 05:58 07:11 WBC 30.2 H RBC 2.87 L Hgb 8.1 L Hct 23 L MCV 81 MCH 28 MCHC 35 RDW 14 Plt Count 265 MPV 7.2 L Neut % (Auto) Not Reportable Lymph % (Auto) Not Reportable [place] % (Auto) Not Reportable Eos % (Auto) Not Reportable Baso % (Auto) Not Reportable Absolute Neuts (auto) 21.2 H Absolute Lymphs (auto) Not Reportable Absolute Monos (auto) Not Reportable Absolute Eos (auto) Not Reportable Absolute Basos (auto) Not Reportable Absolute Nucleated RBC Not Reportable Immature Gran % 6.0 Neutrophils % 74.0 Band Neutrophils % 4.0 Lymphocytes % 8.0 Reactive Lymphs % 1.0 Monocytes % 7.0 Eosinophils % 4.0 Basophils % 0.0 Metamyelocytes % 2.0 Nucleated RBC % Not Reportable Abs Neuts (Manual) 24.1 H Abs Lymphs (Manual) 2.7 Abs Monocytes (Manual) 2.1 H Absolute Eos (Manual) 1.2 H Abs Basophils (Manual) 0.0 Nucleated RBCs/100 WBC 2.0 H Normal RBC Morphology Not Reportable Polychromasia 2+ Anisocytosis 1+ Haptoglobin Hem Pathologist Commnt Sodium 136 Potassium 3.8 Chloride 100 L Carbon Dioxide 29 Anion Gap 7 BUN 18 Creatinine 0.76 Est GFR ( Amer) 138.2 Est GFR (Non-Af Amer) 114.2 BUN/Creatinine Ratio 23.7 H Glucose 135 H POC Glucose (mg/dL) 147 H Calcium 8.8 Total Bilirubin 1.20 H AST 76 H ALT 195 H Alkaline Phosphatase 88 Total Protein 6.9 Albumin 3.5 Globulin 3.4 Albumin/Globulin Ratio 1.0 CMV IgG Ab CMV IgM Ab EBV Early Antigen 12/12/18 12/12/18 12:13 16:59 WBC RBC Hgb Hct MCV MCH MCHC RDW Plt Count MPV Neut % (Auto) Lymph % (Auto) [place] % (Auto) Eos % (Auto) Baso % (Auto) Absolute Neuts (auto) Absolute Lymphs (auto) Absolute Monos (auto) Absolute Eos (auto) Absolute Basos (auto) Absolute Nucleated RBC Immature Gran % Neutrophils % Band Neutrophils % Lymphocytes % Reactive Lymphs % Monocytes % Eosinophils % Basophils % Metamyelocytes % Nucleated RBC % Abs Neuts (Manual) Abs Lymphs (Manual) Abs Monocytes (Manual) Absolute Eos (Manual) Abs Basophils (Manual) Nucleated RBCs/100 WBC Normal RBC Morphology Polychromasia Anisocytosis Haptoglobin Hem Pathologist Commnt Sodium Potassium Chloride Carbon Dioxide Anion Gap BUN Creatinine Est GFR ( Amer) Est GFR (Non-Af Amer) BUN/Creatinine Ratio Glucose POC Glucose (mg/dL) 171 H 222 H Calcium Total Bilirubin AST ALT Alkaline Phosphatase Total Protein Albumin Globulin Albumin/Globulin Ratio CMV IgG Ab CMV IgM Ab EBV Early Antigen Microbiology and Other Data: Microbiology 12/09/18 11:50 Stool Stool Occult Blood (JUHI) - Final Assess/Plan/Problems-Billing Assessment: 38 yr old male with pmh of DM, obesity, PE, anemia, htn, gerd, seizure disorder ; who is admitted to the [facility]HU and was noted to have an elevated wbc and anemia - Patient Problems (1) Anemia Comment: - Patient noted to have significant decrease in hgb which was on 12.1 on and 8 to 9 on this admission - No blood noted in stool or urine. 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 Prednisone ordered by Dr Schroeder. - Cont to monitor H&H (2) Shortness of breath Comment: - Improving. Likely secondary to recent pneumonia/uri - Given elevated Ddimer, sob, chest tightness, tachycardia, hx of PE; CTA ordered and no evidence of PE. 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 No dyspnea. - Monitor (3) Abdominal pain Comment: - No tenderness today. - CTA revealed mild hepatomegly (4) Leukocytosis Comment: - Likely related to recent infection and/or steriods per hematology (5) Fever Comment: - 100.5 on 12/09 - Blood cultures no growth - Lactic 1.8 - UA and chest xray wnl (6) Leg pain, bilateral Comment: - Improving per patient - Bilateral doppler revealed no suggestion of dvt, but slow blood flow with extensive venous status (7) Chronic psychosis Comment: - Cont home medications as same (8) Hypertension Comment: - Well-controlled - Continue home medications (9) Seizure disorder Comment: - Cont medications as same. - Patient follows with Dr Lake and had 3 day seizure study in [place] per staff - Seizure precautions - Dr Perez consulting and recommends no change in medication (10) Diabetes Comment: - Hold Metformin while inpatient - Cont ACHS FSBG and SS (11) Pneumonia Comment: - Completed abx prior to admission - Repeat chest xray unremarkable (12) GERD (gastroesophageal reflux disease) Comment: - Cont PPI (13) DVT prophylaxis Comment: - SCDs and ambulation given anemia Status and Disposition: Inpatient. [facility] does not believe he needs further admission, therefore, he will be discharge to [facility] when medically stable. Attending: Freya Banks
[2018-12-12] MEDS: Albuterol HFA INHALER* 8 gm MDI INH PRN (21:48)
[2018-12-13] MEDS ORDERED: Albuterol 2.5 MG/3 ML NEB.SOL* (0.083%) INH PRN (01:51)
[2018-12-13 07:14] LABS: Albumin 3.4 g/dL (3.2-5.2); Albumin/Globulin Ratio 1.1 (1-3); BUN/Creatinine Ratio 17.5 (8-20); Calcium 8.8 mg/dL (8.6-10.3); EGFR African American 130.2 (>60); EGFR Non-African American 107.6 (>60); Globulin 3.1 g/dL (2-4); Potassium 3.8 mmol/L (3.5-5.0); Total Bilirubin 0.8 mg/dL (0.2-1.0); Total Protein 6.5 g/dL (6.4-8.9)
[2018-12-13 07:28] LABS: Hematocrit 23 % (42-52); Hemoglobin 7.9 g/dL (14.0-18.0); Mean Corpuscular HGB Conc 34 g/dL (31-36); Mean Corpuscular Hemoglobin 28 pg (27-31); Mean Corpuscular Volume 83 fL (80-94); Mean Platelet Volume 7.6 fL (7.4-10.4); Platelet Count 283 10^3/uL (150-450); Red Blood Count 2.77 10^6 /uL (4.18-5.48); Red Cell Distribution Width 14 % (10.5-15)
[2018-12-13] MEDS: Insulin LISPRO* 1 UNITS UNIT SUBCUT SCH ×2 (07:28→13:00)
[2018-12-13] MEDS: Fluticasone NASAL SPRAY 50MCG* 16 gm SPRAY BTL BOTH NARES SCH (07:35)
[2018-12-13] MEDS: TRIHEXYPHENIDYL 5 MG PO SCH (07:36)
[2018-12-13] MEDS: OLANzapine TAB* 10 MG PO SCH (07:37)
[2018-12-13] MEDS: Lactobacillus Acidophilus* 1 TAB PO SCH (07:37)
[2018-12-13] MEDS: Pantoprazole TAB * 40 MG TAB PO SCH (07:37)
[2018-12-13] MEDS: Magnesium Oxide TAB* 400 MG PO SCH (07:37)
[2018-12-13] MEDS: ESLICARBAZEPINE ACETATE 800 MG PO SCH (07:37)
[2018-12-13] MEDS: predniSONE TAB* 50 MG PO SCH (07:39)
[2018-12-13] MEDS: Lacosamide TAB* 100 MG TAB PO SCH (07:39)
[2018-12-13] MEDS: Vitamin THERAPEUTIC TAB PO SCH (07:40)
[2018-12-13] MEDS: CLOBAZAM 10 MG PO SCH (07:40)
[2018-12-13] MEDS: Metoprolol Tartrate TAB* 25 MG PO SCH (07:40)
[2018-12-13] MEDS: Folic Acid TAB* 1 MG PO SCH (07:40)
[2018-12-13 10:02] LABS: ABS Basophils 0.1 10^3/ul (0-0.2); ABS Eosinophils 0.7 10^3/ul (0-0.6); ABS Lymphocytes 5.4 10^3/ul (1.0-4.8); ABS Monocytes 2.4 10^3/ul (0-0.8); ABS Neutrophils 22.3 10^3/ul (1.5-7.7); ABS Nucleated RBC 0.6 10^3/ul; Eosinophil % 2.3 %; Lymphocyte % 17.6 %
[2018-12-13 10:06] LABS: Microcytosis 1+
[2018-12-13 10:07] LABS: Polychromasia 1+
[2018-12-13 10:25] LABS: Immature Retic Fraction 0.67; RBC Retic Count 2.85 10^6/uL (4.18-5.48)
[2018-12-13 10:29] LABS: Corrected Retic Count 5.3 % (0.5-1.5); Hematocrit for Retic CNT 24 % (42-52)
[2018-12-13 11:38] VITALS: BP 122/73
[2018-12-13 13:11] LABS: Smooth Muscle Antibody Negative (Negative)
[2018-12-13 14:22] LABS: Mycoplasma pneumoniae IgG Ab Positive (Negative); Mycoplasma pneumoniae IgM Ab Reactive (Negative)
[2018-12-13 14:57] LABS: Mitochondria M2 Antibody <0.1 U
--- NOTE | 2018-12-14 03:12 | DS ---
CC: Dr. Olmstead; Dr. Manoj Lake; Dr. Shwa * DISCHARGE SUMMARY: DATE OF ADMISSION: 12/08/18 DATE OF DISCHARGE: 12/13/18 PRIMARY CARE PROVIDER: Dr. Olmstead. OUTPATIENT NEUROLOGIST: Dr. Manoj Lake. INPATIENT PSYCHIATRIST: Dr. Shaw. ATTENDING PHYSICIAN: Dr. Freya Banks * (dictated by Edmundo Arreguin NP). PRIMARY DIAGNOSES: 1. Autoimmune hemolytic anemia. 2. Shortness of breath. 3. Leukocytosis. 4. Chronic psychosis. 5. Hypertension. 6. Seizure disorder. 7. Diabetes. 8. Gastroesophageal reflux disease. CONSULTATIONS WHILE IN THE HOSPITAL: 1. Dr. Perez, neurology. 2. Dr. Schroeder, hematology. STUDIES WHILE IN THE HOSPITAL: Chest x-ray: Impression: No active cardiopulmonary disease. Chest/abdomen/pelvic CTA: Impression: Mild hepatomegaly. 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 No aortic or pulmonary artery filling defect to suggest thrombosis/embolus. Venous Doppler study: Impression: No evidence of deep vein thrombosis. A slow blood flow with extensive venostasis throughout the bilateral venous system. DISCHARGE HOME MEDICATIONS: Continued Home Medications: 1. Artane 2.5 mg p.o. daily. 2. Potassium chloride 10 mEq p.o. daily. 3. Protonix 40 mg p.o. daily. 4. Zyprexa 5 mg p.o. b.i.d. p.r.n. 5. Zyprexa 10 mg p.o. b.i.d. 6. Metoprolol tartrate 25 mg p.o. b.i.d. 7. Metformin ER 750 mg p.o. daily. 8. Magnesium oxide 400 mg p.o. daily with meals. 9. Vimpat 200 mg p.o. b.i.d., MDD 400 mg. 10. Floranex tablet 2 chews p.o. daily. 11. Motrin 800 mg p.o. t.i.d. p.r.n. 12. Ibuprofen 800 mg p.o. t.i.d. p.r.n. 13. Aptiom 800 mg p.o. daily. 14. Clobazam 10 mg p.o. b.i.d. 15. Tessalon 100 mg capsule p.o. b.i.d. p.r.n. 16. Albuterol inhaler 2 puff inhalation q.6 hours p.r.n. [place] Medications: 1. Prednisone 100 mg p.o. daily. 2. Folic acid 1 mg p.o. daily. HISTORY OF PRESENT ILLNESS/HOSPITAL COURSE: Mr. Mcbride is a 38-year-old - [place] male who presented to the emergency department on 12/08/18 with reports of feeling unsafe and the staff at his [facility] reported to the police that he had been disruptive and making homicidal threats. Please see history and physical dictated by Kennedy Valle MD, for complete summary of events leading up to this hospitalization, but in short given the patient's multiple previous inpatient psychiatric admissions and diagnosis of schizoaffective disorder and current presentation, he was admitted to the psychiatric unit. While in the psychiatric unit, the patient was noted to have an elevated white count at 25.6 and a decreased hemoglobin and hematocrit at 8.2 and 23, respectively. Given these findings, the hospitalists were consulted for medical management. The patient was then transferred to the medical floor given the significant decrease in his H and H, as on 11/23/18, the patient was noted to have a hemoglobin of 12.1 and a hematocrit of 37. Given the significant drop, the patient was admitted to the medical unit for further evaluation and treatment. While on the medical unit, further evaluation was conducted by the hospitalist team , Dr. Schroeder and Dr. Perez. In reviewing the patient's labs, it was concluded that the patient was suffering from an autoimmune hemolytic anemia possibly secondary to his recent pneumonia infection and/or treatment with antibiotics. The patient was also noted to possibly have a G6PD deficiency, which could have contributed to the patient's autoimmune hemolytic anemic reaction. Given this new diagnosis, the patient was started on steroid, prednisone 100 mg p.o. daily. The patient's hemoglobin and hematocrit stabilized as it remained approx 8 and 24. The patient has remained free from signs of bleeding. The patient is stable for discharge to the [facility], which is his home today. VITAL SIGNS: Temperature 98, HR 98, RR 22, O2 saturation 100% on room air, BP 122/73. REVIEW OF SYSTEMS: The patient denies chest pain, shortness of breath, cough, palpitations, abdominal pain, nausea, vomiting, and diarrhea. A 14-point review of systems was completed and all were negative. PHYSICAL EXAM: General: Mr. Mcbride is sitting in bed. He appears to be in no acute distress. He appears his stated age. HEENT: EOMs intact. PERRLA. Oral mucosa is moist without lesion. Posterior pharynx is clear. Neck: Supple. No lymphadenopathy. Respiratory: The patient has scant sporadic wheeze, but otherwise good aeration. No rhonchi or rales. Cardiac: S1, S2 present. Regular rhythm. No murmurs, rubs, or gallops. Abdomen: Soft, nontender. Bowel sounds normoactive throughout. Extremities: No edema. No clubbing or cyanosis. Pedal pulses 2+ bilaterally. No calf tenderness. Musculoskeletal: No pain or deformities. Skin: Skin is intact without lesions. Neuro: The patient is awake, alert and orientated. Strength is 5/5 in the upper and lower extremities. No focal deficits or weakness. DIAGNOSTIC STUDIES/LAB DATA: Laboratory Data: WBC 31.0, hemoglobin 7.9, hematocrit 23, platelets 283. Sodium 137, potassium 3.8, chloride 103, carbon dioxide 27, BUN 14, creatinine 0.80, glucose 129. Total bilirubin 0.80, AST 33 , ALT 128. DISCHARGE PLAN/FOLLOWUP: 1. Autoimmune hemolytic anemia: The patient will be discharged home with prednisone 100 mg p.o. daily and folic acid 1 mg p.o. daily. The patient will follow up with Dr. Schroeder and this appointment has been made and his case fitter has been notified. At this appointment, the patient will have repeat labs and they will discuss possibly tapering steroids. The patient is to continue to monitor for signs of bleeding. 2. G6PD deficiency: As mentioned above, the patient is suspected to have G6PD deficiency, which may have contributed to the patient's onset of his autoimmune hemolytic anemia. The patient's G6PD level is 1.4. The patient was educated on appropriate diet for patients with this deficiency. The patient was provided with a handout from [facility]. 3. Shortness of breath: The patient occasionally was complaining of shortness of breath initially on his admission. This was resolved. It should be mentioned the patient had a CT which showed no evidence of PE. The patient was oxygenating well on room air. The patient was not noted to have dyspnea. We suspect this is secondary to the patient's recent pneumonia/URI. The patient should continue his albuterol inhaler that was previously prescribed. 4. Leukocytosis: The patient has a fairly elevated white count, which has been chronic during this admission. We suspect this is from the high-dose steroids. Patient should have a repeat CBC with Dr. Schroeder next week. 5. Chronic psychosis: The patient should continue his home medications the same with no change. 6. Hypertension: The patient should continue his home medications the same with no change. 7. Seizure disorder: The patient has a known seizure history and follows with Dr. Lake. I was told that the patient spent 3 days in a seizure study in [place] for appropriate med management. Dr. Perez was consulted during the hospital stay and did not recommend any medication changes as these were not the culprit for the patient's autoimmune hemolytic anemia. The patient should continue all of his home medications the same. The patient should follow up with Dr. Lake as previously recommended. 8. Diabetes: The patient should continue his metformin. 9. GERD: The patient should continue his PPI. 10. Followup: As mentioned above, the patient has been scheduled for a followup next week with Dr. Schroeder. It is very important that the patient does not miss this appointment. The patient should follow up with his primary care next week also. 11. Education: The patient was educated on signs and symptoms of new or worsening condition and when to return to the emergency department. The patient stated understanding. TIME SPENT: Approximately 40 minutes were spent on this discharge, greater than half of the time was spent [id number] with the patient discussing discharge plans and instructions. This is a summarized report of a complex medical history and hospital stay. For further details, please see the entire medical record. Plan: This plan was discussed with my attending, Dr. Freya Banks, who is in agreement with my plan of care. Reviewed by EDMUNDO ARREGUIN NP 12/17/18 1310 [id number]/[facility] #: [id number] MIREYA
== END 2018-12-13 13:30 | disposition home or self-care (01) | DRG 810 ==
LOC: ED 01:15 → BSU 04:15 → MED 12-09 20:21
PROVIDERS: ADMIT Psychiatry & Neurology Psychiatry; ATTEND Internal Medicine
DX: D59.1 Other autoimmune hemolytic anemias (principal); R06.02 Shortness of breath; I10 Essential (primary) hypertension; G40.909 Epilepsy, unspecified, not intractable, without status epilepticus; F29 Unspecified psychosis not due to a substance or known physiological condition; E11.9 Type 2 diabetes mellitus without complications; K21.9 Gastro-esophageal reflux disease without esophagitis; D55.0 Anemia due to glucose-6-phosphate dehydrogenase [G6PD] deficiency; R45.850 Homicidal ideations; E66.9 Obesity, unspecified; F20.9 Schizophrenia, unspecified; F31.9 Bipolar disorder, unspecified; M79.605 Pain in left leg; M79.604 Pain in right leg; K59.00 Constipation, unspecified; R50.9 Fever, unspecified; D72.828 Other elevated white blood cell count; Z68.29 Body mass index [BMI] 29.0-29.9, adult; Z86.711 Personal history of pulmonary embolism; Z88.8 Allergy status to other drugs, medicaments and biological substances; Z81.8 Family history of other mental and behavioral disorders; Z82.49 Family history of ischemic heart disease and other diseases of the circulatory system; Z83.3 Family history of diabetes mellitus; Z80.9 Family history of malignant neoplasm, unspecified; Z79.84 Long term (current) use of oral hypoglycemic drugs; Z79.1 Long term (current) use of non-steroidal anti-inflammatories (NSAID); Z79.51 Long term (current) use of inhaled steroids; Z79.52 Long term (current) use of systemic steroids; Z79.899 Other long term (current) drug therapy
CPT/HCPCS: 36415; 71045; 71275; 74174; 80053; 80061; 80074; 80307; 80320; 80329; 81003; 82272; 82550; 82607; 82728; 82746; 82955; 83010; 83036; 83516; 83540; 83550; 83605; 83615; 83690; 84443; 85025; 85027; 85045; 85060; 85379; 85660; 86038; 86255; 86644; 86645; 86663; 86703; 86738; 86880; 87040; 93970; 94640; 99284; A9270-GY; G0480; J1650; J2405; J7512; J7611; Q9967